=== PATIENT | male | born 1960 | race Hispanic/Latino ===

== ENCOUNTER 2016-11-07 11:50 | Observation (INO) | payer OTHER ==
[2016-11-07 12:29] VITALS: BMI 21.5
--- NOTE | 2016-11-07 12:34 | ED PDOC ---
Arrival/HPI - General Chief Complaint: Altered Mental Status Time Seen by Provider: 11/07/16 12:24 Historian: EMS - History of Present Illness Narrative History of Present Illness (Text): 11/07/16 12:34 Italo Llamas is a 56 year old male who presents to the emergency department via EMS for alcohol intoxication. Patient was found on his door steps intoxicated with a superficial abrasion on his head. Patient admits to drinking alcohol. ROS limited due to intoxication. Time/Duration: 1/2 hour Symptom Onset: Gradual Severity Level: Mild Activities at Onset: Significant Context: Slipped Past Medical History - Provider Review Nursing Documentation Reviewed: Yes - Past History Past History: No Previous - Infectious Disease Hx of Infectious Diseases: None - Tetanus Immunization Tetanus Immunization: Unknown - Cardiac Hx Hypertension: Yes (no meds) - Hematological/Oncological Hx Cancer: Yes (LYMPHOMA, lymphedema) Hx Lymphoma: Yes Other/Comment: left lymphedema - Psychiatric Hx Depression: No Hx Emotional Abuse: No Hx Physical Abuse: No Hx Substance Use: No - Surgical History Other/Comment: lyphectomy - Anesthesia Hx Anesthesia: Yes Hx Anesthesia Reactions: No Hx Malignant Hyperthermia: No - Suicidal Assessment Feels Threatened In Home Enviroment: No Family/Social History - Physician Review Nursing Documentation Reviewed: Yes Family/Social History: No Known Family HX Smoking Status: Never Smoked Hx Alcohol Use: Yes (hx in pt old chart) Hx Substance Use: No Hx Substance Use Treatment: No Allergies/Home Meds Allergies/Adverse Reactions: Allergies Unobtainable Allergy (Verified 11/07/16 12:29) Home Medications: Home Meds Medication Instructions Recorded Confirmed Unobtainable 11/07/16 11/07/16 Review of Systems - Review of Systems Systems not reviewed;Unavailable: Intoxicated Neurological: Other (abrasion on head ) Physical Exam Vital Signs Reviewed: Yes Vital Signs Temp Pulse Resp BP Pulse Ox 11/07/16 14:51 105 H 14 128/94 H 99 11/07/16 14:07 98.0 F 106 H 19 132/68 99 11/07/16 12:49 97.9 F 98 H 18 122/78 97 Temperature: Afebrile Blood Pressure: Normal Pulse: Regular Respiratory Rate: Normal Appearance: Positive for: Well-Appearing Pain Distress: None Mental Status: Positive for: other (Alert ) - Systems Exam Head: Present: Normocephalic, Abrasion (to superior head). No: Tenderness Pupils: Present: PERRL Conjunctiva: Present: Normal Ears: Present: Normal, NORMAL TM Mouth: Present: Moist Mucous Membranes Pharnyx: Present: Normal Nose (Internal): Present: Normal Inspection, Septal Hematoma Neck: Present: MIDLINE TENDERNESS Respiratory/Chest: Present: Clear to Auscultation, Good Air Exchange. No: Respiratory Distress, Accessory Muscle Use Cardiovascular: Present: Regular Rate and Rhythm, Normal S1, S2. No: Murmurs Abdomen: Present: Normal Bowel Sounds. No: Tenderness, Distention, Peritoneal Signs Upper Extremity: Present: Normal Inspection. No: Cyanosis, Edema Lower Extremity: Present: Normal Inspection. No: Edema Neurological: Present: GCS=15, CN II-XII Intact, Speech Normal, Motor Func Grossly Intact, Normal Sensory Function Skin: Present: Warm, Dry, Normal Color. No: Rashes Psychiatric: Present: Alert, Intoxicated Medical Decision Making ED Course and Treatment: 11/07/16 12:46 Impression: A 56 year old male who presents to the emergency department via EMS for intoxication. Plan: -- CT Head -- CT Spine -- Labs, lipase -- Reassess and disposition Progress Notes: 11/07/16 12:47 ED OBSERVATION Discharge: Yes Date of observation admission: 11/07/16 Time of observation admission: 13:01 - Observation admission statement Patient is being placed in observation because:: alcohol intoxication - Goals of Observation Goals of observation are:: Pending Labs, imaging, reevaluation and disposition - Progress Note Progress Note: 11/07/16 14:42 Patient resting comfortably in the emergency department with stable vitals. 11/07/16 15:55 Patient arousable to voice and is comfortable. Denies any pain. Mental status improved. Accession No. : [id number] Patient Name / ID : CHANELL HUMMEL / [id number] Exam Date : 11/07/2016 14:52:45 ( Approved ) Creator : Pablo Adams MD Report Date : 11/07/2016 15:43:31 My Comment : PROCEDURE: CT HEAD WITHOUT CONTRAST. IMPRESSION: No acute intracranial hemorrhage. Presumed posttraumatic right inferior frontal pole encephalomalacia and cyst right frontal region with overlying sulcal enlargement of both frontal lobes right greater than left. Questionable incidental overlying arachnoid cyst right inferior frontal region. Mild generalized volume loss. Accession No. : [id number] Patient Name / ID : CHANELL HUMMEL / [id number] Exam Date : 11/07/2016 14:56:14 ( Approved ) Creator : Pablo Adams MD Report Date : 11/07/2016 15:51:05 My Comment : PROCEDURE: CT Cervical Spine without contrast IMPRESSION: Mild multilevel degenerative spondylosis as described. No acute fractures. 11/07/16 16:17 On reevaluation, patient is alert awake and oriented x 3. No slurred speech. No ataxia. Neuro exam normal. No tremors. No SI/HI. 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 He said he was just out with friends and drank too much. He tripped and fell yesterday. No LOC. He denies any pain. He has his tetanus up to date. He he will f/u with his primary Dr. Long. 11/07/16 16:21 - Scribe Statement The provider has reviewed the documentation as recorded by the Carol Morales Provider Attestation: All medical record entries made by the Verniblaurence were at my direction and personally dictated by me. I have reviewed the chart and agree that the record accurately reflects my personal performance of the history, physical exam, medical decision making, and the department course for this patient. I have also personally directed, reviewed, and agree with the discharge instructions and disposition. Disposition/Present on Arrival - Present on Arrival Any Indicators Present on Arrival: No History of DVT/PE: No History of Uncontrolled Diabetes: No Urinary Catheter: No History of Decub. Ulcer: No History Surgical Site Infection Following: None - Disposition Have Diagnosis and Disposition been Completed?: Yes Diagnosis: Fall, Head injury, Alcohol intoxication Disposition: HOME/ ROUTINE Disposition Time: 16:20 Patient Plan: Discharge Patient Problems: Current Active Problems Problem Status Onset Alcohol intoxication Acute Fall Acute Head injury Acute Condition: IMPROVED
[2016-11-07 14:08] VITALS: TEMP 98
--- NOTE | 2016-11-07 15:45 | CT ---
PROCEDURE: CT HEAD WITHOUT CONTRAST. HISTORY: fall r/o ICH COMPARISON: CT brain 06/04/15. TECHNIQUE: Axial computed tomography images were obtained through the head/brain without intravenous contrast. Radiation dose: Total exam DLP = 774.23 mGy-cm. This CT exam was performed using one or more of the following dose reduction techniques: Automated exposure control, adjustment of the mA and/or kV according to patient size, and/or use of iterative reconstruction technique. FINDINGS: HEMORRHAGE: No acute parenchymal, subarachnoid or extra-axial hemorrhage. BRAIN: Re- demonstrated are partially cystic encephalomalacia changes and gliosis right inferior frontal pole with overlying enlargement sulcal enlargement. Minor sulcal enlargement left inferior frontal pole. Findings are most consistent with sequela of old trauma. Clinical correlation recommended. There may also be an incidental overlying arachnoid cyst as well. Mild generalized volume loss not withstanding the at aforementioned sulcal enlargement in the frontal regions. VENTRICLES: As above however no evidence of obstructive type hydrocephalus. CALVARIUM: There are no acute calvarial fractures. Old fracture deformity right lamina papyracea. . PARANASAL SINUSES: Visualized paranasal sinuses are well-developed and currently well-aerated. No fluid levels seen to suggest acute sinusitis. MASTOID AIR CELLS: Unremarkable as visualized. No inflammatory changes. OTHER FINDINGS: None. IMPRESSION: No acute intracranial hemorrhage. Presumed posttraumatic right inferior frontal pole encephalomalacia and cyst right frontal region with overlying sulcal enlargement of both frontal lobes right greater than left. Questionable incidental overlying arachnoid cyst right inferior frontal region. Mild generalized volume loss.
--- NOTE | 2016-11-07 15:52 | CT ---
PROCEDURE: CT Cervical Spine without contrast HISTORY: <fall r/o fx> COMPARISON: None available. TECHNIQUE: Axial computed tomography images were obtained of the cervical spine without the use of intravenous contrast. Coronal and sagittal reformatted images were created and reviewed. Radiation dose: Total exam DLP = 417.83 the MGy-cm. This CT exam was performed using one or more of the following dose reduction techniques: Automated exposure control, adjustment of the mA and/or kV according to patient size, and/or use of iterative reconstruction technique. FINDINGS: VERTEBRAE: No no acute compression fractures no retropulsed fragments. Vertebral bodies exhibit relatively normal stature. Very slight posterior subluxation of print C5 over C6 which is exacerbated in appearance by a prominent osteophyte arising from the posterior inferior corner of the C5 segment. Vertebral bodies and facets. . Minimal on posterior subluxation C4 over C5 also exacerbated by an osteophyte posterior inferior corner of C4 segment. The remaining vertebral bodies otherwise exhibit normal alignment. Facets normally aligned. DISCS/SPINAL CANAL/NEURAL FORAMINA: Multilevel degenerative spondylosis of the cervical spine. At the C2-C3 level, minor posterior disc space narrowing. Small central and bilateral disc bulge indents the ventral surface of the thecal sac though does not cause canal stenosis or cord compression. Exit foramina are adequate. At the C3-C4 level, there is also mild disc space narrowing more so along the posterior disc margin. Small broad-based slightly asymmetric disc bulge larger on the left than right, flattens the ventral surface of the thecal sac and minimally flattens ventral surface of the spinal cord. Central canal is minimally narrowed. . Mild degenerative squaring of the uncovertebral joints. Facets a prominent. Exit foramina are mildly narrowed. At the C4-C5 level, there is mild disc space narrowing with small broad-based disc bulge ridge complex contiguous with hypertrophic uncovertebral joints. Facets are hypertrophic as well. Changes result in mild flattening of the ventral surface of thecal sac and spinal cord. Go go central canal is slightly narrowed. Exit foramina appear narrowed as well. At the C5-C6 level, disc space narrowing with endplate eburnation and small osteophytic ridge disc bulge complex results in mild canal narrowing and cord compression. Uncovertebral facet arthropathy result in bilateral foraminal stenosis. At the C6-C7 level, disc space narrowing with small osteophytic ridge asymmetric disc bulge larger on the right than left with resultant mild flattening of the ventral surface of the thecal sac. The overall central canal appears adequate. Uncovertebral facet arthropathy result in bilateral foraminal stenosis. PARASPINAL SOFT TISSUES: Prevertebral and paraspinal soft tissues unremarkable. Keenan 6 and OTHER FINDINGS: None. IMPRESSION: Mild multilevel degenerative spondylosis as described. No acute fractures.
[2016-11-07 16:32] VITALS: BP 132/89; RESP 18; O2SAT 98
[2016-11-07 16:33] VITALS: PULSE 103
== END 2016-11-07 16:19 | disposition home or self-care (01) ==
LOC: ED 11:50 → EROBSV 12:33
PROVIDERS: ADMIT Emergency Medicine; ATTEND Emergency Medicine
DX: F10.129 Alcohol abuse with intoxication, unspecified (principal); S09.90XA Unspecified injury of head, initial encounter; W01.0XXA Fall on same level from slipping, tripping and stumbling without subsequent striking against object, initial encounter
CPT/HCPCS: 70450; 72125; 82948; 99285; G0378

== ENCOUNTER 2017-04-10 17:22 | Emergency (ER) | payer OTHER ==
[2017-04-10 17:27] VITALS: BMI 23.0
[2017-04-10 17:34] VITALS: RESP 18; TEMP 98.2
--- NOTE | 2017-04-10 17:41 | ED PDOC ---
Arrival/HPI - General Chief Complaint: Alcohol Ingestion Time Seen by Provider: 04/10/17 17:31 - History of Present Illness Narrative History of Present Illness (Text): 56M brought in by EMS after being found by police sleeping outside. the pt reports drinking etoh daily including today. he says [place] when he felt tired and lay down. he denies any trauma, any headache, neck pain, or any other complaints. Past Medical History - Past History Past History: No Previous - Infectious Disease Hx of Infectious Diseases: None - Tetanus Immunization Tetanus Immunization: Unknown - Cardiac Hx Hypertension: Yes (no meds) - Hematological/Oncological Hx Cancer: Yes (LYMPHOMA, lymphedema) Hx Lymphoma: Yes Other/Comment: left lymphedema - Musculoskeletal/Rheumatological Other/Comment: Left arm lymphedema - Psychiatric Hx Depression: No Hx Emotional Abuse: No Hx Physical Abuse: No Hx Substance Use: No - Surgical History Other/Comment: lyphectomy - Anesthesia Hx Anesthesia: Yes Hx Anesthesia Reactions: No Hx Malignant Hyperthermia: No - Suicidal Assessment Feels Threatened In Home Enviroment: No Family/Social History Family/Social History: Other (nc) Smoking Status: Never Smoked Hx Alcohol Use: Yes (hx in pt old chart) Frequency of alcohol use: Socially Hx Substance Use: No Hx Substance Use Treatment: No Allergies/Home Meds Allergies/Adverse Reactions: Allergies No Known Allergies Allergy (Verified 04/10/17 17:32) Home Medications: Home Meds Medication Instructions Recorded Confirmed No Known Home Med 04/10/17 04/10/17 Review of Systems - Review of Systems Constitutional: absent: Fevers Eyes: absent: Vision Changes Respiratory: absent: SOB Cardiovascular: absent: Chest Pain Gastrointestinal: absent: Abdominal Pain, Nausea, Vomiting Musculoskeletal: absent: Back Pain, Neck Pain Neurological: absent: Headache, Dizziness, Focal Weakness Psychiatric: absent: Depression, Suicidal Ideation Physical Exam Vital Signs Reviewed: Yes Vital Signs Temp Pulse Resp BP Pulse Ox 04/10/17 17:33 98.2 F 96 H 18 140/114 H 97 Appearance: Positive for: Well-Appearing, Non-Toxic, Comfortable Pain Distress: None Mental Status: Positive for: Alert and Oriented X 3 - Systems Exam Head: Present: Atraumatic. No: Tenderness, Contusion, Swelling, Ecchymosis, Abrasion, Laceration Pupils: Present: PERRL Extroacular Muscles: Present: EOMI Mouth: Present: Moist Mucous Membranes Nose (Internal): No: Epistaxis Neck: Present: Normal Range of Motion. No: MIDLINE TENDERNESS Respiratory/Chest: Present: Clear to Auscultation. No: Respiratory Distress, Accessory Muscle Use Cardiovascular: Present: Regular Rate and Rhythm Abdomen: No: Tenderness, Distention Neurological: Present: GCS=15, Motor Func Grossly Intact, Normal Sensory Function, Gait Normal Skin: Present: Warm, Dry Psychiatric: Present: Alert, Oriented x 3 Medical Decision Making ED Course and Treatment: 04/10/17 18:35 the pt is up and ambulatory with steady gait and requesting to leave. no indication to hold him involuntarily at this time. he lives a few blocks away and is comfortable walking home. Disposition/Present on Arrival - Present on Arrival Any Indicators Present on Arrival: No History of DVT/PE: No History of Uncontrolled Diabetes: No Urinary Catheter: No History of Decub. Ulcer: No History Surgical Site Infection Following: None - Disposition Have Diagnosis and Disposition been Completed?: Yes Diagnosis: Alcohol abuse Disposition: HOME/ ROUTINE Disposition Time: 18:37 Condition: STABLE Forms: [employer] (Danish)
[2017-04-10 18:45] VITALS: BP 130/77; PULSE 90; O2SAT 99
== END 2017-04-10 18:46 | disposition home or self-care (01) ==
LOC: ED 17:22
DX: F10.10 Alcohol abuse, uncomplicated (principal)

== ENCOUNTER 2017-05-06 12:32 | Emergency (ER) | payer OTHER ==
[2017-05-06 12:32] VITALS: BMI 23.0
[2017-05-06 13:04] VITALS: RESP 18
--- NOTE | 2017-05-06 13:40 | ED PDOC ---
Arrival/HPI - General Chief Complaint: Alcohol Ingestion Time Seen by Provider: 05/06/17 12:34 - History of Present Illness Narrative History of Present Illness (Text): 05/06/17 13:33 A 56 year old male presents to the emergency department via EMS for alcohol intoxication. The patient denies fevers, chills, headache, dizziness, chest pain , shortness of breath, dyspnea on exertion, cough, abdominal pain, nausea, vomiting, diarrhea, back pain, neck pain, urinary/bowel changes, or any other complaint. Time/Duration: Prior to Arrival Symptom Onset: Sudden Symptom Course: Unchanged Activities at Onset: Rest, Light Context: Home Past Medical History - Provider Review Nursing Documentation Reviewed: Yes - Past History Past History: No Previous - Infectious Disease Hx of Infectious Diseases: None - Tetanus Immunization Tetanus Immunization: Unknown - Cardiac Hx Hypertension: Yes (no meds) - Hematological/Oncological Hx Cancer: Yes (LYMPHOMA, lymphedema) Hx Lymphoma: Yes Other/Comment: left lymphedema - Musculoskeletal/Rheumatological Other/Comment: Left arm lymphedema - Psychiatric Hx Depression: No Hx Emotional Abuse: No Hx Physical Abuse: No Hx Substance Use: No - Surgical History Other/Comment: lyphectomy - Anesthesia Hx Anesthesia: Yes Hx Anesthesia Reactions: No Hx Malignant Hyperthermia: No - Suicidal Assessment Feels Threatened In Home Enviroment: No Family/Social History - Physician Review Nursing Documentation Reviewed: Yes Family/Social History: No Known Family HX Smoking Status: Never Smoked Hx Alcohol Use: Yes (hx in pt old chart) Hx Substance Use: No Hx Substance Use Treatment: No Allergies/Home Meds Allergies/Adverse Reactions: Allergies No Known Allergies Allergy (Verified 04/10/17 17:32) Home Medications: Home Meds Medication Instructions Recorded Confirmed No Known Home Med 04/10/17 05/06/17 Review of Systems - Physician Review All systems were reviewed & negative as marked: Yes - Review of Systems Constitutional: absent: Fevers, Night Sweats ENT: absent: Sore Throat Respiratory: absent: SOB, Cough Gastrointestinal: absent: Abdominal Pain, Stool Changes, Diarrhea, Nausea, Vomiting Genitourinary Male: absent: Urinary Output Changes Musculoskeletal: absent: Back Pain, Neck Pain Neurological: absent: Headache, Dizziness Physical Exam Vital Signs Reviewed: Yes Vital Signs Temp Pulse Resp BP Pulse Ox 05/06/17 15:33 98.2 F 78 18 132/78 97 05/06/17 12:59 97.9 F 92 H 18 144/110 H 95 Temperature: Afebrile Pulse: Tachycardic Respiratory Rate: Normal Appearance: Positive for: Well-Appearing, Non-Toxic, Comfortable Pain Distress: None Mental Status: Positive for: Alert and Oriented X 3 - Systems Exam Head: Present: Atraumatic, Normocephalic Pupils: Present: PERRL Extroacular Muscles: Present: EOMI Conjunctiva: Present: Normal Mouth: Present: Moist Mucous Membranes Neck: Present: Normal Range of Motion Respiratory/Chest: Present: Clear to Auscultation, Good Air Exchange. No: Respiratory Distress, Accessory Muscle Use Cardiovascular: Present: Regular Rate and Rhythm, Normal S1, S2. No: Murmurs Abdomen: Present: Normal Bowel Sounds. No: Tenderness, Distention, Peritoneal Signs Back: Present: Normal Inspection Upper Extremity: Present: Normal Inspection. No: Cyanosis, Edema Lower Extremity: Present: Normal Inspection. No: Edema Neurological: Present: GCS=15, CN II-XII Intact, Speech Normal Skin: Present: Warm, Dry, Normal Color. No: Rashes Psychiatric: Present: Alert, Oriented x 3, Normal Insight, Normal Concentration Medical Decision Making ED Course and Treatment: 05/06/17 13:41 Impression: A 56 year old male presents to the emergency department for ETOH intoxication. Plan: -- Reassess and disposition Prior Visits: Notes and results from previous visits were reviewed. Patient was last seen in the emergency department on 04/10/2017. The patient was brought into the emergency department for ETOH intoxiation. The patient was discharged home. Progress Notes: 05/06/17 17:42 pt awake alert in nad. ambualtory steady gait. stable for dc. - Lab Interpretations Lab Results: Lab Results 05/06/17 14:19: POC Glucose (mg/dL) 98 - Scribe Statement The provider has reviewed the documentation as recorded by the Carol Boudreaux Provider Scribe Attestation: All medical record entries made by the Scribe were at my direction and personally dictated by me. I have reviewed the chart and agree that the record accurately reflects my personal performance of the history, physical exam, medical decision making, and the department course for this patient. I have also personally directed, reviewed, and agree with the discharge instructions and disposition. Disposition/Present on Arrival - Present on Arrival Any Indicators Present on Arrival: No History of DVT/PE: No History of Uncontrolled Diabetes: No Urinary Catheter: No History of Decub. Ulcer: No History Surgical Site Infection Following: None - Disposition Have Diagnosis and Disposition been Completed?: Yes Diagnosis: Alcohol intoxication Disposition: HOME/ ROUTINE Disposition Time: 06:00 Condition: STABLE Discharge Instructions (ExitCare): Alcohol Intoxication (DC) Referrals: Alcoholics Anonymous [Outside] - Follow up with primary Parviz Long MD [Primary Care Provider] - Follow up with primary Forms: [employer] (Egyptian)
[2017-05-06 15:34] VITALS: BP 132/78; PULSE 78; TEMP 98.2; O2SAT 97
== END 2017-05-06 15:00 | disposition home or self-care (01) ==
LOC: ED 12:32
DX: F10.129 Alcohol abuse with intoxication, unspecified (principal); I10 Essential (primary) hypertension

== ENCOUNTER 2017-10-01 03:13 | Emergency (ER) | payer OTHER ==
[2017-10-01 03:19] VITALS: BMI 21.6
--- NOTE | 2017-10-01 04:01 | ED PDOC ---
Arrival/HPI - General Chief Complaint: Alcohol Ingestion Time Seen by Provider: 10/01/17 03:40 Historian: Patient - History of Present Illness Narrative History of Present Illness (Text): 10/01/17 04:01 57 year old male presents to the emergency department via ambulance for public intoxication. Patient was found outdoors and grossly inebriated. Patient admits to drinking alcohol, but denies any drug use. HPI and ROS limited due to patient 's state of intoxication. Symptom Onset: Gradual Symptom Course: Unchanged Activities at Onset: Light Context: Other (outside) Past Medical History - Provider Review Nursing Documentation Reviewed: Yes - Past History Past History: No Previous - Infectious Disease Hx of Infectious Diseases: None - Tetanus Immunization Tetanus Immunization: Unknown - Cardiac Hx Hypertension: Yes (no meds) - Hematological/Oncological Hx Cancer: Yes (LYMPHOMA, lymphedema) Hx Lymphoma: Yes Other/Comment: left lymphedema - Musculoskeletal/Rheumatological Other/Comment: Left arm lymphedema - Psychiatric Hx Depression: No Hx Emotional Abuse: No Hx Physical Abuse: No Hx Substance Use: No - Surgical History Other/Comment: lyphectomy - Anesthesia Hx Anesthesia: Yes Hx Anesthesia Reactions: No Hx Malignant Hyperthermia: No - Suicidal Assessment Feels Threatened In Home Enviroment: No Family/Social History - Physician Review Nursing Documentation Reviewed: Yes Family/Social History: No Known Family HX Smoking Status: Never Smoked Hx Alcohol Use: Yes (hx in pt old chart) Hx Substance Use: No Hx Substance Use Treatment: No Allergies/Home Meds Allergies/Adverse Reactions: Allergies No Known Allergies Allergy (Verified 04/10/17 17:32) Home Medications: Home Meds Medication Instructions Recorded Confirmed No Known Home Med 04/10/17 10/01/17 Review of Systems - Physician Review All systems were reviewed & negative as marked: Yes - Review of Systems Systems not reviewed;Unavailable: Intoxicated Physical Exam Vital Signs Reviewed: Yes Vital Signs Temp Pulse Resp BP Pulse Ox 10/01/17 03:22 97.7 F 87 17 154/107 H 99 Temperature: Afebrile Blood Pressure: Hypertensive Pulse: Regular Respiratory Rate: Normal Appearance: Positive for: Well-Appearing, Non-Toxic, Comfortable Pain Distress: None Mental Status: Positive for: other (awake and inebriated) - Systems Exam Head: Present: Atraumatic, Normocephalic Pupils: Present: PERRL Extroacular Muscles: Present: EOMI Conjunctiva: Present: Normal Mouth: Present: Moist Mucous Membranes Neck: Present: Normal Range of Motion Respiratory/Chest: Present: Clear to Auscultation, Good Air Exchange. No: Respiratory Distress, Accessory Muscle Use Cardiovascular: Present: Regular Rate and Rhythm, Normal S1, S2. No: Murmurs Abdomen: Present: Normal Bowel Sounds. No: Tenderness, Distention, Peritoneal Signs Back: Present: Normal Inspection Upper Extremity: Present: Normal Inspection, Normal ROM. No: Cyanosis, Edema Lower Extremity: Present: Normal Inspection, Normal ROM. No: Edema Neurological: Present: GCS=15, CN II-XII Intact, Speech Normal Skin: Present: Warm, Dry, Normal Color. No: Rashes Psychiatric: Present: Alert, Oriented x 3, Normal Insight, Intoxicated Medical Decision Making ED Course and Treatment: 10/01/17 04:06 Impression: 57 year old male presents for public intoxication. Plan: -- Reassess and disposition Prior Visits: Notes and results from previous visits were reviewed. Patient was last seen in the emergency department on 05/06/17 13:33 presents for alcohol intoxication. Patient was discharged. Progress Notes: 10/01/17 07:00 Case endorsed to ,pending sobriety/reassess/final disposition - Scribe Statement The provider has reviewed the documentation as recorded by the Carol Millan Provider Scribe Attestation: All medical record entries made by the Scribe were at my direction and personally dictated by me. I have reviewed the chart and agree that the record accurately reflects my personal performance of the history, physical exam, medical decision making, and the department course for this patient. I have also personally directed, reviewed, and agree with the discharge instructions and disposition. Disposition/Present on Arrival - Present on Arrival Any Indicators Present on Arrival: No History of DVT/PE: No History of Uncontrolled Diabetes: No Urinary Catheter: No History of Decub. Ulcer: No History Surgical Site Infection Following: None - Disposition Have Diagnosis and Disposition been Completed?: No Diagnosis: Alcohol intoxication Disposition Time: 07:00 Condition: STABLE Forms: [employer] (Maltese)
[2017-10-01 08:37] VITALS: BP 148/85; PULSE 86; RESP 18; TEMP 97.5; O2SAT 96
--- NOTE | 2017-10-01 09:55 | ED PDOC ---
Physical Exam Vital Signs Temp Pulse Resp BP Pulse Ox 10/01/17 07:15 97.5 F L 86 18 148/85 96 10/01/17 03:22 97.7 F 87 17 154/107 H 99 Medical Decision Making ED Course and Treatment: 10/01/17 09:54 Pt signed off to me by Dr. Reveles. Pt awaiting sobriety in the emergency department. Pt refused to sign discharged papers and walked out the emergency department with no difficulty. - Scribe Statement The provider has reviewed the documentation as recorded by the Scriblaurence Alarcon All medical record entries made by the Scribe were at my direction and personally dictated by me. I have reviewed the chart and agree that the record accurately reflects my personal performance of the history, physical exam, medical decision making, and the department course for this patient. I have also personally directed, reviewed, and agree with the discharge instructions and disposition. Disposition/Present on Arrival - Present on Arrival Any Indicators Present on Arrival: No History of DVT/PE: No History of Uncontrolled Diabetes: No Urinary Catheter: No History of Decub. Ulcer: No History Surgical Site Infection Following: None - Disposition Have Diagnosis and Disposition been Completed?: Yes Diagnosis: Alcohol intoxication Disposition: HOME/ ROUTINE Disposition Time: 09:00 Condition: IMPROVED Referrals: Alvaro Curiel, [Primary Care Provider] - Follow up with primary Forms: [employer] ([place])
== END 2017-10-01 08:39 | disposition home or self-care (01) ==
LOC: ED 03:13
DX: F10.129 Alcohol abuse with intoxication, unspecified (principal); Y90.9 Presence of alcohol in blood, level not specified

== ENCOUNTER 2018-07-21 08:47 | Outpatient (CLI) | payer SELFPAY | END 2018-07-21 08:48 | disposition home or self-care (01) | LOC: RAD 08:47 ==

== ENCOUNTER 2018-10-23 11:09 | Inpatient (IN) | payer OTHER ==
[2018-10-23 11:12] VITALS: BMI 19.8
--- NOTE | 2018-10-23 11:22 | ED PDOC ---
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 Per EMS, family reported last known well time was >2 days ago. Patient making non-sensical speech and further history difficult. Time/Duration: < week Symptom Onset: Gradual Symptom Course: Unchanged Activities at Onset: Light Context: Home Past Medical History - Provider Review Nursing Documentation Reviewed: Yes - Past History Past History: No Previous - Infectious Disease Hx of Infectious Diseases: None - Tetanus Immunization Tetanus Immunization: Unknown - Cardiac Hx Hypertension: Yes (no meds) - Hematological/Oncological Hx Cancer: Yes (LYMPHOMA, lymphedema) Hx Lymphoma: Yes Other/Comment: left lymphedema - Musculoskeletal/Rheumatological Other/Comment: Left arm lymphedema - Psychiatric Hx Depression: No Hx Emotional Abuse: No Hx Physical Abuse: No Hx Substance Use: No - Surgical History Other/Comment: lyphectomy - Anesthesia Hx Anesthesia: Yes Hx Anesthesia Reactions: No Hx Malignant Hyperthermia: No - Suicidal Assessment Feels Threatened In Home Enviroment: No Family/Social History - Physician Review Nursing Documentation Reviewed: Yes Family/Social History: Unknown Family HX Smoking Status: Never Smoked Hx Alcohol Use: Yes (hx in pt old chart) Hx Substance Use: No Hx Substance Use Treatment: No Allergies/Home Meds Allergies/Adverse Reactions: Allergies No Known Allergies Allergy (Verified 10/23/18 11:36) Home Medications: Home Meds Medication Instructions Recorded Confirmed No Known Home Med 04/10/17 10/23/18 Review of Systems - Review of Systems Systems not reviewed;Unavailable: Altered Mental Status Physical Exam Vital Signs Reviewed: Yes Temperature: Afebrile Blood Pressure: Normal Pulse: Regular Respiratory Rate: Normal Appearance: Positive for: Well-Appearing, Non-Toxic, Comfortable Pain Distress: Mild Mental Status: No: Alert and Oriented X 3 (Alert, nonsensical speech) - Systems Exam Head: Present: Atraumatic, Normocephalic, Other (dried blood on forehead) Pupils: Present: PERRL Extroacular Muscles: Present: EOMI Conjunctiva: Present: Normal Mouth: Present: Moist Mucous Membranes Neck: Present: Normal Range of Motion. No: Meningeal Signs, MIDLINE TENDERNESS Respiratory/Chest: Present: Clear to Auscultation, Good Air Exchange. No: Respiratory Distress, Accessory Muscle Use Cardiovascular: Present: Regular Rate and Rhythm, Normal S1, S2 Abdomen: No: Tenderness, Distention Upper Extremity: Present: NORMAL PULSES, Swelling (left arm), Neurovascularly Intact, Capillary Refill < 2s Lower Extremity: Present: Normal Inspection, NORMAL PULSES, Normal ROM, Capillary Refill < 2 s, Other (spontaneous movement extremities x 4). No: CALF TENDERNESS Neurological: Present: Motor Func Grossly Intact. No: Speech Normal (nonsensical speech) Skin: Present: Warm Psychiatric: Present: Alert, Agitated Medical Decision Making ED Course and Treatment: 10/23/18 11:35 Impression: 58 year old presents via EMS complaining of agitation and slurred speech x2days. Expressive and receptive aphasia. Plan: -- Labs -- Ct head w/o contrast -- EKG -- Chest X-ray -- UA -- Reassess and disposition Prior Visits: Notes and results from previous visits were reviewed. Patient was last seen in the emergency department on Progress Notes: 10/23/18 12:27 IMPRESSION: There is an acute left temporal lobe hemorrhage measuring 38 x 65 x 30 mm in size. There is a small amount of surrounding edema. There is no intraventricular extension. There is no herniation. 10/23/18 12:43 Chest X Ray: No active disease 10/23/18 12:51 EKG shows NSR at 80bpm with LAD. No acute ST changes. Trop mildly elevated. Will not anticoagulate due to lack of chest pain and positive intracranial hemorrhage. 10/23/18 13:[address] Long who reports that he will be on consult with hospitalist to admit. Concerned for metastasis due to location of bleed. Spoke to Dr. Wise who reports patient is not surgical candidate but needs ICU, repeat ct head in am and consider 3% saline. Spoke to Dr. Man who recommends keppra load and then keppra q12 hours and MRI with contrast. Accepted by ICU under hospitalist. 10/23/18 14:53 NIHSS Scale ([place]) Time Performed: 12:27 - How Severe is the [place] tPA Level of Consciousness: 0=Alert LOC to Questions: 2=Neither correct LOC to commands: 2=Neither correct Best Gaze: 0=Normal Visual: 0=No visual loss Facial: 1=Minor asymmetry Motor Arm - Left: 0=No drift Motor Arm - Right: 0=No drift Motor Leg - Left: 0=No drift Motor Leg - Right: 0=No drift Limb Ataxia: 0=Absent Sensory: 0=Normal Best Language: 2=Severe aphasia Dysarthia: 1=Mild to moderate slurring Extinction & Inattention (Neglect): 0=Normal, no object Score: 8 Risk Level: Mod Stroke Risk - Scribe Statement The provider has reviewed the documentation as recorded by the Carol Wagoner All medical record entries made by the Verniblaurence were at my direction and personally dictated by me. I have reviewed the chart and agree that the record accurately reflects my personal performance of the history, physical exam, medical decision making, and the department course for this patient. I have also personally directed, reviewed, and agree with the discharge instructions and disposition. Disposition/Present on Arrival - Present on Arrival Any Indicators Present on Arrival: No History of DVT/PE: No History of Uncontrolled Diabetes: No Urinary Catheter: No History Surgical Site Infection Following: None - Disposition Have Diagnosis and Disposition been Completed?: Yes Diagnosis: Intracranial hemorrhage Disposition: HOSPITALIZED Disposition Time: 13:31 Patient Plan: ICU Patient Problems: Current Active Problems Problem Status Onset Intracranial hemorrhage Acute Condition: CRITICAL
[2018-10-23] MEDS ORDERED: Sodium Chloride 0.9% 1,000 ML IV SCH (11:30)
[2018-10-23 11:58] LABS: BASO # 0.01 K/mm3 (0.0-2.0); BASO % 0.1 % (0.0-3.0); EOS % 0.1 % (1.5-5.0); HEMOGLOBIN 12.9 g/dL (14.0-18.0); LYMPH # 1.1 (1.2-3.4); LYMPH % 12.1 % (22.0-35.0); MEAN CELL VOLUME 100.5 fl (80.0-105.0); MEAN CORPUSCULAR HGB CONC 33.9 g/dl (31.0-37.0); MEAN PLATELET VOLUME 10.9 fl (7.0-11.0); MONO # 1.1 (0.1-0.6); MONO % 12.9 % (1.0-6.0); RBC 3.79 10^6/uL (3.5-6.1); RED CELL DISTRIBUTION WIDTH 12.7 % (11.5-14.5); WHITE BLOOD COUNT 8.9 10^3/uL (4.5-11.0)
[2018-10-23 12:08] LABS: ALB/GLOB RATIO 1.1 (1.1-1.8); ALBUMIN 4.3 g/dL (3.0-4.8); ALT/SGPT 37 U/L (7-56); AST/SGOT 67 U/L (17-59); BLOOD UREA NITROGEN 9 mg/dL (7-21); CALCIUM 9.1 mg/dL (8.4-10.5); GFR NON-AFRICAN AMERICAN > 60; HDL CHOLESTEROL 48 mg/dL (29-60); INR 1.41; PARTIAL THROMBOPLASTIN TIME 31.4 Seconds (26.9-38.3); PROTHROMBIN TIME 15.9 SECONDS (9.4-12.5)
[2018-10-23] MEDS ORDERED: Potassium Chloride 20 mEq ER Tab PO STA (12:13)
[2018-10-23 12:20] LABS: LDL CHOLESTEROL 92 mg/dL (0-129)
--- NOTE | 2018-10-23 12:28 | CT ---
Date of service: 10/23/2018 PROCEDURE: CT HEAD WITHOUT CONTRAST. HISTORY: AMS COMPARISON: None available. TECHNIQUE: Axial computed tomography images were obtained through the head/brain without intravenous contrast. Radiation dose: Total exam DLP = 1003.96 mGy-cm. This CT exam was performed using one or more of the following dose reduction techniques: Automated exposure control, adjustment of the mA and/or kV according to patient size, and/or use of iterative reconstruction technique. FINDINGS: HEMORRHAGE: There is an acute left temporal lobe hemorrhage measuring 38 x 65 x 30 mm in size. There is a small amount of surrounding edema. There is no intraventricular extension. There is no herniation. Findings were discussed with Dr. Man at 12:20 p.m. BRAIN: As above VENTRICLES: Unremarkable. No hydrocephalus. CALVARIUM: Unremarkable. PARANASAL SINUSES: Unremarkable as visualized. No significant inflammatory changes. MASTOID AIR CELLS: Unremarkable as visualized. No inflammatory changes. OTHER FINDINGS: None. IMPRESSION: There is an acute left temporal lobe hemorrhage measuring 38 x 65 x 30 mm in size. There is a small amount of surrounding edema. There is no intraventricular extension. There is no herniation.
[2018-10-23 12:36] LABS: TROPONIN I 0.36 ng/mL
--- NOTE | 2018-10-23 12:38 | RAD ---
Date of service: 10/23/2018 HISTORY: Code Stroke COMPARISON: 08/17/2014 TECHNIQUE: 1 view obtained. FINDINGS: LUNGS: No active pulmonary disease. PLEURA: No significant pleural effusion identified, no pneumothorax apparent. CARDIOVASCULAR: No aortic atherosclerotic calcification present. Normal cardiac size. No pulmonary vascular congestion. OSSEOUS STRUCTURES: No significant abnormalities. VISUALIZED UPPER ABDOMEN: Normal. OTHER FINDINGS: None. IMPRESSION: No active disease.
[2018-10-23] MEDS ORDERED: levETIRAcetam 1000mg/100ml NS 100 ML IVPB ONE (13:22)
--- NOTE | 2018-10-23 13:51 | CP.PCM.CON ---
<Gurpreet Anderson - Last Filed: 10/23/18 14:16> History of Present Illness - History of Present Illness History of Present Illness: Gurpreet Anderson, PGY1 ICU Consult Note for Dr. Fuller Patient is a 58 year old M with PMHx of Neuroendocrine tumor with L arm lymphedema, and ETOH abuse who [place] [facility] [place] for agitation and slurred speech x2days. Patient is a poor historian. History was obtained from prior records and as per ER documentation. Patient is alert and awake. He follows commands. He displays signs of expressive aphasia; i.e. "word salad." Patient does not recall what has brought him into the hospital. Overall, he is a poor historian given the acuity of the situation. Patient's prior records show that he has multiple visits for EtOH intoxication/withdrawal. ROS unable to be obtained given patient's mental status and the acuity of his condition. Review of Systems - Review of Systems Systems not reviewed;Unavailable: Acuity of Condition, Altered Mental Status Past Patient History - Infectious Disease Hx of Infectious Diseases: None - Tetanus Immunizations Tetanus Immunization: Unknown - Past Social History Smoking Status: Never Smoked - CARDIAC Hx Hypertension: Yes (no meds) - HEMATOLOGICAL/ONCOLOGICAL Hx Cancer: Yes (LYMPHOMA, lymphedema) Other/Comment: left lymphedema - MUSCULOSKELETAL/RHEUMATOLOGICAL Other/Comment: Left arm lymphedema - PSYCHIATRIC Hx Depression: No Hx Emotional Abuse: No Hx Physical Abuse: No Hx Substance Use: No - SURGICAL HISTORY Other/Comment: lyphectomy - ANESTHESIA Hx Anesthesia: Yes Hx Anesthesia Reactions: No Hx Malignant Hyperthermia: No Meds Allergies/Adverse Reactions: Allergies Allergy/AdvReac Type Severity Reaction Status Date / Time No Known Allergies Allergy Verified 10/23/18 11:36 - Medications Medications: Current Medications Sodium Chloride (Sodium Chloride 0.9%) 1,000 mls @ 100 mls/hr IV .Q10H GRAEME Last Admin: 10/23/18 12:01 Dose: 100 mls/hr Potassium Chloride (Potassium Chloride 20 Meq/100 Ml) 20 meq in 100 mls @ 50 ml s/hr IVPB Q2H GRAEME Stop: 10/23/18 16:44 Last Admin: 10/23/18 12:48 Dose: 50 mls/hr Nicardipine HCl (Cardene Iv Premix) 20 mg in 200 mls @ 50 mls/hr IV .Q4H PRN; Protocol PRN Reason: TITRATE PER MD ORDER Levetiracetam 750 mg/ Sodium (Chloride) 107.5 mls @ 215 mls/hr IVPB Q12 GRAEME Physical Exam - Constitutional Appears: Confused - Head Exam Head Exam: ATRAUMATIC, NORMAL INSPECTION, NORMOCEPHALIC - Eye Exam Eye Exam: EOMI, Normal appearance Pupil Exam: absent: Miosis, Mydriatic - ENT Exam ENT Exam: Mucous Membranes Moist - Neck Exam Additional comments: No carotid bruit. - Respiratory Exam Respiratory Exam: Clear to Auscultation Bilateral. absent: Rales, Rhonchi, Wheezes - Cardiovascular Exam Cardiovascular Exam: RRR, +S1, +S2 - GI/Abdominal Exam GI & Abdominal Exam: Normal Bowel Sounds, Soft. absent: Bruit, Firm, Guarding, Rigid, Tenderness - Extremities Exam Extremities exam: Positive for: normal capillary refill, pedal pulses present. Negative for: calf tenderness, joint swelling, pedal edema Additional comments: Patient is moving all upper and lower extremities. All distal pulses are A+2 throughout. - Back Exam Back exam: NORMAL INSPECTION - Neurological Exam Neurological exam: Alert, CN II-XII Intact (Full neuro exam limited given mental status. ) - Skin Skin Exam: Dry, Intact, Normal Color, Warm Results - Vital Signs Recent Vital Signs: Last Vital Signs Temp 99.6 F 10/23/18 11:31 Pulse 75 10/23/18 13:08 Resp 18 10/23/18 13:08 BP 133/83 10/23/18 13:08 Pulse Ox 100 10/23/18 13:08 - Labs Result Diagrams: 10/23/18 11:42 10/23/18 11:42 Labs: Laboratory Results - last 24 hr 10/23/18 10/23/18 10/23/18 11:18 11:42 11:42 WBC 8.9 RBC 3.79 Hgb 12.9 L Hct 38.1 L MCV 100.5 MCH 34.0 MCHC 33.9 RDW 12.7 Plt Count 253 MPV 10.9 Neut % (Auto) 74.8 H Lymph % (Auto) 12.1 L Andrew % (Auto) 12.9 H Eos % (Auto) 0.1 L Baso % (Auto) 0.1 Lymph # (Auto) 1.1 L Andrew # (Auto) 1.1 H Eos # (Auto) 0.0 Baso # (Auto) 0.01 Absolute Neuts (auto) 6.62 H PT 15.9 H INR 1.41 APTT 31.4 Sodium Potassium Chloride Carbon Dioxide Anion Gap BUN Creatinine Est GFR ( Amer) Est GFR (Non-Af Amer) POC Glucose (mg/dL) 87 Random Glucose Calcium Total Bilirubin AST ALT Alkaline Phosphatase Ammonia Troponin I Total Protein Albumin Globulin Albumin/Globulin Ratio Triglycerides Cholesterol LDL Cholesterol Direct HDL Cholesterol Alcohol, Quantitative Blood Type Blood Type Confirm Antibody Screen BBK History Checked 10/23/18 10/23/18 10/23/18 11:42 11:42 11:42 WBC RBC Hgb Hct MCV MCH MCHC RDW Plt Count MPV Neut % (Auto) Lymph % (Auto) Andrew % (Auto) Eos % (Auto) Baso % (Auto) Lymph # (Auto) Andrew # (Auto) Eos # (Auto) Baso # (Auto) Absolute Neuts (auto) PT INR APTT Sodium 136 Potassium 3.0 L Chloride 98 Carbon Dioxide 21 Anion Gap 20 BUN 9 Creatinine 0.5 L Est GFR ( Amer) > 60 Est GFR (Non-Af Amer) > 60 POC Glucose (mg/dL) Random Glucose 80 Calcium 9.1 Total Bilirubin 3.4 H AST 67 H ALT 37 Alkaline Phosphatase 68 Ammonia 20 Troponin I 0.36 H* Total Protein 8.3 Albumin 4.3 Globulin 4.0 Albumin/Globulin Ratio 1.1 Triglycerides 74 Cholesterol 160 LDL Cholesterol Direct 92 HDL Cholesterol 48 Alcohol, Quantitative Blood Type O POSITIVE Blood Type Confirm Antibody Screen Negative BBK History Checked No verified bt 10/23/18 10/23/18 11:42 12:14 WBC RBC Hgb Hct MCV MCH MCHC RDW Plt Count MPV Neut % (Auto) Lymph % (Auto) Andrew % (Auto) Eos % (Auto) Baso % (Auto) Lymph # (Auto) Andrew # (Auto) Eos # (Auto) Baso # (Auto) Absolute Neuts (auto) PT INR APTT Sodium Potassium Chloride Carbon Dioxide Anion Gap BUN Creatinine Est GFR ( Amer) Est GFR (Non-Af Amer) POC Glucose (mg/dL) Random Glucose Calcium Total Bilirubin AST ALT Alkaline Phosphatase Ammonia Troponin I Total Protein Albumin Globulin Albumin/Globulin Ratio Triglycerides Cholesterol LDL Cholesterol Direct HDL Cholesterol Alcohol, Quantitative < 10 Blood Type Blood Type Confirm O POSITIVE Antibody Screen BBK History Checked Assessment & Plan - Assessment and Plan (Free Text) Assessment: Patient is a 58 year old M with PMHx of Neuroendocrine tumor with L arm lymphedema, and ETOH abuse who presents [place] [facility] [place] for agitation and slurred speech x2days. Patient admitted to the ICU for hemorrhagic stroke. Plan: Left Intracranial Hemorrhage - frequent neurochecks - Maintain SBP < 140 via cardene drip - Repeat Head CT in morning to evaluate for expansion of bleed - Keppra IVPB q12 - MRI Brain - consider mannitol as per neuro recs - CT Head: left ICH at the temporal area: [id number] mm in size; no evidence of midline shift. - PT/OT/SS - NPO - IVF NS @ 100 cc/hr - Neurology on consult - Neurosurgery on consult Hypokalema - K 3.0 in ED - monitor K - replete as needed Elevated Troponins likely 2/2 Stroke - initial trop 0.36; trend serial trops - EKG: NSR with no acute ST or T wave changes. Neuroendocrine Tumor - Heme/onc on consult (Dr. Branch) - no active issues at this time EtOH Abuse - CIWA protcol - EtOH negative - UDS - will hold off on sedation right now with ativan given Head CT findings of hemorrhagic stroke DVT ppx: scd Diet: NPO Dispo: Will monitor patient in the ICU. Follow up recs from Neurology and Neurosurgery. Case was discussed and reviewed with Attending Physician, Dr. Fuller. <Igor Fuller - Last Filed: 10/23/18 16:03> Meds - Medications Medications: Current Medications Dexamethasone (Decadron Inj) 10 mg IVP Q8 GRAEME Last Admin: 10/23/18 15:20 Dose: 10 mg Potassium Chloride (Potassium Chloride 20 Meq/100 Ml) 20 meq in 100 mls @ 50 mls/hr IVPB Q2H GRAEME Stop: 10/23/18 16:44 Last Admin: 10/23/18 12:48 Dose: 50 mls/hr Nicardipine HCl (Cardene Iv Premix) 20 mg in 200 mls @ 50 mls/hr IV .Q4H PRN; Protocol PRN Reason: TITRATE PER MD ORDER Levetiracetam (Keppra 500mg Ivpb) 500 mg in 100 mls @ 400 mls/hr IVPB Q12 GRAEME Sodium Chloride (Hypertonic Saline 3%) 500 mls @ 30 mls/hr IV .[id number] GRAEME Sodium Chloride (Hypertonic Saline 3%) 200 ml IV BOLUS GRAEME Results - Vital Signs Recent Vital Signs: Last Vital Signs Temp 99.6 F 10/23/18 11:31 Pulse 75 10/23/18 14:30 Resp 16 10/23/18 14:30 BP 146/85 10/23/18 14:22 Pulse Ox 99 10/23/18 14:30 - Labs Result Diagrams: 10/23/18 11:42 10/23/18 11:42 Labs: Laboratory Results - last 24 hr 10/23/18 10/23/18 10/23/18 11:18 11:42 11:42 WBC 8.9 RBC 3.79 Hgb 12.9 L Hct 38.1 L MCV 100.5 MCH 34.0 MCHC 33.9 RDW 12.7 Plt Count 253 MPV 10.9 Neut % (Auto) 74.8 H Lymph % (Auto) 12.1 L Andrew % (Auto) 12.9 H Eos % (Auto) 0.1 L Baso % (Auto) 0.1 Lymph # (Auto) 1.1 L Andrew # (Auto) 1.1 H Eos # (Auto) 0.0 Baso # (Auto) 0.01 Absolute Neuts (auto) 6.62 H PT 15.9 H INR 1.41 APTT 31.4 Sodium Potassium Chloride Carbon Dioxide Anion Gap BUN Creatinine Est GFR ( Amer) Est GFR (Non-Af Amer) POC Glucose (mg/dL) 87 Random Glucose Calcium Total Bilirubin AST ALT Alkaline Phosphatase Ammonia Troponin I Total Protein Albumin Globulin Albumin/Globulin Ratio Triglycerides Cholesterol LDL Cholesterol Direct HDL Cholesterol Alcohol, Quantitative Blood Type Blood Type Confirm Antibody Screen BBK History Checked 10/23/18 10/23/18 10/23/18 11:42 11:42 11:42 WBC RBC Hgb Hct MCV MCH MCHC RDW Plt Count MPV Neut % (Auto) Lymph % (Auto) Andrew % (Auto) Eos % (Auto) Baso % (Auto) Lymph # (Auto) Andrew # (Auto) Eos # (Auto) Baso # (Auto) Absolute Neuts (auto) PT INR APTT Sodium 136 Potassium 3.0 L Chloride 98 Carbon Dioxide 21 Anion Gap 20 BUN 9 Creatinine 0.5 L Est GFR ( Amer) > 60 Est GFR (Non-Af Amer) > 60 POC Glucose (mg/dL) Random Glucose 80 Calcium 9.1 Total Bilirubin 3.4 H AST 67 H ALT 37 Alkaline Phosphatase 68 Ammonia 20 Troponin I 0.36 H* Total Protein 8.3 Albumin 4.3 Globulin 4.0 Albumin/Globulin Ratio 1.1 Triglycerides 74 Cholesterol 160 LDL Cholesterol Direct 92 HDL Cholesterol 48 Alcohol, Quantitative Blood Type O POSITIVE Blood Type Confirm Antibody Screen Negative BBK History Checked No verified bt 10/23/18 10/23/18 11:42 12:14 WBC RBC Hgb Hct MCV MCH MCHC RDW Plt Count MPV Neut % (Auto) Lymph % (Auto) Andrew % (Auto) Eos % (Auto) Baso % (Auto) Lymph # (Auto) Andrew # (Auto) Eos # (Auto) Baso # (Auto) Absolute Neuts (auto) PT INR APTT Sodium Potassium Chloride Carbon Dioxide Anion Gap BUN Creatinine Est GFR ( Amer) Est GFR (Non-Af Amer) POC Glucose (mg/dL) Random Glucose Calcium Total Bilirubin AST ALT Alkaline Phosphatase Ammonia Troponin I Total Protein Albumin Globulin Albumin/Globulin Ratio Triglycerides Cholesterol LDL Cholesterol Direct HDL Cholesterol Alcohol, Quantitative < 10 Blood Type Blood Type Confirm O POSITIVE Antibody Screen BBK History Checked Assessment & Plan - Assessment and Plan (Free Text) Plan: I saw and examined the patients on rounds with the resident, agree with the residents consult note with following additions/exceptions: Patient is 58yo male with PMHx neuroendocrine tumor, EtOH abuse, presented with slurred speech found to the L temporal ICH. Currently afebrile, HD stable, comfortable in NAD, confused, has expressive aphasia Neurosurgery consulted, no acute intervention Neurology consulted Will start 3%, and Decadron, goal Na 145-150 ICH Hx EtOH abuse Hx Neuroendocrine tumor Recommend: - supp o2 as needed, duonebs PRN - NO ID issues - BP control, goal SBP <140 - NPO - Keppra IV for ppx - MRI brain - 3% saline, goal Na 145-150 - Decadron IV - repeat CTH in AM - [facility] protocol - GI ppx - DVT ppx, SCDs - Monitor in MICU
--- NOTE | 2018-10-23 13:52 | CP.PCM.PN ---
Subjective - Date & Time of Evaluation Date of Evaluation: 10/23/18 Time of Evaluation: 13:50 - Subjective Subjective: 58 y o male last seen in usual state 2 days ago has increased agitation and expressive aphasia he is awake alert CT shows large left ICH temporal area with minimal mass effect At this time no indication for evacuation, however needs ICU obs and medical management ot ICP Suggest 3% saline or Mannitol as per neurology Will follow Objective - Vital Signs/Intake and Output Vital Signs (last 24 hours): Temp Pulse Resp BP Pulse Ox 99.6 F 75 18 133/83 100 10/23/18 11:31 10/23/18 13:08 10/23/18 13:08 10/23/18 13:08 10/23/18 13:08 - Medications Medications: Current Medications Sodium Chloride (Sodium Chloride 0.9%) 1,000 mls @ 100 mls/hr IV .Q10H GRAEME Last Admin: 10/23/18 12:01 Dose: 100 mls/hr Potassium Chloride (Potassium Chloride 20 Meq/100 Ml) 20 meq in 100 mls @ 50 mls/hr IVPB Q2H GRAEME Stop: 10/23/18 16:44 Last Admin: 10/23/18 12:48 Dose: 50 mls/hr Nicardipine HCl (Cardene Iv Premix) 20 mg in 200 mls @ 50 mls/hr IV .Q4H PRN; Protocol PRN Reason: TITRATE PER MD ORDER Levetiracetam 750 mg/ Sodium (Chloride) 107.5 mls @ 215 mls/hr IVPB Q12 GRAEME - Labs Labs: 10/23/18 11:42 10/23/18 11:42 PT 15.9 SECONDS (9.4-12.5) H 10/23/18 11:42 INR 1.41 10/23/18 11:42 APTT 31.4 Seconds (26.9-38.3) 10/23/18 11:42
[2018-10-23] MEDS ORDERED: Sodium Chloride 3% 500 ML IV SCH (14:45)
--- NOTE | 2018-10-23 15:07 | CP.PCM.HP ---
<Guille Lennon - Last Filed: 10/23/18 16:45> History of Present Illness - History of Present Illness History of Present Illness: HISTORY & PHYSICAL NOTE FOR HOSPITALIST SERVICE-DR. KYLE Lennon PGY1 58 y/o M with PMH of neuroendocrine tumor s/p unspecified L axillary surgery & residual L arm lymphedema, ETOH abuse presented [place] [facility] [place] being bib EMS with agitation & slurred speech. Per family, pt has recently been agitated and they last saw pt 2 days ago in his normal state. Family had called EMS as agitation had not resolved. Upon interview, pt is alert and verbal, however does not make sense. He does not obey commands. 12 point ROS unable to be obtained Subjective data cannot be obtained at this time 2/2 expressive aphasia Present on Admission - Present on Admission Any Indicators Present on Admission: No Review of Systems - Review of Systems Review of Systems: per HPI Past Patient History - Infectious Disease Hx of Infectious Diseases: None - Tetanus Immunizations Tetanus Immunization: Unknown - Past Social History Smoking Status: Never Smoked - CARDIAC Hx Hypertension: Yes (no meds) - HEMATOLOGICAL/ONCOLOGICAL Hx Cancer: Yes (LYMPHOMA, lymphedema) Other/Comment: left lymphedema - MUSCULOSKELETAL/RHEUMATOLOGICAL Other/Comment: Left arm lymphedema - PSYCHIATRIC Hx Depression: No Hx Emotional Abuse: No Hx Physical Abuse: No Hx Substance Use: No - SURGICAL HISTORY Other/Comment: lyphectomy - ANESTHESIA Hx Anesthesia: Yes Hx Anesthesia Reactions: No Hx Malignant Hyperthermia: No Meds Allergies/Adverse Reactions: Allergies Allergy/AdvReac Type Severity Reaction Status Date / Time No Known Allergies Allergy Verified 10/23/18 17:12 Physical Exam - Constitutional Appears: Combative, Cachectic - Head Exam Additional comments: Well-approximated lesions noted over L eyebrow - Eye Exam Eye Exam: EOMI Pupil Exam: PERRL - ENT Exam ENT Exam: Mucous Membranes Moist, Normal Exam - Neck Exam Neck exam: Positive for: Normal Inspection - Respiratory Exam Respiratory Exam: Clear to Auscultation Bilateral, NORMAL BREATHING PATTERN - Cardiovascular Exam Cardiovascular Exam: REGULAR RHYTHM, +S1, +S2 - GI/Abdominal Exam GI & Abdominal Exam: Soft. absent: Tenderness - Extremities Exam Extremities exam: Negative for: calf tenderness - Back Exam Back exam: NORMAL INSPECTION - Neurological Exam Neurological exam: Alert Additional comments: awake. Not answering questions appropriate or obeying commands GCS 12 - Psychiatric Exam Psychiatric exam: Agitated - Skin Skin Exam: Abrasion (Over L eyebrow), Dry, Warm Results - Vital Signs Recent Vital Signs: Last Vital Signs Temp 99.6 F 10/23/18 11:31 Pulse 75 10/23/18 14:30 Resp 16 10/23/18 14:30 BP 146/85 10/23/18 14:22 Pulse Ox 99 10/23/18 14:30 - Labs Result Diagrams: 10/23/18 11:42 10/23/18 11:42 Labs: Laboratory Results - last 24 hr 10/23/18 10/23/18 10/23/18 11:18 11:42 11:42 WBC 8.9 RBC 3.79 Hgb 12.9 L Hct 38.1 L MCV 100.5 MCH 34.0 MCHC 33.9 RDW 12.7 Plt Count 253 MPV 10.9 Neut % (Auto) 74.8 H Lymph % (Auto) 12.1 L Clark % (Auto) 12.9 H Eos % (Auto) 0.1 L Baso % (Auto) 0.1 Lymph # (Auto) 1.1 L Clark # (Auto) 1.1 H Eos # (Auto) 0.0 Baso # (Auto) 0.01 Absolute Neuts (auto) 6.62 H PT 15.9 H INR 1.41 APTT 31.4 Sodium Potassium Chloride Carbon Dioxide Anion Gap BUN Creatinine Est GFR ( Amer) Est GFR (Non-Af Amer) POC Glucose (mg/dL) 87 Random Glucose Calcium Total Bilirubin AST ALT Alkaline Phosphatase Ammonia Troponin I Total Protein Albumin Globulin Albumin/Globulin Ratio Triglycerides Cholesterol LDL Cholesterol Direct HDL Cholesterol Alcohol, Quantitative Blood Type Blood Type Confirm Antibody Screen BBK History Checked 10/23/18 10/23/18 10/23/18 11:42 11:42 11:42 WBC RBC Hgb Hct MCV MCH MCHC RDW Plt Count MPV Neut % (Auto) Lymph % (Auto) Clark % (Auto) Eos % (Auto) Baso % (Auto) Lymph # (Auto) Clark # (Auto) Eos # (Auto) Baso # (Auto) Absolute Neuts (auto) PT INR APTT Sodium 136 Potassium 3.0 L Chloride 98 Carbon Dioxide 21 Anion Gap 20 BUN 9 Creatinine 0.5 L Est GFR ( Amer) > 60 Est GFR (Non-Af Amer) > 60 POC Glucose (mg/dL) Random Glucose 80 Calcium 9.1 Total Bilirubin 3.4 H AST 67 H ALT 37 Alkaline Phosphatase 68 Ammonia 20 Troponin I 0.36 H* Total Protein 8.3 Albumin 4.3 Globulin 4.0 Albumin/Globulin Ratio 1.1 Triglycerides 74 Cholesterol 160 LDL Cholesterol Direct 92 HDL Cholesterol 48 Alcohol, Quantitative Blood Type O POSITIVE Blood Type Confirm Antibody Screen Negative BBK History Checked No verified bt 10/23/18 10/23/18 11:42 12:14 WBC RBC Hgb Hct MCV MCH MCHC RDW Plt Count MPV Neut % (Auto) Lymph % (Auto) Clark % (Auto) Eos % (Auto) Baso % (Auto) Lymph # (Auto) Clark # (Auto) Eos # (Auto) Baso # (Auto) Absolute Neuts (auto) PT INR APTT Sodium Potassium Chloride Carbon Dioxide Anion Gap BUN Creatinine Est GFR ( Amer) Est GFR (Non-Af Amer) POC Glucose (mg/dL) Random Glucose Calcium Total Bilirubin AST ALT Alkaline Phosphatase Ammonia Troponin I Total Protein Albumin Globulin Albumin/Globulin Ratio Triglycerides Cholesterol LDL Cholesterol Direct HDL Cholesterol Alcohol, Quantitative < 10 Blood Type Blood Type Confirm O POSITIVE Antibody Screen BBK History Checked Assessment & Plan - Assessment and Plan (Free Text) Assessment: 58 y/o M with PMH of ETOH, hx neuroendocrine tumor s/p L axillary surgery bib EMS for agitation, slurred speech x 2 days. Pt found to have [id number] L sided temporal hemorrhage with small amount of surrounding edema. Pt also found to have elevated troponins. Pt transferred to ICU for close monitoring of ICH Plan: Intracranial Hemorrhage CT reveals: "There is an acute left temporal lobe hemorrhage measuring 38 x 65 x 30 mm in size. There is a small amount of surrounding edema. There is no intraventricular extension. There is no herniation." Per neurosurgery, no acute intervention at this time Admit to ICU, start 3%NS with goal Na 140-145 per neuro Monitor BMP q6h Start dexamethasone 10mg IVP q8h Start loading dose keppra for seizure prophylaxis. Start with 1000mg followed by 500mg q8H per neurology recs Maintain strict BP control with titratable nicardipine drip, avoid rapid fluctuations in BP. Repeat CT in am, monitor for progression of ICH Will obtain MRI to r/o mass lesion Neurosurgery/Neurology following. appreciate recs Elevated Troponins EKG shows nonspecific ST/T waves changes in anteroseptal leads Repeat EKG Trend troponins Q6h Consult cardiology, appreciate recs Avoid anticoagulation d/t ICH ETOH withdrawal Pt has extensive hx of ETOH abuse. Serum ETOH <10 CIWA protocol Aspiration precautions, neuro checks q1h Fall precautions On seizure prophylaxis with keppra Hx of neuroendocrine tumor History unable to obtained from patient Lymphedema noted in L arm Pt's home oncologist consulted, Dr. Long, appreciate recs DVT/GI PPx: SCD/Protonix (pt on steroids) Dispo: Continue to monitor in ICU Case discussed with and reviewed with attending physician, Dr. Kyle Lennon PGY1 <Debra Wright - Last Filed: 10/24/18 17:29> Results - Vital Signs Recent Vital Signs: Last Vital Signs Temp 99.6 F 10/23/18 11:31 Pulse 77 10/24/18 07:50 Resp 16 10/24/18 07:50 BP 175/93 H 10/24/18 07:00 Pulse Ox 100 10/24/18 04:50 - Labs Result Diagrams: 10/24/18 05:40 10/24/18 15:45 Labs: Laboratory Results - last 24 hr 10/23/18 10/23/18 10/23/18 18:34 21:35 21:53 WBC RBC Hgb Hct MCV MCH MCHC RDW Plt Count MPV Sodium 138 140 Potassium 3.6 3.8 Chloride 102 103 Carbon Dioxide 22 20 L Anion Gap 18 20 BUN 9 9 Creatinine 0.4 L 0.4 L Est GFR ( Amer) > 60 > 60 Est GFR (Non-Af Amer) > 60 > 60 POC Glucose (mg/dL) 101 Random Glucose 91 103 Serum Osmolality Calcium 8.9 8.9 Total Bilirubin AST ALT Alkaline Phosphatase Troponin I 0.36 H* Total Protein Albumin Globulin Albumin/Globulin Ratio 10/24/18 10/24/18 10/24/18 00:15 05:40 05:40 WBC 8.9 RBC 4.00 Hgb 13.8 L Hct 41.1 L MCV 102.8 MCH 34.5 MCHC 33.6 RDW 12.7 Plt Count 282 MPV 11.3 H Sodium 143 Potassium 4.0 Chloride 108 H Carbon Dioxide 19 L Anion Gap 20 BUN 10 Creatinine 0.4 L Est GFR ( Amer) > 60 Est GFR (Non-Af Amer) > 60 POC Glucose (mg/dL) Random Glucose 99 Serum Osmolality Calcium 9.3 Total Bilirubin 2.6 H AST 67 H ALT 34 Alkaline Phosphatase 67 Troponin I 0.21 H* D Total Protein 8.5 H Albumin 4.3 Globulin 4.2 Albumin/Globulin Ratio 1.0 L 10/24/18 10/24/18 10/24/18 06:04 10:40 11:01 WBC RBC Hgb Hct MCV MCH MCHC RDW Plt Count MPV Sodium 143 Potassium 4.0 Chloride 110 H Carbon Dioxide 17 L Anion Gap 21 H BUN 10 Creatinine 0.3 L Est GFR ( Amer) > 60 Est GFR (Non-Af Amer) > 60 POC Glucose (mg/dL) 93 Random Glucose 123 H Serum Osmolality 306 H Calcium 9.2 Total Bilirubin AST ALT Alkaline Phosphatase Troponin I Total Protein Albumin Globulin Albumin/Globulin Ratio 10/24/18 10/24/18 11:23 15:45 WBC RBC Hgb Hct MCV MCH MCHC RDW Plt Count MPV Sodium 142 Potassium 3.5 L Chloride 109 H Carbon Dioxide 18 L Anion Gap 19 BUN 10 Creatinine 0.3 L Est GFR ( Amer) > 60 Est GFR (Non-Af Amer) > 60 POC Glucose (mg/dL) 124 H Random Glucose 156 H Serum Osmolality Calcium 9.1 Total Bilirubin AST ALT Alkaline Phosphatase Troponin I Total Protein Albumin Globulin Albumin/Globulin Ratio Attending/Attestation - Attestation I have personally seen and examined this patient.: Yes I have fully participated in the care of the patient.: Yes I have reviewed all pertinent clinical information: Yes Notes (Text): 10/24/18 17:20 Attending note; Patient seen and examined with resident in ICU. Patient is awake. Confused. Not following commands. Going all the extremities. No family by the bedside History from the ER attending. Patient is a 58-year-old male with PMH of neuroendocrine tumor s/p unspecified L axillary surgery & residual L arm lymphedema, ETOH abuse presented to [facility] with agitation & slurred speech. As per ER note patient has recently been agitated for the past few days. 1. Confusion; CT head shows acute left temporal lobe hemorrhage measuring 38 x 65 x 30 mm in size. There is a small amount of surrounding edema. There is no intraventricular extension. There is no herniation. Per neurosurgery, no acute intervention at this time. Patient is currently monitored in ICU. Patient is confused and restless. Moving all extremities. 2. Neurology evaluation appreciated. started on 3% normal saline to decrease intracranial pressure. Monitor BMP every 6 hours. Keep sodium between 145 to 150. Head end elevation. Started on IV Keppra For seizure prophylaxis. 3. Episodes of hypertension; will start IV nicardipine drip to keep blood pressure 140-160. 4. Alcohol abuse; monitor for withdrawal symptoms. 5. Elevated troponin; secondary to hemodynamic changes due to stroke . EKG showed no acute ST elevation. Monitor closely. 6. History of neuroendocrine tumor. Awe will follow up with oncology. Continue IV Decadron. Monitor the patient closely in ICU. Case discussed with neurology and social welfare administrator in detail. Repeat CAT scan in a.m..
--- NOTE | 2018-10-23 16:36 | CP.PCM.CON ---
<NoriMatt - Last Filed: 10/23/18 16:00> History of Present Illness - History of Present Illness History of Present Illness: Neuro consult note: Nori PGY - 2 Reason for consult: Acute intracranial hemorrhage 58 M with pertientn medical history of alcoholism and neuroendocrine tumor presents via ems on 10/23/18 complaining of agitation and slurred speech for two days, with last known well time per family 2+ days ago. History severely limited 2/2 "word salad" and severe receptive and productive aphasia. Review of systems: 12 point ROS elicted but not obtained 2/2 mental status Surgical Hx: Elicited but not obtained 2/2 patient's mental status Medical Hx: Elicited but not obtained 2/2 patient's mental status; chart review reveals alcoholism and neuroendocrine tumor Allergies: Elicited but not obtained 2/2 patient's mental status Social Hx: Elicited but not obtained 2/2 patient's mental status; chart review indicates alcohol abuse Home Meds: Elicited but not obtained 2/2 patient's mental status Family Hx: Elicited but not obtained 2/2 patient's mental status Past Patient History - Infectious Disease Hx of Infectious Diseases: None - Tetanus Immunizations Tetanus Immunization: Unknown - Past Social History Smoking Status: Never Smoked - CARDIAC Hx Hypertension: Yes (no meds) - HEMATOLOGICAL/ONCOLOGICAL Hx Cancer: Yes (LYMPHOMA, lymphedema) Other/Comment: left lymphedema - MUSCULOSKELETAL/RHEUMATOLOGICAL Other/Comment: Left arm lymphedema - PSYCHIATRIC Hx Depression: No Hx Emotional Abuse: No Hx Physical Abuse: No Hx Substance Use: No - SURGICAL HISTORY Other/Comment: lyphectomy - ANESTHESIA Hx Anesthesia: Yes Hx Anesthesia Reactions: No Hx Malignant Hyperthermia: No Meds Allergies/Adverse Reactions: Allergies Allergy/AdvReac Type Severity Reaction Status Date / Time No Known Allergies Allergy Verified 10/23/18 17:12 - Medications Medications: Current Medications Dexamethasone (Decadron Inj) 10 mg IVP Q8 [facility] Last Admin: 10/23/18 15:20 Dose: 10 mg Potassium Chloride (Potassium Chloride 20 Meq/100 Ml) 20 meq in 100 mls @ 50 mls/hr IVPB Q2H [facility] Stop: 10/23/18 16:44 Last Admin: 10/23/18 12:48 Dose: 50 mls/hr Nicardipine HCl (Cardene Iv Premix) 20 mg in 200 mls @ 50 mls/hr IV .Q4H PRN; Protocol PRN Reason: TITRATE PER MD ORDER Levetiracetam (Keppra 500mg Ivpb) 500 mg in 100 mls @ 400 mls/hr IVPB Q12 [facility] Sodium Chloride (Hypertonic Saline 3%) 500 mls @ 30 mls/hr IV .[id number] [facility] Sodium Chloride (Hypertonic Saline 3%) 200 ml IV BOLUS [facility] Physical Exam - Constitutional Appears: Well - Head Exam Head Exam: ATRAUMATIC, NORMAL INSPECTION, NORMOCEPHALIC - Eye Exam Eye Exam: EOMI, Normal appearance, PERRL Pupil Exam: NORMAL ACCOMODATION, PERRL - ENT Exam ENT Exam: Mucous Membranes Moist, Normal Exam - Neck Exam Neck exam: Positive for: Normal Inspection - Respiratory Exam Respiratory Exam: Clear to Auscultation Bilateral, NORMAL BREATHING PATTERN - Cardiovascular Exam Cardiovascular Exam: REGULAR RHYTHM - GI/Abdominal Exam GI & Abdominal Exam: Normal Bowel Sounds, Soft. absent: Tenderness - Extremities Exam Extremities exam: Positive for: normal inspection - Back Exam Back exam: NORMAL INSPECTION - Neurological Exam Neurological exam: Alert, CN II-XII Intact, Normal Gait, Oriented x3, Reflexes Normal - Psychiatric Exam Psychiatric exam: Normal Affect, Normal Mood - Skin Skin Exam: Dry, Intact, Normal Color, Warm - Additional Findings Additional findings: Bilateral UE and LE intact motor; sensation unable to ascertain Patient has severe comprehension and productive aphasia B/l reflexes in tact. Results - Vital Signs Recent Vital Signs: Last Vital Signs Temp 99.6 F 10/23/18 11:31 Pulse 75 10/23/18 14:30 Resp 16 10/23/18 14:30 BP 146/85 10/23/18 14:22 Pulse Ox 99 10/23/18 14:30 - Labs Result Diagrams: 10/23/18 11:42 10/23/18 11:42 Labs: Laboratory Results - last 24 hr 10/23/18 10/23/18 10/23/18 11:18 11:42 11:42 WBC 8.9 RBC 3.79 Hgb 12.9 L Hct 38.1 L MCV 100.5 MCH 34.0 MCHC 33.9 RDW 12.7 Plt Count 253 MPV 10.9 Neut % (Auto) 74.8 H Lymph % (Auto) 12.1 L [place] % (Auto) 12.9 H Eos % (Auto) 0.1 L Baso % (Auto) 0.1 Lymph # (Auto) 1.1 L [place] # (Auto) 1.1 H Eos # (Auto) 0.0 Baso # (Auto) 0.01 Absolute Neuts (auto) 6.62 H PT 15.9 H INR 1.41 APTT 31.4 Sodium Potassium Chloride Carbon Dioxide Anion Gap BUN Creatinine Est GFR ( Amer) Est GFR (Non-Af Amer) POC Glucose (mg/dL) 87 Random Glucose Calcium Total Bilirubin AST ALT Alkaline Phosphatase Ammonia Troponin I Total Protein Albumin Globulin Albumin/Globulin Ratio Triglycerides Cholesterol LDL Cholesterol Direct HDL Cholesterol Alcohol, Quantitative Blood Type Blood Type Confirm Antibody Screen BBK History Checked 10/23/18 10/23/18 10/23/18 11:42 11:42 11:42 WBC RBC Hgb Hct MCV MCH MCHC RDW Plt Count MPV Neut % (Auto) Lymph % (Auto) [place] % (Auto) Eos % (Auto) Baso % (Auto) Lymph # (Auto) [place] # (Auto) Eos # (Auto) Baso # (Auto) Absolute Neuts (auto) PT INR APTT Sodium 136 Potassium 3.0 L Chloride 98 Carbon Dioxide 21 Anion Gap 20 BUN 9 Creatinine 0.5 L Est GFR ( Amer) > 60 Est GFR (Non-Af Amer) > 60 POC Glucose (mg/dL) Random Glucose 80 Calcium 9.1 Total Bilirubin 3.4 H AST 67 H ALT 37 Alkaline Phosphatase 68 Ammonia 20 Troponin I 0.36 H* Total Protein 8.3 Albumin 4.3 Globulin 4.0 Albumin/Globulin Ratio 1.1 Triglycerides 74 Cholesterol 160 LDL Cholesterol Direct 92 HDL Cholesterol 48 Alcohol, Quantitative Blood Type O POSITIVE Blood Type Confirm Antibody Screen Negative BBK History Checked No verified bt 10/23/18 10/23/18 11:42 12:14 WBC RBC Hgb Hct MCV MCH MCHC RDW Plt Count MPV Neut % (Auto) Lymph % (Auto) [place] % (Auto) Eos % (Auto) Baso % (Auto) Lymph # (Auto) [place] # (Auto) Eos # (Auto) Baso # (Auto) Absolute Neuts (auto) PT INR APTT Sodium Potassium Chloride Carbon Dioxide Anion Gap BUN Creatinine Est GFR ( Amer) Est GFR (Non-Af Amer) POC Glucose (mg/dL) Random Glucose Calcium Total Bilirubin AST ALT Alkaline Phosphatase Ammonia Troponin I Total Protein Albumin Globulin Albumin/Globulin Ratio Triglycerides Cholesterol LDL Cholesterol Direct HDL Cholesterol Alcohol, Quantitative < 10 Blood Type Blood Type Confirm O POSITIVE Antibody Screen BBK History Checked Assessment & Plan - Assessment and Plan (Free Text) Assessment: 58 M with pertinent medical history of alcoholism and neuroendocrine tumor with L arm lymphedema presents for agitation and slurred speech for 2 days. Imaging reveals a L sided temporal lobe hemorrhage with surrounding edema but no herniation. Plan L Temporal Hemorrhagic Stroke with Productive and Receptive Aphasia - Decadron 10 q8h - Loading bolus of HT Saline of 200 mls, continue with maintenance dose of 30/hr to keep Na between 141-145 - Keppra for Seizure precautions - Maintain blood pressure <160/90 per ASA and AHA guidelines - HOB 30 degrees elevation; aspiration and seizure protocols; fall protocol; Neurochecks q1; CIWA protocol - Neurosurgery on consult <Gary Man - Last Filed: 10/23/18 18:32> Meds - Medications Medications: Current Medications Dexamethasone (Decadron Inj) 10 mg IVP Q8 [facility] Last Admin: 10/23/18 15:20 Dose: 10 mg Nicardipine HCl (Cardene Iv Premix) 20 mg in 200 mls @ 50 mls/hr IV .Q4H PRN; Protocol PRN Reason: TITRATE PER MD ORDER Levetiracetam (Keppra 500mg Ivpb) 500 mg in 100 mls @ 400 mls/hr IVPB Q12 [facility] Sodium Chloride (Hypertonic Saline 3%) 500 mls @ 30 mls/hr IV .[id number] [facility] Last Admin: 10/23/18 16:47 Dose: 30 mls/hr Magnesium Sulfate (Magnesium Sulfate 2 Gm/50 Ml Water) 2 gm in 50 mls @ 50 mls/hr IVPB ONCE ONE Stop: 10/23/18 19:04 Pantoprazole Sodium (Protonix Inj) 40 mg IVP DAILY [facility] Sodium Chloride (Hypertonic Saline 3%) 200 ml IV BOLUS [facility] Results - Vital Signs Recent Vital Signs: Last Vital Signs Temp 99.6 F 10/23/18 11:31 Pulse 73 10/23/18 16:30 Resp 12 10/23/18 16:30 BP 173/97 H 10/23/18 16:00 Pulse Ox 98 10/23/18 16:30 - Labs Result Diagrams: 10/23/18 11:42 10/23/18 11:42 Labs: Laboratory Results - last 24 hr 10/23/18 10/23/18 10/23/18 11:18 11:42 11:42 WBC 8.9 RBC 3.79 Hgb 12.9 L Hct 38.1 L MCV 100.5 MCH 34.0 MCHC 33.9 RDW 12.7 Plt Count 253 MPV 10.9 Neut % (Auto) 74.8 H Lymph % (Auto) 12.1 L [place] % (Auto) 12.9 H Eos % (Auto) 0.1 L Baso % (Auto) 0.1 Lymph # (Auto) 1.1 L [place] # (Auto) 1.1 H Eos # (Auto) 0.0 Baso # (Auto) 0.01 Absolute Neuts (auto) 6.62 H PT 15.9 H INR 1.41 APTT 31.4 Sodium Potassium Chloride Carbon Dioxide Anion Gap BUN Creatinine Est GFR ( Amer) Est GFR (Non-Af Amer) POC Glucose (mg/dL) 87 Random Glucose Hemoglobin A1c Calcium Phosphorus Magnesium Total Bilirubin AST ALT Alkaline Phosphatase Ammonia Troponin I Total Protein Albumin Globulin Albumin/Globulin Ratio Triglycerides Cholesterol LDL Cholesterol Direct HDL Cholesterol Alcohol, Quantitative Blood Type Blood Type Confirm Antibody Screen BBK History Checked 10/23/18 10/23/18 10/23/18 11:42 11:42 11:42 WBC RBC Hgb Hct MCV MCH MCHC RDW Plt Count MPV Neut % (Auto) Lymph % (Auto) [place] % (Auto) Eos % (Auto) Baso % (Auto) Lymph # (Auto) [place] # (Auto) Eos # (Auto) Baso # (Auto) Absolute Neuts (auto) PT INR APTT Sodium 136 Potassium 3.0 L Chloride 98 Carbon Dioxide 21 Anion Gap 20 BUN 9 Creatinine 0.5 L Est GFR ( Amer) > 60 Est GFR (Non-Af Amer) > 60 POC Glucose (mg/dL) Random Glucose 80 Hemoglobin A1c 4.7 Calcium 9.1 Phosphorus Magnesium Total Bilirubin 3.4 H AST 67 H ALT 37 Alkaline Phosphatase 68 Ammonia Troponin I 0.36 H* Total Protein 8.3 Albumin 4.3 Globulin 4.0 Albumin/Globulin Ratio 1.1 Triglycerides 74 Cholesterol 160 LDL Cholesterol Direct 92 HDL Cholesterol 48 Alcohol, Quantitative Blood Type O POSITIVE Blood Type Confirm Antibody Screen Negative BBK History Checked No verified bt 10/23/18 10/23/18 10/23/18 11:42 11:42 11:42 WBC RBC Hgb Hct MCV MCH MCHC RDW Plt Count MPV Neut % (Auto) Lymph % (Auto) [place] % (Auto) Eos % (Auto) Baso % (Auto) Lymph # (Auto) [place] # (Auto) Eos # (Auto) Baso # (Auto) Absolute Neuts (auto) PT INR APTT Sodium Potassium Chloride Carbon Dioxide Anion Gap BUN Creatinine Est GFR ( Amer) Est GFR (Non-Af Amer) POC Glucose (mg/dL) Random Glucose Hemoglobin A1c Calcium Phosphorus 3.4 Magnesium 1.4 L Total Bilirubin AST ALT Alkaline Phosphatase Ammonia 20 Troponin I Total Protein Albumin Globulin Albumin/Globulin Ratio Triglycerides Cholesterol LDL Cholesterol Direct HDL Cholesterol Alcohol, Quantitative < 10 Blood Type Blood Type Confirm Antibody Screen BBK History Checked 10/23/18 12:14 WBC RBC Hgb Hct MCV MCH MCHC RDW Plt Count MPV Neut % (Auto) Lymph % (Auto) [place] % (Auto) Eos % (Auto) Baso % (Auto) Lymph # (Auto) [place] # (Auto) Eos # (Auto) Baso # (Auto) Absolute Neuts (auto) PT INR APTT Sodium Potassium Chloride Carbon Dioxide Anion Gap BUN Creatinine Est GFR ( Amer) Est GFR (Non-Af Amer) POC Glucose (mg/dL) Random Glucose Hemoglobin A1c Calcium Phosphorus Magnesium Total Bilirubin AST ALT Alkaline Phosphatase Ammonia Troponin I Total Protein Albumin Globulin Albumin/Globulin Ratio Triglycerides Cholesterol LDL Cholesterol Direct HDL Cholesterol Alcohol, Quantitative Blood Type Blood Type Confirm O POSITIVE Antibody Screen BBK History Checked Attending/Attestation - Attestation I have personally seen and examined this patient.: Yes I have fully participated in the care of the patient.: Yes I have reviewed all pertinent clinical information: Yes Notes (Text): I agree with the assessment and plan. CT head shows a large left temporal bl eed. This could be due to underlying metastatic disease. There is some midline shift and concern for brainstem herniation. Will start 3% hypertonic saline and titrate to serum sodium of 140-145 for now. Will also start Keppra 500 mg BID. Decadron 10 mg Q8 for the vasogenic edema. This appears to have started 3 days ago based on the history provided.
[2018-10-23] MEDS: Sodium Chloride 3% 500 ML IV SCH (16:47)
[2018-10-23] MEDS ORDERED: Magnesium Sulfate 2 gm/50 ml 2 GM/50 ML BAG IVPB ONE (18:05)
[2018-10-23 18:49] LABS: BLOOD UREA NITROGEN 9 mg/dL (7-21); CALCIUM 8.9 mg/dL (8.4-10.5); GFR NON-AFRICAN AMERICAN > 60
[2018-10-23 19:04] LABS: TROPONIN I 0.36 ng/mL
[2018-10-23] MEDS ORDERED: Pneumococcal 23-Valent Vaccine IM ONE (20:47)
[2018-10-23] MEDS ORDERED: Influenza Vaccine 60 mcg/0.5 mL SYR (4YR UP) IM ONE (20:47)
--- NOTE | 2018-10-23 21:08 | CP.PCM.CON ---
Past Patient History - Infectious Disease Hx of Infectious Diseases: None - Tetanus Immunizations Tetanus Immunization: Unknown - Past Social History Smoking Status: Unknown If Ever Smoked - CARDIAC Hx Cardiac Disorders: Yes Hx Hypertension: Yes (no meds) Hx Peripheral Vascular Disease: Yes (DVT) - PULMONARY Hx Respiratory Disorders: No - NEUROLOGICAL Hx Neurological Disorder: Yes (H/O HEAD INJURY-NEUROENDOCRINE TUMOR) - HEENT Hx HEENT Problems: No - RENAL Hx Chronic Kidney Disease: No - ENDOCRINE/METABOLIC Hx Endocrine Disorders: No - HEMATOLOGICAL/ONCOLOGICAL Hx Blood Disorders: Yes Hx Cancer: Yes ([place]MPHOMA, lymphedema) Other/Comment: left lymphedema - INTEGUMENTARY Hx Dermatological Problems: Yes Other/Comment: 10-23-18 LEFT ARM GROSS LYMPEDEMA ,JAUNDICED SKIN. H/O OF SX TO L AXILLA. TUMOR TO L AXILLA.CA OF L AXILLA. LEFT EYEBROW SKIN ABRASION. REDNESS,SLIGHTLY SWOLLEN. ZYGOMATIC FX. - MUSCULOSKELETAL/RHEUMATOLOGICAL Hx Musculoskeletal Disorders: Yes Hx Falls: Yes Other/Comment: Left arm lymphedema - GASTROINTESTINAL Hx Gastrointestinal Disorders: No - GENITOURINARY/GYNECOLOGICAL Hx Genitourinary Disorders: No - PSYCHIATRIC Hx Psychophysiologic Disorder: Yes (ETOH ABUSE) Hx Depression: No Hx Emotional Abuse: No Hx Physical Abuse: No Hx Substance Use: (UNKNOWN) - SURGICAL HISTORY Hx Surgeries: Yes Other/Comment: lyphectomy - ANESTHESIA Hx Anesthesia: Yes Hx Anesthesia Reactions: No Hx Malignant Hyperthermia: No Meds Allergies/Adverse Reactions: Allergies Allergy/AdvReac Type Severity Reaction Status Date / Time No Known Allergies Allergy Verified 10/23/18 17:12 - Medications Medications: Current Medications Dexamethasone (Decadron Inj) 10 mg IVP Q8 [facility] Last Admin: 10/23/18 15:20 Dose: 10 mg Nicardipine HCl (Cardene Iv Premix) 20 mg in 200 mls @ 50 mls/hr IV .Q4H PRN; Protocol PRN Reason: TITRATE PER MD ORDER Levetiracetam (Keppra 500mg Ivpb) 500 mg in 100 mls @ 400 mls/hr IVPB Q12 [facility] Sodium Chloride (Hypertonic Saline 3%) 500 mls @ 30 mls/hr IV .[id number] [facility] Last Admin: 10/23/18 16:47 Dose: 30 mls/hr Pantoprazole Sodium (Protonix Inj) 40 mg IVP DAILY [facility] Sodium Chloride (Hypertonic Saline 3%) 200 ml IV BOLUS [facility] Results - Vital Signs Recent Vital Signs: Last Vital Signs Temp 99.6 F 10/23/18 11:31 Pulse 70 10/23/18 20:26 Resp 12 10/23/18 20:26 BP 148/75 10/23/18 19:00 Pulse Ox 100 10/23/18 19:00 - Labs Result Diagrams: 10/23/18 11:42 10/23/18 18:34 Labs: Laboratory Results - last 24 hr 10/23/18 10/23/18 10/23/18 11:18 11:42 11:42 WBC 8.9 RBC 3.79 Hgb 12.9 L Hct 38.1 L MCV 100.5 MCH 34.0 MCHC 33.9 RDW 12.7 Plt Count 253 MPV 10.9 Neut % (Auto) 74.8 H Lymph % (Auto) 12.1 L [place] % (Auto) 12.9 H Eos % (Auto) 0.1 L Baso % (Auto) 0.1 Lymph # (Auto) 1.1 L [place] # (Auto) 1.1 H Eos # (Auto) 0.0 Baso # (Auto) 0.01 Absolute Neuts (auto) 6.62 H PT 15.9 H INR 1.41 APTT 31.4 Sodium Potassium Chloride Carbon Dioxide Anion Gap BUN Creatinine Est GFR ( Amer) Est GFR (Non-Af Amer) POC Glucose (mg/dL) 87 Random Glucose Hemoglobin A1c Calcium Phosphorus Magnesium Total Bilirubin AST ALT Alkaline Phosphatase Ammonia Troponin I Total Protein Albumin Globulin Albumin/Globulin Ratio Triglycerides Cholesterol LDL Cholesterol Direct HDL Cholesterol Alcohol, Quantitative Blood Type Blood Type Confirm Antibody Screen BBK History Checked 10/23/18 10/23/18 10/23/18 11:42 11:42 11:42 WBC RBC Hgb Hct MCV MCH MCHC RDW Plt Count MPV Neut % (Auto) Lymph % (Auto) [place] % (Auto) Eos % (Auto) Baso % (Auto) Lymph # (Auto) [place] # (Auto) Eos # (Auto) Baso # (Auto) Absolute Neuts (auto) PT INR APTT Sodium 136 Potassium 3.0 L Chloride 98 Carbon Dioxide 21 Anion Gap 20 BUN 9 Creatinine 0.5 L Est GFR ( Amer) > 60 Est GFR (Non-Af Amer) > 60 POC Glucose (mg/dL) Random Glucose 80 Hemoglobin A1c 4.7 Calcium 9.1 Phosphorus Magnesium Total Bilirubin 3.4 H AST 67 H ALT 37 Alkaline Phosphatase 68 Ammonia Troponin I 0.36 H* Total Protein 8.3 Albumin 4.3 Globulin 4.0 Albumin/Globulin Ratio 1.1 Triglycerides 74 Cholesterol 160 LDL Cholesterol Direct 92 HDL Cholesterol 48 Alcohol, Quantitative Blood Type O POSITIVE Blood Type Confirm Antibody Screen Negative BBK History Checked No verified bt 10/23/18 10/23/18 10/23/18 11:42 11:42 11:42 WBC RBC Hgb Hct MCV MCH MCHC RDW Plt Count MPV Neut % (Auto) Lymph % (Auto) [place] % (Auto) Eos % (Auto) Baso % (Auto) Lymph # (Auto) [place] # (Auto) Eos # (Auto) Baso # (Auto) Absolute Neuts (auto) PT INR APTT Sodium Potassium Chloride Carbon Dioxide Anion Gap BUN Creatinine Est GFR ( Amer) Est GFR (Non-Af Amer) POC Glucose (mg/dL) Random Glucose Hemoglobin A1c Calcium Phosphorus 3.4 Magnesium 1.4 L Total Bilirubin AST ALT Alkaline Phosphatase Ammonia 20 Troponin I Total Protein Albumin Globulin Albumin/Globulin Ratio Triglycerides Cholesterol LDL Cholesterol Direct HDL Cholesterol Alcohol, Quantitative < 10 Blood Type Blood Type Confirm Antibody Screen BBK History Checked 10/23/18 10/23/18 12:14 18:34 WBC RBC Hgb Hct MCV MCH MCHC RDW Plt Count MPV Neut % (Auto) Lymph % (Auto) [place] % (Auto) Eos % (Auto) Baso % (Auto) Lymph # (Auto) [place] # (Auto) Eos # (Auto) Baso # (Auto) Absolute Neuts (auto) PT INR APTT Sodium 138 Potassium 3.6 Chloride 102 Carbon Dioxide 22 Anion Gap 18 BUN 9 Creatinine 0.4 L Est GFR ( Amer) > 60 Est GFR (Non-Af Amer) > 60 POC Glucose (mg/dL) Random Glucose 91 Hemoglobin A1c Calcium 8.9 Phosphorus Magnesium Total Bilirubin AST ALT Alkaline Phosphatase Ammonia Troponin I 0.36 H* Total Protein Albumin Globulin Albumin/Globulin Ratio Triglycerides Cholesterol LDL Cholesterol Direct HDL Cholesterol Alcohol, Quantitative Blood Type Blood Type Confirm O POSITIVE Antibody Screen BBK History Checked Assessment & Plan - Assessment and Plan (Free Text) Plan: history of neuroendocrine tumor in the left axilla with unknown primary
--- NOTE | 2018-10-23 21:35 | CARD ---
APPROVED REPORT Date of service: 10/23/2018 EKG Measurement Heart [id number] <Conclusion> Normal sinus rhythm Left axis deviation Cannot rule out Anteroseptal infarct, age undetermined Abnormal ECG
[2018-10-23] MEDS: levETIRAcetam 500mg IVPB 500 MG/100 ML BAG IVPB SCH (21:54)
[2018-10-23] MEDS ORDERED: levETIRAcetam 500 MG in Sodium Chloride 0.9% 100 ML IVPB SCH (22:00)
[2018-10-23 22:12] LABS: BLOOD UREA NITROGEN 9 mg/dL (7-21); CALCIUM 8.9 mg/dL (8.4-10.5); GFR NON-AFRICAN AMERICAN > 60
[2018-10-24] MEDS ORDERED: DiphenhydrAMINE 50 mg/ml Inj IVP ONE (00:38)
[2018-10-24] MEDS: Sodium Chloride 3% 500 ML IV SCH ×2 (04:39→18:44)
[2018-10-24 06:15] LABS: HEMOGLOBIN 13.8 g/dL (14.0-18.0); MEAN CELL VOLUME 102.8 fl (80.0-105.0); MEAN CORPUSCULAR HEMOGLOBIN 34.5 pg (25.0-35.0); MEAN CORPUSCULAR HGB CONC 33.6 g/dl (31.0-37.0); MEAN PLATELET VOLUME 11.3 fl (7.0-11.0); RED CELL DISTRIBUTION WIDTH 12.7 % (11.5-14.5); WHITE BLOOD COUNT 8.9 10^3/uL (4.5-11.0)
--- NOTE | 2018-10-24 06:29 | CP.PCM.CON ---
<Jose Russell - Last Filed: 10/24/18 15:39> History of Present Illness - History of Present Illness History of Present Illness: Jose Russell PGY2 Heme/Onc Consult Note for Dr. Long 58 y/o M with PMH of neuroendocrine tumor with unknown primary source, L arm lymphedema, ETOH abuse presented to [facility] – [place] after being brought in by EMS with agitation & slurred speech. Patient is awake and alert but unable to speak or answer questions appropriately. CT Head was done and showed an acute left temporal lobe hemorrhage measuring 38 x 65 x 30 mm in size with small amount of surrounding edema. There is no intraventricular extension, no herniation. 12 point ROS unable to be obtained Unable to obtain Subjective information due to mental status Review of Systems - Review of Systems Review of Systems: unable to obtain due to mental status Past Patient History - Infectious Disease Hx of Infectious Diseases: None - Tetanus Immunizations Tetanus Immunization: Unknown - Past Social History Smoking Status: Unknown If Ever Smoked - CARDIAC Hx Cardiac Disorders: Yes Hx Hypertension: Yes (no meds) Hx Peripheral Vascular Disease: Yes (DVT) - PULMONARY Hx Respiratory Disorders: No - NEUROLOGICAL Hx Neurological Disorder: Yes (H/O HEAD INJURY-NEUROENDOCRINE TUMOR) - HEENT Hx HEENT Problems: No - RENAL Hx Chronic Kidney Disease: No - ENDOCRINE/METABOLIC Hx Endocrine Disorders: No - HEMATOLOGICAL/ONCOLOGICAL Hx Blood Disorders: Yes Hx Cancer: Yes ([place], lymphedema) Other/Comment: left lymphedema - INTEGUMENTARY Hx Dermatological Problems: Yes Other/Comment: 10-23-18 LEFT ARM GROSS LYMPEDEMA ,JAUNDICED SKIN. H/O OF SX TO L AXILLA. TUMOR TO L AXILLA.CA OF L AXILLA. LEFT EYEBROW SKIN ABRASION. REDNESS,SLIGHTLY SWOLLEN. ZYGOMATIC FX. - MUSCULOSKELETAL/RHEUMATOLOGICAL Hx Musculoskeletal Disorders: Yes Hx Falls: Yes Other/Comment: Left arm lymphedema - GASTROINTESTINAL Hx Gastrointestinal Disorders: No - GENITOURINARY/GYNECOLOGICAL Hx Genitourinary Disorders: No - PSYCHIATRIC Hx Psychophysiologic Disorder: Yes (ETOH ABUSE) Hx Depression: No Hx Emotional Abuse: No Hx Physical Abuse: No Hx Substance Use: (UNKNOWN) - SURGICAL HISTORY Hx Surgeries: Yes Other/Comment: lyphectomy - ANESTHESIA Hx Anesthesia: Yes Hx Anesthesia Reactions: No Hx Malignant Hyperthermia: No Meds Allergies/Adverse Reactions: Allergies Allergy/AdvReac Type Severity Reaction Status Date / Time No Known Allergies Allergy Verified 10/23/18 17:12 - Medications Medications: Current Medications Dexamethasone (Decadron Inj) 10 mg IVP Q8 [facility] Last Admin: 10/24/18 05:50 Dose: 10 mg Nicardipine HCl (Cardene Iv Premix) 20 mg in 200 mls @ 50 mls/hr IV .Q4H PRN; Protocol PRN Reason: TITRATE PER MD ORDER Levetiracetam (Keppra 500mg Ivpb) 500 mg in 100 mls @ 400 mls/hr IVPB Q12 [facility] Last Admin: 10/23/18 21:54 Dose: 400 mls/hr Sodium Chloride (Hypertonic Saline 3%) 500 mls @ 30 mls/hr IV .[id number] [facility] Last Admin: 10/24/18 04:39 Dose: 30 mls/hr Pantoprazole Sodium (Protonix Inj) 40 mg IVP DAILY [facility] Sodium Chloride (Hypertonic Saline 3%) 200 ml IV BOLUS [facility] Physical Exam - Constitutional Appears: No Acute Distress - Head Exam Head Exam: ATRAUMATIC, NORMAL INSPECTION, NORMOCEPHALIC - Eye Exam Eye Exam: EOMI, Normal appearance, PERRL - Respiratory Exam Respiratory Exam: NORMAL BREATHING PATTERN - Cardiovascular Exam Cardiovascular Exam: +S1, +S2 - GI/Abdominal Exam GI & Abdominal Exam: Soft - Neurological Exam Neurological exam: Alert Results - Vital Signs Recent Vital Signs: Last Vital Signs Temp 99.6 F 10/23/18 11:31 Pulse 76 10/24/18 06:20 Resp 20 10/24/18 06:20 BP 150/91 H 10/24/18 06:00 Pulse Ox 100 10/24/18 04:50 - Labs Result Diagrams: 10/24/18 05:40 10/24/18 05:40 Labs: Laboratory Results - last 24 hr 10/23/18 10/23/18 10/23/18 11:18 11:42 11:42 WBC 8.9 RBC 3.79 Hgb 12.9 L Hct 38.1 L MCV 100.5 MCH 34.0 MCHC 33.9 RDW 12.7 Plt Count 253 MPV 10.9 Neut % (Auto) 74.8 H Lymph % (Auto) 12.1 L [place] % (Auto) 12.9 H Eos % (Auto) 0.1 L Baso % (Auto) 0.1 Lymph # (Auto) 1.1 L [place] # (Auto) 1.1 H Eos # (Auto) 0.0 Baso # (Auto) 0.01 Absolute Neuts (auto) 6.62 H PT 15.9 H INR 1.41 APTT 31.4 Sodium Potassium Chloride Carbon Dioxide Anion Gap BUN Creatinine Est GFR ( Amer) Est GFR (Non-Af Amer) POC Glucose (mg/dL) 87 Random Glucose Hemoglobin A1c Calcium Phosphorus Magnesium Total Bilirubin AST ALT Alkaline Phosphatase Ammonia Troponin I Total Protein Albumin Globulin Albumin/Globulin Ratio Triglycerides Cholesterol LDL Cholesterol Direct HDL Cholesterol Alcohol, Quantitative Blood Type Blood Type Confirm Antibody Screen BBK History Checked 10/23/18 10/23/18 10/23/18 11:42 11:42 11:42 WBC RBC Hgb Hct MCV MCH MCHC RDW Plt Count MPV Neut % (Auto) Lymph % (Auto) [place] % (Auto) Eos % (Auto) Baso % (Auto) Lymph # (Auto) [place] # (Auto) Eos # (Auto) Baso # (Auto) Absolute Neuts (auto) PT INR APTT Sodium 136 Potassium 3.0 L Chloride 98 Carbon Dioxide 21 Anion Gap 20 BUN 9 Creatinine 0.5 L Est GFR ( Amer) > 60 Est GFR (Non-Af Amer) > 60 POC Glucose (mg/dL) Random Glucose 80 Hemoglobin A1c 4.7 Calcium 9.1 Phosphorus Magnesium Total Bilirubin 3.4 H AST 67 H ALT 37 Alkaline Phosphatase 68 Ammonia Troponin I 0.36 H* Total Protein 8.3 Albumin 4.3 Globulin 4.0 Albumin/Globulin Ratio 1.1 Triglycerides 74 Cholesterol 160 LDL Cholesterol Direct 92 HDL Cholesterol 48 Alcohol, Quantitative Blood Type O POSITIVE Blood Type Confirm Antibody Screen Negative BBK History Checked No verified bt 10/23/18 10/23/18 10/23/18 11:42 11:42 11:42 WBC RBC Hgb Hct MCV MCH MCHC RDW Plt Count MPV Neut % (Auto) Lymph % (Auto) [place] % (Auto) Eos % (Auto) Baso % (Auto) Lymph # (Auto) [place] # (Auto) Eos # (Auto) Baso # (Auto) Absolute Neuts (auto) PT INR APTT Sodium Potassium Chloride Carbon Dioxide Anion Gap BUN Creatinine Est GFR ( Amer) Est GFR (Non-Af Amer) POC Glucose (mg/dL) Random Glucose Hemoglobin A1c Calcium Phosphorus 3.4 Magnesium 1.4 L Total Bilirubin AST ALT Alkaline Phosphatase Ammonia 20 Troponin I Total Protein Albumin Globulin Albumin/Globulin Ratio Triglycerides Cholesterol LDL Cholesterol Direct HDL Cholesterol Alcohol, Quantitative < 10 Blood Type Blood Type Confirm Antibody Screen BBK History Checked 10/23/18 10/23/18 10/23/18 12:14 18:34 21:35 WBC RBC Hgb Hct MCV MCH MCHC RDW Plt Count MPV Neut % (Auto) Lymph % (Auto) [place] % (Auto) Eos % (Auto) Baso % (Auto) Lymph # (Auto) [place] # (Auto) Eos # (Auto) Baso # (Auto) Absolute Neuts (auto) PT INR APTT Sodium 138 140 Potassium 3.6 3.8 Chloride 102 103 Carbon Dioxide 22 20 L Anion Gap 18 20 BUN 9 9 Creatinine 0.4 L 0.4 L Est GFR ( Amer) > 60 > 60 Est GFR (Non-Af Amer) > 60 > 60 POC Glucose (mg/dL) Random Glucose 91 103 Hemoglobin A1c Calcium 8.9 8.9 Phosphorus Magnesium Total Bilirubin AST ALT Alkaline Phosphatase Ammonia Troponin I 0.36 H* Total Protein Albumin Globulin Albumin/Globulin Ratio Triglycerides Cholesterol LDL Cholesterol Direct HDL Cholesterol Alcohol, Quantitative Blood Type Blood Type Confirm O POSITIVE Antibody Screen BBK History Checked 10/23/18 10/24/18 10/24/18 21:53 00:15 05:40 WBC 8.9 RBC 4.00 Hgb 13.8 L Hct 41.1 L MCV 102.8 MCH 34.5 MCHC 33.6 RDW 12.7 Plt Count 282 MPV 11.3 H Neut % (Auto) Lymph % (Auto) [place] % (Auto) Eos % (Auto) Baso % (Auto) Lymph # (Auto) [place] # (Auto) Eos # (Auto) Baso # (Auto) Absolute Neuts (auto) PT INR APTT Sodium Potassium Chloride Carbon Dioxide Anion Gap BUN Creatinine Est GFR ( Amer) Est GFR (Non-Af Amer) POC Glucose (mg/dL) 101 Random Glucose Hemoglobin A1c Calcium Phosphorus Magnesium Total Bilirubin AST ALT Alkaline Phosphatase Ammonia Troponin I 0.21 H* D Total Protein Albumin Globulin Albumin/Globulin Ratio Triglycerides Cholesterol LDL Cholesterol Direct HDL Cholesterol Alcohol, Quantitative Blood Type Blood Type Confirm Antibody Screen BBK History Checked 10/24/18 06:04 WBC RBC Hgb Hct MCV MCH MCHC RDW Plt Count MPV Neut % (Auto) Lymph % (Auto) [place] % (Auto) Eos % (Auto) Baso % (Auto) Lymph # (Auto) [place] # (Auto) Eos # (Auto) Baso # (Auto) Absolute Neuts (auto) PT INR APTT Sodium Potassium Chloride Carbon Dioxide Anion Gap BUN Creatinine Est GFR ( Amer) Est GFR (Non-Af Amer) POC Glucose (mg/dL) 93 Random Glucose Hemoglobin A1c Calcium Phosphorus Magnesium Total Bilirubin AST ALT Alkaline Phosphatase Ammonia Troponin I Total Protein Albumin Globulin Albumin/Globulin Ratio Triglycerides Cholesterol LDL Cholesterol Direct HDL Cholesterol Alcohol, Quantitative Blood Type Blood Type Confirm Antibody Screen BBK History Checked Assessment & Plan - Assessment and Plan (Free Text) Plan: 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 -no current plans due to mental status and acute brain bleed -will revisit once stable Left Temporal Hemorrhagic Stroke -management per ICU and Neurology -continue to monitor <Parviz Long - Last Filed: 10/29/18 17:59> Meds - Medications Medications: Current Medications Amlodipine Besylate (Norvasc) 5 mg PO DAILY [facility] Last Admin: 10/29/18 09:28 Dose: 5 mg Dexamethasone (Decadron Inj) 10 mg IVP DAILY [facility] Stop: 10/31/18 10:01 Dexamethasone (Decadron Inj) 5 mg IVP DAILY [facility] Stop: 11/02/18 10:01 Diltiazem HCl (Cardizem Cd) 120 mg PO DAILY [facility] Last Admin: 10/29/18 09:27 Dose: 120 mg Levetiracetam (Keppra 500mg Ivpb) 500 mg in 100 mls @ 400 mls/hr IVPB Q12 [facility] Last Admin: 10/29/18 09:26 Dose: 400 mls/hr Lisinopril (Zestril) 10 mg PO DAILY [facility] Last Admin: 10/29/18 09:28 Dose: 10 mg Lorazepam (Ativan) 2 mg IVP Q6H PRN; Protocol PRN Reason: Agitation Last Admin: 10/27/18 15:25 Dose: 2 mg Metoprolol Tartrate (Lopressor) 25 mg PO BRKDIN [facility] Last Admin: 10/29/18 09:28 Dose: 25 mg Pantoprazole Sodium (Protonix Ec Tab) 40 mg PO DAILY [facility] Last Admin: 10/29/18 09:28 Dose: 40 mg Results - Vital Signs Recent Vital Signs: Last Vital Signs Temp 97.9 F 10/29/18 12:00 Pulse 66 10/29/18 14:00 Resp 18 10/29/18 12:00 BP 177/97 H 10/29/18 12:00 Pulse Ox 99 10/29/18 05:50 - Labs Result Diagrams: 10/29/18 07:00 10/29/18 07:00 Labs: Laboratory Results - last 24 hr 10/29/18 10/29/18 07:00 07:00 WBC 10.5 RBC 4.26 Hgb 14.7 Hct 42.4 MCV 99.5 MCH 34.5 MCHC 34.7 RDW 12.5 Plt Count 295 MPV 12.1 H Neut % (Auto) 91.2 H Lymph % (Auto) 7.5 L [place] % (Auto) 1.3 Eos % (Auto) 0.0 L Baso % (Auto) 0.0 Lymph # (Auto) 0.8 L [place] # (Auto) 0.1 Eos # (Auto) 0.0 Baso # (Auto) 0.00 Absolute Neuts (auto) 9.57 H Neutrophils % (Manual) 85 H Lymphocytes % (Manual) 10 L Monocytes % (Manual) 5 Sodium 138 Potassium 3.3 L Chloride 102 Carbon Dioxide 27 Anion Gap 13 BUN 19 Creatinine 0.4 L Est GFR ( Amer) > 60 Est GFR (Non-Af Amer) > 60 Random Glucose 163 H Calcium 8.8 Phosphorus 3.6 Magnesium 1.9 Total Bilirubin 1.4 H AST 73 H ALT 94 H Alkaline Phosphatase 62 Total Protein 6.9 Albumin 3.5 Globulin 3.3 Albumin/Globulin Ratio 1.1 Attending/Attestation - Attestation I have personally seen and examined this patient.: Yes I have fully participated in the care of the patient.: Yes I have reviewed all pertinent clinical information: Yes
[2018-10-24 06:33] LABS: ALBUMIN 4.3 g/dL (3.0-4.8); ALT/SGPT 34 U/L (7-56); AST/SGOT 67 U/L (17-59); BLOOD UREA NITROGEN 10 mg/dL (7-21); CALCIUM 9.3 mg/dL (8.4-10.5); GFR NON-AFRICAN AMERICAN > 60
[2018-10-24] MEDS: Nicardipine 20 MG/200 ML 20 MG/200 ML BAG IV PRN ×4 (09:02→23:06)
--- NOTE | 2018-10-24 09:17 | CP.PCM.PN ---
Subjective - Date & Time of Evaluation Date of Evaluation: 10/24/18 Time of Evaluation: 07:15 - Subjective Subjective: Antonette Muniz DO, PGY-2: Neurology Progress Note for Dr. Man Patient was seen and examined at bedside with 1:1 present. Patient did not sleep overnight and had episodes of agitation per nursing staff. Patient is unable to follow any commands and is on upper extremity restraints. His GCS is 11 ([id number]). Objective - Vital Signs/Intake and Output Vital Signs (last 24 hours): Temp Pulse Resp BP Pulse Ox 99.6 F 77 16 175/93 H 100 10/23/18 11:31 10/24/18 07:50 10/24/18 07:50 10/24/18 07:00 10/24/18 04:50 Intake and Output: 10/24/18 10/24/18 06:59 18:59 Intake Total 460 1 Output Total 0 Balance 460 1 - Medications Medications: Current Medications Dexamethasone (Decadron Inj) 10 mg IVP Q8 [facility] Last Admin: 10/24/18 05:50 Dose: 10 mg Nicardipine HCl (Cardene Iv Premix) 20 mg in 200 mls @ 50 mls/hr IV .Q4H PRN; Protocol PRN Reason: TITRATE PER MD ORDER Last Titration: 10/24/18 09:03 Dose: 0.2 mg/hr, 2 mls/hr Levetiracetam (Keppra 500mg Ivpb) 500 mg in 100 mls @ 400 mls/hr IVPB Q12 [facility] Last Admin: 10/23/18 21:54 Dose: 400 mls/hr Sodium Chloride (Hypertonic Saline 3%) 500 mls @ 30 mls/hr IV .[id number] [facility] Last Admin: 10/24/18 04:39 Dose: 30 mls/hr Pantoprazole Sodium (Protonix Inj) 40 mg IVP DAILY [facility] Sodium Chloride (Hypertonic Saline 3%) 200 ml IV BOLUS [facility] - Labs Labs: 10/24/18 05:40 10/24/18 05:40 PT 15.9 SECONDS (9.4-12.5) H 10/23/18 11:42 INR 1.41 10/23/18 11:42 APTT 31.4 Seconds (26.9-38.3) 04/15/19 11:42 - Constitutional Appears: Unkempt, Confused - Head Exam Head Exam: ATRAUMATIC, NORMOCEPHALIC - Eye Exam Eye Exam: Normal appearance Pupil Exam: NORMAL ACCOMODATION - ENT Exam ENT Exam: Mucous Membranes Moist - Neck Exam Neck Exam: Normal Inspection - Respiratory Exam Respiratory Exam: Clear to Ausculation Bilateral, NORMAL BREATHING PATTERN. absent: Accessory Muscle Use - Cardiovascular Exam Cardiovascular Exam: RRR, +S1, +S2 - GI/Abdominal Exam GI & Abdominal Exam: Soft, Normal Bowel Sounds - Extremities Exam Extremities Exam: Normal Inspection. absent: Calf Tenderness - Neurological Exam Neurological Exam: Awake, Reflexes Normal. absent: Oriented x3 - Skin Skin Exam: Dry, Intact, Normal Color, Warm Assessment and Plan - Assessment and Plan (Free Text) Assessment: 58 M with pertinent medical history of alcoholism and neuroendocrine tumor with L arm lymphedema presents for agitation and slurred speech for 2 days [employer]. Imaging reveals a L sided temporal lobe hemorrhage with surrounding edema but no herniation. Plan L Temporal Hemorrhagic Stroke with Productive and Receptive Aphasia - Decadron 10 q8h - Loading bolus of HT Saline of 200 mls, continue with maintenance dose of 30/hr to keep Na between 141-145 - Keppra for Seizure precautions - Maintain blood pressure <160/90 per ASA and AHA guidelines - HOB 30 degrees elevation; aspiration and seizure protocols; fall protocol; Neurochecks q1; CIWA protocol - Neurosurgery on consult - Follow up MRI of brain with contrast to rule out metastatic disease Case was reviewed and discussed with attending physician, Dr. Man
--- NOTE | 2018-10-24 10:51 | CT ---
Date of service: 10/24/2018 PROCEDURE: CT HEAD WITHOUT CONTRAST. HISTORY: ICH COMPARISON: 10/23/2018. TECHNIQUE: Axial computed tomography images were obtained through the head/brain without intravenous contrast. Radiation dose: Total exam DLP = 826.31 mGy-cm. This CT exam was performed using one or more of the following dose reduction techniques: Automated exposure control, adjustment of the mA and/or kV according to patient size, and/or use of iterative reconstruction technique. FINDINGS: HEMORRHAGE: There is redemonstration of 4.1 x 7.8 X 3.1 cm left temporal lobe acute hematoma with mild surrounding vasogenic edema, mild mass effect on the left lateral ventricle without significant midline shift or herniation. There is intraventricular extension of hemorrhage with layering small hemorrhage in the occipital horns. BRAIN: There are mild chronic microangiopathic changes. There is a chronic infarction in the right frontal lobe. VENTRICLES: There is mild age-related global parenchymal volume loss and proportionate enlargement of the ventricles and cortical sulci. CALVARIUM: There is no calvarial fracture or extracranial soft tissue swelling. PARANASAL SINUSES: Predominantly clear. MASTOID AIR CELLS: Predominantly clear. OTHER FINDINGS: None. IMPRESSION: 1. Large left temporal lobe acute hematoma measuring 4.1 x 7.8 x 3.1 cm, not significantly change in size and morphology since the prior examination given differences in slice selection. Mild surrounding vasogenic edema and effacement of the left lateral ventricle without midline shift or herniation. 2. Intraventricular extension of hemorrhage with small layering hemorrhage in the occipital horns of the lateral ventricles. No hydrocephalus. 3. No other significant interval change.
--- NOTE | 2018-10-24 10:57 | CP.PCM.PN ---
<Guille Lennon - Last Filed: 10/24/18 10:50> Subjective - Date & Time of Evaluation Date of Evaluation: 10/24/18 Time of Evaluation: 11:00 - Subjective Subjective: INTERNAL MEDICINE PROGRESS NOTE FOR DR. KYLE Lennon PGY1 Pt seen and examined at bedside this am. No acute events overnight. This am, pt is still verbal, agitated, clinically unchanged from admission. He is currently protecting his airway. He does not obey commands. ROS unable to be obtained d/t mental status Objective - Vital Signs/Intake and Output Vital Signs (last 24 hours): Temp Pulse Resp BP Pulse Ox 99.6 F 77 16 175/93 H 100 10/23/18 11:31 10/24/18 07:50 10/24/18 07:50 10/24/18 07:00 10/24/18 04:50 Intake and Output: 10/24/18 10/24/18 06:59 18:59 Intake Total 460 1 Output Total 0 Balance 460 1 - Medications Medications: Current Medications Dexamethasone (Decadron Inj) 10 mg IVP Q8 [facility] Last Admin: 10/24/18 05:50 Dose: 10 mg Nicardipine HCl (Cardene Iv Premix) 20 mg in 200 mls @ 50 mls/hr IV .Q4H PRN; Protocol PRN Reason: TITRATE PER MD ORDER Last Titration: 10/24/18 09:03 Dose: 0.2 mg/hr, 2 mls/hr Levetiracetam (Keppra 500mg Ivpb) 500 mg in 100 mls @ 400 mls/hr IVPB Q12 [facility] Last Admin: 10/23/18 21:54 Dose: 400 mls/hr Sodium Chloride (Hypertonic Saline 3%) 500 mls @ 30 mls/hr IV .[id number] [facility] Last Admin: 10/24/18 04:39 Dose: 30 mls/hr Pantoprazole Sodium (Protonix Inj) 40 mg IVP DAILY [facility] Sodium Chloride (Hypertonic Saline 3%) 200 ml IV BOLUS [facility] - Labs Labs: 10/24/18 05:40 10/24/18 05:40 PT 15.9 SECONDS (9.4-12.5) H 10/23/18 11:42 INR 1.41 10/23/18 11:42 APTT 31.4 Seconds (26.9-38.3) 10/23/18 11:42 - Constitutional Appears: Combative, Cachectic - Head Exam Additional comments: Well-approximated lesions noted over L eyebrow - Eye Exam Eye Exam: EOMI Pupil Exam: PERRL - ENT Exam ENT Exam: Mucous Membranes Moist, Normal Exam - Neck Exam Neck exam: Positive for: Normal Inspection - Respiratory Exam Respiratory Exam: Clear to Auscultation Bilateral, NORMAL BREATHING PATTERN - Cardiovascular Exam Cardiovascular Exam: REGULAR RHYTHM, +S1, +S2 - GI/Abdominal Exam GI & Abdominal Exam: Soft. absent: Tenderness - Extremities Exam Extremities exam: Negative for: calf tenderness - Back Exam Back exam: NORMAL INSPECTION - Neurological Exam Neurological exam: Alert Additional comments: awake. Not answering questions appropriate or obeying commands GCS 12 - Psychiatric Exam Psychiatric exam: Agitated - Skin Skin Exam: Abrasion (Over L eyebrow), Dry, Warm Assessment and Plan - Assessment and Plan (Free Text) Assessment: 58 y/o M with PMH of ETOH, hx neuroendocrine tumor s/p L axillary surgery bib EMS for agitation, slurred speech x 2 days. Pt found to have [id number] L sided temporal hemorrhage with small amount of surrounding edema. Pt also found to have elevated troponins. Pt transferred to ICU for close monitoring of ICH Plan: Intracranial Hemorrhage CT reveals: "There is an acute left temporal lobe hemorrhage measuring 38 x 65 x 30 mm in size. There is a small amount of surrounding edema. There is no intraventricular extension. There is no herniation." Per neurosurgery, no acute intervention at this time Repeat CT today. MRI today. Monitor in ICU, continue 3%NS with goal Na 140-145 per neuro Monitor BMP q4h Continue dexamethasone 10mg IVP q8h Continue keppra 500mg for seizure prophylaxis Maintain strict BP control with titratable nicardipine drip, avoid rapid fluctuations in BP. Neurosurgery/Neurology following. appreciate recs Elevated Troponins Currently downtrending Repeat EKG Cardiology consulted Will hold anticoagulation d/t ICH ETOH withdrawal Pt has extensive hx of ETOH abuse. Serum ETOH <10 CIWA protocol Aspiration precautions, neuro checks q1h Fall precautions On seizure prophylaxis with keppra Hx of neuroendocrine tumor History unable to obtained from patient Lymphedema noted in L arm Pt's home oncologist consulted, Dr. Long, appreciate recs DVT/GI PPx: SCD/Protonix (pt on steroids) Dispo: Continue to monitor in ICU. Family members unable to reached with current phone number.Wi Case discussed with and reviewed with attending physician, Dr. Kyle Lennon PGY1 <Debra Wright - Last Filed: 10/24/18 17:34> Objective - Vital Signs/Intake and Output Vital Signs (last 24 hours): Temp Pulse Resp BP Pulse Ox 99.6 F 97 H 16 175/93 H 100 10/23/18 11:31 10/24/18 16:00 10/24/18 07:50 10/24/18 07:00 10/24/18 04:50 Intake and Output: 10/24/18 10/24/18 06:59 18:59 Intake Total 460 200 Output Total 0 Balance 460 200 - Medications Medications: Current Medications Dexamethasone (Decadron Inj) 10 mg IVP Q8 [facility] Last Admin: 10/24/18 14:45 Dose: 10 mg Nicardipine HCl (Cardene Iv Premix) 20 mg in 200 mls @ 50 mls/hr IV .Q4H PRN; Protocol PRN Reason: TITRATE PER MD ORDER Last Titration: 10/24/18 17:10 Dose: 7.5 mg/hr, 75 mls/hr Levetiracetam (Keppra 500mg Ivpb) 500 mg in 100 mls @ 400 mls/hr IVPB Q12 [facility] Last Admin: 10/24/18 11:23 Dose: 400 mls/hr Sodium Chloride (Hypertonic Saline 3%) 500 mls @ 30 mls/hr IV .[id number] [facility] Last Admin: 10/24/18 04:39 Dose: 30 mls/hr Lorazepam (Ativan) 1 mg IVP Q6H PRN; Protocol PRN Reason: Agitation Last Admin: 10/24/18 15:28 Dose: 1 mg Pantoprazole Sodium (Protonix Inj) 40 mg IVP DAILY [facility] Last Admin: 10/24/18 11:22 Dose: 40 mg - Labs Labs: 10/24/18 05:40 10/24/18 15:45 PT 15.9 SECONDS (9.4-12.5) H 10/23/18 11:42 INR 1.41 10/23/18 11:42 APTT 31.4 Seconds (26.9-38.3) 10/23/18 11:42 Attending/Attestation - Attestation I have personally seen and examined this patient.: Yes I have fully participated in the care of the patient.: Yes I have reviewed all pertinent clinical information, including history, physical exam and plan: Yes Notes (Text): 10/24/18 17:29 Attending note; Patient seen and examined with resident in ICU. Patient is Confused and agitated. Not following commands. moving all the extremities. Patient is a 58-year-old male with PMH of neuroendocrine tumor s/p unspecified L axillary surgery & residual L arm lymphedema, ETOH abuse presented to [facility] with agitation & slurred speech. As per ER note patient has recently been agitated for the past few days. 1. Confusion; CT head shows acute left temporal lobe hemorrhage measuring 38 x 65 x 30 mm in size. There is a small amount of surrounding edema. There is no intraventricular extension. There is no herniation. Per neurosurgery, no acute intervention at this time. Patient is currently monitored in ICU. Patient is confused and restless. Moving all extremities. Repeat CT head ordered. Continue IV Ativan as needed. 2. Neurology evaluation appreciated. started on 3% normal saline to decrease intracranial pressure. Monitor BMP every 6 hours. Keep sodium between 145 to 150. Head end elevation. Started on IV Keppra For seizure prophylaxis. 3. Hypertension; will start IV nicardipine drip to keep blood pressure 140-160. 4. Alcohol abuse; monitor for withdrawal symptoms. Continue IV Ativan as needed. 5. Elevated troponin; secondary to hemodynamic changes due to stroke . EKG showed no acute ST elevation. Troponins trending down. 6. History of neuroendocrine tumor. Awe will follow up with oncology. Continue IV Decadron. 7. GI prophylaxis Protonix. SCD for DVT prophylaxis. Monitor the patient closely in ICU. Case discussed with neurologist and Filler Picker in detail. Unable to reach the family member at this time. We will follow-up with social services manager. 10/24/18 17:34
--- NOTE | 2018-10-24 11:00 | RAD ---
Date of service: 10/24/2018 HISTORY: PICC placement COMPARISON: 10/23/2018. FINDINGS: The right PICC line terminates at the cavoatrial junction. LUNGS: The lungs are well inflated and clear. PLEURA: No pleural effusions or pneumothorax. CARDIOVASCULAR: The heart is normal in size. There are aortic atherosclerotic calcifications present. OSSEOUS STRUCTURES: There is an old fracture deformity in the right proximal humerus. There is diffuse bone demineralization. VISUALIZED UPPER ABDOMEN: Normal. OTHER FINDINGS: None. IMPRESSION: Right PICC line terminates at the cavoatrial junction. No acute findings.
--- NOTE | 2018-10-24 11:05 | RAD ---
Date of service: 10/24/2018 HISTORY: PICC line placement COMPARISON: 10/24/2018 at 10:26 a.m. FINDINGS: The right PICC line terminates at the cavoatrial junction. LUNGS: The lungs are well inflated and clear. PLEURA: No pleural effusions or pneumothorax. CARDIOVASCULAR: The heart is normal in size. No aortic atherosclerotic calcifications present. OSSEOUS STRUCTURES: Diffuse bone demineralization. There is an old fracture deformity in the right proximal humerus. VISUALIZED UPPER ABDOMEN: Normal. OTHER FINDINGS: None. IMPRESSION: Right PICC line terminates at the cavoatrial junction. No acute findings.
[2018-10-24 11:13] LABS: BLOOD UREA NITROGEN 10 mg/dL (7-21); CALCIUM 9.2 mg/dL (8.4-10.5); GFR NON-AFRICAN AMERICAN > 60
--- NOTE | 2018-10-24 11:13 | CP.PCM.PN ---
Subjective - Date & Time of Evaluation Date of Evaluation: 10/24/18 Time of Evaluation: 11:12 - Subjective Subjective: remains wake and aphasic neuro stable CT unchanged Doubt makayla need intervention recall if any changes in exam Objective - Vital Signs/Intake and Output Vital Signs (last 24 hours): Temp Pulse Resp BP Pulse Ox 99.6 F 77 16 175/93 H 100 10/23/18 11:31 10/24/18 07:50 10/24/18 07:50 10/24/18 07:00 10/24/18 04:50 Intake and Output: 10/24/18 10/24/18 06:59 18:59 Intake Total 460 1 Output Total 0 Balance 460 1 - Medications Medications: Current Medications Dexamethasone (Decadron Inj) 10 mg IVP Q8 [facility] Last Admin: 10/24/18 05:50 Dose: 10 mg Nicardipine HCl (Cardene Iv Premix) 20 mg in 200 mls @ 50 mls/hr IV .Q4H PRN; Protocol PRN Reason: TITRATE PER MD ORDER Last Titration: 10/24/18 09:03 Dose: 0.2 mg/hr, 2 mls/hr Levetiracetam (Keppra 500mg Ivpb) 500 mg in 100 mls @ 400 mls/hr IVPB Q12 [facility] Last Admin: 10/23/18 21:54 Dose: 400 mls/hr Sodium Chloride (Hypertonic Saline 3%) 500 mls @ 30 mls/hr IV .[id number] [facility] Last Admin: 10/24/18 04:39 Dose: 30 mls/hr Pantoprazole Sodium (Protonix Inj) 40 mg IVP DAILY [facility] Sodium Chloride (Hypertonic Saline 3%) 200 ml IV BOLUS [facility] - Labs Labs: 10/24/18 05:40 10/24/18 05:40 PT 15.9 SECONDS (9.4-12.5) H 10/23/18 11:42 INR 1.41 10/23/18 11:42 APTT 31.4 Seconds (26.9-38.3) 10/23/18 11:42
--- NOTE | 2018-10-24 11:17 | CP.CCUPN ---
<Grupreet Anderson - Last Filed: 10/24/18 11:13> CCU Subjective - Physician Review Subjective (Free Text): Gurpreet Anderson, PGY1 ICU Progress Note for Dr. Fuller Patient was seen and examined at bedside this morning. Overnight, patient's SBP noted to be 150-160s. Currently BP is improved while on cardene drip. Nursing staff again instructed to maintain SBP < 140 given hemorrhagic stroke findings. Patient still displays expressive aphasia. He is agitated at times. ROS limited given his mental status and clinical presentation. After interview, patient had insertion of PICC line and went for a repeat CT Head. CCU Objective - Vital Signs / Intake & Output Vital Signs (Last 4 hours): Vital Signs Pulse Resp 10/24/18 07:50 77 16 10/24/18 07:40 82 18 10/24/18 07:30 74 17 10/24/18 07:20 83 17 Intake and Output (Last 8hrs): Intake & Output 10/23/18 10/24/18 10/24/18 22:59 06:59 14:59 Intake Total 500 460 1 Output Total 0 Balance 500 460 1 Weight 59.148 kg 58.967 kg Intake: IV 500 460 1 Right Forearm 500 460 Output: Stool 0 Emesis 0 Other: Voiding Method Incontinent - Physical Exam Head: Positive for: Atraumatic, Normocephalic, Other (dried blood on forehead) Pupils: Positive for: PERRL Extroacular Muscles: Positive for: EOMI Conjunctiva: Positive for: Normal Mouth: Positive for: Moist Mucous Membranes Neck: Positive for: Normal Range of Motion. Negative for: Meningeal Signs, MIDLINE TENDERNESS Respiratory/Chest: Positive for: Clear to Auscultation, Good Air Exchange. Negative for: Respiratory Distress, Accessory Muscle Use Cardiovascular: Positive for: Regular Rate and Rhythm, Normal S1, S2 Abdomen: Negative for: Tenderness, Distention Upper Extremity: Positive for: NORMAL PULSES, Neurovascularly Intact, Capillary Refill < 2s Lower Extremity: Positive for: Normal Inspection, NORMAL PULSES, Normal ROM, Ca pillary Refill < 2 s, Other (spontaneous movement extremities x 4). Negative for: CALF TENDERNESS Neurological: Positive for: Motor Func Grossly Intact, Other (Word salad - e xpressive aphasia. ). Negative for: Speech Normal (nonsensical speech) Skin: Positive for: Warm Psychiatric: Positive for: Alert, Agitated. Negative for: Oriented x 3 - Medications Active Medications: Active Medications Generic Name Dose Route Start Last Admin Trade Name Freq PRN Reason Stop Dose Admin Dexamethasone 10 mg 10/23/18 14:45 10/24/18 05:50 Decadron Inj IVP 10 mg Q8 GRAEME Administration Nicardipine HCl 20 mg in 200 mls @ 50 mls/hr 10/23/18 13:38 10/24/18 09:03 Cardene Iv Premix IV 0.2 mg/hr .Q4H PRN 2 mls/hr TITRATE PER MD ORDER Titration Protocol 5 MG/HR Levetiracetam 500 mg in 100 mls @ 400 mls/hr 10/23/18 22:00 10/23/18 21:54 Keppra 500mg Ivpb IVPB 400 mls/hr Q12 GRAEME Administration Sodium Chloride 500 mls @ 30 mls/hr 10/23/18 15:00 10/24/18 04:39 Hypertonic Saline 3% IV 30 mls/hr .[id number] GRAEME Administration Pantoprazole Sodium 40 mg 10/24/18 10:00 Protonix Inj IVP DAILY GRAEME Sodium Chloride 200 ml 10/23/18 14:45 Hypertonic Saline 3% IV BOLUS GRAEME - Patient Studies Lab Studies: Lab Studies 10/24/18 10/24/18 10/24/18 Range/Units 06:04 05:40 05:40 WBC 8.9 (4.5-11.0) 10^3/uL RBC 4.00 (3.5-6.1) 10^6/uL Hgb 13.8 L (14.0-18.0) g/dL Hct 41.1 L (42.0-52.0) % MCV 102.8 (80.0-105.0) fl MCH 34.5 (25.0-35.0) pg MCHC 33.6 (31.0-37.0) g/dl RDW 12.7 (11.5-14.5) % Plt Count 282 (120.0-450.0) 10^3/uL MPV 11.3 H (7.0-11.0) fl Neut % (Auto) (50.0-68.0) % Lymph % (Auto) (22.0-35.0) % Dickinson % (Auto) (1.0-6.0) % Eos % (Auto) (1.5-5.0) % Baso % (Auto) (0.0-3.0) % Lymph # (Auto) (1.2-3.4) Dickinson # (Auto) (0.1-0.6) Eos # (Auto) (0.0-0.7) Baso # (Auto) (0.0-2.0) K/mm3 Absolute Neuts (auto) (1.4-6.5) PT (9.4-12.5) SECONDS INR APTT (26.9-38.3) Seconds Sodium 143 (132-148) mmol/L Potassium 4.0 (3.6-5.0) mmol/L Chloride 108 H (98-107) mmol/L Carbon Dioxide 19 L (21-33) mmol/L Anion Gap 20 (10-20) BUN 10 (7-21) mg/dL Creatinine 0.4 L (0.8-1.5) mg/dl Est GFR ( Amer) > 60 Est GFR (Non-Af Amer) > 60 POC Glucose (mg/dL) 93 (65-110) mg/dL Random Glucose 99 (70-110) mg/dL Hemoglobin A1c (4.2-6.5) % Calcium 9.3 (8.4-10.5) mg/dL Phosphorus (2.5-4.5) mg/dL Magnesium (1.7-2.2) mg/dL Total Bilirubin 2.6 H (0.2-1.3) mg/dL AST 67 H (17-59) U/L ALT 34 (7-56) U/L Alkaline Phosphatase 67 (38-126) U/L Ammonia (9-33) umol/L Troponin I ng/mL Total Protein 8.5 H (5.8-8.3) g/dL Albumin 4.3 (3.0-4.8) g/dL Globulin 4.2 gm/dL Albumin/Globulin Ratio 1.0 L (1.1-1.8) Triglycerides (35-160) mg/dL Cholesterol (130-200) mg/dL LDL Cholesterol Direct (0-129) mg/dL HDL Cholesterol (29-60) mg/dL Alcohol, Quantitative (0-10) mg/dL Blood Type Blood Type Confirm Antibody Screen BBK History Checked 10/24/18 10/23/18 10/23/18 Range/Units 00:15 21:53 21:35 WBC (4.5-11.0) 10^3/uL RBC (3.5-6.1) 10^6/uL Hgb (14.0-18.0) g/dL Hct (42.0-52.0) % MCV (80.0-105.0) fl MCH (25.0-35.0) pg MCHC (31.0-37.0) g/dl RDW (11.5-14.5) % Plt Count (120.0-450.0) 10^3/uL MPV (7.0-11.0) fl Neut % (Auto) (50.0-68.0) % Lymph % (Auto) (22.0-35.0) % Dickinson % (Auto) (1.0-6.0) % Eos % (Auto) (1.5-5.0) % Baso % (Auto) (0.0-3.0) % Lymph # (Auto) (1.2-3.4) Dickinson # (Auto) (0.1-0.6) Eos # (Auto) (0.0-0.7) Baso # (Auto) (0.0-2.0) K/mm3 Absolute Neuts (auto) (1.4-6.5) PT (9.4-12.5) SECONDS INR APTT (26.9-38.3) Seconds Sodium 140 (132-148) mmol/L Potassium 3.8 (3.6-5.0) mmol/L Chloride 103 (98-107) mmol/L Carbon Dioxide 20 L (21-33) mmol/L Anion Gap 20 (10-20) BUN 9 (7-21) mg/dL Creatinine 0.4 L (0.8-1.5) mg/dl Est GFR ( Amer) > 60 Est GFR (Non-Af Amer) > 60 POC Glucose (mg/dL) 101 (65-110) mg/dL Random Glucose 103 (70-110) mg/dL Hemoglobin A1c (4.2-6.5) % Calcium 8.9 (8.4-10.5) mg/dL Phosphorus (2.5-4.5) mg/dL Magnesium (1.7-2.2) mg/dL Total Bilirubin (0.2-1.3) mg/dL AST (17-59) U/L ALT (7-56) U/L Alkaline Phosphatase (38-126) U/L Ammonia (9-33) umol/L Troponin I 0.21 H* D ng/mL Total Protein (5.8-8.3) g/dL Albumin (3.0-4.8) g/dL Globulin gm/dL Albumin/Globulin Ratio (1.1-1.8) Triglycerides (35-160) mg/dL Cholesterol (130-200) mg/dL LDL Cholesterol Direct (0-129) mg/dL HDL Cholesterol (29-60) mg/dL Alcohol, Quantitative (0-10) mg/dL Blood Type Blood Type Confirm Antibody Screen BBK History Checked 10/23/18 10/23/18 10/23/18 Range/Units 18:34 12:14 11:42 WBC (4.5-11.0) 10^3/uL RBC (3.5-6.1) 10^6/uL Hgb (14.0-18.0) g/dL Hct (42.0-52.0) % MCV (80.0-105.0) fl MCH (25.0-35.0) pg MCHC (31.0-37.0) g/dl RDW (11.5-14.5) % Plt Count (120.0-450.0) 10^3/uL MPV (7.0-11.0) fl Neut % (Auto) (50.0-68.0) % Lymph % (Auto) (22.0-35.0) % Dickinson % (Auto) (1.0-6.0) % Eos % (Auto) (1.5-5.0) % Baso % (Auto) (0.0-3.0) % Lymph # (Auto) (1.2-3.4) Dickinson # (Auto) (0.1-0.6) Eos # (Auto) (0.0-0.7) Baso # (Auto) (0.0-2.0) K/mm3 Absolute Neuts (auto) (1.4-6.5) PT (9.4-12.5) SECONDS INR APTT (26.9-38.3) Seconds Sodium 138 (132-148) mmol/L Potassium 3.6 (3.6-5.0) mmol/L Chloride 102 (98-107) mmol/L Carbon Dioxide 22 (21-33) mmol/L Anion Gap 18 (10-20) BUN 9 (7-21) mg/dL Creatinine 0.4 L (0.8-1.5) mg/dl Est GFR ( Amer) > 60 Est GFR (Non-Af Amer) > 60 POC Glucose (mg/dL) (65-110) mg/dL Random Glucose 91 (70-110) mg/dL Hemoglobin A1c (4.2-6.5) % Calcium 8.9 (8.4-10.5) mg/dL Phosphorus 3.4 (2.5-4.5) mg/dL Magnesium 1.4 L (1.7-2.2) mg/dL Total Bilirubin (0.2-1.3) mg/dL AST (17-59) U/L ALT (7-56) U/L Alkaline Phosphatase (38-126) U/L Ammonia (9-33) umol/L Troponin I 0.36 H* ng/mL Total Protein (5.8-8.3) g/dL Albumin (3.0-4.8) g/dL Globulin gm/dL Albumin/Globulin Ratio (1.1-1.8) Triglycerides (35-160) mg/dL Cholesterol (130-200) mg/dL LDL Cholesterol Direct (0-129) mg/dL HDL Cholesterol (29-60) mg/dL Alcohol, Quantitative (0-10) mg/dL Blood Type Blood Type Confirm O POSITIVE Antibody Screen BBK History Checked 10/23/18 10/23/18 10/23/18 Range/Units 11:42 11:42 11:42 WBC (4.5-11.0) 10^3/uL RBC (3.5-6.1) 10^6/uL Hgb (14.0-18.0) g/dL Hct (42.0-52.0) % MCV (80.0-105.0) fl MCH (25.0-35.0) pg MCHC (31.0-37.0) g/dl RDW (11.5-14.5) % Plt Count (120.0-450.0) 10^3/uL MPV (7.0-11.0) fl Neut % (Auto) (50.0-68.0) % Lymph % (Auto) (22.0-35.0) % Dickinson % (Auto) (1.0-6.0) % Eos % (Auto) (1.5-5.0) % Baso % (Auto) (0.0-3.0) % Lymph # (Auto) (1.2-3.4) Dickinson # (Auto) (0.1-0.6) Eos # (Auto) (0.0-0.7) Baso # (Auto) (0.0-2.0) K/mm3 Absolute Neuts (auto) (1.4-6.5) PT (9.4-12.5) SECONDS INR APTT (26.9-38.3) Seconds Sodium (132-148) mmol/L Potassium (3.6-5.0) mmol/L Chloride (98-107) mmol/L Carbon Dioxide (21-33) mmol/L Anion Gap (10-20) BUN (7-21) mg/dL Creatinine (0.8-1.5) mg/dl Est GFR ( Amer) Est GFR (Non-Af Amer) POC Glucose (mg/dL) (65-110) mg/dL Random Glucose (70-110) mg/dL Hemoglobin A1c (4.2-6.5) % Calcium (8.4-10.5) mg/dL Phosphorus (2.5-4.5) mg/dL Magnesium (1.7-2.2) mg/dL Total Bilirubin (0.2-1.3) mg/dL AST (17-59) U/L ALT (7-56) U/L Alkaline Phosphatase (38-126) U/L Ammonia 20 (9-33) umol/L Troponin I ng/mL Total Protein (5.8-8.3) g/dL Albumin (3.0-4.8) g/dL Globulin gm/dL Albumin/Globulin Ratio (1.1-1.8) Triglycerides (35-160) mg/dL Cholesterol (130-200) mg/dL LDL Cholesterol Direct (0-129) mg/dL HDL Cholesterol (29-60) mg/dL Alcohol, Quantitative < 10 (0-10) mg/dL Blood Type O POSITIVE Blood Type Confirm Antibody Screen Negative BBK History Checked No verified bt 10/23/18 10/23/18 10/23/18 Range/Units 11:42 11:42 11:42 WBC (4.5-11.0) 10^3/uL RBC (3.5-6.1) 10^6/uL Hgb (14.0-18.0) g/dL Hct (42.0-52.0) % MCV (80.0-105.0) fl MCH (25.0-35.0) pg MCHC (31.0-37.0) g/dl RDW (11.5-14.5) % Plt Count (120.0-450.0) 10^3/uL MPV (7.0-11.0) fl Neut % (Auto) (50.0-68.0) % Lymph % (Auto) (22.0-35.0) % Dickinson % (Auto) (1.0-6.0) % Eos % (Auto) (1.5-5.0) % Baso % (Auto) (0.0-3.0) % Lymph # (Auto) (1.2-3.4) Dickinson # (Auto) (0.1-0.6) Eos # (Auto) (0.0-0.7) Baso # (Auto) (0.0-2.0) K/mm3 Absolute Neuts (auto) (1.4-6.5) PT 15.9 H (9.4-12.5) SECONDS INR 1.41 APTT 31.4 (26.9-38.3) Seconds Sodium 136 (132-148) mmol/L Potassium 3.0 L (3.6-5.0) mmol/L Chloride 98 (98-107) mmol/L Carbon Dioxide 21 (21-33) mmol/L Anion Gap 20 (10-20) BUN 9 (7-21) mg/dL Creatinine 0.5 L (0.8-1.5) mg/dl Est GFR ( Amer) > 60 Est GFR (Non-Af Amer) > 60 POC Glucose (mg/dL) (65-110) mg/dL Random Glucose 80 (70-110) mg/dL Hemoglobin A1c 4.7 (4.2-6.5) % Calcium 9.1 (8.4-10.5) mg/dL Phosphorus (2.5-4.5) mg/dL Magnesium (1.7-2.2) mg/dL Total Bilirubin 3.4 H (0.2-1.3) mg/dL AST 67 H (17-59) U/L ALT 37 (7-56) U/L Alkaline Phosphatase 68 (38-126) U/L Ammonia (9-33) umol/L Troponin I 0.36 H* ng/mL Total Protein 8.3 (5.8-8.3) g/dL Albumin 4.3 (3.0-4.8) g/dL Globulin 4.0 gm/dL Albumin/Globulin Ratio 1.1 (1.1-1.8) Triglycerides 74 (35-160) mg/dL Cholesterol 160 (130-200) mg/dL LDL Cholesterol Direct 92 (0-129) mg/dL HDL Cholesterol 48 (29-60) mg/dL Alcohol, Quantitative (0-10) mg/dL Blood Type Blood Type Confirm Antibody Screen BBK History Checked 10/23/18 10/23/18 Range/Units 11:42 11:18 WBC 8.9 (4.5-11.0) 10^3/uL RBC 3.79 (3.5-6.1) 10^6/uL Hgb 12.9 L (14.0-18.0) g/dL Hct 38.1 L (42.0-52.0) % MCV 100.5 (80.0-105.0) fl MCH 34.0 (25.0-35.0) pg MCHC 33.9 (31.0-37.0) g/dl RDW 12.7 (11.5-14.5) % Plt Count 253 (120.0-450.0) 10^3/uL MPV 10.9 (7.0-11.0) fl Neut % (Auto) 74.8 H (50.0-68.0) % Lymph % (Auto) 12.1 L (22.0-35.0) % Dickinson % (Auto) 12.9 H (1.0-6.0) % Eos % (Auto) 0.1 L (1.5-5.0) % Baso % (Auto) 0.1 (0.0-3.0) % Lymph # (Auto) 1.1 L (1.2-3.4) Dickinson # (Auto) 1.1 H (0.1-0.6) Eos # (Auto) 0.0 (0.0-0.7) Baso # (Auto) 0.01 (0.0-2.0) K/mm3 Absolute Neuts (auto) 6.62 H (1.4-6.5) PT (9.4-12.5) SECONDS INR APTT (26.9-38.3) Seconds Sodium (132-148) mmol/L Potassium (3.6-5.0) mmol/L Chloride (98-107) mmol/L Carbon Dioxide (21-33) mmol/L Anion Gap (10-20) BUN (7-21) mg/dL Creatinine (0.8-1.5) mg/dl Est GFR ( Amer) Est GFR (Non-Af Amer) POC Glucose (mg/dL) 87 (65-110) mg/dL Random Glucose (70-110) mg/dL Hemoglobin A1c (4.2-6.5) % Calcium (8.4-10.5) mg/dL Phosphorus (2.5-4.5) mg/dL Magnesium (1.7-2.2) mg/dL Total Bilirubin (0.2-1.3) mg/dL AST (17-59) U/L ALT (7-56) U/L Alkaline Phosphatase (38-126) U/L Ammonia (9-33) umol/L Troponin I ng/mL Total Protein (5.8-8.3) g/dL Albumin (3.0-4.8) g/dL Globulin gm/dL Albumin/Globulin Ratio (1.1-1.8) Triglycerides (35-160) mg/dL Cholesterol (130-200) mg/dL LDL Cholesterol Direct (0-129) mg/dL HDL Cholesterol (29-60) mg/dL Alcohol, Quantitative (0-10) mg/dL Blood Type Blood Type Confirm Antibody Screen BBK History Checked Laboratory Results - last 24 hr 10/23/18 10/23/18 10/23/18 11:18 11:42 11:42 WBC 8.9 RBC 3.79 Hgb 12.9 L Hct 38.1 L MCV 100.5 MCH 34.0 MCHC 33.9 RDW 12.7 Plt Count 253 MPV 10.9 Neut % (Auto) 74.8 H Lymph % (Auto) 12.1 L Dickinson % (Auto) 12.9 H Eos % (Auto) 0.1 L Baso % (Auto) 0.1 Lymph # (Auto) 1.1 L Dickinson # (Auto) 1.1 H Eos # (Auto) 0.0 Baso # (Auto) 0.01 Absolute Neuts (auto) 6.62 H PT 15.9 H INR 1.41 APTT 31.4 Sodium Potassium Chloride Carbon Dioxide Anion Gap BUN Creatinine Est GFR ( Amer) Est GFR (Non-Af Amer) POC Glucose (mg/dL) 87 Random Glucose Hemoglobin A1c Calcium Phosphorus Magnesium Total Bilirubin AST ALT Alkaline Phosphatase Ammonia Troponin I Total Protein Albumin Globulin Albumin/Globulin Ratio Triglycerides Cholesterol LDL Cholesterol Direct HDL Cholesterol Alcohol, Quantitative Blood Type Blood Type Confirm Antibody Screen BBK History Checked 10/23/18 10/23/18 10/23/18 11:42 11:42 11:42 WBC RBC Hgb Hct MCV MCH MCHC RDW Plt Count MPV Neut % (Auto) Lymph % (Auto) Dickinson % (Auto) Eos % (Auto) Baso % (Auto) Lymph # (Auto) Dickinson # (Auto) Eos # (Auto) Baso # (Auto) Absolute Neuts (auto) PT INR APTT Sodium 136 Potassium 3.0 L Chloride 98 Carbon Dioxide 21 Anion Gap 20 BUN 9 Creatinine 0.5 L Est GFR ( Amer) > 60 Est GFR (Non-Af Amer) > 60 POC Glucose (mg/dL) Random Glucose 80 Hemoglobin A1c 4.7 Calcium 9.1 Phosphorus Magnesium Total Bilirubin 3.4 H AST 67 H ALT 37 Alkaline Phosphatase 68 Ammonia Troponin I 0.36 H* Total Protein 8.3 Albumin 4.3 Globulin 4.0 Albumin/Globulin Ratio 1.1 Triglycerides 74 Cholesterol 160 LDL Cholesterol Direct 92 HDL Cholesterol 48 Alcohol, Quantitative Blood Type O POSITIVE Blood Type Confirm Antibody Screen Negative BBK History Checked No verified bt 10/23/18 10/23/18 10/23/18 11:42 11:42 11:42 WBC RBC Hgb Hct MCV MCH MCHC RDW Plt Count MPV Neut % (Auto) Lymph % (Auto) Dickinson % (Auto) Eos % (Auto) Baso % (Auto) Lymph # (Auto) Dickinson # (Auto) Eos # (Auto) Baso # (Auto) Absolute Neuts (auto) PT INR APTT Sodium Potassium Chloride Carbon Dioxide Anion Gap BUN Creatinine Est GFR ( Amer) Est GFR (Non-Af Amer) POC Glucose (mg/dL) Random Glucose Hemoglobin A1c Calcium Phosphorus 3.4 Magnesium 1.4 L Total Bilirubin AST ALT Alkaline Phosphatase Ammonia 20 Troponin I Total Protein Albumin Globulin Albumin/Globulin Ratio Triglycerides Cholesterol LDL Cholesterol Direct HDL Cholesterol Alcohol, Quantitative < 10 Blood Type Blood Type Confirm Antibody Screen BBK History Checked 10/23/18 10/23/18 10/23/18 12:14 18:34 21:35 WBC RBC Hgb Hct MCV MCH MCHC RDW Plt Count MPV Neut % (Auto) Lymph % (Auto) Dickinson % (Auto) Eos % (Auto) Baso % (Auto) Lymph # (Auto) Dickinson # (Auto) Eos # (Auto) Baso # (Auto) Absolute Neuts (auto) PT INR APTT Sodium 138 140 Potassium 3.6 3.8 Chloride 102 103 Carbon Dioxide 22 20 L Anion Gap 18 20 BUN 9 9 Creatinine 0.4 L 0.4 L Est GFR ( Amer) > 60 > 60 Est GFR (Non-Af Amer) > 60 > 60 POC Glucose (mg/dL) Random Glucose 91 103 Hemoglobin A1c Calcium 8.9 8.9 Phosphorus Magnesium Total Bilirubin AST ALT Alkaline Phosphatase Ammonia Troponin I 0.36 H* Total Protein Albumin Globulin Albumin/Globulin Ratio Triglycerides Cholesterol LDL Cholesterol Direct HDL Cholesterol Alcohol, Quantitative Blood Type Blood Type Confirm O POSITIVE Antibody Screen BBK History Checked 10/23/18 10/24/18 10/24/18 21:53 00:15 05:40 WBC 8.9 RBC 4.00 Hgb 13.8 L Hct 41.1 L MCV 102.8 MCH 34.5 MCHC 33.6 RDW 12.7 Plt Count 282 MPV 11.3 H Neut % (Auto) Lymph % (Auto) Dickinson % (Auto) Eos % (Auto) Baso % (Auto) Lymph # (Auto) Dickinson # (Auto) Eos # (Auto) Baso # (Auto) Absolute Neuts (auto) PT INR APTT Sodium Potassium Chloride Carbon Dioxide Anion Gap BUN Creatinine Est GFR ( Amer) Est GFR (Non-Af Amer) POC Glucose (mg/dL) 101 Random Glucose Hemoglobin A1c Calcium Phosphorus Magnesium Total Bilirubin AST ALT Alkaline Phosphatase Ammonia Troponin I 0.21 H* D Total Protein Albumin Globulin Albumin/Globulin Ratio Triglycerides Cholesterol LDL Cholesterol Direct HDL Cholesterol Alcohol, Quantitative Blood Type Blood Type Confirm Antibody Screen BBK History Checked 10/24/18 10/24/18 05:40 06:04 WBC RBC Hgb Hct MCV MCH MCHC RDW Plt Count MPV Neut % (Auto) Lymph % (Auto) Dickinson % (Auto) Eos % (Auto) Baso % (Auto) Lymph # (Auto) Dickinson # (Auto) Eos # (Auto) Baso # (Auto) Absolute Neuts (auto) PT INR APTT Sodium 143 Potassium 4.0 Chloride 108 H Carbon Dioxide 19 L Anion Gap 20 BUN 10 Creatinine 0.4 L Est GFR ( Amer) > 60 Est GFR (Non-Af Amer) > 60 POC Glucose (mg/dL) 93 Random Glucose 99 Hemoglobin A1c Calcium 9.3 Phosphorus Magnesium Total Bilirubin 2.6 H AST 67 H ALT 34 Alkaline Phosphatase 67 Ammonia Troponin I Total Protein 8.5 H Albumin 4.3 Globulin 4.2 Albumin/Globulin Ratio 1.0 L Triglycerides Cholesterol LDL Cholesterol Direct HDL Cholesterol Alcohol, Quantitative Blood Type Blood Type Confirm Antibody Screen BBK History Checked Radiology Impressions: Radiology Impressions Chest X-Ray 10/23/18 11:18 IMPRESSION: No active disease. Head CT 10/23/18 11:18 IMPRESSION: Head CT 10/24/18 07:42 IMPRESSION: 1. Large left temporal lobe acute hematoma measuring 4.1 x 7.8 x 3.1 cm, not significantly change in size and morphology since the prior examination given differences in slice selection. Mild surrounding vasogenic edema and effacement of the left lateral ventricle without midline shift or herniation. 2. Intraventricular extension of hemorrhage with small layering hemorrhage in the occipital horns of the lateral ventricles. No hydrocephalus. 3. No other significant interval change. Chest X-Ray 10/24/18 10:06 IMPRESSION: Right PICC line terminates at the cavoatrial junction. No acute findings. Chest X-Ray 10/24/18 10:28 IMPRESSION: Right PICC line terminates at the cavoatrial junction. No acute findings. 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 Patient admitted to the ICU for hemorrhagic stroke. Plan: Neuro: - Left Intracranial Hemorrhage with Minimal Transtentorial Shift - As per neuro, c/w 3% hypertonic saline; titrate Na 140-145 - c/w decadron 10mg IV q8 - c/w Keppra IVPB q12 - f/u serum osmol - Repeat Head CT - f/u results this morning - Maintain SBP < 140 via cardene drip - Patient was unable to go for MRI given his mental status and no family was able to be reached at this time - c/w neurochecks and keep head of bed elevated to minimize intracranial pressure - CT Head (10/23): left ICH at the temporal area: [id number] mm in size. - PT/OT/SS - NPO - Neurology on consult. Recs appreciated. - Neurosurgery on consult. Recs appreciated. Cardio: - As mentioned above, maintain SBP < 140 given hemorrhagic stroke - c/w cardene drip - Maintain MAP > 65 - Elevated troponins 2/2 stroke; trops trending down - EKG: NSR with no acute ST or T wave changes. Pulm: - Maintain SaO2 > 92% - No active issues at this time - aspiration precautions Renal: - Hypokalema with K 3.0 in ED - K improved to 4.0 - f/u serum osmol - c/w 3% hypertonic saline with goal Na 140-145 - monitor and replete electrolytes as needed Heme/onc: - Hx of Neuroendocrine Tumor - Heme/onc on consult (Dr. Branch). Will follow up recs. - no active issues at this time DVT ppx: scd GI ppx: ptx Diet: NPO Dispo: Continue to monitor patient in the ICU. Pending official read of repeat CT Head. Pending further recs from neuro and neurosx. Case was discussed and reviewed with Attending Physician, Dr. Fuller. <Igor Fuller - Last Filed: 10/24/18 13:09> CCU Objective - Vital Signs / Intake & Output Intake and Output (Last 8hrs): Intake & Output 10/23/18 10/24/18 10/24/18 22:59 06:59 14:59 Intake Total 500 460 1 Output Total 0 Balance 500 460 1 Weight 130 lb 6.4 oz 130 lb Intake: IV 500 460 1 Right Forearm 500 460 Output: Stool 0 Emesis 0 Other: Voiding Method Incontinent - Medications Active Medications: Active Medications Generic Name Dose Route Start Last Admin Trade Name Freq PRN Reason Stop Dose Admin Dexamethasone 10 mg 10/23/18 14:45 10/24/18 05:50 Decadron Inj IVP 10 mg Q8 GRAEME Administration Nicardipine HCl 20 mg in 200 mls @ 50 mls/hr 10/23/18 13:38 10/24/18 09:03 Cardene Iv Premix IV 0.2 mg/hr .Q4H PRN 2 mls/hr TITRATE PER MD ORDER Titration Protocol 5 MG/HR Levetiracetam 500 mg in 100 mls @ 400 mls/hr 10/23/18 22:00 10/24/18 11:23 Keppra 500mg Ivpb IVPB 400 mls/hr Q12 GRAEME Administration Sodium Chloride 500 mls @ 30 mls/hr 10/23/18 15:00 10/24/18 04:39 Hypertonic Saline 3% IV 30 mls/hr .[id number] GRAEME Administration Pantoprazole Sodium 40 mg 10/24/18 10:00 10/24/18 11:22 Protonix Inj IVP 40 mg DAILY GRAEME Administration - Patient Studies Lab Studies: Microbiology Studies 10/23/18 12:20 Blood Culture - Preliminary Blood NO GROWTH AFTER 24 HOURS 10/23/18 11:42 Blood Culture - Preliminary Blood NO GROWTH AFTER 24 HOURS Lab Studies 10/24/18 10/24/18 10/24/18 Range/Units 11:23 11:01 10:40 WBC (4.5-11.0) 10^3/uL RBC (3.5-6.1) 10^6/uL Hgb (14.0-18.0) g/dL Hct (42.0-52.0) % MCV (80.0-105.0) fl MCH (25.0-35.0) pg MCHC (31.0-37.0) g/dl RDW (11.5-14.5) % Plt Count (120.0-450.0) 10^3/uL MPV (7.0-11.0) fl Sodium 143 (132-148) mmol/L Potassium 4.0 (3.6-5.0) mmol/L Chloride 110 H (98-107) mmol/L Carbon Dioxide 17 L (21-33) mmol/L Anion Gap 21 H (10-20) BUN 10 (7-21) mg/dL Creatinine 0.3 L (0.8-1.5) mg/dl Est GFR ( Amer) > 60 Est GFR (Non-Af Amer) > 60 POC Glucose (mg/dL) 124 H (65-110) mg/dL Random Glucose 123 H (70-110) mg/dL Hemoglobin A1c (4.2-6.5) % Serum Osmolality 306 H (272-300) mosm/kg Calcium 9.2 (8.4-10.5) mg/dL Phosphorus (2.5-4.5) mg/dL Magnesium (1.7-2.2) mg/dL Total Bilirubin (0.2-1.3) mg/dL AST (17-59) U/L ALT (7-56) U/L Alkaline Phosphatase (38-126) U/L Troponin I ng/mL Total Protein (5.8-8.3) g/dL Albumin (3.0-4.8) g/dL Globulin gm/dL Albumin/Globulin Ratio (1.1-1.8) 10/24/18 10/24/18 10/24/18 Range/Units 06:04 05:40 05:40 WBC 8.9 (4.5-11.0) 10^3/uL RBC 4.00 (3.5-6.1) 10^6/uL Hgb 13.8 L (14.0-18.0) g/dL Hct 41.1 L (42.0-52.0) % MCV 102.8 (80.0-105.0) fl MCH 34.5 (25.0-35.0) pg MCHC 33.6 (31.0-37.0) g/dl RDW 12.7 (11.5-14.5) % Plt Count 282 (120.0-450.0) 10^3/uL MPV 11.3 H (7.0-11.0) fl Sodium 143 (132-148) mmol/L Potassium 4.0 (3.6-5.0) mmol/L Chloride 108 H (98-107) mmol/L Carbon Dioxide 19 L (21-33) mmol/L Anion Gap 20 (10-20) BUN 10 (7-21) mg/dL Creatinine 0.4 L (0.8-1.5) mg/dl Est GFR ( Amer) > 60 Est GFR (Non-Af Amer) > 60 POC Glucose (mg/dL) 93 (65-110) mg/dL Random Glucose 99 (70-110) mg/dL Hemoglobin A1c (4.2-6.5) % Serum Osmolality (272-300) mosm/kg Calcium 9.3 (8.4-10.5) mg/dL Phosphorus (2.5-4.5) mg/dL Magnesium (1.7-2.2) mg/dL Total Bilirubin 2.6 H (0.2-1.3) mg/dL AST 67 H (17-59) U/L ALT 34 (7-56) U/L Alkaline Phosphatase 67 (38-126) U/L Troponin I ng/mL Total Protein 8.5 H (5.8-8.3) g/dL Albumin 4.3 (3.0-4.8) g/dL Globulin 4.2 gm/dL Albumin/Globulin Ratio 1.0 L (1.1-1.8) 10/24/18 10/23/18 10/23/18 Range/Units 00:15 21:53 21:35 WBC (4.5-11.0) 10^3/uL RBC (3.5-6.1) 10^6/uL Hgb (14.0-18.0) g/dL Hct (42.0-52.0) % MCV (80.0-105.0) fl MCH (25.0-35.0) pg MCHC (31.0-37.0) g/dl RDW (11.5-14.5) % Plt Count (120.0-450.0) 10^3/uL MPV (7.0-11.0) fl Sodium 140 (132-148) mmol/L Potassium 3.8 (3.6-5.0) mmol/L Chloride 103 (98-107) mmol/L Carbon Dioxide 20 L (21-33) mmol/L Anion Gap 20 (10-20) BUN 9 (7-21) mg/dL Creatinine 0.4 L (0.8-1.5) mg/dl Est GFR ( Amer) > 60 Est GFR (Non-Af Amer) > 60 POC Glucose (mg/dL) 101 (65-110) mg/dL Random Glucose 103 (70-110) mg/dL Hemoglobin A1c (4.2-6.5) % Serum Osmolality (272-300) mosm/kg Calcium 8.9 (8.4-10.5) mg/dL Phosphorus (2.5-4.5) mg/dL Magnesium (1.7-2.2) mg/dL Total Bilirubin (0.2-1.3) mg/dL AST (17-59) U/L ALT (7-56) U/L Alkaline Phosphatase (38-126) U/L Troponin I 0.21 H* D ng/mL Total Protein (5.8-8.3) g/dL Albumin (3.0-4.8) g/dL Globulin gm/dL Albumin/Globulin Ratio (1.1-1.8) 10/23/18 10/23/18 10/23/18 Range/Units 18:34 11:42 11:42 WBC (4.5-11.0) 10^3/uL RBC (3.5-6.1) 10^6/uL Hgb (14.0-18.0) g/dL Hct (42.0-52.0) % MCV (80.0-105.0) fl MCH (25.0-35.0) pg MCHC (31.0-37.0) g/dl RDW (11.5-14.5) % Plt Count (120.0-450.0) 10^3/uL MPV (7.0-11.0) fl Sodium 138 (132-148) mmol/L Potassium 3.6 (3.6-5.0) mmol/L Chloride 102 (98-107) mmol/L Carbon Dioxide 22 (21-33) mmol/L Anion Gap 18 (10-20) BUN 9 (7-21) mg/dL Creatinine 0.4 L (0.8-1.5) mg/dl Est GFR ( Amer) > 60 Est GFR (Non-Af Amer) > 60 POC Glucose (mg/dL) (65-110) mg/dL Random Glucose 91 (70-110) mg/dL Hemoglobin A1c 4.7 (4.2-6.5) % Serum Osmolality (272-300) mosm/kg Calcium 8.9 (8.4-10.5) mg/dL Phosphorus 3.4 (2.5-4.5) mg/dL Magnesium 1.4 L (1.7-2.2) mg/dL Total Bilirubin (0.2-1.3) mg/dL AST (17-59) U/L ALT (7-56) U/L Alkaline Phosphatase (38-126) U/L Troponin I 0.36 H* ng/mL Total Protein (5.8-8.3) g/dL Albumin (3.0-4.8) g/dL Globulin gm/dL Albumin/Globulin Ratio (1.1-1.8) Laboratory Results - last 24 hr 10/23/18 10/23/18 10/23/18 11:42 11:42 18:34 WBC RBC Hgb Hct MCV MCH MCHC RDW Plt Count MPV Sodium 138 Potassium 3.6 Chloride 102 Carbon Dioxide 22 Anion Gap 18 BUN 9 Creatinine 0.4 L Est GFR ( Amer) > 60 Est GFR (Non-Af Amer) > 60 POC Glucose (mg/dL) Random Glucose 91 Hemoglobin A1c 4.7 Serum Osmolality Calcium 8.9 Phosphorus 3.4 Magnesium 1.4 L Total Bilirubin AST ALT Alkaline Phosphatase Troponin I 0.36 H* Total Protein Albumin Globulin Albumin/Globulin Ratio 10/23/18 10/23/18 10/24/18 21:35 21:53 00:15 WBC RBC Hgb Hct MCV MCH MCHC RDW Plt Count MPV Sodium 140 Potassium 3.8 Chloride 103 Carbon Dioxide 20 L Anion Gap 20 BUN 9 Creatinine 0.4 L Est GFR ( Amer) > 60 Est GFR (Non-Af Amer) > 60 POC Glucose (mg/dL) 101 Random Glucose 103 Hemoglobin A1c Serum Osmolality Calcium 8.9 Phosphorus Magnesium Total Bilirubin AST ALT Alkaline Phosphatase Troponin I 0.21 H* D Total Protein Albumin Globulin Albumin/Globulin Ratio 10/24/18 10/24/18 10/24/18 05:40 05:40 06:04 WBC 8.9 RBC 4.00 Hgb 13.8 L Hct 41.1 L MCV 102.8 MCH 34.5 MCHC 33.6 RDW 12.7 Plt Count 282 MPV 11.3 H Sodium 143 Potassium 4.0 Chloride 108 H Carbon Dioxide 19 L Anion Gap 20 BUN 10 Creatinine 0.4 L Est GFR ( Amer) > 60 Est GFR (Non-Af Amer) > 60 POC Glucose (mg/dL) 93 Random Glucose 99 Hemoglobin A1c Serum Osmolality Calcium 9.3 Phosphorus Magnesium Total Bilirubin 2.6 H AST 67 H ALT 34 Alkaline Phosphatase 67 Troponin I Total Protein 8.5 H Albumin 4.3 Globulin 4.2 Albumin/Globulin Ratio 1.0 L 10/24/18 10/24/18 10/24/18 10:40 11:01 11:23 WBC RBC Hgb Hct MCV MCH MCHC RDW Plt Count MPV Sodium 143 Potassium 4.0 Chloride 110 H Carbon Dioxide 17 L Anion Gap 21 H BUN 10 Creatinine 0.3 L Est GFR ( Amer) > 60 Est GFR (Non-Af Amer) > 60 POC Glucose (mg/dL) 124 H Random Glucose 123 H Hemoglobin A1c Serum Osmolality 306 H Calcium 9.2 Phosphorus Magnesium Total Bilirubin AST ALT Alkaline Phosphatase Troponin I Total Protein Albumin Globulin Albumin/Globulin Ratio Radiology Impressions: Radiology Impressions Head CT 10/24/18 07:42 IMPRESSION: 1. Large left temporal lobe acute hematoma measuring 4.1 x 7.8 x 3.1 cm, not significantly change in size and morphology since the prior examination given differences in slice selection. Mild surrounding vasogenic edema and effacement of the left lateral ventricle without midline shift or herniation. 2. Intraventricular extension of hemorrhage with small layering hemorrhage in the occipital horns of the lateral ventricles. No hydrocephalus. 3. No other significant interval change. Chest X-Ray 10/24/18 10:06 IMPRESSION: Right PICC line terminates at the cavoatrial junction. No acute findings. Chest X-Ray 10/24/18 10:28 IMPRESSION: Right PICC line terminates at the cavoatrial junction. No acute findings. Critical Care Progress Note - Nutrition Nutrition: Nutrition Category Date Time Status NPO Diet [DIET] Diets 10/23/18 Breakfast Ordered Assessment/Plan - Assessment and Plan (Free Text) Plan: I saw and examined the patients on rounds with the resident, agree with the residents consult note with following additions/exceptions: Patient is 58yo male with PMHx neuroendocrine tumor, EtOH abuse, presented with slurred speech found to the L temporal ICH. Currently afebrile, HD stable, comfortable in NAD, confused, has expressive aphasia Neurosurgery consulted, no acute intervention Neurology following Will start 3%, and Decadron, goal Na 145-150 Repeat CTH today no changes ICH Hx EtOH abuse Hx Neuroendocrine tumor Recommend: - supp o2 as needed, duonebs PRN - NO ID issues - BP control, goal SBP <140 - NPO - Keppra IV for ppx - MRI brain - 3% saline, goal Na 145-150 - Decadron IV - CIWA protocol - GI ppx - DVT ppx, SCDs - Monitor in MICU
[2018-10-24] MEDS: levETIRAcetam 500mg IVPB 500 MG/100 ML BAG IVPB SCH ×2 (11:23→21:37)
[2018-10-24 16:03] LABS: BLOOD UREA NITROGEN 10 mg/dL (7-21); CALCIUM 9.1 mg/dL (8.4-10.5); GFR NON-AFRICAN AMERICAN > 60
[2018-10-24 19:16] LABS: BLOOD UREA NITROGEN 10 mg/dL (7-21); GFR NON-AFRICAN AMERICAN > 60
[2018-10-25 00:01] LABS: BLOOD UREA NITROGEN 10 mg/dL (7-21); GFR NON-AFRICAN AMERICAN > 60
--- NOTE | 2018-10-25 01:16 | CON ---
DATE OF CONSULTATION: 10/24/2018 CARDIOLOGY CONSULTATION HISTORY: The patient the patient is a 58-year-old male, who presents with an intracerebral bleed. The patient's past medical history includes alcoholism. In addition, his troponins were found to be elevated with an EKG consistent with a recent anterior wall UT. PHYSICAL EXAMINATION: GENERAL: Currently, the patient is incoherent, requiring sedation. VITAL SIGNS: His blood pressure varies from 150 to 190 systolic, the heart rate is in the in the 90s. NECK: Negative JVD. LUNGS: Without rales. CARDIAC: Heart rate S1, S2. EXTREMITIES: Without edema. LABORATORY DATA: Laboratories include an EKG that shows recent anterior wall UT. The glucose is 123, BUN and creatinine are 10 over 0.3. Troponin is 0.21 with a hemoglobin of 13.8. IMPRESSION: 1. Cerebrovascular accident. 2. Intracerebral bleed. 3. Accelerated hypertension. 4. Acute coronary syndrome with recent anterior wall myocardial infarction. PLAN: Given these findings, given his intracerebral bleed, anticoagulation and antiplatelets are contraindicated. However, we will add IV Tridil for better blood pressure control and add beta blockers. We will obtain an echocardiogram for LV evaluation. Justin Shelley MD
[2018-10-25] MEDS: Nicardipine 20 MG/200 ML 20 MG/200 ML BAG IV PRN ×4 (02:11→11:31)
[2018-10-25] MEDS ORDERED: Digoxin 500 mcg/2ml (0.5 mg/2ml) Inj IVP STA (05:47)
[2018-10-25 06:00] VITALS: PULSE 150
[2018-10-25] MEDS: Sodium Chloride 3% 500 ML IV SCH (06:00)
[2018-10-25] MEDS ORDERED: Sodium Chloride 0.9% 500 ML IV STA (06:35)
[2018-10-25 06:53] LABS: MEAN CELL VOLUME 100.8 fl (80.0-105.0); MEAN CORPUSCULAR HEMOGLOBIN 33.9 pg (25.0-35.0); MEAN CORPUSCULAR HGB CONC 33.7 g/dl (31.0-37.0); MEAN PLATELET VOLUME 11.5 fl (7.0-11.0); RBC 3.83 10^6/uL (3.5-6.1); RED CELL DISTRIBUTION WIDTH 12.6 % (11.5-14.5); WHITE BLOOD COUNT 20.8 10^3/uL (4.5-11.0)
[2018-10-25 07:08] LABS: PH,URINE 5.5 (4.7-8.0); URINE BILIRUBIN SMALL (NEGATIVE); URINE BLOOD NEGATIVE (NEGATIVE); URINE GLUCOSE (UA) 250 mg/dL (NEGATIVE); URINE LEUKOCYTE ESTERASE NEGATIVE Leu/uL (NEGATIVE); URINE PROTEIN NEGATIVE mg/dL (<30 mg/dL)
[2018-10-25 07:23] LABS: URINE APPEARANCE CLEAR (CLEAR); URINE COLOR YELLOW (YELLOW)
[2018-10-25 07:49] LABS: ALBUMIN 3.8 g/dL (3.0-4.8); ALT/SGPT 33 U/L (7-56); AST/SGOT 61 U/L (17-59); BLOOD UREA NITROGEN 13 mg/dL (7-21); CALCIUM 8.7 mg/dL (8.4-10.5); GFR NON-AFRICAN AMERICAN > 60
[2018-10-25 08:09] LABS: BARBITURATES, UR NEGATIVE (NEGATIVE); BENZODIAZEPINES, UR NEGATIVE (NEGATIVE); OPIATES, UR NEGATIVE (NEGATIVE); PHENCYCLIDINE, UR NEGATIVE (NEGATIVE)
[2018-10-25 08:16] LABS: FREE T4 1.97 ng/dL (0.78-2.19)
[2018-10-25] MEDS ORDERED: Magnesium Sulfate 2 GM in Sodium Chloride 0.9% 100 ML IVPB ONE (09:15)
[2018-10-25] MEDS ORDERED: Magnesium Sulfate 2 GM in 50 ml Water IVPB ONE (09:30)
--- NOTE | 2018-10-25 09:33 | CP.CCUPN ---
<Gurpreet Anderson - Last Filed: 10/25/18 12:25> CCU Subjective - Physician Review Subjective (Free Text): Gurpreet Anderson, PGY1 ICU Progress Note for Dr. Emilia Leo Patient was seen and examined at bedside this morning. Overnight, patient had Afib with RVR (HR 150-160s) and was given Digoxin 0.5 mg IVP. BP was well controlled overnight. Right now he is on cardene drip at 7.5 mg/hr. Currently he is alert, awake. He still has expressive aphasia with no other neuro deficits. Patient is a poor historian. He has PICC line in place. CCU Objective - Vital Signs / Intake & Output Vital Signs (Last 4 hours): Vital Signs Pulse Resp BP Pulse Ox 10/25/18 08:00 136 H 20 137/82 93 L 10/25/18 07:50 132 H 21 94 L 10/25/18 07:45 128 H 22 114/65 92 L 10/25/18 07:40 141 H 15 94 L 10/25/18 07:30 140 H 22 113/78 94 L 10/25/18 07:20 128 H 23 94 L 10/25/18 07:15 123 H 26 H 113/65 94 L 10/25/18 07:10 140 H 24 93 L 10/25/18 07:00 142 H 19 102/76 94 L 10/25/18 06:50 147 H 24 94 L 10/25/18 06:45 125 H 23 134/80 94 L 10/25/18 06:40 154 H 20 95 10/25/18 06:30 155 H 19 140/100 H 94 L 10/25/18 06:20 149 H 16 94 L 10/25/18 06:15 155 H 23 105/72 95 10/25/18 06:10 140 H 19 94 L 10/25/18 06:01 157 H 25 H 121/71 94 L 10/25/18 06:00 160 H 19 94 L 10/25/18 05:50 153 H 18 93 L 10/25/18 05:46 159 H 21 107/65 87 L 10/25/18 05:40 155 H 94 L 10/25/18 05:30 146 H 26 H 146/90 93 L Intake and Output (Last 8hrs): Intake & Output 10/24/18 10/25/1810/25/19 22:59 06:59 14:59 Intake Total 890 1880 200 Output Total 400 Balance 890 1480 200 Weight 58.151 kg Intake: IV 890 1880 200 Right Upper arm 300 1480 Output: Urine 400 Urine, Voided 400 - Physical Exam Head: Positive for: Atraumatic, Normocephalic, Other (dried blood on forehead) Pupils: Positive for: PERRL Conjunctiva: Positive for: Normal Mouth: Positive for: Moist Mucous Membranes Neck: Positive for: Normal Range of Motion. Negative for: Meningeal Signs, MIDLINE TENDERNESS Respiratory/Chest: Positive for: Clear to Auscultation, Good Air Exchange. Negative for: Respiratory Distress, Accessory Muscle Use Cardiovascular: Positive for: Regular Rate and Rhythm, Normal S1, S2 Abdomen: Negative for: Tenderness, Distention Upper Extremity: Positive for: NORMAL PULSES, Neurovascularly Intact, Capillary Refill < 2s Lower Extremity: Positive for: Normal Inspection, NORMAL PULSES, Normal ROM, Capillary Refill < 2 s, Other (spontaneous movement extremities x 4). Negative for: CALF TENDERNESS Neurological: Positive for: Motor Func Grossly Intact, Other (Word salad - expressive aphasia. ). Negative for: Speech Normal (nonsensical speech) Skin: Positive for: Warm Psychiatric: Positive for: Alert, Agitated. Negative for: Oriented x 3 - Medications Active Medications: Active Medications Generic Name Dose Route Start Last Admin Trade Name Freq PRN Reason Stop Dose Admin Dexamethasone 10 mg 10/23/18 14:45 10/25/18 05:21 Decadron Inj IVP 10 mg Q8 GRAEME Administration Nicardipine HCl 20 mg in 200 mls @ 50 mls/hr 10/23/18 13:38 10/25/18 08:10 Cardene Iv Premix IV 7.5 mg/hr .Q4H PRN 75 mls/hr TITRATE PER MD ORDER Administration Protocol 5 MG/HR Levetiracetam 500 mg in 100 mls @ 400 mls/hr 10/23/18 22:00 10/24/18 21:37 Keppra 500mg Ivpb IVPB 400 mls/hr Q12 GRAEME Administration Sodium Chloride 500 mls @ 40 mls/hr 10/24/18 17:58 10/25/18 06:00 Hypertonic Saline 3% IV 40 mls/hr .[id number] GRAEME Administration Potassium Chloride 10 meq in 100 mls @ 100 mls/hr 10/25/18 08:00 10/25/18 08:28 Potassium Chloride 10 Meq/100 Ml IVPB 10/25/18 10:59 100 mls/hr Q2H GRAEME Administration Magnesium Sulfate 2 gm in 50 mls @ 50 mls/hr 10/25/18 09:30 Magnesium Sulfate 2 Gm/50 Ml Water IVPB 10/25/18 10:29 ONCE ONE Lorazepam 2 mg 10/24/18 19:50 10/25/18 02:45 Ativan IVP 2 mg Q6H PRN Administration Agitation Protocol Pantoprazole Sodium 40 mg 10/24/18 10:00 10/24/18 11:22 Protonix Inj IVP 40 mg DAILY GRAEME Administration - Patient Studies Lab Studies: Microbiology Studies 10/23/18 12:20 Blood Culture - Preliminary Blood NO GROWTH AFTER 24 HOURS 10/23/18 11:42 Blood Culture - Preliminary Blood NO GROWTH AFTER 24 HOURS Lab Studies 10/25/18 10/25/18 10/25/18 Range/Units 07:40 06:50 06:50 WBC (4.5-11.0) 10^3/uL RBC (3.5-6.1) 10^6/uL Hgb (14.0-18.0) g/dL Hct (42.0-52.0) % MCV (80.0-105.0) fl MCH (25.0-35.0) pg MCHC (31.0-37.0) g/dl RDW (11.5-14.5) % Plt Count (120.0-450.0) 10^3/uL MPV (7.0-11.0) fl Sodium (132-148) mmol/L Potassium (3.6-5.0) mmol/L Chloride (98-107) mmol/L Carbon Dioxide (21-33) mmol/L Anion Gap (10-20) BUN (7-21) mg/dL Creatinine (0.8-1.5) mg/dl Est GFR ( Amer) Est GFR (Non-Af Amer) POC Glucose (mg/dL) (65-110) mg/dL Random Glucose (70-110) mg/dL Serum Osmolality (272-300) mosm/kg Calcium (8.4-10.5) mg/dL Phosphorus (2.5-4.5) mg/dL Magnesium (1.7-2.2) mg/dL Total Bilirubin (0.2-1.3) mg/dL AST (17-59) U/L ALT (7-56) U/L Alkaline Phosphatase (38-126) U/L Total Protein (5.8-8.3) g/dL Albumin (3.0-4.8) g/dL Globulin gm/dL Albumin/Globulin Ratio (1.1-1.8) Free T4 1.97 (0.78-2.19) ng/dL TSH 3rd Generation 0.56 (0.46-4.68) mIU/mL Urine Color Yellow (YELLOW) Urine Appearance Clear (CLEAR) Urine pH 5.5 (4.7-8.0) Ur Specific Calvin 1.025 (1.005-1.035) Urine Protein Negative (<30 mg/dL) mg/dL Urine Glucose (UA) 250 H (NEGATIVE) mg/dL Urine Ketones >=80 (NEGATIVE) mg/dL Urine Blood Negative (NEGATIVE) Urine Nitrate Negative (NEGATIVE) Urine Bilirubin Small H (NEGATIVE) Urine Urobilinogen 1.0 H (<1 E.U./dL) E.U./dL Ur Leukocyte Esterase Negative (NEGATIVE) Eric/uL Urine Opiates Screen Negative (NEGATIVE) Urine Methadone Screen Negative (NEGATIVE) Ur Barbiturates Screen Negative (NEGATIVE) Ur Phencyclidine Scrn Negative (NEGATIVE) Ur Amphetamines Screen Negative (NEGATIVE) U Benzodiazepines Scrn Negative (NEGATIVE) U Oth Cocaine Metabols Negative (NEGATIVE) U Cannabinoids Screen Negative (NEGATIVE) 10/25/18 10/25/18 10/25/18 Range/Units 06:00 06:00 06:00 WBC 20.8 H D (4.5-11.0) 10^3/uL RBC 3.83 (3.5-6.1) 10^6/uL Hgb 13.0 L (14.0-18.0) g/dL Hct 38.6 L (42.0-52.0) % MCV 100.8 (80.0-105.0) fl MCH 33.9 (25.0-35.0) pg MCHC 33.7 (31.0-37.0) g/dl RDW 12.6 (11.5-14.5) % Plt Count 314 (120.0-450.0) 10^3/uL MPV 11.5 H (7.0-11.0) fl Sodium 145 (132-148) mmol/L Potassium 3.5 L (3.6-5.0) mmol/L Chloride 113 H (98-107) mmol/L Carbon Dioxide 18 L (21-33) mmol/L Anion Gap 18 (10-20) BUN 13 (7-21) mg/dL Creatinine 0.4 L (0.8-1.5) mg/dl Est GFR ( Amer) > 60 Est GFR (Non-Af Amer) > 60 POC Glucose (mg/dL) (65-110) mg/dL Random Glucose 180 H (70-110) mg/dL Serum Osmolality (272-300) mosm/kg Calcium 8.7 (8.4-10.5) mg/dL Phosphorus 2.5 (2.5-4.5) mg/dL Magnesium 1.6 L (1.7-2.2) mg/dL Total Bilirubin 2.3 H (0.2-1.3) mg/dL AST 61 H (17-59) U/L ALT 33 (7-56) U/L Alkaline Phosphatase 57 (38-126) U/L Total Protein 7.6 (5.8-8.3) g/dL Albumin 3.8 (3.0-4.8) g/dL Globulin 3.7 gm/dL Albumin/Globulin Ratio 1.0 L (1.1-1.8) Free T4 (0.78-2.19) ng/dL TSH 3rd Generation (0.46-4.68) mIU/mL Urine Color (YELLOW) Urine Appearance (CLEAR) Urine pH (4.7-8.0) Ur Specific Calvin (1.005-1.035) Urine Protein (<30 mg/dL) mg/dL Urine Glucose (UA) (NEGATIVE) mg/dL Urine Ketones (NEGATIVE) mg/dL Urine Blood (NEGATIVE) Urine Nitrate (NEGATIVE) Urine Bilirubin (NEGATIVE) Urine Urobilinogen (<1 E.U./dL) E.U./dL Ur Leukocyte Esterase (NEGATIVE) Eric/uL Urine Opiates Screen (NEGATIVE) Urine Methadone Screen (NEGATIVE) Ur Barbiturates Screen (NEGATIVE) Ur Phencyclidine Scrn (NEGATIVE) Ur Amphetamines Screen (NEGATIVE) U Benzodiazepines Scrn (NEGATIVE) U Oth Cocaine Metabols (NEGATIVE) U Cannabinoids Screen (NEGATIVE) 10/24/18 10/24/18 10/24/18 Range/Units 23:28 21:17 18:45 WBC (4.5-11.0) 10^3/uL RBC (3.5-6.1) 10^6/uL Hgb (14.0-18.0) g/dL Hct (42.0-52.0) % MCV (80.0-105.0) fl MCH (25.0-35.0) pg MCHC (31.0-37.0) g/dl RDW (11.5-14.5) % Plt Count (120.0-450.0) 10^3/uL MPV (7.0-11.0) fl Sodium 142 142 (132-148) mmol/L Potassium 3.4 L 3.4 L (3.6-5.0) mmol/L Chloride 109 H 109 H (98-107) mmol/L Carbon Dioxide 20 L 19 L (21-33) mmol/L Anion Gap 15 18 (10-20) BUN 10 10 (7-21) mg/dL Creatinine 0.3 L 0.3 L (0.8-1.5) mg/dl Est GFR ( Amer) > 60 > 60 Est GFR (Non-Af Amer) > 60 > 60 POC Glucose (mg/dL) 170 H (65-110) mg/dL Random Glucose 174 H 178 H (70-110) mg/dL Serum Osmolality (272-300) mosm/kg Calcium 9.0 9.0 (8.4-10.5) mg/dL Phosphorus (2.5-4.5) mg/dL Magnesium (1.7-2.2) mg/dL Total Bilirubin (0.2-1.3) mg/dL AST (17-59) U/L ALT (7-56) U/L Alkaline Phosphatase (38-126) U/L Total Protein (5.8-8.3) g/dL Albumin (3.0-4.8) g/dL Globulin gm/dL Albumin/Globulin Ratio (1.1-1.8) Free T4 (0.78-2.19) ng/dL TSH 3rd Generation (0.46-4.68) mIU/mL Urine Color (YELLOW) Urine Appearance (CLEAR) Urine pH (4.7-8.0) Ur Specific Calvin (1.005-1.035) Urine Protein (<30 mg/dL) mg/dL Urine Glucose (UA) (NEGATIVE) mg/dL Urine Ketones (NEGATIVE) mg/dL Urine Blood (NEGATIVE) Urine Nitrate (NEGATIVE) Urine Bilirubin (NEGATIVE) Urine Urobilinogen (<1 E.U./dL) E.U./dL Ur Leukocyte Esterase (NEGATIVE) Eric/uL Urine Opiates Screen (NEGATIVE) Urine Methadone Screen (NEGATIVE) Ur Barbiturates Screen (NEGATIVE) Ur Phencyclidine Scrn (NEGATIVE) Ur Amphetamines Screen (NEGATIVE) U Benzodiazepines Scrn (NEGATIVE) U Oth Cocaine Metabols (NEGATIVE) U Cannabinoids Screen (NEGATIVE) 10/24/18 10/24/18 10/24/18 Range/Units 18:01 15:45 11:23 WBC (4.5-11.0) 10^3/uL RBC (3.5-6.1) 10^6/uL Hgb (14.0-18.0) g/dL Hct (42.0-52.0) % MCV (80.0-105.0) fl MCH (25.0-35.0) pg MCHC (31.0-37.0) g/dl RDW (11.5-14.5) % Plt Count (120.0-450.0) 10^3/uL MPV (7.0-11.0) fl Sodium 142 (132-148) mmol/L Potassium 3.5 L (3.6-5.0) mmol/L Chloride 109 H (98-107) mmol/L Carbon Dioxide 18 L (21-33) mmol/L Anion Gap 19 (10-20) BUN 10 (7-21) mg/dL Creatinine 0.3 L (0.8-1.5) mg/dl Est GFR ( Amer) > 60 Est GFR (Non-Af Amer) > 60 POC Glucose (mg/dL) 155 H 124 H (65-110) mg/dL Random Glucose 156 H (70-110) mg/dL Serum Osmolality (272-300) mosm/kg Calcium 9.1 (8.4-10.5) mg/dL Phosphorus (2.5-4.5) mg/dL Magnesium (1.7-2.2) mg/dL Total Bilirubin (0.2-1.3) mg/dL AST (17-59) U/L ALT (7-56) U/L Alkaline Phosphatase (38-126) U/L Total Protein (5.8-8.3) g/dL Albumin (3.0-4.8) g/dL Globulin gm/dL Albumin/Globulin Ratio (1.1-1.8) Free T4 (0.78-2.19) ng/dL TSH 3rd Generation (0.46-4.68) mIU/mL Urine Color (YELLOW) Urine Appearance (CLEAR) Urine pH (4.7-8.0) Ur Specific Calvin (1.005-1.035) Urine Protein (<30 mg/dL) mg/dL Urine Glucose (UA) (NEGATIVE) mg/dL Urine Ketones (NEGATIVE) mg/dL Urine Blood (NEGATIVE) Urine Nitrate (NEGATIVE) Urine Bilirubin (NEGATIVE) Urine Urobilinogen (<1 E.U./dL) E.U./dL Ur Leukocyte Esterase (NEGATIVE) Eric/uL Urine Opiates Screen (NEGATIVE) Urine Methadone Screen (NEGATIVE) Ur Barbiturates Screen (NEGATIVE) Ur Phencyclidine Scrn (NEGATIVE) Ur Amphetamines Screen (NEGATIVE) U Benzodiazepines Scrn (NEGATIVE) U Oth Cocaine Metabols (NEGATIVE) U Cannabinoids Screen (NEGATIVE) 10/24/18 10/24/18 Range/Units 11:01 10:40 WBC (4.5-11.0) 10^3/uL RBC (3.5-6.1) 10^6/uL Hgb (14.0-18.0) g/dL Hct (42.0-52.0) % MCV (80.0-105.0) fl MCH (25.0-35.0) pg MCHC (31.0-37.0) g/dl RDW (11.5-14.5) % Plt Count (120.0-450.0) 10^3/uL MPV (7.0-11.0) fl Sodium 143 (132-148) mmol/L Potassium 4.0 (3.6-5.0) mmol/L Chloride 110 H (98-107) mmol/L Carbon Dioxide 17 L (21-33) mmol/L Anion Gap 21 H (10-20) BUN 10 (7-21) mg/dL Creatinine 0.3 L (0.8-1.5) mg/dl Est GFR ( Amer) > 60 Est GFR (Non-Af Amer) > 60 POC Glucose (mg/dL) (65-110) mg/dL Random Glucose 123 H (70-110) mg/dL Serum Osmolality 306 H (272-300) mosm/kg Calcium 9.2 (8.4-10.5) mg/dL Phosphorus (2.5-4.5) mg/dL Magnesium (1.7-2.2) mg/dL Total Bilirubin (0.2-1.3) mg/dL AST (17-59) U/L ALT (7-56) U/L Alkaline Phosphatase (38-126) U/L Total Protein (5.8-8.3) g/dL Albumin (3.0-4.8) g/dL Globulin gm/dL Albumin/Globulin Ratio (1.1-1.8) Free T4 (0.78-2.19) ng/dL TSH 3rd Generation (0.46-4.68) mIU/mL Urine Color (YELLOW) Urine Appearance (CLEAR) Urine pH (4.7-8.0) Ur Specific Calvin (1.005-1.035) Urine Protein (<30 mg/dL) mg/dL Urine Glucose (UA) (NEGATIVE) mg/dL Urine Ketones (NEGATIVE) mg/dL Urine Blood (NEGATIVE) Urine Nitrate (NEGATIVE) Urine Bilirubin (NEGATIVE) Urine Urobilinogen (<1 E.U./dL) E.U./dL Ur Leukocyte Esterase (NEGATIVE) Eric/uL Urine Opiates Screen (NEGATIVE) Urine Methadone Screen (NEGATIVE) Ur Barbiturates Screen (NEGATIVE) Ur Phencyclidine Scrn (NEGATIVE) Ur Amphetamines Screen (NEGATIVE) U Benzodiazepines Scrn (NEGATIVE) U Oth Cocaine Metabols (NEGATIVE) U Cannabinoids Screen (NEGATIVE) Laboratory Results - last 24 hr 10/24/18 10/24/18 10/24/18 10:40 11:01 11:23 WBC RBC Hgb Hct MCV MCH MCHC RDW Plt Count MPV Sodium 143 Potassium 4.0 Chloride 110 H Carbon Dioxide 17 L Anion Gap 21 H BUN 10 Creatinine 0.3 L Est GFR ( Amer) > 60 Est GFR (Non-Af Amer) > 60 POC Glucose (mg/dL) 124 H Random Glucose 123 H Serum Osmolality 306 H Calcium 9.2 Phosphorus Magnesium Total Bilirubin AST ALT Alkaline Phosphatase Total Protein Albumin Globulin Albumin/Globulin Ratio Free T4 TSH 3rd Generation Urine Color Urine Appearance Urine pH Ur Specific Calvin Urine Protein Urine Glucose (UA) Urine Ketones Urine Blood Urine Nitrate Urine Bilirubin Urine Urobilinogen Ur Leukocyte Esterase Urine Opiates Screen Urine Methadone Screen Ur Barbiturates Screen Ur Phencyclidine Scrn Ur Amphetamines Screen U Benzodiazepines Scrn U Oth Cocaine Metabols U Cannabinoids Screen 10/24/18 10/24/18 10/24/18 15:45 18:01 18:45 WBC RBC Hgb Hct MCV MCH MCHC RDW Plt Count MPV Sodium 142 142 Potassium 3.5 L 3.4 L Chloride 109 H 109 H Carbon Dioxide 18 L 19 L Anion Gap 19 18 BUN 10 10 Creatinine 0.3 L 0.3 L Est GFR ( Amer) > 60 > 60 Est GFR (Non-Af Amer) > 60 > 60 POC Glucose (mg/dL) 155 H Random Glucose 156 H 178 H Serum Osmolality Calcium 9.1 9.0 Phosphorus Magnesium Total Bilirubin AST ALT Alkaline Phosphatase Total Protein Albumin Globulin Albumin/Globulin Ratio Free T4 TSH 3rd Generation Urine Color Urine Appearance Urine pH Ur Specific Calvin Urine Protein Urine Glucose (UA) Urine Ketones Urine Blood Urine Nitrate Urine Bilirubin Urine Urobilinogen Ur Leukocyte Esterase Urine Opiates Screen Urine Methadone Screen Ur Barbiturates Screen Ur Phencyclidine Scrn Ur Amphetamines Screen U Benzodiazepines Scrn U Oth Cocaine Metabols U Cannabinoids Screen 10/24/18 10/24/18 10/25/18 21:17 23:28 06:00 WBC 20.8 H D RBC 3.83 Hgb 13.0 L Hct 38.6 L MCV 100.8 MCH 33.9 MCHC 33.7 RDW 12.6 Plt Count 314 MPV 11.5 H Sodium 142 Potassium 3.4 L Chloride 109 H Carbon Dioxide 20 L Anion Gap 15 BUN 10 Creatinine 0.3 L Est GFR ( Amer) > 60 Est GFR (Non-Af Amer) > 60 POC Glucose (mg/dL) 170 H Random Glucose 174 H Serum Osmolality Calcium 9.0 Phosphorus Magnesium Total Bilirubin AST ALT Alkaline Phosphatase Total Protein Albumin Globulin Albumin/Globulin Ratio Free T4 TSH 3rd Generation Urine Color Urine Appearance Urine pH Ur Specific Calvin Urine Protein Urine Glucose (UA) Urine Ketones Urine Blood Urine Nitrate Urine Bilirubin Urine Urobilinogen Ur Leukocyte Esterase Urine Opiates Screen Urine Methadone Screen Ur Barbiturates Screen Ur Phencyclidine Scrn Ur Amphetamines Screen U Benzodiazepines Scrn U Oth Cocaine Metabols U Cannabinoids Screen 10/25/18 10/25/18 10/25/18 06:00 06:00 06:50 WBC RBC Hgb Hct MCV MCH MCHC RDW Plt Count MPV Sodium 145 Potassium 3.5 L Chloride 113 H Carbon Dioxide 18 L Anion Gap 18 BUN 13 Creatinine 0.4 L Est GFR ( Amer) > 60 Est GFR (Non-Af Amer) > 60 POC Glucose (mg/dL) Random Glucose 180 H Serum Osmolality Calcium 8.7 Phosphorus 2.5 Magnesium 1.6 L Total Bilirubin 2.3 H AST 61 H ALT 33 Alkaline Phosphatase 57 Total Protein 7.6 Albumin 3.8 Globulin 3.7 Albumin/Globulin Ratio 1.0 L Free T4 TSH 3rd Generation Urine Color Urine Appearance Urine pH Ur Specific Calvin Urine Protein Urine Glucose (UA) Urine Ketones Urine Blood Urine Nitrate Urine Bilirubin Urine Urobilinogen Ur Leukocyte Esterase Urine Opiates Screen Negative Urine Methadone Screen Negative Ur Barbiturates Screen Negative Ur Phencyclidine Scrn Negative Ur Amphetamines Screen Negative U Benzodiazepines Scrn Negative U Oth Cocaine Metabols Negative U Cannabinoids Screen Negative 10/25/18 10/25/18 06:50 07:40 WBC RBC Hgb Hct MCV MCH MCHC RDW Plt Count MPV Sodium Potassium Chloride Carbon Dioxide Anion Gap BUN Creatinine Est GFR ( Amer) Est GFR (Non-Af Amer) POC Glucose (mg/dL) Random Glucose Serum Osmolality Calcium Phosphorus Magnesium Total Bilirubin AST ALT Alkaline Phosphatase Total Protein Albumin Globulin Albumin/Globulin Ratio Free T4 1.97 TSH 3rd Generation 0.56 Urine Color Yellow Urine Appearance Clear Urine pH 5.5 Ur Specific Calvin 1.025 Urine Protein Negative Urine Glucose (UA) 250 H Urine Ketones >=80 Urine Blood Negative Urine Nitrate Negative Urine Bilirubin Small H Urine Urobilinogen 1.0 H Ur Leukocyte Esterase Negative Urine Opiates Screen Urine Methadone Screen Ur Barbiturates Screen Ur Phencyclidine Scrn Ur Amphetamines Screen U Benzodiazepines Scrn U Oth Cocaine Metabols U Cannabinoids Screen Radiology Impressions: Radiology Impressions Head CT 10/24/18 07:42 IMPRESSION: 1. Large left temporal lobe acute hematoma measuring 4.1 x 7.8 x 3.1 cm, not significantly change in size and morphology since the prior examination given differences in slice selection. Mild surrounding vasogenic edema and effacement of the left lateral ventricle without midline shift or herniation. 2. Intraventricular extension of hemorrhage with small layering hemorrhage in the occipital horns of the lateral ventricles. No hydrocephalus. 3. No other significant interval change. Chest X-Ray 10/24/18 10:06 IMPRESSION: Right PICC line terminates at the cavoatrial junction. No acute findings. Chest X-Ray 10/24/18 10:28 IMPRESSION: Right PICC line terminates at the cavoatrial junction. No acute findings. EKG/Cardiology Studies: Cardiology / EKG Studies 10/25/18 07:00 EKG [ELECTROCARDIOGRAM] Routine Comment: Reason For Exam: afib PRE OP:: N Does Patient Have a Pacemaker?: No Fingerstick Blood Sugar Results: 170 Review of Systems - Review of Systems Systems not reviewed;Unavailable: Other (Expressive aphasia - word salad.) Critical Care Progress Note - Prophylaxis GI Prophylaxis GI: PPI - Prophylaxis DVT Prophylaxis DVT: SCDs - Nutrition Nutrition: Nutrition Category Date Time Status NPO Diet [DIET] Diets 10/23/18 Breakfast Ordered Assessment/Plan - Assessment and Plan (Free Text) Assessment: Patient is a 58 year old M with PMHx of Neuroendocrine tumor with L arm lymphedema, and ETOH abuse who presents to [facility] via EMS for agitation and slurred speech x2days. Patient admitted to the ICU for Left Intracranial Hemorrhage. Plan: Neuro: - Left Intracranial Hemorrhage with Minimal Transtentorial Shift - As per neuro, c/w 3% hypertonic saline and titrate Na 140-145 range - c/w decadron 10mg IV q8 - c/w Keppra IVPB q12 - c/w ativan 2mg IVP q6 prn for agitation - Repeat Head CT (10/24): no significant change from initial Head CT. - Maintain SBP < 140 via cardene drip - Patient was unable to go for MRI given his mental status and no family was a ble to be reached at this time - c/w neurochecks and keep head of bed elevated to minimize intracranial pressure - CT Head (10/23): left ICH at the temporal area: [id number] mm in size. - PT/OT/SS - NPO - Neurology on consult. Recs appreciated. - Neurosurgery on consult. Recs appreciated. No intervention. Cardio: - As mentioned above, maintain SBP < 140 with cardene drip given hemorrhagic stroke - Afib with RVR - high bleeding risk, anticoagulation contraindicated at this time. However, will administer cardizem drip for rate control - f/u echo results as ordered by cardio - Cardio on consult, recs appreciated. - Maintain MAP > 65 - Elevated troponins 2/2 stroke; trops trending down Pulm: - Maintain SaO2 > 92% - No active issues at this time - aspiration precautions - CXR: R-PICC line in place at the cavoatrial junction. No signs of infection. Renal: - Hypokalema with K 3.5 - Replete as needed with K-riders - serum osmol 306; repeat serum osmol level today - c/w 3% hypertonic saline with goal Na 140-145 as per neuro recs - BMP q8 - monitor and replete electrolytes as needed ID: - Leukocytosis 2/2 steroid administration - afebrile since hospital admission with no signs of infection - Blood Cx negative x2 (prelim) after 24 hours Heme/onc: - Hx of Neuroendocrine Tumor (documented from previous visits) - Heme/onc on consult (Dr. Branch) - no active issues at this time DVT ppx: scd GI ppx: ptx Diet: NPO Dispo: Continue to monitor patient in the ICU at this time. He remains on hypertonic saline and is now started on cardizem drip for Afib with RVR. Case was discussed and reviewed with Attending Physician, Dr. Emilia Leo. <Emilia Leo - Last Filed: 10/25/18 18:03> CCU Objective - Vital Signs / Intake & Output Vital Signs (Last 4 hours): Vital Signs Pulse Resp BP Pulse Ox 10/25/18 15:30 56 L 16 107/63 92 L 10/25/18 15:20 59 L 18 93 L 10/25/18 15:15 55 L 101/78 90 L 10/25/18 15:10 53 L 9 L 90 L 10/25/18 15:00 54 L 16 99/49 L 90 L 10/25/18 14:50 59 L 21 93 L 10/25/18 14:45 59 L 17 111/61 91 L 10/25/18 14:40 54 L 14 91 L 10/25/18 14:30 55 L 20 110/64 92 L 10/25/18 14:20 48 L 19 91 L 10/25/18 14:15 60 11 L 84/51 L 92 L 10/25/18 14:10 68 17 93 L Intake and Output (Last 8hrs): Intake & Output 10/25/18 10/25/18 10/25/18 06:59 14:59 22:59 Intake Total 1880 400 Output Total 400 Balance 1480 400 Weight 58.151 kg Intake: IV 1880 400 Right Upper arm 1480 Output: Urine 400 Urine, Voided 400 - Medications Active Medications: Active Medications Generic Name Dose Route Start Last Admin Trade Name Freq PRN Reason Stop Dose Admin Dexamethasone 10 mg 10/23/18 14:45 10/25/18 15:11 Decadron Inj IVP 10 mg Q8 GRAEME Administration Levetiracetam 500 mg in 100 mls @ 400 mls/hr 10/23/18 22:00 10/25/18 10:38 Keppra 500mg Ivpb IVPB 400 mls/hr Q12 GRAEME Administration Sodium Chloride 500 mls @ 40 mls/hr 10/24/18 17:58 10/25/18 06:00 Hypertonic Saline 3% IV 40 mls/hr .[id number] GRAEME Administration diltiaZEM IVPB 100mg in NS 100 mls @ 5 mls/hr 10/25/18 10:21 10/25/18 12:03 Cardizem 100mg In Ns IV 5 mg/hr .Q20H PRN 5 mls/hr TITRATE PER MD ORDER Administration Protocol 5 MG/HR Nicardipine HCl 20 mg in 200 mls @ 50 mls/hr 10/25/18 15:21 Cardene Iv Premix IV .Q4H PRN TITRATE PER MD ORDER Protocol 5 MG/HR Lorazepam 2 mg 10/24/18 19:50 10/25/18 02:45 Ativan IVP 2 mg Q6H PRN Administration Agitation Protocol Pantoprazole Sodium 40 mg 10/24/18 10:00 10/25/18 10:39 Protonix Inj IVP 40 mg DAILY GRAEME Administration - Patient Studies Lab Studies: Microbiology Studies 10/24/18 12:00 MRSA Culture (Admit) - Final Naris MRSA NOT DETECTED 10/23/18 12:20 Blood Culture - Preliminary Blood NO GROWTH AFTER 48 HOURS 10/23/18 11:42 Blood Culture - Preliminary Blood NO GROWTH AFTER 48 HOURS Lab Studies 10/25/18 10/25/18 10/25/18 Range/Units 16:19 12:53 07:40 WBC (4.5-11.0) 10^3/uL RBC (3.5-6.1) 10^6/uL Hgb (14.0-18.0) g/dL Hct (42.0-52.0) % MCV (80.0-105.0) fl MCH (25.0-35.0) pg MCHC (31.0-37.0) g/dl RDW (11.5-14.5) % Plt Count (120.0-450.0) 10^3/uL MPV (7.0-11.0) fl Sodium (132-148) mmol/L Potassium (3.6-5.0) mmol/L Chloride (98-107) mmol/L Carbon Dioxide (21-33) mmol/L Anion Gap (10-20) BUN (7-21) mg/dL Creatinine (0.8-1.5) mg/dl Est GFR ( Amer) Est GFR (Non-Af Amer) POC Glucose (mg/dL) 174 H 199 H (65-110) mg/dL Random Glucose (70-110) mg/dL Calcium (8.4-10.5) mg/dL Phosphorus (2.5-4.5) mg/dL Magnesium (1.7-2.2) mg/dL Total Bilirubin (0.2-1.3) mg/dL AST (17-59) U/L ALT (7-56) U/L Alkaline Phosphatase (38-126) U/L Total Protein (5.8-8.3) g/dL Albumin (3.0-4.8) g/dL Globulin gm/dL Albumin/Globulin Ratio (1.1-1.8) Free T4 1.97 (0.78-2.19) ng/dL TSH 3rd Generation 0.56 (0.46-4.68) mIU/mL Urine Color (YELLOW) Urine Appearance (CLEAR) Urine pH (4.7-8.0) Ur Specific Calvin (1.005-1.035) Urine Protein (<30 mg/dL) mg/dL Urine Glucose (UA) (NEGATIVE) mg/dL Urine Ketones (NEGATIVE) mg/dL Urine Blood (NEGATIVE) Urine Nitrate (NEGATIVE) Urine Bilirubin (NEGATIVE) Urine Urobilinogen (<1 E.U./dL) E.U./dL Ur Leukocyte Esterase (NEGATIVE) Eric/uL Urine Opiates Screen (NEGATIVE) Urine Methadone Screen (NEGATIVE) Ur Barbiturates Screen (NEGATIVE) Ur Phencyclidine Scrn (NEGATIVE) Ur Amphetamines Screen (NEGATIVE) U Benzodiazepines Scrn (NEGATIVE) U Oth Cocaine Metabols (NEGATIVE) U Cannabinoids Screen (NEGATIVE) 10/25/18 10/25/18 10/25/18 Range/Units 06:50 06:50 06:00 WBC (4.5-11.0) 10^3/uL RBC (3.5-6.1) 10^6/uL Hgb (14.0-18.0) g/dL Hct (42.0-52.0) % MCV (80.0-105.0) fl MCH (25.0-35.0) pg MCHC (31.0-37.0) g/dl RDW (11.5-14.5) % Plt Count (120.0-450.0) 10^3/uL MPV (7.0-11.0) fl Sodium (132-148) mmol/L Potassium (3.6-5.0) mmol/L Chloride (98-107) mmol/L Carbon Dioxide (21-33) mmol/L Anion Gap (10-20) BUN (7-21) mg/dL Creatinine (0.8-1.5) mg/dl Est GFR ( Amer) Est GFR (Non-Af Amer) POC Glucose (mg/dL) (65-110) mg/dL Random Glucose (70-110) mg/dL Calcium (8.4-10.5) mg/dL Phosphorus 2.5 (2.5-4.5) mg/dL Magnesium 1.6 L (1.7-2.2) mg/dL Total Bilirubin (0.2-1.3) mg/dL AST (17-59) U/L ALT (7-56) U/L Alkaline Phosphatase (38-126) U/L Total Protein (5.8-8.3) g/dL Albumin (3.0-4.8) g/dL Globulin gm/dL Albumin/Globulin Ratio (1.1-1.8) Free T4 (0.78-2.19) ng/dL TSH 3rd Generation (0.46-4.68) mIU/mL Urine Color Yellow (YELLOW) Urine Appearance Clear (CLEAR) Urine pH 5.5 (4.7-8.0) Ur Specific Calvin 1.025 (1.005-1.035) Urine Protein Negative (<30 mg/dL) mg/dL Urine Glucose (UA) 250 H (NEGATIVE) mg/dL Urine Ketones >=80 (NEGATIVE) mg/dL Urine Blood Negative (NEGATIVE) Urine Nitrate Negative (NEGATIVE) Urine Bilirubin Small H (NEGATIVE) Urine Urobilinogen 1.0 H (<1 E.U./dL) E.U./dL Ur Leukocyte Esterase Negative (NEGATIVE) Eric/uL Urine Opiates Screen Negative (NEGATIVE) Urine Methadone Screen Negative (NEGATIVE) Ur Barbiturates Screen Negative (NEGATIVE) Ur Phencyclidine Scrn Negative (NEGATIVE) Ur Amphetamines Screen Negative (NEGATIVE) U Benzodiazepines Scrn Negative (NEGATIVE) U Oth Cocaine Metabols Negative (NEGATIVE) U Cannabinoids Screen Negative (NEGATIVE) 10/25/18 10/25/18 10/24/18 Range/Units 06:00 06:00 23:28 WBC 20.8 H D (4.5-11.0) 10^3/uL RBC 3.83 (3.5-6.1) 10^6/uL Hgb 13.0 L (14.0-18.0) g/dL Hct 38.6 L (42.0-52.0) % MCV 100.8 (80.0-105.0) fl MCH 33.9 (25.0-35.0) pg MCHC 33.7 (31.0-37.0) g/dl RDW 12.6 (11.5-14.5) % Plt Count 314 (120.0-450.0) 10^3/uL MPV 11.5 H (7.0-11.0) fl Sodium 145 142 (132-148) mmol/L Potassium 3.5 L 3.4 L (3.6-5.0) mmol/L Chloride 113 H 109 H (98-107) mmol/L Carbon Dioxide 18 L 20 L (21-33) mmol/L Anion Gap 18 15 (10-20) BUN 13 10 (7-21) mg/dL Creatinine 0.4 L 0.3 L (0.8-1.5) mg/dl Est GFR ( Amer) > 60 > 60 Est GFR (Non-Af Amer) > 60 > 60 POC Glucose (mg/dL) (65-110) mg/dL Random Glucose 180 H 174 H (70-110) mg/dL Calcium 8.7 9.0 (8.4-10.5) mg/dL Phosphorus (2.5-4.5) mg/dL Magnesium (1.7-2.2) mg/dL Total Bilirubin 2.3 H (0.2-1.3) mg/dL AST 61 H (17-59) U/L ALT 33 (7-56) U/L Alkaline Phosphatase 57 (38-126) U/L Total Protein 7.6 (5.8-8.3) g/dL Albumin 3.8 (3.0-4.8) g/dL Globulin 3.7 gm/dL Albumin/Globulin Ratio 1.0 L (1.1-1.8) Free T4 (0.78-2.19) ng/dL TSH 3rd Generation (0.46-4.68) mIU/mL Urine Color (YELLOW) Urine Appearance (CLEAR) Urine pH (4.7-8.0) Ur Specific Calvin (1.005-1.035) Urine Protein (<30 mg/dL) mg/dL Urine Glucose (UA) (NEGATIVE) mg/dL Urine Ketones (NEGATIVE) mg/dL Urine Blood (NEGATIVE) Urine Nitrate (NEGATIVE) Urine Bilirubin (NEGATIVE) Urine Urobilinogen (<1 E.U./dL) E.U./dL Ur Leukocyte Esterase (NEGATIVE) Eric/uL Urine Opiates Screen (NEGATIVE) Urine Methadone Screen (NEGATIVE) Ur Barbiturates Screen (NEGATIVE) Ur Phencyclidine Scrn (NEGATIVE) Ur Amphetamines Screen (NEGATIVE) U Benzodiazepines Scrn (NEGATIVE) U Oth Cocaine Metabols (NEGATIVE) U Cannabinoids Screen (NEGATIVE) 10/24/18 10/24/18 10/24/18 Range/Units 21:17 18:45 18:01 WBC (4.5-11.0) 10^3/uL RBC (3.5-6.1) 10^6/uL Hgb (14.0-18.0) g/dL Hct (42.0-52.0) % MCV (80.0-105.0) fl MCH (25.0-35.0) pg MCHC (31.0-37.0) g/dl RDW (11.5-14.5) % Plt Count (120.0-450.0) 10^3/uL MPV (7.0-11.0) fl Sodium 142 (132-148) mmol/L Potassium 3.4 L (3.6-5.0) mmol/L Chloride 109 H (98-107) mmol/L Carbon Dioxide 19 L (21-33) mmol/L Anion Gap 18 (10-20) BUN 10 (7-21) mg/dL Creatinine 0.3 L (0.8-1.5) mg/dl Est GFR ( Amer) > 60 Est GFR (Non-Af Amer) > 60 POC Glucose (mg/dL) 170 H 155 H (65-110) mg/dL Random Glucose 178 H (70-110) mg/dL Calcium 9.0 (8.4-10.5) mg/dL Phosphorus (2.5-4.5) mg/dL Magnesium (1.7-2.2) mg/dL Total Bilirubin (0.2-1.3) mg/dL AST (17-59) U/L ALT (7-56) U/L Alkaline Phosphatase (38-126) U/L Total Protein (5.8-8.3) g/dL Albumin (3.0-4.8) g/dL Globulin gm/dL Albumin/Globulin Ratio (1.1-1.8) Free T4 (0.78-2.19) ng/dL TSH 3rd Generation (0.46-4.68) mIU/mL Urine Color (YELLOW) Urine Appearance (CLEAR) Urine pH (4.7-8.0) Ur Specific Calvin (1.005-1.035) Urine Protein (<30 mg/dL) mg/dL Urine Glucose (UA) (NEGATIVE) mg/dL Urine Ketones (NEGATIVE) mg/dL Urine Blood (NEGATIVE) Urine Nitrate (NEGATIVE) Urine Bilirubin (NEGATIVE) Urine Urobilinogen (<1 E.U./dL) E.U./dL Ur Leukocyte Esterase (NEGATIVE) Eric/uL Urine Opiates Screen (NEGATIVE) Urine Methadone Screen (NEGATIVE) Ur Barbiturates Screen (NEGATIVE) Ur Phencyclidine Scrn (NEGATIVE) Ur Amphetamines Screen (NEGATIVE) U Benzodiazepines Scrn (NEGATIVE) U Oth Cocaine Metabols (NEGATIVE) U Cannabinoids Screen (NEGATIVE) Laboratory Results - last 24 hr 10/24/18 10/24/18 10/24/18 18:01 18:45 21:17 WBC RBC Hgb Hct MCV MCH MCHC RDW Plt Count MPV Sodium 142 Potassium 3.4 L Chloride 109 H Carbon Dioxide 19 L Anion Gap 18 BUN 10 Creatinine 0.3 L Est GFR ( Amer) > 60 Est GFR (Non-Af Amer) > 60 POC Glucose (mg/dL) 155 H 170 H Random Glucose 178 H Calcium 9.0 Phosphorus Magnesium Total Bilirubin AST ALT Alkaline Phosphatase Total Protein Albumin Globulin Albumin/Globulin Ratio Free T4 TSH 3rd Generation Urine Color Urine Appearance Urine pH Ur Specific Calvin Urine Protein Urine Glucose (UA) Urine Ketones Urine Blood Urine Nitrate Urine Bilirubin Urine Urobilinogen Ur Leukocyte Esterase Urine Opiates Screen Urine Methadone Screen Ur Barbiturates Screen Ur Phencyclidine Scrn Ur Amphetamines Screen U Benzodiazepines Scrn U Oth Cocaine Metabols U Cannabinoids Screen 10/24/18 10/25/18 10/25/18 23:28 06:00 06:00 WBC 20.8 H D RBC 3.83 Hgb 13.0 L Hct 38.6 L MCV 100.8 MCH 33.9 MCHC 33.7 RDW 12.6 Plt Count 314 MPV 11.5 H Sodium 142 145 Potassium 3.4 L 3.5 L Chloride 109 H 113 H Carbon Dioxide 20 L 18 L Anion Gap 15 18 BUN 10 13 Creatinine 0.3 L 0.4 L Est GFR ( Amer) > 60 > 60 Est GFR (Non-Af Amer) > 60 > 60 POC Glucose (mg/dL) Random Glucose 174 H 180 H Calcium 9.0 8.7 Phosphorus Magnesium Total Bilirubin 2.3 H AST 61 H ALT 33 Alkaline Phosphatase 57 Total Protein 7.6 Albumin 3.8 Globulin 3.7 Albumin/Globulin Ratio 1.0 L Free T4 TSH 3rd Generation Urine Color Urine Appearance Urine pH Ur Specific Calvin Urine Protein Urine Glucose (UA) Urine Ketones Urine Blood Urine Nitrate Urine Bilirubin Urine Urobilinogen Ur Leukocyte Esterase Urine Opiates Screen Urine Methadone Screen Ur Barbiturates Screen Ur Phencyclidine Scrn Ur Amphetamines Screen U Benzodiazepines Scrn U Oth Cocaine Metabols U Cannabinoids Screen 10/25/18 10/25/18 10/25/18 06:00 06:50 06:50 WBC RBC Hgb Hct MCV MCH MCHC RDW Plt Count MPV Sodium Potassium Chloride Carbon Dioxide Anion Gap BUN Creatinine Est GFR ( Amer) Est GFR (Non-Af Amer) POC Glucose (mg/dL) Random Glucose Calcium Phosphorus 2.5 Magnesium 1.6 L Total Bilirubin AST ALT Alkaline Phosphatase Total Protein Albumin Globulin Albumin/Globulin Ratio Free T4 TSH 3rd Generation Urine Color Yellow Urine Appearance Clear Urine pH 5.5 Ur Specific Calvin 1.025 Urine Protein Negative Urine Glucose (UA) 250 H Urine Ketones >=80 Urine Blood Negative Urine Nitrate Negative Urine Bilirubin Small H Urine Urobilinogen 1.0 H Ur Leukocyte Esterase Negative Urine Opiates Screen Negative Urine Methadone Screen Negative Ur Barbiturates Screen Negative Ur Phencyclidine Scrn Negative Ur Amphetamines Screen Negative U Benzodiazepines Scrn Negative U Oth Cocaine Metabols Negative U Cannabinoids Screen Negative 10/25/18 10/25/18 10/25/18 07:40 12:53 16:19 WBC RBC Hgb Hct MCV MCH MCHC RDW Plt Count MPV Sodium Potassium Chloride Carbon Dioxide Anion Gap BUN Creatinine Est GFR ( Amer) Est GFR (Non-Af Amer) POC Glucose (mg/dL) 199 H 174 H Random Glucose Calcium Phosphorus Magnesium Total Bilirubin AST ALT Alkaline Phosphatase Total Protein Albumin Globulin Albumin/Globulin Ratio Free T4 1.97 TSH 3rd Generation 0.56 Urine Color Urine Appearance Urine pH Ur Specific Calvin Urine Protein Urine Glucose (UA) Urine Ketones Urine Blood Urine Nitrate Urine Bilirubin Urine Urobilinogen Ur Leukocyte Esterase Urine Opiates Screen Urine Methadone Screen Ur Barbiturates Screen Ur Phencyclidine Scrn Ur Amphetamines Screen U Benzodiazepines Scrn U Oth Cocaine Metabols U Cannabinoids Screen Radiology Impressions: Radiology Impressions Head CT 10/25/18 09:26 IMPRESSION: No significant change in large left temporal acute hematoma EKG/Cardiology Studies: Cardiology / EKG Studies 10/25/18 07:00 EKG [ELECTROCARDIOGRAM] Routine Comment: Reason For Exam: afib PRE OP:: N Does Patient Have a Pacemaker?: No Critical Care Progress Note - Nutrition Nutrition: Nutrition Category Date Time Status NPO Diet [DIET] Diets 10/23/18 Breakfast Ordered Addendum Addendum: 10/25/18 18:03 MICU Attending Addendum Patient seen and examined with housestaff case discussed on round agree with resident note above with the following additions/exceptions: 58 year old M with PMHx of Neuroendocrine tumor and ETOH abuse admitted with Left Intracranial Hemorrhage. repeat CT head shows no change neuro managing with 3% cont to follow BMP bp control with nicardipine afib control with cardizem drip, follow cardio recs cannot anticoag given bleed hem-onc on board as well Rest of care as mentioned in above resident note Emilia Leo MD Pulmonary Critical Care Sleep Medicine
[2018-10-25] MEDS ORDERED: Magnesium Sulfate 2 gm/50 ml 2 GM/50 ML BAG IVPB ONE (09:38)
[2018-10-25] MEDS: levETIRAcetam 500mg IVPB 500 MG/100 ML BAG IVPB SCH ×2 (10:38→21:12)
--- NOTE | 2018-10-25 11:00 | CP.PCM.PN ---
<Guille Lennon - Last Filed: 10/25/18 11:27> Subjective - Date & Time of Evaluation Date of Evaluation: 10/25/18 Time of Evaluation: 11:00 - Subjective Subjective: INTERNAL MEDICINE PROGRESS NOTE FOR DR. MARIUSZ Lennon PGY1 Pt seen and examined at bedside in ICU this am. Pt still awake, verbal, however not making sense, He is agitated on soft restraints. Overnight, pt went into Afib w/ RVR, given digoxin. He is unable to provide ROS gtt: nicardipine drip, 3% NS Objective - Vital Signs/Intake and Output Vital Signs (last 24 hours): Temp Pulse Resp BP Pulse Ox 99.6 F 126 H 20 130/69 93 L 10/23/18 11:31 10/25/18 10:28 10/25/18 08:00 10/25/18 10:28 10/25/18 08:00 Intake and Output: 10/25/18 10/25/18 06:59 18:59 Intake Total 2280 200 Output Total 400 Balance 1880 200 - Medications Medications: Current Medications Dexamethasone (Decadron Inj) 10 mg IVP Q8 [facility] Last Admin: 10/25/18 05:21 Dose: 10 mg Nicardipine HCl (Cardene Iv Premix) 20 mg in 200 mls @ 50 mls/hr IV .Q4H PRN; Protocol PRN Reason: TITRATE PER MD ORDER Last Admin: 10/25/18 08:10 Dose: 7.5 mg/hr, 75 mls/hr Levetiracetam (Keppra 500mg Ivpb) 500 mg in 100 mls @ 400 mls/hr IVPB Q12 [facility] Last Admin: 10/25/18 10:38 Dose: 400 mls/hr Sodium Chloride (Hypertonic Saline 3%) 500 mls @ 40 mls/hr IV .[id number] [facility] Last Admin: 10/25/18 06:00 Dose: 40 mls/hr diltiaZEM IVPB 100mg in NS (Cardizem 100mg In Ns) 100 mls @ 5 mls/hr IV .Q20H PRN; Protocol PRN Reason: TITRATE PER MD ORDER Lorazepam (Ativan) 2 mg IVP Q6H PRN; Protocol PRN Reason: Agitation Last Admin: 10/25/18 02:45 Dose: 2 mg Pantoprazole Sodium (Protonix Inj) 40 mg IVP DAILY [facility] Last Admin: 10/25/18 10:39 Dose: 40 mg - Labs Labs: 10/25/18 06:00 10/25/18 06:00 PT 15.9 SECONDS (9.4-12.5) H 10/23/18 11:42 INR 1.41 10/23/18 11:42 APTT 31.4 Seconds (26.9-38.3) 10/23/18 11:42 - Constitutional Appears: Combative, Cachectic - Head Exam Additional comments: Well-approximated lesions noted over L eyebrow - Eye Exam Eye Exam: EOMI Pupil Exam: PERRL - ENT Exam ENT Exam: Mucous Membranes Moist, Normal Exam - Neck Exam Neck exam: Positive for: Normal Inspection - Respiratory Exam Respiratory Exam: Clear to Auscultation Bilateral, NORMAL BREATHING PATTERN - Cardiovascular Exam Cardiovascular Exam: REGULAR RHYTHM, +S1, +S2 - GI/Abdominal Exam GI & Abdominal Exam: Soft. absent: Tenderness - Extremities Exam Extremities exam: Negative for: calf tenderness - Back Exam Back exam: NORMAL INSPECTION - Neurological Exam Assessment and Plan - Assessment and Plan (Free Text) Assessment: 58 y/o M with PMH of ETOH, hx neuroendocrine tumor s/p L axillary surgery bib EMS for agitation, slurred speech x 2 days. Pt found to have [id number] L sided temporal hemorrhage with small amount of surrounding edema. Pt also found to have elevated troponins. Pt transferred to ICU for close monitoring of ICH Plan: Intracranial Hemorrhage CT reveals: "There is an acute left temporal lobe hemorrhage measuring 38 x 65 x 30 mm in size. There is a small amount of surrounding edema. There is no intraventricular extension. There is no herniation." Per neurosurgery, no acute intervention at this time Repeat CT shows no change. MRI today. Monitor in ICU, continue 3%NS with goal Na 140-145 per neuro Monitor BMP q4h Continue dexamethasone 10mg IVP q8h Continue keppra 500mg for seizure prophylaxis Maintain strict BP control with titratable nicardipine drip, avoid rapid fluctuations in BP. Neurosurgery/Neurology following. appreciate recs HOB >40 degrees Afib w/ RVR given digoxin overnight. give cardizem 5mg IVP will start cardizem titratable drip Hypokalemia Repleted IV, replete magnesium ACS w/ recent LA troponins downtrending Given ICH, will hold anticoagulation& antiplatelets Repeat EKG Cardiology consulted echo pending per cardio: start b-charles & Nitroglycerin ETOH withdrawal Pt has extensive hx of ETOH abuse. Serum ETOH <10 CIWA protocol Aspiration precautions, neuro checks q1h Fall precautions On seizure prophylaxis with keppra Leukocytosis Pt afebrile, normotensive Likely demargination 2/2 steroids Hx of neuroendocrine tumor History unable to obtained from patient Lymphedema noted in L arm Pt's home oncologist consulted, Dr. Long, appreciate recs DVT/GI PPx: SCD/Protonix (pt on steroids) Dispo: Continue to monitor in ICU. Family members unable to reached with current phone number.Wi Case discussed with and reviewed with attending physician, Dr. Mariusz Lennon PGY1 <Debra Wright - Last Filed: 10/25/18 14:22> Objective - Vital Signs/Intake and Output Vital Signs (last 24 hours): Temp Pulse Resp BP Pulse Ox 99.6 F 126 H 20 130/69 93 L 10/23/18 11:31 10/25/18 10:28 10/25/18 08:00 10/25/18 10:28 10/25/18 08:00 Intake and Output: 10/25/18 10/25/18 06:59 18:59 Intake Total 2280 400 Output Total 400 Balance 1880 400 - Medications Medications: Current Medications Dexamethasone (Decadron Inj) 10 mg IVP Q8 [facility] Last Admin: 10/25/18 05:21 Dose: 10 mg Nicardipine HCl (Cardene Iv Premix) 20 mg in 200 mls @ 50 mls/hr IV .Q4H PRN; Protocol PRN Reason: TITRATE PER MD ORDER Last Admin: 10/25/18 11:31 Dose: 7.5 mg/hr, 75 mls/hr Levetiracetam (Keppra 500mg Ivpb) 500 mg in 100 mls @ 400 mls/hr IVPB Q12 [facility] Last Admin: 10/25/18 10:38 Dose: 400 mls/hr Sodium Chloride (Hypertonic Saline 3%) 500 mls @ 40 mls/hr IV .[id number] [facility] Last Admin: 10/25/18 06:00 Dose: 40 mls/hr diltiaZEM IVPB 100mg in NS (Cardizem 100mg In Ns) 100 mls @ 5 mls/hr IV .Q20H PRN; Protocol PRN Reason: TITRATE PER MD ORDER Last Admin: 10/25/18 12:03 Dose: 5 mg/hr, 5 mls/hr Lorazepam (Ativan) 2 mg IVP Q6H PRN; Protocol PRN Reason: Agitation Last Admin: 10/25/18 02:45 Dose: 2 mg Pantoprazole Sodium (Protonix Inj) 40 mg IVP DAILY [facility] Last Admin: 10/25/18 10:39 Dose: 40 mg - Labs Labs: 10/25/18 06:00 10/25/18 06:00 PT 15.9 SECONDS (9.4-12.5) H 10/23/18 11:42 INR 1.41 10/23/18 11:42 APTT 31.4 Seconds (26.9-38.3) 10/23/18 11:42 Attending/Attestation - Attestation I have personally seen and examined this patient.: Yes I have fully participated in the care of the patient.: Yes I have reviewed all pertinent clinical information, including history, physical exam and plan: Yes Notes (Text): 10/25/18 12:20 Attending note; Patient seen and examined with resident in ICU. Patient is still Confused and agitated. On the wrist restraints. Not following commands. moving all the extremities. Patient had a fib with RVR early this morning. got 1 does of digoxin. Still with tachycardia . Patient is a 58-year-old male with PMH of neuroendocrine tumor s/p unspecified L axillary surgery & residual L arm lymphedema, ETOH abuse [place] [facility] [place] & slurred speech. As per ER note patient has recently been agitated for the past few days. 1. Confusion; CT head shows acute left temporal lobe hemorrhage measuring 38 x 65 x 30 mm in size. There is a small amount of surrounding edema. There is no intraventricular extension. There is no herniation. Per neurosurgery, no acute intervention at this time. Patient is currently monitored in ICU. Patient is confused and restless. Moving all extremities. Repeat CT head is unchanged. Continue IV Ativan as needed. 2. Neurology evaluation appreciated. started on 3% normal saline to decrease intracranial pressure. Monitor BMP every 6 hours. Keep sodium between 145 to 150. Head end elevation. Started on IV Keppra For seizure prophylaxis. 3. Hypertension; will start IV nicardipine drip to keep blood pressure 140-160. 4. Alcohol abuse; monitor for withdrawal symptoms. Continue IV Ativan as needed. 5. Elevated troponin; secondary to hemodynamic changes due to stroke . EKG showed no acute ST elevation. Troponins trending down. Cardiology evaluation appreciated. 6. New onset Afib with RVR; Iv cardizem ordered. started on cardizem drip. 7. History of neuroendocrine tumor. we will follow up with oncology. Continue IV Decadron. 8. GI prophylaxis Protonix. SCD for DVT prophylaxis. Monitor the patient closely in ICU. Case discussed with neurologist and Water System Operator in detail. Unable to reach the family member at this time. case discussed with social media intern in detail.
--- NOTE | 2018-10-25 12:02 | PN ---
DATE: 10/25/2018 SUBJECTIVE: The patient is without distress. OBJECTIVE: VITAL SIGNS: Blood pressure 137/82, the heart rate is 140s. He has atrial fibrillation. NECK: Negative JVD. LUNGS: Without rales. HEART: S1, S2. EXTREMITIES: Without edema. LABORATORY DATA: Hemoglobin is 13. Chemistries, BUN and creatinine unremarkable. IMPRESSION: 1. Intracerebral bleed. 2. Cerebrovascular accident. 3. Recent anterior wall myocardial infarction. 4. Accelerated hypertension which is controlled. 5. Atrial fibrillation. Given these findings, no anticoagulation can be given at this time. We will start the patient on IV Cardizem today. Justin Shelley MD
[2018-10-25] MEDS: diltiaZEM IVPB 100mg in NS 100 ML IV PRN (12:03)
--- NOTE | 2018-10-25 12:40 | CT ---
Date of service: 10/25/2018 PROCEDURE: CT HEAD WITHOUT CONTRAST. HISTORY: ICH COMPARISON: CT 10/24/2018 TECHNIQUE: Axial computed tomography images were obtained through the head/brain without intravenous contrast. Radiation dose: Total exam DLP = 917.29 mGy-cm. This CT exam was performed using one or more of the following dose reduction techniques: Automated exposure control, adjustment of the mA and/or kV according to patient size, and/or use of iterative reconstruction technique. FINDINGS: HEMORRHAGE: There is no significant change in the appearance of the left temporal hematoma. There is slight different angulation of the gantry and tilt of the head making exact slice by slice comparison difficult. The hematoma measures 41 x 69 mm. There is a small amount of surrounding edema. There is no intraventricular hemorrhage and no midline shift BRAIN: No mass effect or edema. Mild atrophy. Mild microvascular changes VENTRICLES: Unremarkable. No hydrocephalus. CALVARIUM: Unremarkable. PARANASAL SINUSES: Unremarkable as visualized. No significant inflammatory changes. MASTOID AIR CELLS: Unremarkable as visualized. No inflammatory changes. OTHER FINDINGS: None. IMPRESSION: No significant change in large left temporal acute hematoma
[2018-10-25] MEDS ORDERED: Nicardipine 20 MG/200 ML 20 MG/200 ML BAG IV PRN (15:21)
--- NOTE | 2018-10-25 16:08 | CP.PCM.PN ---
<Matt Julio - Last Filed: 10/25/18 16:04> Subjective - Date & Time of Evaluation Date of Evaluation: 10/25/18 Time of Evaluation: 16:05 - Subjective Subjective: Neuro progress note - Nori, PGY - 2 Patient seen and examined at bedside. Had bout of A-Fib with RVR last night; was given fluids. Patient is still aphasic with mild improvement from previous, but history is severely limited again today. Seems frustrated Objective - Vital Signs/Intake and Output Vital Signs (last 24 hours): Temp Pulse Resp BP Pulse Ox 99.6 F 56 L 16 107/63 92 L 10/23/18 11:31 10/25/18 15:30 10/25/18 15:30 10/25/18 15:30 10/25/18 15:30 Intake and Output: 10/25/18 10/25/18 06:59 18:59 Intake Total 2280 400 Output Total 400 Balance 1880 400 - Medications Medications: Current Medications Dexamethasone (Decadron Inj) 10 mg IVP Q8 GRAEME Last Admin: 10/25/18 15:11 Dose: 10 mg Levetiracetam (Keppra 500mg Ivpb) 500 mg in 100 mls @ 400 mls/hr IVPB Q12 GRAEME Last Admin: 10/25/18 10:38 Dose: 400 mls/hr Sodium Chloride (Hypertonic Saline 3%) 500 mls @ 40 mls/hr IV .[id number] GRAEME Last Admin: 10/25/18 06:00 Dose: 40 mls/hr diltiaZEM IVPB 100mg in NS (Cardizem 100mg In Ns) 100 mls @ 5 mls/hr IV .Q20H PRN; Protocol PRN Reason: TITRATE PER MD ORDER Last Admin: 10/25/18 12:03 Dose: 5 mg/hr, 5 mls/hr Nicardipine HCl (Cardene Iv Premix) 20 mg in 200 mls @ 50 mls/hr IV .Q4H PRN; Protocol PRN Reason: TITRATE PER MD ORDER Lorazepam (Ativan) 2 mg IVP Q6H PRN; Protocol PRN Reason: Agitation Last Admin: 10/25/18 02:45 Dose: 2 mg Pantoprazole Sodium (Protonix Inj) 40 mg IVP DAILY [facility] Last Admin: 10/25/18 10:39 Dose: 40 mg - Labs Labs: 10/25/18 06:00 10/25/18 06:00 PT 15.9 SECONDS (9.4-12.5) H 10/23/18 11:42 INR 1.41 10/23/18 11:42 APTT 31.4 Seconds (26.9-38.3) 10/23/18 11:42 - Constitutional Appears: Well - Head Exam Head Exam: ATRAUMATIC, NORMAL INSPECTION, NORMOCEPHALIC - Eye Exam Eye Exam: EOMI, Normal appearance, PERRL Pupil Exam: NORMAL ACCOMODATION, PERRL - ENT Exam ENT Exam: Mucous Membranes Moist, Normal Exam - Neck Exam Neck Exam: Full ROM, Normal Inspection. absent: Lymphadenopathy - Respiratory Exam Respiratory Exam: Clear to Ausculation Bilateral, NORMAL BREATHING PATTERN - Cardiovascular Exam Cardiovascular Exam: REGULAR RHYTHM, +S1, +S2. absent: Murmur - GI/Abdominal Exam GI & Abdominal Exam: Soft, Normal Bowel Sounds. absent: Tenderness - Extremities Exam Extremities Exam: Full ROM, Normal Capillary Refill, Normal Inspection. absent: Joint Swelling, Pedal Edema - Back Exam Back Exam: NORMAL INSPECTION - Neurological Exam Neurological Exam: Alert, Awake, CN II-XII Intact, Normal Gait, Oriented x3 - Psychiatric Exam Psychiatric exam: Normal Affect, Normal Mood - Skin Skin Exam: Dry, Intact, Normal Color, Warm - Additional Findings Additional findings: Still with severe receptive and productive aphasia. CN II-XII are grossly intact; rest of neuro exam limited 2/2 patient's mental status. Assessment and Plan - Assessment and Plan (Free Text) Assessment: 58 M with pertinent medical history of alcoholism and neuroendocrine tumor with L arm lymphedema presents for agitation and slurred speech for 2 days [facility]. Imaging reveals a L sided temporal lobe hemorrhage with surrounding edema but no herniation. Plan L Temporal Hemorrhagic Stroke with Productive and Receptive Aphasia - Obtained rpt Head CT today - shows improvement in midline shift, whereas before there was concern for progression to herniation - Continue Decadron 10 q8h - Loading bolus of HT Saline of 200 mls; maintenance dose increased to 40/hr to keep Na between 140-145 - Keppra for Seizure prophylaxis - Maintain blood pressure <160/90 per ASA and AHA guidelines - HOB 30 degrees elevation; aspiration and seizure protocols; fall protocol; Neurochecks q1; CIWA protocol - Neurosurgery on consult: Per Dr. Hansen, likely no acute intervention - Follow up MRI of brain with contrast to rule out metastatic disease - has not been obtained yet - PT/OT <Gary Man - Last Filed: 10/30/18 11:59> Objective - Vital Signs/Intake and Output Vital Signs (last 24 hours): Temp Pulse Resp BP Pulse Ox 98.0 F 64 19 148/99 H 95 10/30/18 06:00 10/30/18 09:30 10/30/18 06:00 10/30/18 09:30 10/30/18 06:00 Intake and Output: 10/30/18 10/30/18 06:59 18:59 Intake Total 0 Output Total 0 Balance 0 - Medications Medications: Current Medications Amlodipine Besylate (Norvasc) 5 mg PO DAILY [facility] Last Admin: 10/30/18 09:29 Dose: 5 mg Dexamethasone (Decadron Inj) 10 mg IVP DAILY [facility] Stop: 10/31/18 10:01 Last Admin: 10/30/18 09:26 Dose: 10 mg Dexamethasone (Decadron Inj) 5 mg IVP DAILY [facility] Stop: 11/02/18 10:01 Diltiazem HCl (Cardizem Cd) 120 mg PO DAILY [facility] Last Admin: 10/30/18 09:30 Dose: 120 mg Levetiracetam (Keppra 500mg Ivpb) 500 mg in 100 mls @ 400 mls/hr IVPB Q12 [facility] Last Admin: 10/30/18 09:30 Dose: 400 mls/hr Lisinopril (Zestril) 10 mg PO DAILY [facility] Last Admin: 10/30/18 09:27 Dose: 10 mg Lorazepam (Ativan) 2 mg IVP Q6H PRN; Protocol PRN Reason: Agitation Last Admin: 10/27/18 15:25 Dose: 2 mg Metoprolol Tartrate (Lopressor) 25 mg PO BRKDIN [facility] Last Admin: 10/30/18 07:38 Dose: Not Given Pantoprazole Sodium (Protonix Ec Tab) 40 mg PO DAILY [facility] Last Admin: 10/30/18 09:30 Dose: 40 mg - Labs Labs: 10/30/18 07:00 10/30/18 07:00 PT 15.9 SECONDS (9.4-12.5) H 10/23/18 11:42 INR 1.41 10/23/18 11:42 APTT 31.4 Seconds (26.9-38.3) 10/23/18 11:42 Attending/Attestation - Attestation I have personally seen and examined this patient.: Yes I have fully participated in the care of the patient.: Yes I have reviewed all pertinent clinical information, including history, physical exam and plan: Yes Notes (Text): I agree with the assessment and plan. MRI may be done in several weeks to ev aluate for underlying mass. Will continue management as outlined above.
--- NOTE | 2018-10-25 19:53 | CARD ---
APPROVED REPORT Date of service: 10/25/2018 EKG Measurement Heart [id number] <Conclusion> Atrial fibrillation with rapid ventricular response Low voltage QRS Septal infarct, age undetermined ST depression; consider lateral ischemia Abnormal ECG
--- NOTE | 2018-10-25 20:31 | CARD ---
APPROVED REPORT Date of service: 10/25/2018 EXAM: Two-dimensional and M-mode echocardiogram with Doppler and color Doppler. [facility] Left Atrium (2D)4.0 (1.6-4.0cm)IVSd1.4 (0.7-1.1cm) LVDd3.8 (3.9-5.9cm)PWd1.4 (0.7-1.1cm) LVDs2.6 (2.5-4.0cm)FS (%) 30.5 % LVEF (%)58.7 (>50%) M-Mode DIMENSIONS Aortic Root2.80 (2.2-3.7cm)Aortic Cusp Exc.1.20 (1.5-2.0cm) Aortic Valve AoV Peak Tyhvzhnn992.0cm/sAoV VTI54.7cmAO Peak GR.35mmHg LVOT Peak Ltbfknjr950.0cm/sLVOT VTI21.50cmAO Mean GR.18mmHg Mitral Valve E/A ratio0.0 TDI E/Lateral E'0.0E/Medial E'0.0 Tricuspid Valve TR Peak [id number]/sRAP [id number] Peak Gr.23mmHg [id number] LEFT VENTRICLE The left ventricle is normal size. There is mild concentric left ventricular hypertrophy. The left ventricular function is normal. The left ventricular ejection fraction is within the normal range. There is normal LV segmental wall motion. RIGHT VENTRICLE The right ventricle is normal size. There is normal right ventricular wall thickness. The right ventricular systolic function is normal. ATRIA The left atrium is borderline dilated. The right atrium size is normal. AORTIC VALVE The aortic valve is severely thickened. There is mild to moderate aortic regurgitation. There is mild to moderate valvular aortic stenosis. MITRAL VALVE The mitral valve is normal in structure. There is no mitral valve regurgitation noted. There is no mitral valve stenosis. TRICUSPID VALVE The tricuspid valve is normal in structure. There is trace tricuspid regurgitation. PULMONIC VALVE The pulmonary valve is normal in structure. There is no pulmonic valvular regurgitation. GREAT VESSELS The aortic root is normal in size. The IVC is normal in size and collapses >50% with inspiration. <Conclusion> There is mild concentric left ventricular hypertrophy. The left ventricular function is normal. The left ventricular ejection fraction is within the normal range. There is normal LV segmental wall motion. The aortic valve is severely thickened. There is mild to moderate aortic regurgitation. There is mild to moderate valvular aortic stenosis.
[2018-10-25 22:23] LABS: BLOOD UREA NITROGEN 13 mg/dL (7-21); CALCIUM 8.6 mg/dL (8.4-10.5); GFR NON-AFRICAN AMERICAN > 60
[2018-10-26] MEDS: Sodium Chloride 3% 500 ML IV SCH (01:08)
[2018-10-26 06:54] LABS: HEMOGLOBIN 12.9 g/dL (14.0-18.0); LYMPH # 0.4 (1.2-3.4); LYMPH % 3.2 % (22.0-35.0); MEAN CELL VOLUME 101.1 fl (80.0-105.0); MEAN CORPUSCULAR HEMOGLOBIN 34.1 pg (25.0-35.0); MEAN CORPUSCULAR HGB CONC 33.8 g/dl (31.0-37.0); MEAN PLATELET VOLUME 11.7 fl (7.0-11.0); MONO # 0.4 (0.1-0.6); MONO % 2.7 % (1.0-6.0); PLATELET COUNT 270 10^3/uL (120.0-450.0); RBC 3.78 10^6/uL (3.5-6.1); RED CELL DISTRIBUTION WIDTH 12.9 % (11.5-14.5); WHITE BLOOD COUNT 13.7 10^3/uL (4.5-11.0)
[2018-10-26 07:13] LABS: BLOOD UREA NITROGEN 10 mg/dL (7-21); CALCIUM 8.5 mg/dL (8.4-10.5); GFR NON-AFRICAN AMERICAN > 60
[2018-10-26 07:51] LABS: ALBUMIN 3.4 g/dL (3.0-4.8); ALT/SGPT 37 U/L (7-56); AST/SGOT 66 U/L (17-59)
[2018-10-26 08:11] LABS: BAND 2 % (0-2); LYMPHOCYTE 3 % (22.0-35.0); MONOCYTE 4 % (1.0-6.0); NEUTROPHIL 91 % (50.0-70.0); PLATELET ESTIMATE NORMAL (NORMAL)
[2018-10-26 08:12] LABS: LARGE PLATELETS PRESENT
--- NOTE | 2018-10-26 08:13 | PN ---
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 Patient is examined at bedside this morning in the Intensive Care Unit. Overnight, the patient had AFib with RVR. He was given digoxin and his heart rate has improved. Patient is on a Cardene drip at this point. He is awake, alert with expressive aphasia. Otherwise, a poor historian. Patient has a PICC line in place. PHYSICAL EXAMINATION HEENT: Head is normocephalic and atraumatic. Patient has old dried blood on forehead. Pupils are equally reactive to light and accommodation. Conjunctivae are pale. Examination of the mouth reveals no oropharyngeal lesions. NECK: Supple. There is no adenopathy. LUNGS: Clear to percussion and auscultation. HEART: Reveals PMI to be in the fifth intercostal space inside the midclavicular line. S1 and S2 are normal. ABDOMEN: Soft and nontender. No rebound, rigidity or guarding is noted. EXTREMITIES: Reveals lymphedema of the left upper extremity. This is chronic in nature. Examination of the lower extremities reveals no cyanosis, clubbing, or edema. NEUROLOGIC: Higher functions, patient has expressive aphasia. Patient is agitated and oriented to time, place, and person. SKIN: Turgor is decreased. No skin lesions are noted. MEDICATIONS: Reviewed as they are on the chart. ASSESSMENT, NOTES, AND PLAN: Patient has an acute central nervous system event with expressive aphasia. I spoke at length with Dr. Gary Man, the consulting neurologist. His feeling is that this acute event with the bleed that is deep seated could be related to an underlying lesion. At this point in time, it is unclear whether hemorrhage is hiding the lesion. CAT scan of the head shows no new changes. Patient will continue 3% hypertonic saline, continue to control the blood pressure with the Cardene drip along with control of atrial fibrillation. Plan will be if the patient continues to improve, we plan on re-imaging in him in about 4 to 6 weeks. At this point in time, patient is not a candidate for any other definitive procedure to get a diagnosis as to what this bleed or underlying lesion could be. Patient just recently had CAT scans of the chest, abdomen, and pelvis in 07/2018, when he was seen by us after a hiatus of 3 to 4 years in the office for the first time and at that time the scans were done just to check for residual or recurrent cancer. Those tests have been negative. Patient had been seen at that time for clearance prior to dental extraction. We will continue to monitor the patient very carefully and make appropriate recommendations once the patient stabilizes. Parviz Long MD
[2018-10-26] MEDS: diltiaZEM IVPB 100mg in NS 100 ML IV PRN (09:23)
--- NOTE | 2018-10-26 09:50 | CP.CCUPN ---
<Gurpreet Anderson - Last Filed: 10/26/18 13:22> CCU Subjective - Physician Review Subjective (Free Text): Gurpreet Anderson, PGY1 ICU Progress Note for Dr. Emilia Leo Patient was seen and examined at bedside this morning. Overnight, patient was rate controlled appropriately. He was also normotensive overnight. Currently, patient is alert, awake. He is not AAOx3. He still displays expressive aphasia. Remains on cardizem drip at @ 5. Cardene drip was not started overnight given his SBP remained < 160. ROS not obtained given patient's mental status. No new neurological deficits. CCU Objective - Vital Signs / Intake & Output Vital Signs (Last 4 hours): Vital Signs Pulse Resp 10/26/18 07:56 97 H 18 10/26/18 07:55 97 H 14 10/26/18 07:54 96 H 14 10/26/18 07:53 101 H 17 10/26/18 07:52 101 H 17 10/26/18 07:51 99 H 17 10/26/18 07:50 100 H 35 H 10/26/18 07:49 109 H 15 10/26/18 07:48 100 H 22 10/26/18 07:47 97 H 21 10/26/18 07:46 89 19 10/26/18 07:45 97 H 10/26/18 07:44 87 16 10/26/18 07:43 101 H 18 10/26/18 07:42 102 H 18 10/26/18 07:41 95 H 17 10/26/18 07:40 93 H 10/26/18 07:39 100 H 20 10/26/18 07:38 100 H 21 10/26/18 07:37 104 H 23 10/26/18 07:36 100 H 23 10/26/18 07:35 94 H 19 10/26/18 07:34 98 H 16 10/26/18 07:33 95 H 25 H 10/26/18 07:32 96 H 11 L 10/26/18 07:31 97 H 21 10/26/18 07:30 100 H 18 10/26/18 07:29 99 H 22 10/26/18 07:28 99 H 14 10/26/18 07:27 105 H 16 10/26/18 07:26 98 H 26 H 04/18/19 07:25 98 H 21 10/26/18 07:24 92 H 21 10/26/18 07:23 95 H 17 10/26/18 07:22 76 18 10/26/18 07:21 74 20 10/26/18 07:20 74 17 10/26/18 07:19 70 21 10/26/18 07:18 72 14 10/26/18 07:17 75 17 10/26/18 07:16 70 17 10/26/18 07:15 75 19 10/26/18 07:14 74 17 10/26/18 07:13 76 17 10/26/18 07:12 74 17 10/26/18 07:11 71 16 10/26/18 07:10 68 17 10/26/18 07:09 71 18 10/26/18 07:08 72 16 10/26/18 07:07 69 18 10/26/18 06:02 88 22 10/26/18 06:01 88 24 10/26/18 06:00 91 H 24 10/26/18 05:57 67 20 10/26/18 05:56 70 18 10/26/18 05:55 71 12 10/26/18 05:54 70 10/26/18 05:53 67 19 10/26/18 05:52 67 19 10/26/18 05:51 68 16 10/26/18 05:50 66 17 10/26/18 05:49 70 20 10/26/18 05:48 69 10/26/18 05:47 72 15 10/26/18 05:46 69 12 10/26/18 05:45 72 14 10/26/18 05:44 67 16 10/26/18 05:43 67 19 10/26/18 05:42 66 19 10/26/18 05:41 69 19 10/26/18 05:40 72 20 10/26/18 05:39 68 19 10/26/18 05:38 72 19 10/26/18 05:37 68 16 Intake and Output (Last 8hrs): Intake & Output 10/25/1818/10/26/18 22:59 06:59 14:59 Intake Total 1200 640 100 Output Total 700 1000 Balance 500 -360 100 Weight 58.151 kg Intake: IV 640 100 Right Upper arm 640 Other 1200 Output: Urine 700 1000 Urine, Voided 700 1000 - Physical Exam Head: Positive for: Atraumatic, Normocephalic, Other (dried blood on forehead) Pupils: Positive for: PERRL Conjunctiva: Positive for: Normal Mouth: Positive for: Moist Mucous Membranes Neck: Positive for: Normal Range of Motion. Negative for: Meningeal Signs, MIDLINE TENDERNESS Respiratory/Chest: Positive for: Clear to Auscultation, Good Air Exchange. Negative for: Respiratory Distress, Accessory Muscle Use Cardiovascular: Positive for: Regular Rate and Rhythm, Normal S1, S2 Abdomen: Negative for: Tenderness, Distention Upper Extremity: Positive for: NORMAL PULSES, Neurovascularly Intact, Capillary Refill < 2s, Other (Left Upper extremity swelling - hx lymphedema, appears more swollen ) Lower Extremity: Positive for: Normal Inspection, NORMAL PULSES, Normal ROM, Capillary Refill < 2 s, Other (spontaneous movement extremities x 4). Negative for: CALF TENDERNESS Neurological: Positive for: Motor Func Grossly Intact, Other (Word salad - expressive aphasia. ). Negative for: Speech Normal (nonsensical speech) Skin: Positive for: Warm Psychiatric: Positive for: Alert, Agitated. Negative for: Oriented x 3 - Medications Active Medications: Active Medications Generic Name Dose Route Start Last Admin Trade Name Freq PRN Reason Stop Dose Admin Dexamethasone 10 mg 10/23/18 14:45 10/26/18 05:45 Decadron Inj IVP 10 mg Q8 GRAEME Administration Levetiracetam 500 mg in 100 mls @ 400 mls/hr 10/23/18 22:00 10/25/18 21:12 Keppra 500mg Ivpb IVPB 400 mls/hr Q12 GRAEME Administration Sodium Chloride 500 mls @ 40 mls/hr 10/24/18 17:58 10/26/18 01:08 Hypertonic Saline 3% IV 40 mls/hr .[id number] GRAEME Administration diltiaZEM IVPB 100mg in NS 100 mls @ 5 mls/hr 10/25/18 10:21 10/26/18 09:23 Cardizem 100mg In Ns IV 5 mg/hr .Q20H PRN 5 mls/hr TITRATE PER MD ORDER Administration Protocol 5 MG/HR Nicardipine HCl 20 mg in 200 mls @ 50 mls/hr 10/25/18 15:21 Cardene Iv Premix IV .Q4H PRN TITRATE PER MD ORDER Protocol 5 MG/HR Potassium Chloride 20 meq in 100 mls @ 50 mls/hr 10/26/18 07:30 10/26/18 08:12 Potassium Chloride 20 Meq/100 Ml IVPB 10/26/18 11:29 50 mls/hr Q2H GRAEME Administration Lorazepam 2 mg 10/24/18 19:50 10/26/18 01:48 Ativan IVP 2 mg Q6H PRN Administration Agitation Protocol Pantoprazole Sodium 40 mg 10/24/18 10:00 10/25/18 10:39 Protonix Inj IVP 40 mg DAILY GRAEME Administration - Patient Studies Lab Studies: Microbiology Studies 10/24/18 12:00 MRSA Culture (Admit) - Final Naris MRSA NOT DETECTED 10/23/18 12:20 Blood Culture - Preliminary Blood NO GROWTH AFTER 48 HOURS 10/23/18 11:42 Blood Culture - Preliminary Blood NO GROWTH AFTER 48 HOURS Lab Studies 10/26/18 10/26/18 10/26/18 Range/Units 08:03 05:30 05:30 WBC 13.7 H D (4.5-11.0) 10^3/uL RBC 3.78 (3.5-6.1) 10^6/uL Hgb 12.9 L (14.0-18.0) g/dL Hct 38.2 L (42.0-52.0) % MCV 101.1 (80.0-105.0) fl MCH 34.1 (25.0-35.0) pg MCHC 33.8 (31.0-37.0) g/dl RDW 12.9 (11.5-14.5) % Plt Count 270 (120.0-450.0) 10^3/uL MPV 11.7 H (7.0-11.0) fl Neut % (Auto) 94.1 H (50.0-68.0) % Lymph % (Auto) 3.2 L (22.0-35.0) % [place] % (Auto) 2.7 (1.0-6.0) % Eos % (Auto) 0.0 L (1.5-5.0) % Baso % (Auto) 0.0 (0.0-3.0) % Lymph # (Auto) 0.4 L (1.2-3.4) [place] # (Auto) 0.4 (0.1-0.6) Eos # (Auto) 0.0 (0.0-0.7) Baso # (Auto) 0.00 (0.0-2.0) K/mm3 Absolute Neuts (auto) 12.85 H (1.4-6.5) Neutrophils % (Manual) 91 H (50.0-70.0) % Band Neutrophils % 2 (0-2) % Lymphocytes % (Manual) 3 L (22.0-35.0) % Monocytes % (Manual) 4 (1.0-6.0) % Platelet Evaluation Normal (NORMAL) Large Platelets Present Sodium 148 (132-148) mmol/L Potassium 3.2 L (3.6-5.0) mmol/L Chloride 117 H (98-107) mmol/L Carbon Dioxide 23 (21-33) mmol/L Anion Gap 11 (10-20) BUN 10 (7-21) mg/dL Creatinine 0.3 L (0.8-1.5) mg/dl Est GFR ( Amer) > 60 Est GFR (Non-Af Amer) > 60 POC Glucose (mg/dL) 140 H (65-110) mg/dL Random Glucose 148 H (70-110) mg/dL Serum Osmolality (272-300) mosm/kg Calcium 8.5 (8.4-10.5) mg/dL Phosphorus 2.6 (2.5-4.5) mg/dL Magnesium 2.0 (1.7-2.2) mg/dL Total Bilirubin 1.9 H (0.2-1.3) mg/dL AST 66 H (17-59) U/L ALT 37 (7-56) U/L Alkaline Phosphatase 57 (38-126) U/L Total Protein 6.8 (5.8-8.3) g/dL Albumin 3.4 (3.0-4.8) g/dL Globulin 3.4 gm/dL Albumin/Globulin Ratio 1.0 L (1.1-1.8) 10/25/18 10/25/18 10/25/18 Range/Units 22:08 22:08 21:22 WBC (4.5-11.0) 10^3/uL RBC (3.5-6.1) 10^6/uL Hgb (14.0-18.0) g/dL Hct (42.0-52.0) % MCV (80.0-105.0) fl MCH (25.0-35.0) pg MCHC (31.0-37.0) g/dl RDW (11.5-14.5) % Plt Count (120.0-450.0) 10^3/uL MPV (7.0-11.0) fl Neut % (Auto) (50.0-68.0) % Lymph % (Auto) (22.0-35.0) % [place] % (Auto) (1.0-6.0) % Eos % (Auto) (1.5-5.0) % Baso % (Auto) (0.0-3.0) % Lymph # (Auto) (1.2-3.4) [place] # (Auto) (0.1-0.6) Eos # (Auto) (0.0-0.7) Baso # (Auto) (0.0-2.0) K/mm3 Absolute Neuts (auto) (1.4-6.5) Neutrophils % (Manual) (50.0-70.0) % Band Neutrophils % (0-2) % Lymphocytes % (Manual) (22.0-35.0) % Monocytes % (Manual) (1.0-6.0) % Platelet Evaluation (NORMAL) Large Platelets Sodium 145 (132-148) mmol/L Potassium 3.5 L (3.6-5.0) mmol/L Chloride 116 H (98-107) mmol/L Carbon Dioxide 21 (21-33) mmol/L Anion Gap 11 (10-20) BUN 13 (7-21) mg/dL Creatinine 0.4 L (0.8-1.5) mg/dl Est GFR ( Amer) > 60 Est GFR (Non-Af Amer) > 60 POC Glucose (mg/dL) 163 H (65-110) mg/dL Random Glucose 165 H (70-110) mg/dL Serum Osmolality 309 H (272-300) mosm/kg Calcium 8.6 (8.4-10.5) mg/dL Phosphorus (2.5-4.5) mg/dL Magnesium (1.7-2.2) mg/dL Total Bilirubin (0.2-1.3) mg/dL AST (17-59) U/L ALT (7-56) U/L Alkaline Phosphatase (38-126) U/L Total Protein (5.8-8.3) g/dL Albumin (3.0-4.8) g/dL Globulin gm/dL Albumin/Globulin Ratio (1.1-1.8) 10/25/18 10/25/18 Range/Units 16:19 12:53 WBC (4.5-11.0) 10^3/uL RBC (3.5-6.1) 10^6/uL Hgb (14.0-18.0) g/dL Hct (42.0-52.0) % MCV (80.0-105.0) fl MCH (25.0-35.0) pg MCHC (31.0-37.0) g/dl RDW (11.5-14.5) % Plt Count (120.0-450.0) 10^3/uL MPV (7.0-11.0) fl Neut % (Auto) (50.0-68.0) % Lymph % (Auto) (22.0-35.0) % [place] % (Auto) (1.0-6.0) % Eos % (Auto) (1.5-5.0) % Baso % (Auto) (0.0-3.0) % Lymph # (Auto) (1.2-3.4) [place] # (Auto) (0.1-0.6) Eos # (Auto) (0.0-0.7) Baso # (Auto) (0.0-2.0) K/mm3 Absolute Neuts (auto) (1.4-6.5) Neutrophils % (Manual) (50.0-70.0) % Band Neutrophils % (0-2) % Lymphocytes % (Manual) (22.0-35.0) % Monocytes % (Manual) (1.0-6.0) % Platelet Evaluation (NORMAL) Large Platelets Sodium (132-148) mmol/L Potassium (3.6-5.0) mmol/L Chloride (98-107) mmol/L Carbon Dioxide (21-33) mmol/L Anion Gap (10-20) BUN (7-21) mg/dL Creatinine (0.8-1.5) mg/dl Est GFR ( Amer) Est GFR (Non-Af Amer) POC Glucose (mg/dL) 174 H 199 H (65-110) mg/dL Random Glucose (70-110) mg/dL Serum Osmolality (272-300) mosm/kg Calcium (8.4-10.5) mg/dL Phosphorus (2.5-4.5) mg/dL Magnesium (1.7-2.2) mg/dL Total Bilirubin (0.2-1.3) mg/dL AST (17-59) U/L ALT (7-56) U/L Alkaline Phosphatase (38-126) U/L Total Protein (5.8-8.3) g/dL Albumin (3.0-4.8) g/dL Globulin gm/dL Albumin/Globulin Ratio (1.1-1.8) Laboratory Results - last 24 hr 10/25/18 10/25/18 10/25/18 12:53 16:19 21:22 WBC RBC Hgb Hct MCV MCH MCHC RDW Plt Count MPV Neut % (Auto) Lymph % (Auto) [place] % (Auto) Eos % (Auto) Baso % (Auto) Lymph # (Auto) [place] # (Auto) Eos # (Auto) Baso # (Auto) Absolute Neuts (auto) Neutrophils % (Manual) Band Neutrophils % Lymphocytes % (Manual) Monocytes % (Manual) Platelet Evaluation Large Platelets Sodium Potassium Chloride Carbon Dioxide Anion Gap BUN Creatinine Est GFR ( Amer) Est GFR (Non-Af Amer) POC Glucose (mg/dL) 199 H 174 H 163 H Random Glucose Serum Osmolality Calcium Phosphorus Magnesium Total Bilirubin AST ALT Alkaline Phosphatase Total Protein Albumin Globulin Albumin/Globulin Ratio 10/25/18 10/25/18 10/26/18 22:08 22:08 05:30 WBC RBC Hgb Hct MCV MCH MCHC RDW Plt Count MPV Neut % (Auto) Lymph % (Auto) [place] % (Auto) Eos % (Auto) Baso % (Auto) Lymph # (Auto) [place] # (Auto) Eos # (Auto) Baso # (Auto) Absolute Neuts (auto) Neutrophils % (Manual) Band Neutrophils % Lymphocytes % (Manual) Monocytes % (Manual) Platelet Evaluation Large Platelets Sodium 145 148 Potassium 3.5 L 3.2 L Chloride 116 H 117 H Carbon Dioxide 21 23 Anion Gap 11 11 BUN 13 10 Creatinine 0.4 L 0.3 L Est GFR ( Amer) > 60 > 60 Est GFR (Non-Af Amer) > 60 > 60 POC Glucose (mg/dL) Random Glucose 165 H 148 H Serum Osmolality 309 H Calcium 8.6 8.5 Phosphorus 2.6 Magnesium 2.0 Total Bilirubin 1.9 H AST 66 H ALT 37 Alkaline Phosphatase 57 Total Protein 6.8 Albumin 3.4 Globulin 3.4 Albumin/Globulin Ratio 1.0 L 10/26/18 10/26/18 05:30 08:03 WBC 13.7 H D RBC 3.78 Hgb 12.9 L Hct 38.2 L MCV 101.1 MCH 34.1 MCHC 33.8 RDW 12.9 Plt Count 270 MPV 11.7 H Neut % (Auto) 94.1 H Lymph % (Auto) 3.2 L [place] % (Auto) 2.7 Eos % (Auto) 0.0 L Baso % (Auto) 0.0 Lymph # (Auto) 0.4 L [place] # (Auto) 0.4 Eos # (Auto) 0.0 Baso # (Auto) 0.00 Absolute Neuts (auto) 12.85 H Neutrophils % (Manual) 91 H Band Neutrophils % 2 Lymphocytes % (Manual) 3 L Monocytes % (Manual) 4 Platelet Evaluation Normal Large Platelets Present Sodium Potassium Chloride Carbon Dioxide Anion Gap BUN Creatinine Est GFR ( Amer) Est GFR (Non-Af Amer) POC Glucose (mg/dL) 140 H Random Glucose Serum Osmolality Calcium Phosphorus Magnesium Total Bilirubin AST ALT Alkaline Phosphatase Total Protein Albumin Globulin Albumin/Globulin Ratio Radiology Impressions: Radiology Impressions Head CT 10/25/18 09:26 IMPRESSION: No significant change in large left temporal acute hematoma Fingerstick Blood Sugar Results: 163 Review of Systems - Review of Systems Systems not reviewed;Unavailable: Altered Mental Status Critical Care Progress Note - Restraints Justification for Restraints: High risk for removing IV access - Prophylaxis GI Prophylaxis GI: PPI - Prophylaxis DVT Prophylaxis DVT: SCDs - Nutrition Nutrition: Nutrition Category Date Time Status NPO Diet [DIET] Diets 10/23/18 Breakfast Ordered Assessment/Plan - Assessment and Plan (Free Text) Assessment: Patient is a 58 year old M with PMHx of Neuroendocrine tumor with L arm lymphedema, and ETOH abuse [place] [facility] [place] and slurred speech x2days. Patient admitted to the ICU for Left Intracranial Hemorrhage. Plan: Neuro: - Left Intracranial Hemorrhage with Improved Transtentorial Shift - Neuro recs appreciated: c/w 3% hypertonic saline @ 30 cc/hr for the first 12 hours then 20 cc/hr for the next 12 hours. - c/w decadron 10mg IV q8 - c/w keppra IVPB for seizure ppx - c/w ativan 2mg IVP q6 prn for agitation - Repeat Head CT (10/25): no significant change from previous Head CT - Maintain SBP < 160 via cardene drip - c/w neurochecks and keep head of bed elevated at 30 degrees to minimize ICP - PT/OT/SS - recs appreciated - NPO - Neurology on consult. Recs appreciated. - Neurosurgery on consult. Recs appreciated. No intervention. Cardio: - As mentioned above, maintain SBP < 160 with cardene drip given hemorrhagic stroke - Afib with RVR - rate controlled; will plan to switch from cardizem drip to PO - Echo: EF 58%. Mild LVH. Severely thickened aortic valve. - Cardio on consult, recs appreciated. - Elevated troponins 2/2 stroke; trops trending down Pulm: - Maintain SaO2 > 92% - No active issues at this time - aspiration precautions - CXR: R-PICC line in place at the cavoatrial junction. No signs of infection. Renal: - Hypokalema with K 3.2; continue to monitor - Replete as needed with K-riders - serum osmol 309 (repeat) - continue to monitor Na levels with goal 140-145; hypertonic saline rate was adjusted as per neuro recs - monitor and replete electrolytes as needed ID: - Leukocytosis 2/2 steroid administration - trending down - afebrile since hospital admission with no signs of infection - Blood Cx negative x2 (prelim) after 48 hours - MRSA negative Heme/onc: - LUE swelling was noted to be worse than previous encounter - ordered LUE U/S to r/o DVT: results showed no DVT on LUE however RUE was compared and thrombus was noted at the RUE. Since PICC line is at the RUE, plan to remove PICC line once peripheral IV access is obtained. - Hx of Neuroendocrine Tumor (documented from previous visits) - Heme/onc on consult (Dr. Branch) DVT ppx: scd GI ppx: ptx Diet: NPO Dispo: Continue to monitor patient in the ICU at this time. Patient will remain on 3% hypertonic saline for another 24 hours. Remove PICC line access since he has a new RUE thrombus. Will obtain peripheral IV access. Afterwards, will plan for transfer to [facility]. Case was discussed and reviewed with Attending Physician, Dr. Emilia Leo <Emilia Leo - Last Filed: 10/26/18 18:09> CCU Objective - Vital Signs / Intake & Output Vital Signs (Last 4 hours): Vital Signs Pulse BP 10/26/18 16:21 85 133/91 H Intake and Output (Last 8hrs): Intake & Output 10/26/18 10/26/18 10/26/18 06:59 14:59 22:59 Intake Total 640 100 Output Total 1000 Balance -360 100 Weight 58.151 kg Intake: IV 640 100 Right Upper arm 640 Output: Urine 1000 Urine, Voided 1000 - Medications Active Medications: Active Medications Generic Name Dose Route Start Last Admin Trade Name Freq PRN Reason Stop Dose Admin Dexamethasone 10 mg 10/23/18 14:45 10/26/18 16:00 Decadron Inj IVP 10 mg Q8 GRAEME Administration Diltiazem HCl 30 mg 10/26/18 18:00 Cardizem PO QID GRAEME Levetiracetam 500 mg in 100 mls @ 400 mls/hr 10/23/18 22:00 10/26/18 10:57 Keppra 500mg Ivpb IVPB 400 mls/hr Q12 GRAEME Administration diltiaZEM IVPB 100mg in NS 100 mls @ 5 mls/hr 10/25/18 10:21 10/26/18 09:23 Cardizem 100mg In Ns IV 5 mg/hr .Q20H PRN 5 mls/hr TITRATE PER MD ORDER Administration Protocol 5 MG/HR Sodium Chloride 500 mls @ 30 mls/hr 10/26/18 13:31 10/26/18 16:18 Hypertonic Saline 3% IV 10/27/18 01:30 30 mls/hr .[id number] GRAEME Administration Sodium Chloride 500 mls @ 20 mls/hr 10/27/18 01:31 Hypertonic Saline 3% IV 10/27/18 13:31 .Q24H GRAEME Lisinopril 5 mg 10/26/18 14:00 10/26/18 16:21 Zestril PO 5 mg DAILY GRAEME Administration Lorazepam 2 mg 10/24/18 19:50 10/26/18 16:23 Ativan IVP 2 mg Q6H PRN Administration Agitation Protocol Pantoprazole Sodium 40 mg 10/24/18 10:00 10/26/18 11:00 Protonix Inj IVP 40 mg DAILY GRAEME Administration - Patient Studies Lab Studies: Microbiology Studies 10/23/18 12:20 Blood Culture - Preliminary Blood NO GROWTH AFTER 3 DAYS 10/23/18 11:42 Blood Culture - Preliminary Blood NO GROWTH AFTER 3 DAYS 10/24/18 12:00 MRSA Culture (Admit) - Final Naris MRSA NOT DETECTED Lab Studies 10/26/18 10/26/18 10/26/18 Range/Units 16:10 13:06 08:03 WBC (4.5-11.0) 10^3/uL RBC (3.5-6.1) 10^6/uL Hgb (14.0-18.0) g/dL Hct (42.0-52.0) % MCV (80.0-105.0) fl MCH (25.0-35.0) pg MCHC (31.0-37.0) g/dl RDW (11.5-14.5) % Plt Count (120.0-450.0) 10^3/uL MPV (7.0-11.0) fl Neut % (Auto) (50.0-68.0) % Lymph % (Auto) (22.0-35.0) % [place] % (Auto) (1.0-6.0) % Eos % (Auto) (1.5-5.0) % Baso % (Auto) (0.0-3.0) % Lymph # (Auto) (1.2-3.4) [place] # (Auto) (0.1-0.6) Eos # (Auto) (0.0-0.7) Baso # (Auto) (0.0-2.0) K/mm3 Absolute Neuts (auto) (1.4-6.5) Neutrophils % (Manual) (50.0-70.0) % Band Neutrophils % (0-2) % Lymphocytes % (Manual) (22.0-35.0) % Monocytes % (Manual) (1.0-6.0) % Platelet Evaluation (NORMAL) Large Platelets Sodium (132-148) mmol/L Potassium (3.6-5.0) mmol/L Chloride (98-107) mmol/L Carbon Dioxide (21-33) mmol/L Anion Gap (10-20) BUN (7-21) mg/dL Creatinine (0.8-1.5) mg/dl Est GFR ( Amer) Est GFR (Non-Af Amer) POC Glucose (mg/dL) 163 H 195 H 140 H (65-110) mg/dL Random Glucose (70-110) mg/dL Serum Osmolality (272-300) mosm/kg Calcium (8.4-10.5) mg/dL Phosphorus (2.5-4.5) mg/dL Magnesium (1.7-2.2) mg/dL Total Bilirubin (0.2-1.3) mg/dL AST (17-59) U/L ALT (7-56) U/L Alkaline Phosphatase (38-126) U/L Total Protein (5.8-8.3) g/dL Albumin (3.0-4.8) g/dL Globulin gm/dL Albumin/Globulin Ratio (1.1-1.8) 10/26/18 10/26/18 10/25/18 Range/Units 05:30 05:30 22:08 WBC 13.7 H D (4.5-11.0) 10^3/uL RBC 3.78 (3.5-6.1) 10^6/uL Hgb 12.9 L (14.0-18.0) g/dL Hct 38.2 L (42.0-52.0) % MCV 101.1 (80.0-105.0) fl MCH 34.1 (25.0-35.0) pg MCHC 33.8 (31.0-37.0) g/dl RDW 12.9 (11.5-14.5) % Plt Count 270 (120.0-450.0) 10^3/uL MPV 11.7 H (7.0-11.0) fl Neut % (Auto) 94.1 H (50.0-68.0) % Lymph % (Auto) 3.2 L (22.0-35.0) % [place] % (Auto) 2.7 (1.0-6.0) % Eos % (Auto) 0.0 L (1.5-5.0) % Baso % (Auto) 0.0 (0.0-3.0) % Lymph # (Auto) 0.4 L (1.2-3.4) [place] # (Auto) 0.4 (0.1-0.6) Eos # (Auto) 0.0 (0.0-0.7) Baso # (Auto) 0.00 (0.0-2.0) K/mm3 Absolute Neuts (auto) 12.85 H (1.4-6.5) Neutrophils % (Manual) 91 H (50.0-70.0) % Band Neutrophils % 2 (0-2) % Lymphocytes % (Manual) 3 L (22.0-35.0) % Monocytes % (Manual) 4 (1.0-6.0) % Platelet Evaluation Normal (NORMAL) Large Platelets Present Sodium 148 145 (132-148) mmol/L Potassium 3.2 L 3.5 L (3.6-5.0) mmol/L Chloride 117 H 116 H (98-107) mmol/L Carbon Dioxide 23 21 (21-33) mmol/L Anion Gap 11 11 (10-20) BUN 10 13 (7-21) mg/dL Creatinine 0.3 L 0.4 L (0.8-1.5) mg/dl Est GFR ( Amer) > 60 > 60 Est GFR (Non-Af Amer) > 60 > 60 POC Glucose (mg/dL) (65-110) mg/dL Random Glucose 148 H 165 H (70-110) mg/dL Serum Osmolality (272-300) mosm/kg Calcium 8.5 8.6 (8.4-10.5) mg/dL Phosphorus 2.6 (2.5-4.5) mg/dL Magnesium 2.0 (1.7-2.2) mg/dL Total Bilirubin 1.9 H (0.2-1.3) mg/dL AST 66 H (17-59) U/L ALT 37 (7-56) U/L Alkaline Phosphatase 57 (38-126) U/L Total Protein 6.8 (5.8-8.3) g/dL Albumin 3.4 (3.0-4.8) g/dL Globulin 3.4 gm/dL Albumin/Globulin Ratio 1.0 L (1.1-1.8) 10/25/18 10/25/18 Range/Units 22:08 21:22 WBC (4.5-11.0) 10^3/uL RBC (3.5-6.1) 10^6/uL Hgb (14.0-18.0) g/dL Hct (42.0-52.0) % MCV (80.0-105.0) fl MCH (25.0-35.0) pg MCHC (31.0-37.0) g/dl RDW (11.5-14.5) % Plt Count (120.0-450.0) 10^3/uL MPV (7.0-11.0) fl Neut % (Auto) (50.0-68.0) % Lymph % (Auto) (22.0-35.0) % [place] % (Auto) (1.0-6.0) % Eos % (Auto) (1.5-5.0) % Baso % (Auto) (0.0-3.0) % Lymph # (Auto) (1.2-3.4) [place] # (Auto) (0.1-0.6) Eos # (Auto) (0.0-0.7) Baso # (Auto) (0.0-2.0) K/mm3 Absolute Neuts (auto) (1.4-6.5) Neutrophils % (Manual) (50.0-70.0) % Band Neutrophils % (0-2) % Lymphocytes % (Manual) (22.0-35.0) % Monocytes % (Manual) (1.0-6.0) % Platelet Evaluation (NORMAL) Large Platelets Sodium (132-148) mmol/L Potassium (3.6-5.0) mmol/L Chloride (98-107) mmol/L Carbon Dioxide (21-33) mmol/L Anion Gap (10-20) BUN (7-21) mg/dL Creatinine (0.8-1.5) mg/dl Est GFR ( Amer) Est GFR (Non-Af Amer) POC Glucose (mg/dL) 163 H (65-110) mg/dL Random Glucose (70-110) mg/dL Serum Osmolality 309 H (272-300) mosm/kg Calcium (8.4-10.5) mg/dL Phosphorus (2.5-4.5) mg/dL Magnesium (1.7-2.2) mg/dL Total Bilirubin (0.2-1.3) mg/dL AST (17-59) U/L ALT (7-56) U/L Alkaline Phosphatase (38-126) U/L Total Protein (5.8-8.3) g/dL Albumin (3.0-4.8) g/dL Globulin gm/dL Albumin/Globulin Ratio (1.1-1.8) Laboratory Results - last 24 hr 10/25/18 10/25/18 10/25/18 21:22 22:08 22:08 WBC RBC Hgb Hct MCV MCH MCHC RDW Plt Count MPV Neut % (Auto) Lymph % (Auto) [place] % (Auto) Eos % (Auto) Baso % (Auto) Lymph # (Auto) [place] # (Auto) Eos # (Auto) Baso # (Auto) Absolute Neuts (auto) Neutrophils % (Manual) Band Neutrophils % Lymphocytes % (Manual) Monocytes % (Manual) Platelet Evaluation Large Platelets Sodium 145 Potassium 3.5 L Chloride 116 H Carbon Dioxide 21 Anion Gap 11 BUN 13 Creatinine 0.4 L Est GFR ( Amer) > 60 Est GFR (Non-Af Amer) > 60 POC Glucose (mg/dL) 163 H Random Glucose 165 H Serum Osmolality 309 H Calcium 8.6 Phosphorus Magnesium Total Bilirubin AST ALT Alkaline Phosphatase Total Protein Albumin Globulin Albumin/Globulin Ratio 10/26/18 10/26/18 10/26/18 05:30 05:30 08:03 WBC 13.7 H D RBC 3.78 Hgb 12.9 L Hct 38.2 L MCV 101.1 MCH 34.1 MCHC 33.8 RDW 12.9 Plt Count 270 MPV 11.7 H Neut % (Auto) 94.1 H Lymph % (Auto) 3.2 L [place] % (Auto) 2.7 Eos % (Auto) 0.0 L Baso % (Auto) 0.0 Lymph # (Auto) 0.4 L [place] # (Auto) 0.4 Eos # (Auto) 0.0 Baso # (Auto) 0.00 Absolute Neuts (auto) 12.85 H Neutrophils % (Manual) 91 H Band Neutrophils % 2 Lymphocytes % (Manual) 3 L Monocytes % (Manual) 4 Platelet Evaluation Normal Large Platelets Present Sodium 148 Potassium 3.2 L Chloride 117 H Carbon Dioxide 23 Anion Gap 11 BUN 10 Creatinine 0.3 L Est GFR ( Amer) > 60 Est GFR (Non-Af Amer) > 60 POC Glucose (mg/dL) 140 H Random Glucose 148 H Serum Osmolality Calcium 8.5 Phosphorus 2.6 Magnesium 2.0 Total Bilirubin 1.9 H AST 66 H ALT 37 Alkaline Phosphatase 57 Total Protein 6.8 Albumin 3.4 Globulin 3.4 Albumin/Globulin Ratio 1.0 L 10/26/18 10/26/18 13:06 16:10 WBC RBC Hgb Hct MCV MCH MCHC RDW Plt Count MPV Neut % (Auto) Lymph % (Auto) [place] % (Auto) Eos % (Auto) Baso % (Auto) Lymph # (Auto) [place] # (Auto) Eos # (Auto) Baso # (Auto) Absolute Neuts (auto) Neutrophils % (Manual) Band Neutrophils % Lymphocytes % (Manual) Monocytes % (Manual) Platelet Evaluation Large Platelets Sodium Potassium Chloride Carbon Dioxide Anion Gap BUN Creatinine Est GFR ( Amer) Est GFR (Non-Af Amer) POC Glucose (mg/dL) 195 H 163 H Random Glucose Serum Osmolality Calcium Phosphorus Magnesium Total Bilirubin AST ALT Alkaline Phosphatase Total Protein Albumin Globulin Albumin/Globulin Ratio Critical Care Progress Note - Nutrition Nutrition: Nutrition Category Date Time Status Heart Healthy Diet [DIET] Diets 10/26/18 Breakfast Active Addendum Addendum: 10/26/18 18:07 MICU Attending Addendum Patient seen and examined with housestaff case discussed on round agree with resident note above with the following additions/exceptions: 58 year old M with PMHx of Neuroendocrine tumor and ETOH abuse admitted with Left Intracranial Hemorrhage. repeat CT head shows no change neuro managing with 3% i suspect he does not need this anymore he was found to have a RUE clot d/c picc line cannot anticoag given ICH start PO lisinprol for HTN afib control with cardizem drip, follow cardio recs cannot anticoag given bleed hem-onc on board as well Rest of care as mentioned in above resident note Emilia Leo MD Pulmonary Critical Care Sleep Medicine
[2018-10-26] MEDS: levETIRAcetam 500mg IVPB 500 MG/100 ML BAG IVPB SCH ×2 (10:57→22:15)
[2018-10-26] MEDS: Nicardipine 20 MG/200 ML 20 MG/200 ML BAG IV PRN (10:59)
--- NOTE | 2018-10-26 11:35 | CP.PCM.PN ---
<Guille Lennon - Last Filed: 10/26/18 11:31> Subjective - Date & Time of Evaluation Date of Evaluation: 10/26/18 Time of Evaluation: 11:00 - Subjective Subjective: INTERNAL MEDICINE PROGRESS NOTE FOR DR. MARIUSZ Lennon PGY1 Pts seen and examined at bedside this am. No acute events overnight. Neurologic status is unchanged. He is still verbal, however not making sense. He is moving extremities bilaterally spontaneously. gtt: cardizem, 3% NS Objective - Vital Signs/Intake and Output Vital Signs (last 24 hours): Temp Pulse Resp BP Pulse Ox 97.6 F 97 H 18 130/80 82 L 10/26/18 04:00 10/26/18 07:56 10/26/18 07:56 10/26/18 05:00 10/26/18 03:20 Intake and Output: 10/26/18 10/26/18 06:59 18:59 Intake Total 640 100 Output Total 1000 Balance -360 100 - Medications Medications: Current Medications Dexamethasone (Decadron Inj) 10 mg IVP Q8 [facility] Last Admin: 10/26/18 05:45 Dose: 10 mg Levetiracetam (Keppra 500mg Ivpb) 500 mg in 100 mls @ 400 mls/hr IVPB Q12 [facility] Last Admin: 10/26/18 10:57 Dose: 400 mls/hr Sodium Chloride (Hypertonic Saline 3%) 500 mls @ 40 mls/hr IV .[id number] [facility] Last Admin: 10/26/18 01:08 Dose: 40 mls/hr diltiaZEM IVPB 100mg in NS (Cardizem 100mg In Ns) 100 mls @ 5 mls/hr IV .Q20H PRN; Protocol PRN Reason: TITRATE PER MD ORDER Last Admin: 10/26/18 09:23 Dose: 5 mg/hr, 5 mls/hr Lorazepam (Ativan) 2 mg IVP Q6H PRN; Protocol PRN Reason: Agitation Last Admin: 10/26/18 01:48 Dose: 2 mg Pantoprazole Sodium (Protonix Inj) 40 mg IVP DAILY [facility] Last Admin: 10/25/18 10:39 Dose: 40 mg - Labs Labs: 10/26/18 05:30 10/26/18 05:30 PT 15.9 SECONDS (9.4-12.5) H 10/23/18 11:42 INR 1.41 10/23/18 11:42 APTT 31.4 Seconds (26.9-38.3) 10/23/18 11:42 Assessment and Plan - Assessment and Plan (Free Text) Assessment: 58 y/o M with PMH of ETOH, hx neuroendocrine tumor s/p L axillary surgery bib EMS for agitation, slurred speech x 2 days. Pt found to have [id number] L sided temporal hemorrhage with small amount of surrounding edema. Pt also found to have elevated troponins. Pt transferred to ICU for close monitoring of ICH Plan: Intracranial Hemorrhage Pt still confused, verbal, however CT reveals: "There is an acute left temporal lobe hemorrhage measuring 38 x 65 x 30 mm in size. There is a small amount of surrounding edema. There is no intraventricular extension. There is no herniation." Per neurosurgery, no acute intervention at this time Repeat CT shows no change. Pending MRI today to r/o metastatic dz Monitor in ICU, continue 3%NS with goal Na 140-145 per neuro Monitor BMP q6h Continue dexamethasone 10mg IVP q8h Continue keppra 500mg for seizure prophylaxis Maintain strict BP control with titratable nicardipine drip, avoid rapid fluctuations in BP <160/90 Neurosurgery/Neurology following. appreciate recs HOB >40 degrees New onset Afib w/ RVR Pulse has been controlled continue titratable cardizem drip Hypokalemia Repleted IV, replete magnesium ACS w/ recent IA troponins downtrending Given ICH, will hold anticoagulation& antiplatelets Cardiology following echo reveals normal LVEF 58% , Ao valve severely thickened, mild-mod AR per cardio: start b-charles & Nitroglycerin ETOH withdrawal Pt has extensive hx of ETOH abuse. Serum ETOH <10 Continue ativan prn CIWA protocol Aspiration precautions, neuro checks q1h Fall precautions On seizure prophylaxis with keppra Leukocytosis dowtrending Pt afebrile, normotensive Likely demargination 2/2 steroids Hx of neuroendocrine tumor History unable to obtained from patient Lymphedema noted in L arm Pending LUE ultrasound, however not a candidate for antiocoagulation at this time Pt's home oncologist consulted, Dr. Long, appreciate recs DVT/GI PPx: SCD/Protonix (pt on steroids) Dispo: Continue to monitor in ICU. Family members unable to reached with current phone number. case has been discuss with social science professor in detail Case discussed with and reviewed with attending physician, Dr. Mariusz Lennon PGY1 <Debra Wright - Last Filed: 10/26/18 15:51> Objective - Vital Signs/Intake and Output Vital Signs (last 24 hours): Temp Pulse Resp BP Pulse Ox 97.6 F 97 H 18 130/80 82 L 10/26/18 04:00 10/26/18 07:56 10/26/18 07:56 10/26/18 05:00 10/26/18 03:20 Intake and Output: 10/26/18 10/26/18 06:59 18:59 Intake Total 640 100 Output Total 1000 Balance -360 100 - Medications Medications: Current Medications Dexamethasone (Decadron Inj) 10 mg IVP Q8 [facility] Last Admin: 10/26/18 05:45 Dose: 10 mg Levetiracetam (Keppra 500mg Ivpb) 500 mg in 100 mls @ 400 mls/hr IVPB Q12 [facility] Last Admin: 10/26/18 10:57 Dose: 400 mls/hr diltiaZEM IVPB 100mg in NS (Cardizem 100mg In Ns) 100 mls @ 5 mls/hr IV .Q20H PRN; Protocol PRN Reason: TITRATE PER MD ORDER Last Admin: 10/26/18 09:23 Dose: 5 mg/hr, 5 mls/hr Sodium Chloride (Hypertonic Saline 3%) 500 mls @ 30 mls/hr IV .[id number] [facility] Stop: 10/27/18 01:30 Sodium Chloride (Hypertonic Saline 3%) 500 mls @ 20 mls/hr IV .Q24H [facility] Stop: 10/27/18 13:31 Lisinopril (Zestril) 5 mg PO DAILY [facility] Lorazepam (Ativan) 2 mg IVP Q6H PRN; Protocol PRN Reason: Agitation Last Admin: 10/26/18 01:48 Dose: 2 mg Pantoprazole Sodium (Protonix Inj) 40 mg IVP DAILY [facility] Last Admin: 10/26/18 11:00 Dose: 40 mg - Labs Labs: 10/26/18 05:30 10/26/18 05:30 PT 15.9 SECONDS (9.4-12.5) H 10/23/18 11:42 INR 1.41 10/23/18 11:42 APTT 31.4 Seconds (26.9-38.3) 10/23/18 11:42 Attending/Attestation - Attestation I have personally seen and examined this patient.: Yes I have fully participated in the care of the patient.: Yes I have reviewed all pertinent clinical information, including history, physical exam and plan: Yes Notes (Text): 10/26/18 15:45 Attending note; Patient seen and examined with resident in ICU. Patient is still Confused and agitated. Not following commands. verbal but not understandable. moving all the extremities. Patient is a 58-year-old male with PMH of neuroendocrine tumor s/p unspecified L axillary surgery & residual L arm lymphedema, ETOH abuse [place] [facility] & slurred speech. As per ER note patient has recently been agitated for the past few days. 1. Confusion; CT head shows acute left temporal lobe hemorrhage measuring 38 x 65 x 30 mm in size. There is a small amount of surrounding edema. There is no intraventricular extension. There is no herniation. Per neurosurgery, no acute intervention at this time. Patient is confused and restless. Moving all extremities. Repeat CT head is unchanged. Continue IV Ativan as needed. MRI can not be done due to restlessness and can not complete pre MRI questionnaire. We will follow up with neurology for furthur recommendations. 2. Neurology evaluation appreciated. started on 3% normal saline to decrease intracranial pressure. Head end elevation. Started on IV Keppra For seizure prophylaxis. 3. Hypertension; will start IV nicardipine drip to keep blood pressure over 160. Currently on Cardizem drip. 4. Alcohol abuse; monitor for withdrawal symptoms. Continue IV Ativan as needed. 5. Elevated troponin; secondary to hemodynamic changes due to stroke . EKG showed no acute ST elevation. Troponins trending down. Cardiology evaluation appreciated. 6. New onset Afib with RVR; on cardizem drip. Rate controlled. 7. History of neuroendocrine tumor. we will follow up with oncology. Continue IV Decadron. needs Outpatient follow-up once stabilized. 8. GI prophylaxis Protonix. SCD for DVT prophylaxis. Speech and swallow evaluation appreciated. Will start patient on p.o. diet once cleared by swallow pathologist. Unable to reach the family member at this time. case discussed with social science professor in detail.
--- NOTE | 2018-10-26 12:17 | PN ---
DATE: 10/26/2018 SUBJECTIVE: The patient is in bed, in no distress. PHYSICAL EXAMINATION: VITAL SIGNS: Blood pressure is 130/80, heart rate is atrial fibrillation in the 90s. NECK: Negative JVD. LUNGS: Without rales. HEART: Reveals S1, S2. EXTREMITIES: Without edema. LABORATORY DATA: Hemoglobin is 12.9. Chemistries, BUN and creatinine unremarkable. Potassium is 3.2, glucose is 140. IMPRESSION: 1. New-onset atrial fibrillation with ventricular rate controlled with intravenous Cardizem. 2. Cerebrovascular accident. 3. Intracerebral bleed. 4. Recent anterior wall myocardial infarction. 5. Hypertension which is now controlled. PLAN: Given these findings, we will continue the Cardizem. No anticoagulation can be given at this time. Justin Shelley MD
--- NOTE | 2018-10-26 12:23 | CP.PCM.PN ---
<Jose Russell - Last Filed: 10/26/18 14:03> Subjective - Date & Time of Evaluation Date of Evaluation: 10/26/18 Time of Evaluation: 06:00 - Subjective Subjective: Jose Russell PGY2 Heme/Onc Progress Note for Dr. Long Patient seen and examined at bedside in ICU this am. No acute events overnight. Neur status is unchanged. patient verbal, but not making sense. Objective - Vital Signs/Intake and Output Vital Signs (last 24 hours): Temp Pulse Resp BP Pulse Ox 97.6 F 97 H 18 130/80 82 L 10/26/18 04:00 10/26/18 07:56 10/26/18 07:56 10/26/18 05:00 10/26/18 03:20 Intake and Output: 10/26/18 10/26/18 06:59 18:59 Intake Total 640 100 Output Total 1000 Balance -360 100 - Medications Medications: Current Medications Dexamethasone (Decadron Inj) 10 mg IVP Q8 [facility] Last Admin: 10/26/18 05:45 Dose: 10 mg Levetiracetam (Keppra 500mg Ivpb) 500 mg in 100 mls @ 400 mls/hr IVPB Q12 [facility] Last Admin: 10/26/18 10:57 Dose: 400 mls/hr Sodium Chloride (Hypertonic Saline 3%) 500 mls @ 40 mls/hr IV .[id number] [facility] Last Admin: 10/26/18 01:08 Dose: 40 mls/hr diltiaZEM IVPB 100mg in NS (Cardizem 100mg In Ns) 100 mls @ 5 mls/hr IV .Q20H PRN; Protocol PRN Reason: TITRATE PER MD ORDER Last Admin: 10/26/18 09:23 Dose: 5 mg/hr, 5 mls/hr Lorazepam (Ativan) 2 mg IVP Q6H PRN; Protocol PRN Reason: Agitation Last Admin: 10/26/18 01:48 Dose: 2 mg Pantoprazole Sodium (Protonix Inj) 40 mg IVP DAILY [facility] Last Admin: 10/26/18 11:00 Dose: 40 mg - Labs Labs: 10/26/18 05:30 10/26/18 05:30 PT 15.9 SECONDS (9.4-12.5) H 10/23/18 11:42 INR 1.41 10/23/18 11:42 APTT 31.4 Seconds (26.9-38.3) 10/23/18 11:42 - Constitutional Appears: No Acute Distress - Head Exam Head Exam: NORMAL INSPECTION, NORMOCEPHALIC - Eye Exam Eye Exam: EOMI, Normal appearance Assessment and Plan - Assessment and Plan (Free Text) Plan: 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 -no current plans due to mental status and acute brain bleed -will revisit once stable Left Temporal Hemorrhagic Stroke -management per ICU and Neurology -continue to monitor -MRI to rule out Brain Mets <Parviz Long P - Last Filed: 10/29/18 17:50> Objective - Vital Signs/Intake and Output Vital Signs (last 24 hours): Temp Pulse Resp BP Pulse Ox 97.9 F 66 18 177/97 H 99 10/29/18 12:00 10/29/18 14:00 10/29/18 12:00 10/29/18 12:00 10/29/18 05:50 Intake and Output: 10/29/18 10/29/18 06:59 18:59 Intake Total 180 Output Total 2 Balance 178 - Medications Medications: Current Medications Amlodipine Besylate (Norvasc) 5 mg PO DAILY [facility] Last Admin: 10/29/18 09:28 Dose: 5 mg Dexamethasone (Decadron Inj) 10 mg IVP DAILY [facility] Stop: 10/31/18 10:01 Dexamethasone (Decadron Inj) 5 mg IVP DAILY [facility] Stop: 11/02/18 10:01 Diltiazem HCl (Cardizem Cd) 120 mg PO DAILY [facility] Last Admin: 10/29/18 09:27 Dose: 120 mg Levetiracetam (Keppra 500mg Ivpb) 500 mg in 100 mls @ 400 mls/hr IVPB Q12 [facility] Last Admin: 10/29/18 09:26 Dose: 400 mls/hr Lisinopril (Zestril) 10 mg PO DAILY [facility] Last Admin: 10/29/18 09:28 Dose: 10 mg Lorazepam (Ativan) 2 mg IVP Q6H PRN; Protocol PRN Reason: Agitation Last Admin: 10/27/18 15:25 Dose: 2 mg Metoprolol Tartrate (Lopressor) 25 mg PO BRKDIN [facility] Last Admin: 10/29/18 09:28 Dose: 25 mg Pantoprazole Sodium (Protonix Ec Tab) 40 mg PO DAILY [facility] Last Admin: 10/29/18 09:28 Dose: 40 mg - Labs Labs: 10/29/18 07:00 10/29/18 07:00 PT 15.9 SECONDS (9.4-12.5) H 10/23/18 11:42 INR 1.41 10/23/18 11:42 APTT 31.4 Seconds (26.9-38.3) 10/23/18 11:42 Attending/Attestation - Attestation I have personally seen and examined this patient.: Yes I have fully participated in the care of the patient.: Yes I have reviewed all pertinent clinical information, including history, physical exam and plan: Yes
[2018-10-26] MEDS ORDERED: Sodium Chloride 3% 500 ML IV SCH (13:31)
[2018-10-27] MEDS ORDERED: Sodium Chloride 3% 500 ML IV SCH (01:31)
[2018-10-27 06:29] LABS: HEMOGLOBIN 13.4 g/dL (14.0-18.0); LYMPH # 0.6 (1.2-3.4); LYMPH % 5.8 % (22.0-35.0); MEAN CELL VOLUME 101.5 fl (80.0-105.0); MEAN CORPUSCULAR HEMOGLOBIN 33.5 pg (25.0-35.0); MEAN PLATELET VOLUME 12.2 fl (7.0-11.0); MONO # 0.2 (0.1-0.6); MONO % 1.9 % (1.0-6.0); RED CELL DISTRIBUTION WIDTH 12.7 % (11.5-14.5); WHITE BLOOD COUNT 9.6 10^3/uL (4.5-11.0)
[2018-10-27 07:09] LABS: ALBUMIN 3.7 g/dL (3.0-4.8); ALT/SGPT 59 U/L (7-56); AST/SGOT 106 U/L (17-59); BLOOD UREA NITROGEN 9 mg/dL (7-21); CALCIUM 8.9 mg/dL (8.4-10.5); GFR NON-AFRICAN AMERICAN > 60
[2018-10-27] MEDS ORDERED: Magnesium Sulfate 2 gm/50 ml 2 GM/50 ML BAG IVPB ONE (07:37)
--- NOTE | 2018-10-27 08:38 | CP.PCM.PN ---
<Jose Russell - Last Filed: 10/27/18 19:11> Subjective - Date & Time of Evaluation Date of Evaluation: 10/27/18 Time of Evaluation: 06:00 - Subjective Subjective: Jose Russell PGY2 Heme/Onc Progress Note for Dr. Long Patient seen and evaluated bedside in ICU. Patient still not making sense when talking. No acute issues. Objective - Vital Signs/Intake and Output Vital Signs (last 24 hours): Temp Pulse Resp BP Pulse Ox 99 F 61 15 165/65 H 98 10/27/18 05:00 10/27/18 05:00 10/27/18 05:00 10/27/18 05:00 10/27/18 05:00 Intake and Output: 10/27/18 10/27/18 06:59 18:59 Intake Total 600 Output Total 1850 Balance -1250 - Medications Medications: Current Medications Dexamethasone (Decadron Inj) 10 mg IVP Q8 [facility] Last Admin: 10/27/18 06:01 Dose: 10 mg Diltiazem HCl (Cardizem) 30 mg PO QID [facility] Last Admin: 10/26/18 22:12 Dose: 30 mg Levetiracetam (Keppra 500mg Ivpb) 500 mg in 100 mls @ 400 mls/hr IVPB Q12 [facility] Last Admin: 10/26/18 22:15 Dose: 400 mls/hr Sodium Chloride (Hypertonic Saline 3%) 500 mls @ 20 mls/hr IV .Q24H [facility] Stop: 10/27/18 13:31 Last Admin: 10/27/18 01:30 Dose: 20 mls/hr Potassium Chloride (Potassium Chloride 10 Meq/100 Ml) 10 meq in 100 mls @ 100 mls/hr IVPB Q2H [facility] Stop: 10/27/18 10:44 Lisinopril (Zestril) 5 mg PO DAILY [facility] Last Admin: 10/26/18 16:21 Dose: 5 mg Lorazepam (Ativan) 2 mg IVP Q6H PRN; Protocol PRN Reason: Agitation Last Admin: 10/26/18 16:23 Dose: 2 mg Pantoprazole Sodium (Protonix Ec Tab) 40 mg PO DAILY [facility] - Labs Labs: 10/27/18 05:10 10/27/18 05:00 PT 15.9 SECONDS (9.4-12.5) H 10/23/18 11:42 INR 1.41 10/23/18 11:42 APTT 31.4 Seconds (26.9-38.3) 10/23/18 11:42 - Constitutional Appears: No Acute Distress - Head Exam Head Exam: NORMAL INSPECTION, NORMOCEPHALIC - Eye Exam Eye Exam: EOMI, Normal appearance - Respiratory Exam Respiratory Exam: Clear to Ausculation Bilateral, NORMAL BREATHING PATTERN Assessment and Plan - Assessment and Plan (Free Text) Plan: 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 -no current plans due to mental status and acute brain bleed -will revisit once stable Left Temporal Hemorrhagic Stroke -management per ICU and Neurology -continue to monitor -MRI to rule out Brain Mets still pending <Parviz Long P - Last Filed: 10/29/18 17:43> Objective - Vital Signs/Intake and Output Vital Signs (last 24 hours): Temp Pulse Resp BP Pulse Ox 97.9 F 66 18 177/97 H 99 10/29/18 12:00 10/29/18 14:00 10/29/18 12:00 10/29/18 12:00 10/29/18 05:50 Intake and Output: 10/29/18 10/29/18 06:59 18:59 Intake Total 180 Output Total 2 Balance 178 - Medications Medications: Current Medications Amlodipine Besylate (Norvasc) 5 mg PO DAILY [facility] Last Admin: 10/29/18 09:28 Dose: 5 mg Dexamethasone (Decadron Inj) 10 mg IVP DAILY [facility] Stop: 10/31/18 10:01 Dexamethasone (Decadron Inj) 5 mg IVP DAILY [facility] Stop: 11/02/18 10:01 Diltiazem HCl (Cardizem Cd) 120 mg PO DAILY [facility] Last Admin: 10/29/18 09:27 Dose: 120 mg Levetiracetam (Keppra 500mg Ivpb) 500 mg in 100 mls @ 400 mls/hr IVPB Q12 [facility] Last Admin: 10/29/18 09:26 Dose: 400 mls/hr Lisinopril (Zestril) 10 mg PO DAILY [facility] Last Admin: 10/29/18 09:28 Dose: 10 mg Lorazepam (Ativan) 2 mg IVP Q6H PRN; Protocol PRN Reason: Agitation Last Admin: 10/27/18 15:25 Dose: 2 mg Metoprolol Tartrate (Lopressor) 25 mg PO BRKDIN [facility] Last Admin: 10/29/18 09:28 Dose: 25 mg Pantoprazole Sodium (Protonix Ec Tab) 40 mg PO DAILY [facility] Last Admin: 10/29/18 09:28 Dose: 40 mg - Labs Labs: 10/29/18 07:00 10/29/18 07:00 PT 15.9 SECONDS (9.4-12.5) H 10/23/18 11:42 INR 1.41 10/23/18 11:42 APTT 31.4 Seconds (26.9-38.3) 10/23/18 11:42 Attending/Attestation - Attestation I have personally seen and examined this patient.: Yes I have fully participated in the care of the patient.: Yes I have reviewed all pertinent clinical information, including history, physical exam and plan: Yes
--- NOTE | 2018-10-27 09:00 | CP.PCM.PN ---
<NoriMatt - Last Filed: 10/27/18 08:57> Subjective - Date & Time of Evaluation Date of Evaluation: 10/26/18 Time of Evaluation: 08:57 - Subjective Subjective: Neuro progress note - Nori PGY - 2 Patient seen and examined at bedside. History again limited 2/2 mental status. Clinically about the same with mild improvement Objective - Vital Signs/Intake and Output Vital Signs (last 24 hours): Temp Pulse Resp BP Pulse Ox 99 F 61 15 165/65 H 98 10/27/18 05:00 10/27/18 05:00 10/27/18 05:00 10/27/18 05:00 10/27/18 05:00 Intake and Output: 10/27/18 10/27/18 06:59 18:59 Intake Total 600 Output Total 1850 Balance -1250 - Medications Medications: Current Medications Dexamethasone (Decadron Inj) 10 mg IVP Q8 [facility] Last Admin: 10/27/18 06:01 Dose: 10 mg Diltiazem HCl (Cardizem) 30 mg PO QID [facility] Last Admin: 10/26/18 22:12 Dose: 30 mg Levetiracetam (Keppra 500mg Ivpb) 500 mg in 100 mls @ 400 mls/hr IVPB Q12 [facility] Last Admin: 10/26/18 22:15 Dose: 400 mls/hr Sodium Chloride (Hypertonic Saline 3%) 500 mls @ 20 mls/hr IV .Q24H [facility] Stop: 10/27/18 13:31 Last Admin: 10/27/18 01:30 Dose: 20 mls/hr Potassium Chloride (Potassium Chloride 10 Meq/100 Ml) 10 meq in 100 mls @ 100 mls/hr IVPB Q2H [facility] Stop: 10/27/18 10:44 Lisinopril (Zestril) 5 mg PO DAILY [facility] Last Admin: 10/26/18 16:21 Dose: 5 mg Lorazepam (Ativan) 2 mg IVP Q6H PRN; Protocol PRN Reason: Agitation Last Admin: 10/26/18 16:23 Dose: 2 mg Pantoprazole Sodium (Protonix Ec Tab) 40 mg PO DAILY [facility] - Labs Labs: 10/27/18 05:10 10/27/18 05:00 PT 15.9 SECONDS (9.4-12.5) H 10/23/18 11:42 INR 1.41 10/23/18 11:42 APTT 31.4 Seconds (26.9-38.3) 10/23/18 11:42 - Constitutional Appears: Non-toxic - Head Exam Head Exam: ATRAUMATIC, NORMAL INSPECTION, NORMOCEPHALIC - Eye Exam Eye Exam: EOMI, Normal appearance, PERRL Pupil Exam: NORMAL ACCOMODATION, PERRL - ENT Exam ENT Exam: Mucous Membranes Moist, Normal Exam - Neck Exam Neck Exam: Full ROM, Normal Inspection. absent: Lymphadenopathy - Respiratory Exam Respiratory Exam: Clear to Ausculation Bilateral, NORMAL BREATHING PATTERN - Cardiovascular Exam Cardiovascular Exam: REGULAR RHYTHM, +S1, +S2. absent: Murmur - GI/Abdominal Exam GI & Abdominal Exam: Soft, Normal Bowel Sounds. absent: Tenderness - Extremities Exam Extremities Exam: Full ROM, Normal Capillary Refill, Normal Inspection. absent: Joint Swelling, Pedal Edema - Back Exam Back Exam: NORMAL INSPECTION - Neurological Exam Neurological Exam: Alert, Awake, CN II-XII Intact, Normal Gait, Oriented x3 - Psychiatric Exam Psychiatric exam: Normal Affect, Normal Mood - Skin Skin Exam: Dry, Intact, Normal Color, Warm - Additional Findings Additional findings: Patient still with aphasia Assessment and Plan - Assessment and Plan (Free Text) Assessment: 58 M with pertinent medical history of alcoholism and neuroendocrine tumor with L arm lymphedema presents for agitation and slurred speech for 2 days [employer]. Imaging reveals a L sided temporal lobe hemorrhage with surrounding edema but no herniation. Plan L Temporal Hemorrhagic Stroke with Productive and Receptive Aphasia - Obtained rpt Head CT today - shows improvement in midline shift, whereas before there was concern for progression to herniation - Continue Decadron 10 q8h - Loading bolus of HT Saline of 200 mls; Start tapering maintenance to 30/hr for 12 hours, then 20/hr for 12 hours, then stop - Keppra for Seizure prophylaxis - Maintain blood pressure <160/90 per ASA and AHA guidelines - HOB 30 degrees elevation; aspiration and seizure protocols; fall protocol; Neurochecks q1; CIWA protocol - Neurosurgery on consult: Per Dr. Hansen, likely no acute intervention - Follow up MRI of brain with contrast to rule out metastatic disease - has not been obtained yet - PT/OT <Gary Man - Last Filed: 10/29/18 18:18> Objective - Vital Signs/Intake and Output Vital Signs (last 24 hours): Temp Pulse Resp BP Pulse Ox 97.9 F 61 18 131/84 99 10/29/18 12:00 10/29/18 17:59 10/29/18 12:00 10/29/18 17:59 10/29/18 05:50 Intake and Output: 10/29/18 10/29/18 06:59 18:59 Intake Total 180 Output Total 2 Balance 178 - Medications Medications: Current Medications Amlodipine Besylate (Norvasc) 5 mg PO DAILY [facility] Last Admin: 10/29/18 09:28 Dose: 5 mg Dexamethasone (Decadron Inj) 10 mg IVP DAILY [facility] Stop: 10/31/18 10:01 Dexamethasone (Decadron Inj) 5 mg IVP DAILY [facility] Stop: 11/02/18 10:01 Diltiazem HCl (Cardizem Cd) 120 mg PO DAILY [facility] Last Admin: 10/29/18 09:27 Dose: 120 mg Levetiracetam (Keppra 500mg Ivpb) 500 mg in 100 mls @ 400 mls/hr IVPB Q12 [facility] Last Admin: 10/29/18 09:26 Dose: 400 mls/hr Lisinopril (Zestril) 10 mg PO DAILY [facility] Last Admin: 10/29/18 09:28 Dose: 10 mg Lorazepam (Ativan) 2 mg IVP Q6H PRN; Protocol PRN Reason: Agitation Last Admin: 10/27/18 15:25 Dose: 2 mg Metoprolol Tartrate (Lopressor) 25 mg PO BRKDIN [facility] Last Admin: 10/29/18 17:59 Dose: 25 mg Pantoprazole Sodium (Protonix Ec Tab) 40 mg PO DAILY [facility] Last Admin: 10/29/18 09:28 Dose: 40 mg - Labs Labs: 10/29/18 07:00 10/29/18 07:00 PT 15.9 SECONDS (9.4-12.5) H 10/23/18 11:42 INR 1.41 10/23/18 11:42 APTT 31.4 Seconds (26.9-38.3) 10/23/18 11:42 Attending/Attestation - Attestation I have personally seen and examined this patient.: Yes I have fully participated in the care of the patient.: Yes I have reviewed all pertinent clinical information, including history, physical exam and plan: Yes Notes (Text): I agree with the assessment and plan. Will continue current management as outlined above.
[2018-10-27] MEDS: diltiaZEM 120 mg/24 Hours CD Cap PO SCH (09:50)
[2018-10-27] MEDS: levETIRAcetam 500mg IVPB 500 MG/100 ML BAG IVPB SCH (09:51)
[2018-10-27] MEDS: Pantoprazole 40 mg EC Tab PO SCH (09:51)
--- NOTE | 2018-10-27 11:27 | PN ---
DATE: 10/27/2018 SUBJECTIVE: The patient is lying in bed without distress. PHYSICAL EXAMINATION: VITAL SIGNS: Blood pressure is 165/65, heart rate is in the 60s. NECK: Negative JVD. LUNGS: Without rales. HEART: S1, S2. EXTREMITIES: Without edema. LABORATORY DATA: Hemoglobin is 13.4. Chemistries, BUN and creatinine are unremarkable. ASSESSMENT AND PLAN: The patient is back to normal sinus rhythm. We will change Cardizem to long-acting Cardizem. We will increase the Zestril to 10 mg for better blood pressure control. From a cardiac perspective, there is no intervention or anticoagulation possible. The patient can be transferred to Med-Surg Floor from a cardiac perspective. Justin Shelley MD
[2018-10-27] MEDS ORDERED: DiphenhydrAMINE 50 mg/ml Inj IVP STA (11:31)
--- NOTE | 2018-10-27 12:31 | CT ---
Date of service: 10/27/2018 PROCEDURE: CT HEAD WITHOUT CONTRAST. HISTORY: S/p hemorrhagic stroke COMPARISON: 10/25/2018 TECHNIQUE: Axial computed tomography images were obtained through the head/brain without intravenous contrast. Radiation dose: Total exam DLP = 899.36 mGy-cm. This CT exam was performed using one or more of the following dose reduction techniques: Automated exposure control, adjustment of the mA and/or kV according to patient size, and/or use of iterative reconstruction technique. FINDINGS: HEMORRHAGE: There is a large acute hemorrhage in the left temporal lobe which is unchanged in size. There is no intraventricular extension. There is a mild to moderate amount of surrounding vasogenic edema. BRAIN: No mass effect or edema. No atrophy or chronic microvascular ischemic changes. VENTRICLES: Unremarkable. No hydrocephalus. CALVARIUM: Unremarkable. PARANASAL SINUSES: Unremarkable as visualized. No significant inflammatory changes. MASTOID AIR CELLS: Unremarkable as visualized. No inflammatory changes. OTHER FINDINGS: None. IMPRESSION: There is a large acute hemorrhage in the left temporal lobe which is unchanged in size. There is no intraventricular extension. There is a mild to moderate amount of surrounding vasogenic edema.
--- NOTE | 2018-10-27 13:04 | CP.PCM.CON ---
History of Present Illness - History of Present Illness History of Present Illness: Palliative consult requested by Dr Ender Wright Reason: Goals of care 58 year old male with history of alcoholism, neuroendocrine tumor presented to [facility] after being brought in by EMS with agitation and slurred speech. Patient was awake but unable to speak or answer questions appropriately. CT Head: Acute left temporal lobe hemorrhage measuring 38 x 65 x 30 mm in size with small amount of surrounding edema. There is no intraventricular extension, no herniation. Chest x ray: No active disease Labs; Troponins 0.21,0.36. LFT's elevated PMHx: obtained from chart review; neuroendocrine tumor left armpit, s/p angioembolization and chemotherapy, L arm lymphedema, ETOH abuse. Social History: Unknown if smoked, alcohol use. Family History: Unknown Advance Care Planning: unknown Review of systems: as per HPI, unable to obtain 12 point ROS Past Patient History - Infectious Disease Hx of Infectious Diseases: None - Tetanus Immunizations Tetanus Immunization: Unknown - Past Social History Smoking Status: Unknown If Ever Smoked - CARDIAC Hx Cardiac Disorders: Yes Hx Hypertension: Yes (no meds) Hx Peripheral Vascular Disease: Yes (DVT) - PULMONARY Hx Respiratory Disorders: No - NEUROLOGICAL Hx Neurological Disorder: Yes (H/O HEAD INJURY-NEUROENDOCRINE TUMOR) - HEENT Hx HEENT Problems: No - RENAL Hx Chronic Kidney Disease: No - ENDOCRINE/METABOLIC Hx Endocrine Disorders: No - HEMATOLOGICAL/ONCOLOGICAL Hx Blood Disorders: Yes Hx Cancer: Yes (LYMPHOMA, lymphedema) Other/Comment: left lymphedema - INTEGUMENTARY Hx Dermatological Problems: Yes Other/Comment: 10-23-18 LEFT ARM GROSS LYMPEDEMA ,JAUNDICED SKIN. H/O OF SX TO L AXILLA. TUMOR TO L AXILLA.CA OF L AXILLA. LEFT EYEBROW SKIN ABRASION. REDNESS,SLIGHTLY SWOLLEN. ZYGOMATIC FX. - MUSCULOSKELETAL/RHEUMATOLOGICAL Hx Musculoskeletal Disorders: Yes Hx Falls: Yes Other/Comment: Left arm lymphedema - GASTROINTESTINAL Hx Gastrointestinal Disorders: No - GENITOURINARY/GYNECOLOGICAL Hx Genitourinary Disorders: No - PSYCHIATRIC Hx Psychophysiologic Disorder: Yes (ETOH ABUSE) Hx Depression: No Hx Emotional Abuse: No Hx Physical Abuse: No Hx Substance Use: (UNKNOWN) - SURGICAL HISTORY Hx Surgeries: Yes Other/Comment: lyphectomy - ANESTHESIA Hx Anesthesia: Yes Hx Anesthesia Reactions: No Hx Malignant Hyperthermia: No Meds Allergies/Adverse Reactions: Allergies Allergy/AdvReac Type Severity Reaction Status Date / Time No Known Allergies Allergy Verified 10/23/18 17:12 - Medications Medications: Current Medications Amlodipine Besylate (Norvasc) 5 mg PO DAILY [facility] Dexamethasone (Decadron Inj) 10 mg IVP DAILY [facility] Stop: 10/31/18 10:01 Dexamethasone (Decadron Inj) 5 mg IVP DAILY [facility] Stop: 11/02/18 10:01 Dexamethasone (Decadron Inj) 10 mg IVP Q12 [facility] Stop: 10/29/18 10:01 Diltiazem HCl (Cardizem Cd) 120 mg PO DAILY [facility] Last Admin: 10/27/18 09:50 Dose: 120 mg Levetiracetam (Keppra 500mg Ivpb) 500 mg in 100 mls @ 400 mls/hr IVPB Q12 [facility] Last Admin: 10/27/18 09:51 Dose: 400 mls/hr Sodium Chloride (Hypertonic Saline 3%) 500 mls @ 20 mls/hr IV .Q24H [facility] Stop: 10/27/18 13:31 Last Admin: 10/27/18 01:30 Dose: 20 mls/hr Lisinopril (Zestril) 10 mg PO DAILY [facility] Last Admin: 10/27/18 09:50 Dose: 10 mg Lorazepam (Ativan) 2 mg IVP Q6H PRN; Protocol PRN Reason: Agitation Last Admin: 10/27/18 09:51 Dose: 2 mg Metoprolol Tartrate (Lopressor) 25 mg PO BRKDIN [facility] Pantoprazole Sodium (Protonix Ec Tab) 40 mg PO DAILY [facility] Last Admin: 10/27/18 09:51 Dose: 40 mg Physical Exam - Constitutional Appears: Cachectic, Chronically Ill - Head Exam Head Exam: NORMOCEPHALIC - Eye Exam Eye Exam: Normal appearance, PERRL - ENT Exam ENT Exam: Mucous Membranes Moist - Respiratory Exam Respiratory Exam: Decreased Breath Sounds, NORMAL BREATHING PATTERN - Cardiovascular Exam Cardiovascular Exam: Tachycardia, +S1, +S2 - GI/Abdominal Exam GI & Abdominal Exam: Normal Bowel Sounds, Soft - Extremities Exam Additional comments: lymphedema of left arm - Neurological Exam Neurological exam: Alert, Altered - Skin Skin Exam: Dry, Pallor, Warm - Additional Findings Additional findings: palliative performance scale 30 % Results - Vital Signs Recent Vital Signs: Last Vital Signs Temp 99 F 10/27/18 05:00 Pulse 73 10/27/18 12:28 Resp 14 10/27/18 12:28 BP 169/93 H 10/27/18 12:28 Pulse Ox 98 10/27/18 11:35 - Labs Result Diagrams: 10/27/18 05:10 10/27/18 05:00 Labs: Laboratory Results - last 24 hr 10/26/18 10/26/18 10/27/18 13:06 16:10 04:47 WBC RBC Hgb Hct MCV MCH MCHC RDW Plt Count MPV Neut % (Auto) Lymph % (Auto) [place] % (Auto) Eos % (Auto) Baso % (Auto) Lymph # (Auto) [place] # (Auto) Eos # (Auto) Baso # (Auto) Absolute Neuts (auto) Sodium Potassium Chloride Carbon Dioxide Anion Gap BUN Creatinine Est GFR ( Amer) Est GFR (Non-Af Amer) POC Glucose (mg/dL) 195 H 163 H 154 H Random Glucose Calcium Phosphorus Magnesium Total Bilirubin AST ALT Alkaline Phosphatase Total Protein Albumin Globulin Albumin/Globulin Ratio 10/27/18 10/27/18 10/27/18 05:00 05:10 07:55 WBC 9.6 D RBC 4.00 Hgb 13.4 L Hct 40.6 L MCV 101.5 MCH 33.5 MCHC 33.0 RDW 12.7 Plt Count 269 MPV 12.2 H Neut % (Auto) 92.3 H Lymph % (Auto) 5.8 L [place] % (Auto) 1.9 Eos % (Auto) 0.0 L Baso % (Auto) 0.0 Lymph # (Auto) 0.6 L [place] # (Auto) 0.2 Eos # (Auto) 0.0 Baso # (Auto) 0.00 Absolute Neuts (auto) 8.84 H Sodium 144 Potassium 3.3 L Chloride 110 H Carbon Dioxide 23 Anion Gap 14 BUN 9 Creatinine 0.3 L Est GFR ( Amer) > 60 Est GFR (Non-Af Amer) > 60 POC Glucose (mg/dL) 150 H Random Glucose 154 H Calcium 8.9 Phosphorus 3.3 Magnesium 1.7 Total Bilirubin 1.7 H AST 106 H D ALT 59 H Alkaline Phosphatase 72 Total Protein 7.5 Albumin 3.7 Globulin 3.8 Albumin/Globulin Ratio 1.0 L 04/19/19 11:02 WBC RBC Hgb Hct MCV MCH MCHC RDW Plt Count MPV Neut % (Auto) Lymph % (Auto) [place] % (Auto) Eos % (Auto) Baso % (Auto) Lymph # (Auto) [place] # (Auto) Eos # (Auto) Baso # (Auto) Absolute Neuts (auto) Sodium Potassium Chloride Carbon Dioxide Anion Gap BUN Creatinine Est GFR ( Amer) Est GFR (Non-Af Amer) POC Glucose (mg/dL) 172 H Random Glucose Calcium Phosphorus Magnesium Total Bilirubin AST ALT Alkaline Phosphatase Total Protein Albumin Globulin Albumin/Globulin Ratio Assessment & Plan - Assessment and Plan (Free Text) Assessment: The is a 58 year old male with history of alcoholism, neuroendocrine tumor of left arm pit s/p chemotherapy and embolization who is admitted with AMS, expressive aphasia,HTN and elevated tropinins. CT showed large left temporal hemorrhage. I was asked to provide palliative support to patient and family. The patient is altered with expressive aphasia. There is next of kin, Ann Marie Llamas (mother) listed in chart.t I was unable to reach her via phone. Nursing staff reports that the patient has not had any visitors. Plan: Goals of care Neuro notes reviewed; Not a candidate for surgery, BP control>continue Nicardapine drip, continue dexamethasone Alcohol withdrawal, continue CIWA protocol, Kaylie.
--- NOTE | 2018-10-27 13:12 | CP.PCM.PN ---
<Guille Lennon - Last Filed: 10/27/18 13:09> Subjective - Date & Time of Evaluation Date of Evaluation: 10/27/18 Time of Evaluation: 11:00 - Subjective Subjective: INTERNAL MEDICINE PROGRESS NOTE FOR DR. MARIUSZ Lennon PGY1 Pt seen and examined at bedside in ICU this am. Overnight, 3% NS was d/c'd. Thrombus was found in RUE and R PICC line was removed. Pt taken of nicardipine and cardizem drip and switch to oral rate control. Pt passed speech/swallow eval. Pt is verbal, however not making sense. ROS unable to be obtained d/t patients mental status. Objective - Vital Signs/Intake and Output Vital Signs (last 24 hours): Temp Pulse Resp BP Pulse Ox 99 F 73 14 169/93 H 98 10/27/18 05:00 10/27/18 12:28 10/27/18 12:28 10/27/18 12:28 10/27/18 11:35 Intake and Output: 10/27/18 10/27/18 06:59 18:59 Intake Total 600 Output Total 1850 Balance -1250 - Medications Medications: Current Medications Amlodipine Besylate (Norvasc) 5 mg PO DAILY [facility] Dexamethasone (Decadron Inj) 10 mg IVP DAILY [facility] Stop: 10/31/18 10:01 Dexamethasone (Decadron Inj) 5 mg IVP DAILY [facility] Stop: 11/02/18 10:01 Dexamethasone (Decadron Inj) 10 mg IVP Q12 [facility] Stop: 10/29/18 10:01 Diltiazem HCl (Cardizem Cd) 120 mg PO DAILY [facility] Last Admin: 10/27/18 09:50 Dose: 120 mg Levetiracetam (Keppra 500mg Ivpb) 500 mg in 100 mls @ 400 mls/hr IVPB Q12 [facility] Last Admin: 10/27/18 09:51 Dose: 400 mls/hr Sodium Chloride (Hypertonic Saline 3%) 500 mls @ 20 mls/hr IV .Q24H [facility] Stop: 10/27/18 13:31 Last Admin: 10/27/18 01:30 Dose: 20 mls/hr Lisinopril (Zestril) 10 mg PO DAILY [facility] Last Admin: 10/27/18 09:50 Dose: 10 mg Lorazepam (Ativan) 2 mg IVP Q6H PRN; Protocol PRN Reason: Agitation Last Admin: 10/27/18 09:51 Dose: 2 mg Metoprolol Tartrate (Lopressor) 25 mg PO BRKDIN [facility] Pantoprazole Sodium (Protonix Ec Tab) 40 mg PO DAILY [facility] Last Admin: 10/27/18 09:51 Dose: 40 mg - Labs Labs: 10/27/18 05:10 10/27/18 05:00 PT 15.9 SECONDS (9.4-12.5) H 10/23/18 11:42 INR 1.41 10/23/18 11:42 APTT 31.4 Seconds (26.9-38.3) 10/23/18 11:42 - Constitutional Appears: Combative, Cachectic - Head Exam Additional comments: Well-approximated lesions noted over L eyebrow - Eye Exam Eye Exam: EOMI Pupil Exam: PERRL - ENT Exam ENT Exam: Mucous Membranes Moist, Normal Exam - Neck Exam Neck exam: Positive for: Normal Inspection - Respiratory Exam Respiratory Exam: Clear to Auscultation Bilateral, NORMAL BREATHING PATTERN - Cardiovascular Exam Cardiovascular Exam: REGULAR RHYTHM, +S1, +S2 - GI/Abdominal Exam GI & Abdominal Exam: Soft. absent: Tenderness - Extremities Exam Extremities exam: Negative for: calf tenderness - Back Exam Back exam: NORMAL INSPECTION - Neurological Exam Neurological exam: Alert Additional comments: awake. Not answering questions appropriate or obeying commands GCS 12 - Psychiatric Exam Psychiatric exam: Agitated - Skin Skin Exam: Abrasion (Over L eyebrow), Dry, Warm Assessment and Plan - Assessment and Plan (Free Text) Assessment: 58 y/o M with PMH of ETOH, hx neuroendocrine tumor s/p L axillary surgery bib EMS for agitation, slurred speech x 2 days. Pt found to have [id number] L sided temporal hemorrhage with small amount of surrounding edema. Pt also found to have anterior wall NJ, however anticoagulation not indicated Plan: Intracranial Hemorrhage Pt still confused, verbal however not making sense. Still moving extremities bilaterally. PERRL bilaterally CT reveals: "There is an acute left temporal lobe hemorrhage measuring 38 x 65 x 30 mm in size. There is a small amount of surrounding edema. There is no intraventricular extension. There is no herniation." Per neurosurgery, no acute intervention at this time Repeat CT shows no change. Pending MRI to r/o metastatic dz. No family able to be contacted to fill out MRI questionnaire switch to oral anti-hypertensives, amlodipine/lopressor/lisinopril 3% NS was discontinued Continue dexamethasone 10mg IVP q8h Continue keppra 500mg for seizure prophylaxis Neurosurgery/Neurology following. appreciate recs HOB >40 degrees New onset Afib w/ RVR Pulse has been controlled with oral cardizem 120mg continue off of cardizem drip Hypokalemia Repleted IV, replete magnesium ACS w/ recent NJ troponins downtrended Given ICH, pt not a candidate for anticoagulation & antiplatelets Cardiology following. echo reveals normal LVEF 58% , Ao valve severely thickened, mild-mod AR per cardio: start b-charles & Nitroglycerin ETOH withdrawal Pt has extensive hx of ETOH abuse. Serum ETOH on admission <10 Continue ativan prn CIWA protocol Aspiration precautions, neuro checks q1h Fall precautions On seizure prophylaxis with keppra Leukocytosis dowtrending Pt afebrile, normotensive Likely demargination 2/2 steroids LUE lymphedema Pt has hx of neuroendocrine tumor s/p L axillary surgery Pt found to have RUE clot, PICC line was d/c'd Pending LUE ultrasound official, however not a candidate for antiocoagulation at this time given ICH Pt's home oncologist consulted, Dr. Long, appreciate recs DVT/GI PPx: SCD/Protonix (pt on steroids) Dispo: Continue to monitor in ICU. Family members unable to reached with current phone number. case has been discuss with social services director in detail Case discussed with and reviewed with attending physician, Dr. Mariusz Lennon PGY1 <Debra Wright - Last Filed: 10/27/18 15:30> Objective - Vital Signs/Intake and Output Vital Signs (last 24 hours): Temp Pulse Resp BP Pulse Ox 99 F 95 H 14 152/102 H 98 10/27/18 05:00 10/27/18 14:00 10/27/18 12:28 10/27/18 14:00 10/27/18 11:35 Intake and Output: 10/27/18 10/27/18 06:59 18:59 Intake Total 600 Output Total 1850 Balance -1250 - Medications Medications: Current Medications Amlodipine Besylate (Norvasc) 5 mg PO DAILY [facility] Last Admin: 10/27/18 14:00 Dose: 5 mg Dexamethasone (Decadron Inj) 10 mg IVP DAILY [facility] Stop: 10/31/18 10:01 Dexamethasone (Decadron Inj) 5 mg IVP DAILY [facility] Stop: 11/02/18 10:01 Dexamethasone (Decadron Inj) 10 mg IVP Q12 [facility] Stop: 10/29/18 10:01 Diltiazem HCl (Cardizem Cd) 120 mg PO DAILY [facility] Last Admin: 10/27/18 09:50 Dose: 120 mg Levetiracetam (Keppra 500mg Ivpb) 500 mg in 100 mls @ 400 mls/hr IVPB Q12 [facility] Last Admin: 10/27/18 09:51 Dose: 400 mls/hr Lisinopril (Zestril) 10 mg PO DAILY [facility] Last Admin: 10/27/18 09:50 Dose: 10 mg Lorazepam (Ativan) 2 mg IVP Q6H PRN; Protocol PRN Reason: Agitation Last Admin: 10/27/18 09:51 Dose: 2 mg Metoprolol Tartrate (Lopressor) 25 mg PO BRKDIN [facility] Pantoprazole Sodium (Protonix Ec Tab) 40 mg PO DAILY [facility] Last Admin: 10/27/18 09:51 Dose: 40 mg - Labs Labs: 10/27/18 05:10 10/27/18 05:00 PT 15.9 SECONDS (9.4-12.5) H 10/23/18 11:42 INR 1.41 10/23/18 11:42 APTT 31.4 Seconds (26.9-38.3) 10/23/18 11:42 Attending/Attestation - Attestation I have personally seen and examined this patient.: Yes I have fully participated in the care of the patient.: Yes I have reviewed all pertinent clinical information, including history, physical exam and plan: Yes Notes (Text): 10/27/18 15:28 Attending note; Patient seen and examined with resident in ICU. Patient is still Confused and agitated. Not following commands. verbal but not understandable. moving all the extremities. Has wrist restraints in place. Patient is a 58-year-old male with PMH of neuroendocrine tumor s/p unspecified L axillary surgery & residual L arm lymphedema, ETOH abuse presented to [facility] with agitation & slurred speech. As per ER note patient has recently been agitated for the past few days before admission. 1. Acute left temporal lobe hemorrhage measuring 38 x 65 x 30 mm in size. There is a small amount of surrounding edema. There is no intraventricular extension. There is no herniation. Per neurosurgery, no acute intervention at this time. Patient is confused and restless. Moving all extremities. Repeat CT head is unchanged. Continue IV Ativan as needed. 2. Neurology evaluation appreciated. Currently off 3% normal saline. Head end elevation. Started on IV Keppra For seizure prophylaxis. 3. Hypertension; controlled. continue p.o. Cardizem. 4. Alcohol abuse; monitor for withdrawal symptoms. Continue IV Ativan as needed. 5. Elevated troponin; secondary to hemodynamic changes due to stroke . EKG showed no acute ST elevation. Troponins trending down. Cardiology evaluation appreciated. 6. New onset Afib with RVR; currently rate controlled. Continue p.o. Cardizem. 7. History of neuroendocrine tumor. we will follow up with oncology. Continue IV Decadron. needs Outpatient follow-up once stabilized. 8. GI prophylaxis Protonix. SCD for DVT prophylaxis. 9. Left upper extremity lymphedema post surgery. Speech and swallow evaluation appreciated. Started on dysphagia diet. Unable to reach the family member at this time. case discussed with social services director in detail. Palliative care evaluation appreciated. Transfer Out of ICU and monitor closely. 10/27/18 15:30
[2018-10-28] MEDS: levETIRAcetam 500mg IVPB 500 MG/100 ML BAG IVPB SCH ×3 (00:07→21:56)
--- NOTE | 2018-10-28 03:56 | CP.PCM.PN ---
Subjective - Date & Time of Evaluation Date of Evaluation: 10/27/18 Time of Evaluation: 09:00 - Subjective Subjective: Neurology progress note (Dr. Man) - Nori PGY - [address] Wright Patient seen and examined at bedside. Patient's blood pressure has been elevated all morning. Patient is agitated per RN. Patient is otherwise clinically about the same. Objective - Vital Signs/Intake and Output Vital Signs (last 24 hours): Temp Pulse Resp BP Pulse Ox 97.4 F L 54 L 14 134/75 98 10/27/18 16:00 10/28/18 00:00 10/27/18 18:01 10/27/18 18:11 10/27/18 11:35 Intake and Output: 10/27/18 10/28/18 18:59 06:59 Intake Total 750 Output Total 900 Balance -150 - Medications Medications: Current Medications Amlodipine Besylate (Norvasc) 5 mg PO DAILY [facility] Last Admin: 10/27/18 14:00 Dose: 5 mg Dexamethasone (Decadron Inj) 10 mg IVP DAILY [facility] Stop: 10/31/18 10:01 Dexamethasone (Decadron Inj) 5 mg IVP DAILY [facility] Stop: 11/02/18 10:01 Dexamethasone (Decadron Inj) 10 mg IVP Q12 [facility] Stop: 10/29/18 10:01 Last Admin: 10/28/18 00:04 Dose: 10 mg Diltiazem HCl (Cardizem Cd) 120 mg PO DAILY [facility] Last Admin: 10/27/18 09:50 Dose: 120 mg Levetiracetam (Keppra 500mg Ivpb) 500 mg in 100 mls @ 400 mls/hr IVPB Q12 [facility] Last Admin: 10/28/18 00:07 Dose: 400 mls/hr Lisinopril (Zestril) 10 mg PO DAILY [facility] Last Admin: 10/27/18 09:50 Dose: 10 mg Lorazepam (Ativan) 2 mg IVP Q6H PRN; Protocol PRN Reason: Agitation Last Admin: 10/27/18 15:25 Dose: 2 mg Metoprolol Tartrate (Lopressor) 25 mg PO BRKDIN [facility] Last Admin: 10/27/18 18:11 Dose: 25 mg Pantoprazole Sodium (Protonix Ec Tab) 40 mg PO DAILY [facility] Last Admin: 10/27/18 09:51 Dose: 40 mg - Labs Labs: 10/27/18 05:10 10/27/18 05:00 PT 15.9 SECONDS (9.4-12.5) H 10/23/18 11:42 INR 1.41 10/23/18 11:42 APTT 31.4 Seconds (26.9-38.3) 10/23/18 11:42 - Constitutional Appears: Non-toxic - Head Exam Head Exam: NORMOCEPHALIC. absent: ATRAUMATIC, NORMAL INSPECTION - Eye Exam Eye Exam: EOMI, Normal appearance, PERRL Pupil Exam: NORMAL ACCOMODATION, PERRL - ENT Exam ENT Exam: Mucous Membranes Moist, Normal Exam - Neck Exam Neck Exam: Full ROM, Normal Inspection. absent: Lymphadenopathy - Respiratory Exam Respiratory Exam: Clear to Ausculation Bilateral, NORMAL BREATHING PATTERN - Cardiovascular Exam Cardiovascular Exam: REGULAR RHYTHM, +S1, +S2. absent: Murmur - GI/Abdominal Exam GI & Abdominal Exam: Soft, Normal Bowel Sounds. absent: Tenderness - Extremities Exam Extremities Exam: Full ROM, Normal Capillary Refill, Normal Inspection. absent: Joint Swelling, Pedal Edema - Back Exam Back Exam: NORMAL INSPECTION - Neurological Exam Neurological Exam: Alert, Awake, CN II-XII Intact, Normal Gait, Oriented x3 - Psychiatric Exam Psychiatric exam: Normal Affect, Normal Mood - Skin Skin Exam: Dry, Intact, Normal Color, Warm - Additional Findings Additional findings: remains aphasic Assessment and Plan - Assessment and Plan (Free Text) Assessment: 58 M with pertinent medical history of alcoholism and neuroendocrine tumor with L arm lymphedema presents for agitation and slurred speech for 2 days [employer]. Imaging reveals a L sided temporal lobe hemorrhage with surrounding edema but no herniation. Plan L Temporal Hemorrhagic Stroke with Productive and Receptive Aphasia - Obtained rpt Head CT today - shows improvement in midline shift, whereas before there was concern for progression to herniation - Continue Decadron 10 q8h - HTS d/c'd - Keppra for Seizure prophylaxis - Maintain blood pressure <160/90 per ASA and AHA guidelines - HOB 30 degrees elevation; aspiration and seizure protocols; fall protocol; Neurochecks q1; CIWA protocol - Neurosurgery on consult: Per Dr. Hansen, likely no acute intervention - Follow up MRI of brain with contrast to rule out metastatic disease - has not been obtained yet - PT/OT
[2018-10-28 07:33] LABS: HEMOGLOBIN 14.4 g/dL (14.0-18.0); LYMPH # 0.7 (1.2-3.4); LYMPH % 7.2 % (22.0-35.0); MEAN CORPUSCULAR HEMOGLOBIN 34.5 pg (25.0-35.0); MEAN CORPUSCULAR HGB CONC 34.5 g/dl (31.0-37.0); MEAN PLATELET VOLUME 12.2 fl (7.0-11.0); MONO # 0.2 (0.1-0.6); MONO % 1.6 % (1.0-6.0); RBC 4.17 10^6/uL (3.5-6.1); RED CELL DISTRIBUTION WIDTH 12.7 % (11.5-14.5); WHITE BLOOD COUNT 9.9 10^3/uL (4.5-11.0)
[2018-10-28] MEDS: diltiaZEM 120 mg/24 Hours CD Cap PO SCH (10:13)
[2018-10-28] MEDS: Pantoprazole 40 mg EC Tab PO SCH (10:14)
--- NOTE | 2018-10-28 12:43 | CP.PCM.PN ---
<Guille Lennon - Last Filed: 10/28/18 13:13> Subjective - Date & Time of Evaluation Date of Evaluation: 10/28/18 Time of Evaluation: 08:00 - Subjective Subjective: INTERNAL MEDICINE PROGRESS NOTE FOR DR. MARIUSZ Lennon PGY1 Pt seen and examined at bedside this am. No acute events overnight. Pt is still confused, verbal, not obeying commands. Pt still moving b/l extremities spontaneously. Objective - Vital Signs/Intake and Output Vital Signs (last 24 hours): Temp Pulse Resp BP Pulse Ox 97.1 F L 84 20 130/87 98 10/28/18 12:00 10/28/18 12:00 10/28/18 12:00 10/28/18 12:00 10/27/18 11:35 Intake and Output: 10/28/18 10/28/18 06:59 18:59 Intake Total 850 Output Total 1400 Balance -550 - Medications Medications: Current Medications Amlodipine Besylate (Norvasc) 5 mg PO DAILY [facility] Last Admin: 10/28/18 10:14 Dose: 5 mg Dexamethasone (Decadron Inj) 10 mg IVP DAILY [facility] Stop: 10/31/18 10:01 Dexamethasone (Decadron Inj) 5 mg IVP DAILY [facility] Stop: 11/02/18 10:01 Dexamethasone (Decadron Inj) 10 mg IVP Q12 [facility] Stop: 10/29/18 10:01 Last Admin: 10/28/18 11:00 Dose: 10 mg Diltiazem HCl (Cardizem Cd) 120 mg PO DAILY [facility] Last Admin: 10/28/18 10:13 Dose: 120 mg Levetiracetam (Keppra 500mg Ivpb) 500 mg in 100 mls @ 400 mls/hr IVPB Q12 [facility] Last Admin: 10/28/18 10:13 Dose: 400 mls/hr Lisinopril (Zestril) 10 mg PO DAILY [facility] Last Admin: 10/28/18 10:12 Dose: 10 mg Lorazepam (Ativan) 2 mg IVP Q6H PRN; Protocol PRN Reason: Agitation Last Admin: 10/27/18 15:25 Dose: 2 mg Metoprolol Tartrate (Lopressor) 25 mg PO BRKDIN [facility] Last Admin: 10/28/18 08:45 Dose: 25 mg Pantoprazole Sodium (Protonix Ec Tab) 40 mg PO DAILY [facility] Last Admin: 10/28/18 10:14 Dose: 40 mg - Labs Labs: 10/28/18 06:30 10/27/18 05:00 PT 15.9 SECONDS (9.4-12.5) H 10/23/18 11:42 INR 1.41 10/23/18 11:42 APTT 31.4 Seconds (26.9-38.3) 10/23/18 11:42 - Constitutional Appears: Combative, Cachectic - Head Exam Additional comments: Well-approximated lesions noted over L eyebrow - Eye Exam Eye Exam: EOMI Pupil Exam: PERRL - ENT Exam ENT Exam: Mucous Membranes Moist, Normal Exam - Neck Exam Neck exam: Positive for: Normal Inspection - Respiratory Exam Respiratory Exam: Clear to Auscultation Bilateral, NORMAL BREATHING PATTERN - Cardiovascular Exam Cardiovascular Exam: REGULAR RHYTHM, +S1, +S2 - GI/Abdominal Exam GI & Abdominal Exam: Soft. absent: Tenderness - Extremities Exam Extremities exam: Negative for: calf tenderness - Back Exam Back exam: NORMAL INSPECTION - Neurological Exam Neurological exam: Alert Additional comments: awake. Not answering questions appropriate or obeying commands GCS 12 - Psychiatric Exam Psychiatric exam: Agitated - Skin Skin Exam: Abrasion (Over L eyebrow), Dry, Warm Assessment and Plan - Assessment and Plan (Free Text) Assessment: 58 y/o M with PMH of ETOH, hx neuroendocrine tumor s/p L axillary surgery bib EMS for agitation, slurred speech x 2 days. Pt found to have [id number] L sided temporal hemorrhage with small amount of surrounding edema. Pt also found to have anterior wall RI, however anticoagulation not indicated Plan: Intracranial Hemorrhage Pt still confused, verbal however not making sense. Still moving extremities bilaterally. PERRL bilaterally. Not obeying commands. Currently in restraints CT reveals: "There is an acute left temporal lobe hemorrhage measuring 38 x 65 x 30 mm in size. There is a small amount of surrounding edema. There is no intraventricular extension. There is no herniation." Per neurosurgery, no acute intervention at this time Repeat CT shows no change. Pending MRI to r/o metastatic dz. No family able to be contacted to fill out MRI questionnaire switch to oral anti-hypertensives, amlodipine/lopressor/lisinopril off of 3%NS Continue dexamethasone 10mg IVP q8h Continue keppra 500mg for seizure prophylaxis Neurosurgery/Neurology following. appreciate recs HOB >40 degrees New onset Afib w/ RVR Pulse has been controlled with oral cardizem 120mg continue off of cardizem drip ACS w/ recent RI troponins downtrended Given ICH, pt not a candidate for anticoagulation & antiplatelets Cardiology following. echo reveals normal LVEF 58% , Ao valve severely thickened, mild-mod AR per cardio: start b-charles & Nitroglycerin ETOH withdrawal Pt has extensive hx of ETOH abuse. Serum ETOH on admission <10 Continue ativan prn CIWA protocol Aspiration precautions, neuro checks q1h Fall precautions On seizure prophylaxis with keppra Leukocytosis dowtrending Pt afebrile, normotensive Likely demargination 2/2 steroids LUE lymphedema Pt has hx of neuroendocrine tumor s/p L axillary surgery Pt found to have RUE clot, PICC line was d/c'd Pending LUE ultrasound official, however not a candidate for antiocoagulation at this time given ICH Pt's home oncologist consulted, Dr. Long, appreciate recs DVT/GI PPx: SCD/Protonix (pt on steroids) Diet: Speech/spallow eval appreciated, dysphagia diet Dispo: Continue to monitor in ICU. Family members unable to reached with current phone number. Message left on phone number on file Case has been discuss with social science research assistant in detail. Palliative care eval appreciated Case discussed with and reviewed with attending physician, Dr. Mariusz Lennon PGY1 <Debra Wright - Last Filed: 10/28/18 14:33> Objective - Vital Signs/Intake and Output Vital Signs (last 24 hours): Temp Pulse Resp BP Pulse Ox 97.1 F L 84 20 130/87 98 10/28/18 12:00 10/28/18 12:00 10/28/18 12:00 10/28/18 12:00 10/27/18 11:35 Intake and Output: 10/28/18 10/28/18 06:59 18:59 Intake Total 850 Output Total 1400 Balance -550 - Medications Medications: Current Medications Amlodipine Besylate (Norvasc) 5 mg PO DAILY [facility] Last Admin: 10/28/18 10:14 Dose: 5 mg Dexamethasone (Decadron Inj) 10 mg IVP DAILY [facility] Stop: 10/31/18 10:01 Dexamethasone (Decadron Inj) 5 mg IVP DAILY [facility] Stop: 11/02/18 10:01 Dexamethasone (Decadron Inj) 10 mg IVP Q12 [facility] Stop: 10/29/18 10:01 Last Admin: 10/28/18 11:00 Dose: 10 mg Diltiazem HCl (Cardizem Cd) 120 mg PO DAILY [facility] Last Admin: 10/28/18 10:13 Dose: 120 mg Levetiracetam (Keppra 500mg Ivpb) 500 mg in 100 mls @ 400 mls/hr IVPB Q12 [facility] Last Admin: 10/28/18 10:13 Dose: 400 mls/hr Lisinopril (Zestril) 10 mg PO DAILY [facility] Last Admin: 10/28/18 10:12 Dose: 10 mg Lorazepam (Ativan) 2 mg IVP Q6H PRN; Protocol PRN Reason: Agitation Last Admin: 10/27/18 15:25 Dose: 2 mg Metoprolol Tartrate (Lopressor) 25 mg PO BRKDIN [facility] Last Admin: 10/28/18 08:45 Dose: 25 mg Pantoprazole Sodium (Protonix Ec Tab) 40 mg PO DAILY [facility] Last Admin: 10/28/18 10:14 Dose: 40 mg - Labs Labs: 10/28/18 06:30 10/28/18 06:30 PT 15.9 SECONDS (9.4-12.5) H 10/23/18 11:42 INR 1.41 10/23/18 11:42 APTT 31.4 Seconds (26.9-38.3) 10/23/18 11:42 Attending/Attestation - Attestation I have personally seen and examined this patient.: Yes I have fully participated in the care of the patient.: Yes I have reviewed all pertinent clinical information, including history, physical exam and plan: Yes Notes (Text): Attending note; Patient seen and examined with resident in telemetry. Patient is still Confused and agitated. Not following commands. verbal but not understandable. moving all the extremities. Has wrist restraints in place. Patient is a 58-year-old male with PMH of neuroendocrine tumor s/p unspecified L axillary surgery & residual L arm lymphedema, ETOH abuse presented to [facility] with agitation & slurred speech. 1. Acute left temporal lobe hemorrhage measuring 38 x 65 x 30 mm in size. There is a small amount of surrounding edema. There is no intraventricular extension. There is no herniation. Per neurosurgery, no acute intervention at this time. Patient is confused and restless. Moving all extremities. Repeat CT head is unchanged. Continue IV Ativan as needed. 2. Neurology evaluation appreciated. Initially treated with 3% normal saline and nicardipine drip. Head end elevation. Started on IV Keppra For seizure prophylaxis. 3. Hypertension; controlled. continue p.o. Cardizem, metoprolol and lisinopril. 4. Alcohol abuse; monitor for withdrawal symptoms. Continue IV Ativan as needed. 5. Elevated troponin; secondary to hemodynamic changes due to stroke . EKG showed no acute ST elevation. Troponins trending down. Cardiology evaluation appreciated. 6. New onset Afib with RVR; currently rate controlled. Continue p.o. Cardizem and metoprolol. 7. History of neuroendocrine tumor. we will follow up with oncology. Continue IV Decadron. needs Outpatient follow-up once stabilized. On tapering dose of Decadron. 8. GI prophylaxis Protonix. SCD for DVT prophylaxis. 9. Left upper extremity lymphedema post surgery. Wound showed right upper extremity clot. PICC line removed. Not a candidate for anticoagulation due to intracranial bleed. Speech and swallow evaluation appreciated. Started on dysphagia diet. PT OT evaluation appreciated. Acute rehab recommended. rag production worker evaluation appreciated. Pending placement. Unable to reach the family member at this time. Palliative care evaluation appreciated. 10/28/18 14:32
[2018-10-28 13:43] LABS: ALBUMIN 3.6 g/dL (3.0-4.8); ALT/SGPT 81 U/L (7-56); AST/SGOT 74 U/L (17-59); BLOOD UREA NITROGEN 15 mg/dL (7-21); CALCIUM 8.8 mg/dL (8.4-10.5); GFR NON-AFRICAN AMERICAN > 60
--- NOTE | 2018-10-29 03:49 | PN ---
DATE: 10/28/2018 ONCOLOGY PROGRESS NOTE LOCATION: The patient is in room 277, bed 1. SUBJECTIVE: The patient is seen and examined at the bedside. He is still very confused, verbal, not obey commands, able to move all extremities spontaneously. 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 The patient completed six cycles of treatment along with radiation with resultant lymphedema of the left arm, but had no overt evidence of recurrence of disease. The patient since then was asked to follow up until 07/2018. The patient showed up for evaluation, assessment and treatment recommendations as he was going for dental implant and needed to have his teeth extracted. At that time, CAT scan of the chest, abdomen and pelvis was done which showed no overt evidence of recurrence of disease. The patient since then has had two or three admissions to the emergency room for alcoholism related issues and then more recently was admitted to the ER after having a [employer] event with a temporoparietal bleed. PHYSICAL EXAMINATION: VITAL SIGNS: Today reveals T-max of 97.1, pulse is 84, respirations 20, blood pressure is 130/87, pulse ox is 98%. GENERAL: Physically, the patient appears to be cachectic, combative. HEENT: Conjunctivae are pale. Sclerae are anicteric. Pupils are equally reactive to light and accommodation. Examination of the oropharynx reveals no oropharyngeal lesions. NECK: Supple. LUNGS: Reveal to be clear to percussion and auscultation. CARDIOVASCULAR SYSTEM: Reveals S1 and S2 to be normal. No gallop or murmurs is heard. ABDOMEN: Soft and nontender. No rebound, rigidity, or guarding is noted. EXTREMITIES: Reveal no cyanosis, clubbing, or edema. NEUROLOGIC: Reveals the patient to be combative, but he is able to recognize me, not answering any questions as he is aphasic. GENITOURINARY: Deferred. RECTAL: Deferred. SKIN: Reveals no skin lesions per se. LABORATORY DATA: Reviewed and are unremarkable. The patient's x-rays and MRI are reviewed. I have spoken to the neurologist, Dr. Gary Man, as well. IMPRESSION: At this time, the patient has definitively well-circumscribed bleed in the left temporal lobe measuring 38 x 30 mm with small amount of surrounding edema, question of underlying metastatic lesion and my discussion with Dr. Man there is nothing we could do at this point in time. If he continues to progressively improve, we will plan on following another evaluation in four to six weeks. Repeat scans have shown no new changes. The patient is currently in the thoughts of being changed over to oral antihypertensives, and he is still on steroids and anti-seizure medicines at this point in time. Overall prognosis appears to be guarded. The patient has on top of this an acute myocardial infarction and new onset of atrial fibrillation as well which is being monitored by the cardiology group. The patient is also on ethanol withdrawal precautions at this point in time. Currently, on oncology point of view, nothing much can be offered or done. We have to have an expectant wait and watch followup and wait to see what the outcome of all the other medical events co-existing with this bleed turned out to be. Parviz Long MD
[2018-10-29 08:02] LABS: HEMOGLOBIN 14.7 g/dL (14.0-18.0); LYMPH # 0.8 (1.2-3.4); LYMPH % 7.5 % (22.0-35.0); MEAN CELL VOLUME 99.5 fl (80.0-105.0); MEAN CORPUSCULAR HEMOGLOBIN 34.5 pg (25.0-35.0); MEAN CORPUSCULAR HGB CONC 34.7 g/dl (31.0-37.0); MEAN PLATELET VOLUME 12.1 fl (7.0-11.0); MONO # 0.1 (0.1-0.6); MONO % 1.3 % (1.0-6.0); PLATELET COUNT 295 10^3/uL (120.0-450.0); RBC 4.26 10^6/uL (3.5-6.1); RED CELL DISTRIBUTION WIDTH 12.5 % (11.5-14.5); WHITE BLOOD COUNT 10.5 10^3/uL (4.5-11.0)
[2018-10-29 08:19] LABS: ALB/GLOB RATIO 1.1 (1.1-1.8); ALBUMIN 3.5 g/dL (3.0-4.8); ALT/SGPT 94 U/L (7-56); AST/SGOT 73 U/L (17-59); BLOOD UREA NITROGEN 19 mg/dL (7-21); CALCIUM 8.8 mg/dL (8.4-10.5); GFR NON-AFRICAN AMERICAN > 60
[2018-10-29 08:52] LABS: LYMPHOCYTE 10 % (22.0-35.0); MONOCYTE 5 % (1.0-6.0); NEUTROPHIL 85 % (50.0-70.0)
[2018-10-29] MEDS: levETIRAcetam 500mg IVPB 500 MG/100 ML BAG IVPB SCH ×2 (09:26→21:02)
[2018-10-29] MEDS: diltiaZEM 120 mg/24 Hours CD Cap PO SCH (09:27)
[2018-10-29] MEDS: Pantoprazole 40 mg EC Tab PO SCH (09:28)
--- NOTE | 2018-10-29 11:27 | CP.PCM.PN ---
<Guille Lennon - Last Filed: 10/29/18 11:20> Subjective - Date & Time of Evaluation Date of Evaluation: 10/29/18 Time of Evaluation: 08:00 - Subjective Subjective: INTERNAL MEDICINE PROGRESS NOTE FOR DR. MARIUSZ Lennon PGY1 Pt seen and examined at bedside this am. No acute events overnight. Pt responded to his name today. He is awake alert, however not making sense to other questions. ROS unable to be obtained. Objective - Vital Signs/Intake and Output Vital Signs (last 24 hours): Temp Pulse Resp BP Pulse Ox 98.0 F 73 20 137/102 H 99 10/29/18 05:50 10/29/18 09:28 10/29/18 05:50 10/29/18 09:28 10/29/18 05:50 Intake and Output: 10/29/18 10/29/18 06:59 18:59 Intake Total 180 Output Total 2 Balance 178 - Medications Medications: Current Medications Amlodipine Besylate (Norvasc) 5 mg PO DAILY [facility] Last Admin: 10/29/18 09:28 Dose: 5 mg Dexamethasone (Decadron Inj) 10 mg IVP DAILY [facility] Stop: 10/31/18 10:01 Dexamethasone (Decadron Inj) 5 mg IVP DAILY [facility] Stop: 11/02/18 10:01 Diltiazem HCl (Cardizem Cd) 120 mg PO DAILY [facility] Last Admin: 10/29/18 09:27 Dose: 120 mg Levetiracetam (Keppra 500mg Ivpb) 500 mg in 100 mls @ 400 mls/hr IVPB Q12 [facility] Last Admin: 10/29/18 09:26 Dose: 400 mls/hr Lisinopril (Zestril) 10 mg PO DAILY [facility] Last Admin: 10/29/18 09:28 Dose: 10 mg Lorazepam (Ativan) 2 mg IVP Q6H PRN; Protocol PRN Reason: Agitation Last Admin: 10/27/18 15:25 Dose: 2 mg Metoprolol Tartrate (Lopressor) 25 mg PO BRKDIN [facility] Last Admin: 10/29/18 09:28 Dose: 25 mg Pantoprazole Sodium (Protonix Ec Tab) 40 mg PO DAILY [facility] Last Admin: 10/29/18 09:28 Dose: 40 mg - Labs Labs: 10/29/18 07:00 10/29/18 07:00 PT 15.9 SECONDS (9.4-12.5) H 10/23/18 11:42 INR 1.41 10/23/18 11:42 APTT 31.4 Seconds (26.9-38.3) 10/23/18 11:42 - Constitutional Appears: Combative, Cachectic - Head Exam Additional comments: Well-approximated lesions noted over L eyebrow - Eye Exam Eye Exam: EOMI Pupil Exam: PERRL - ENT Exam ENT Exam: Mucous Membranes Moist, Normal Exam - Neck Exam Neck exam: Positive for: Normal Inspection - Respiratory Exam Respiratory Exam: Clear to Auscultation Bilateral, NORMAL BREATHING PATTERN - Cardiovascular Exam Cardiovascular Exam: REGULAR RHYTHM, +S1, +S2 - GI/Abdominal Exam GI & Abdominal Exam: Soft. absent: Tenderness - Extremities Exam Extremities exam: Negative for: calf tenderness - Back Exam Back exam: NORMAL INSPECTION - Neurological Exam Neurological exam: Alert Additional comments: awake. Not answering questions appropriate or obeying commands GCS 12 - Psychiatric Exam Psychiatric exam: Agitated - Skin Skin Exam: Abrasion (Over L eyebrow), Dry, Warm Assessment and Plan - Assessment and Plan (Free Text) Assessment: 58 y/o M with PMH of ETOH, hx neuroendocrine tumor s/p L axillary surgery bib EMS for agitation, slurred speech x 2 days. Pt found to have [id number] L sided temporal hemorrhage with small amount of surrounding edema. Pt also found to have anterior wall SC, however anticoagulation not indicated Plan: Intracranial Hemorrhage Pt still confused, verbal however not making sense. Still moving extremities bilaterally. PERRL bilaterally. Responded to name today. CT reveals: "There is an acute left temporal lobe hemorrhage measuring 38 x 65 x 30 mm in size. There is a small amount of surrounding edema. There is no intraventricular extension. There is no herniation." Per neurosurgery, no acute intervention at this time Repeat CT shows no change. Pending MRI to r/o metastatic dz. No family able to be contacted to fill out MRI questionnaire currently on oral anti-hypertensives, amlodipine/lopressor/lisinopril off of 3%NS Continue dexamethasone 10mg IVP q8h Continue keppra 500mg for seizure prophylaxis Neurosurgery/Neurology following. appreciate recs HOB >40 degrees New onset Afib w/ RVR Pulse has been controlled with oral cardizem 120mg continue off of cardizem drip ACS w/ recent [place] troponins downtrended Given ICH, pt not a candidate for anticoagulation & antiplatelets Cardiology following. echo reveals normal LVEF 58% , Ao valve severely thickened, mild-mod AR per cardio: start b-charles & Nitroglycerin ETOH withdrawal Pt has extensive hx of ETOH abuse. Serum ETOH on admission <10 Continue ativan prn CIWA protocol Aspiration precautions, neuro checks q1h Fall precautions On seizure prophylaxis with keppra Leukocytosis dowtrending Pt afebrile, normotensive Likely demargination 2/2 steroids LUE lymphedema Pt has hx of neuroendocrine tumor s/p L axillary surgery Pt found to have RUE clot, PICC line was d/c'd Pending LUE ultrasound official, however not a candidate for antiocoagulation at this time given ICH Pt's home oncologist consulted, Dr. Long, appreciate recs Hypokalemia Repleted with oral solution replete magnesium DVT/GI PPx: SCD/Protonix (pt on steroids) Diet: Speech/spallow eval appreciated, dysphagia diet Dispo: Continue to monitor on telemetry. Family members unable to reached with current phone number. Message left on phone number on file Case has been discuss with social media senior associate in detail. Will appreciate palliative care recs Case discussed with and reviewed with attending physician, Dr. Mariusz Lennon PGY1 <Debra Wright - Last Filed: 10/29/18 15:51> Objective - Vital Signs/Intake and Output Vital Signs (last 24 hours): Temp Pulse Resp BP Pulse Ox 97.9 F 66 18 177/97 H 99 10/29/18 12:00 10/29/18 14:00 10/29/18 12:00 10/29/18 12:00 10/29/18 05:50 Intake and Output: 10/29/18 10/29/18 06:59 18:59 Intake Total 180 Output Total 2 Balance 178 - Medications Medications: Current Medications Amlodipine Besylate (Norvasc) 5 mg PO DAILY [facility] Last Admin: 10/29/18 09:28 Dose: 5 mg Dexamethasone (Decadron Inj) 10 mg IVP DAILY [facility] Stop: 10/31/18 10:01 Dexamethasone (Decadron Inj) 5 mg IVP DAILY [facility] Stop: 11/02/18 10:01 Diltiazem HCl (Cardizem Cd) 120 mg PO DAILY [facility] Last Admin: 10/29/18 09:27 Dose: 120 mg Levetiracetam (Keppra 500mg Ivpb) 500 mg in 100 mls @ 400 mls/hr IVPB Q12 [facility] Last Admin: 10/29/18 09:26 Dose: 400 mls/hr Lisinopril (Zestril) 10 mg PO DAILY [facility] Last Admin: 10/29/18 09:28 Dose: 10 mg Lorazepam (Ativan) 2 mg IVP Q6H PRN; Protocol PRN Reason: Agitation Last Admin: 10/27/18 15:25 Dose: 2 mg Metoprolol Tartrate (Lopressor) 25 mg PO BRKDIN [facility] Last Admin: 10/29/18 09:28 Dose: 25 mg Pantoprazole Sodium (Protonix Ec Tab) 40 mg PO DAILY [facility] Last Admin: 10/29/18 09:28 Dose: 40 mg - Labs Labs: 10/29/18 07:00 10/29/18 07:00 PT 15.9 SECONDS (9.4-12.5) H 10/23/18 11:42 INR 1.41 10/23/18 11:42 APTT 31.4 Seconds (26.9-38.3) 10/23/18 11:42 Attending/Attestation - Attestation I have personally seen and examined this patient.: Yes I have fully participated in the care of the patient.: Yes I have reviewed all pertinent clinical information, including history, physical exam and plan: Yes Notes (Text): Attending note; Patient seen and examined with resident. able to say his name. Otherwise speech is not understandable. moving all the extremities. off restraints. Patient is a 58-year-old male with PMH of neuroendocrine tumor s/p unspecified L axillary surgery & residual L arm lymphedema, ETOH abuse presented to [facility] with agitation & slurred speech. 1. Acute left temporal lobe hemorrhage measuring 38 x 65 x 30 mm in size. There is a small amount of surrounding edema. There is no intraventricular extension. There is no herniation. Per neurosurgery, no acute intervention at this time. Patient is calm today. Moving all extremities. Agitation improved. Repeat CT head is unchanged. Continue IV Ativan as needed. 2. Confusion: Neurology evaluation appreciated. Initially treated with 3% normal saline and nicardipine drip. Head end elevation. Started on IV Keppra For seizure prophylaxis. Mental status is improving slowly. 3. Hypertension; controlled. continue p.o. Cardizem, metoprolol and lisinopril. 4. Alcohol abuse; monitor for withdrawal symptoms. Continue IV Ativan as needed. 5. Elevated troponin; secondary to hemodynamic changes due to stroke . EKG showed no acute ST elevation. Troponins trending down. Cardiology evaluation appreciated. 6. New onset Afib with RVR; currently rate controlled. Continue p.o. Cardizem and metoprolol. 7. History of neuroendocrine tumor. we will follow up with oncology. Continue IV Decadron. needs Outpatient follow-up once stabilized. On tapering dose of Decadron. 8. GI prophylaxis Protonix. SCD for DVT prophylaxis. 9. Left upper extremity lymphedema post surgery. Ultrasound showed right upper extremity clot. Official result pending. PICC line removed. Not a candidate for anticoagulation due to intracranial bleed. Speech and swallow evaluation appreciated. Started on dysphagia diet. PT OT evaluation appreciated. Acute rehab recommended. direct service worker evaluation appreciated. Pending placement. Unable to reach the family member at this time.
[2018-10-29] MEDS ORDERED: Potassium Chloride 20 mEq ER Tab PO STA (11:35)
[2018-10-29] MEDS ORDERED: Potassium Chloride 40 mEq/30 ml LIQ UD PO STA (11:36)
[2018-10-29] MEDS ORDERED: Magnesium Sulfate 2 gm/50 ml 2 GM/50 ML BAG IVPB ONE (11:36)
[2018-10-30 07:41] LABS: HEMOGLOBIN 14.2 g/dL (14.0-18.0); LYMPH # 1.4 (1.2-3.4); LYMPH % 9.8 % (22.0-35.0); MEAN CELL VOLUME 99.5 fl (80.0-105.0); MEAN CORPUSCULAR HEMOGLOBIN 34.3 pg (25.0-35.0); MEAN CORPUSCULAR HGB CONC 34.5 g/dl (31.0-37.0); MEAN PLATELET VOLUME 12.5 fl (7.0-11.0); MONO # 0.4 (0.1-0.6); RBC 4.14 10^6/uL (3.5-6.1); RED CELL DISTRIBUTION WIDTH 12.5 % (11.5-14.5); WHITE BLOOD COUNT 13.9 10^3/uL (4.5-11.0)
[2018-10-30 08:31] LABS: ALBUMIN 3.1 g/dL (3.0-4.8); ALT/SGPT 98 U/L (7-56); AST/SGOT 71 U/L (17-59); BLOOD UREA NITROGEN 20 mg/dL (7-21); CALCIUM 8.5 mg/dL (8.4-10.5); GFR NON-AFRICAN AMERICAN > 60
--- NOTE | 2018-10-30 09:03 | CP.PCM.PN ---
<Jose Russell - Last Filed: 10/30/18 19:43> Subjective - Date & Time of Evaluation Date of Evaluation: 10/30/18 Time of Evaluation: 06:00 - Subjective Subjective: Jose Russell Heme/Onc Progress for Dr. Long Patient seen and examined bedside in am. No acute events overnight. Pt seen eating breakfast. Patient is speaking. Responds to some commands properly. Unable to obtain full ROS. Objective - Vital Signs/Intake and Output Vital Signs (last 24 hours): Temp Pulse Resp BP Pulse Ox 98.0 F 63 19 164/98 H 95 10/30/18 06:00 10/30/18 06:00 10/30/18 06:00 10/30/18 06:00 10/30/18 06:00 Intake and Output: 10/30/18 10/30/18 06:59 18:59 Intake Total 0 Output Total 0 Balance 0 - Medications Medications: Current Medications Amlodipine Besylate (Norvasc) 5 mg PO DAILY [facility] Last Admin: 10/29/18 09:28 Dose: 5 mg Dexamethasone (Decadron Inj) 10 mg IVP DAILY [facility] Stop: 10/31/18 10:01 Dexamethasone (Decadron Inj) 5 mg IVP DAILY [facility] Stop: 11/02/18 10:01 Diltiazem HCl (Cardizem Cd) 120 mg PO DAILY [facility] Last Admin: 10/29/18 09:27 Dose: 120 mg Levetiracetam (Keppra 500mg Ivpb) 500 mg in 100 mls @ 400 mls/hr IVPB Q12 [facility] Last Admin: 10/29/18 21:02 Dose: 400 mls/hr Lisinopril (Zestril) 10 mg PO DAILY [facility] Last Admin: 10/29/18 09:28 Dose: 10 mg Lorazepam (Ativan) 2 mg IVP Q6H PRN; Protocol PRN Reason: Agitation Last Admin: 10/27/18 15:25 Dose: 2 mg Metoprolol Tartrate (Lopressor) 25 mg PO BRKDIN [facility] Last Admin: 10/30/18 07:38 Dose: Not Given Pantoprazole Sodium (Protonix Ec Tab) 40 mg PO DAILY [facility] Last Admin: 10/29/18 09:28 Dose: 40 mg - Labs Labs: 10/30/18 07:00 10/30/18 07:00 PT 15.9 SECONDS (9.4-12.5) H 10/23/18 11:42 INR 1.41 10/23/18 11:42 APTT 31.4 Seconds (26.9-38.3) 10/23/18 11:42 - Constitutional Appears: No Acute Distress - Head Exam Head Exam: ATRAUMATIC, NORMAL INSPECTION, NORMOCEPHALIC - Eye Exam Eye Exam: Normal appearance - Respiratory Exam Respiratory Exam: Clear to Ausculation Bilateral - Cardiovascular Exam Cardiovascular Exam: REGULAR RHYTHM - Neurological Exam Neurological Exam: Alert, Awake Assessment and Plan - Assessment and Plan (Free Text) Plan: 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 -no current plans due to mental status and acute brain bleed -will revisit once stable Left Temporal Hemorrhagic Stroke -management per ICU and Neurology -continue to monitor -MRI to rule out Brain Mets recommended <Parviz Long P - Last Filed: 11/04/18 13:06> Objective - Vital Signs/Intake and Output Vital Signs (last 24 hours): Temp Pulse Resp BP Pulse Ox 97.3 F L 61 18 108/69 99 11/04/18 06:00 11/04/18 10:28 11/04/18 06:00 11/04/18 10:29 11/04/18 06:00 Intake and Output: 11/04/18 11/04/18 06:59 18:59 Intake Total 480 Balance 480 - Medications Medications: Current Medications Amlodipine Besylate (Norvasc) 10 mg PO DAILY [facility] Last Admin: 11/04/18 10:29 Dose: 10 mg Folic Acid (Folic Acid) 1 mg PO DAILY [facility] Last Admin: 11/04/18 10:29 Dose: 1 mg Levetiracetam (Keppra) 500 mg PO BID [facility] Last Admin: 11/04/18 10:28 Dose: 500 mg Lisinopril (Zestril) 20 mg PO DAILY [facility] Last Admin: 11/04/18 10:28 Dose: 20 mg Metoprolol Tartrate (Lopressor) 50 mg PO BRKDIN [facility] Last Admin: 11/04/18 08:52 Dose: 50 mg Multivitamins (Thera Tab) 1 tab PO 0800 [facility] Last Admin: 11/04/18 08:52 Dose: 1 tab Pantoprazole Sodium (Protonix Ec Tab) 40 mg PO DAILY [facility] Last Admin: 11/04/18 10:28 Dose: 40 mg Thiamine HCl (Vitamin B1 Tab) 100 mg PO DAILY [facility] Last Admin: 11/04/18 11:05 Dose: 100 mg - Labs Labs: 11/04/18 07:00 11/04/18 07:00 PT 15.9 SECONDS (9.4-12.5) H 10/23/18 11:42 INR 1.41 10/23/18 11:42 APTT 31.4 Seconds (26.9-38.3) 10/23/18 11:42 Attending/Attestation - Attestation I have personally seen and examined this patient.: Yes I have fully participated in the care of the patient.: Yes I have reviewed all pertinent clinical information, including history, physical exam and plan: Yes
[2018-10-30] MEDS: diltiaZEM 120 mg/24 Hours CD Cap PO SCH (09:30)
[2018-10-30] MEDS: Pantoprazole 40 mg EC Tab PO SCH (09:30)
[2018-10-30] MEDS: levETIRAcetam 500mg IVPB 500 MG/100 ML BAG IVPB SCH ×2 (09:30→22:17)
--- NOTE | 2018-10-30 12:06 | CP.PCM.PN ---
Subjective - Date & Time of Evaluation Date of Evaluation: 10/30/18 Time of Evaluation: 12:00 - Subjective Subjective: Alert, expressive aphasia. Appears comfortable Objective - Vital Signs/Intake and Output Vital Signs (last 24 hours): Temp Pulse Resp BP Pulse Ox 98.0 F 64 19 148/99 H 95 10/30/18 06:00 10/30/18 09:30 10/30/18 06:00 10/30/18 09:30 10/30/18 06:00 Intake and Output: 10/30/18 10/30/18 06:59 18:59 Intake Total 0 Output Total 0 Balance 0 - Medications Medications: Current Medications Amlodipine Besylate (Norvasc) 5 mg PO DAILY [facility] Last Admin: 10/30/18 09:29 Dose: 5 mg Dexamethasone (Decadron Inj) 10 mg IVP DAILY [facility] Stop: 10/31/18 10:01 Last Admin: 10/30/18 09:26 Dose: 10 mg Dexamethasone (Decadron Inj) 5 mg IVP DAILY [facility] Stop: 11/02/18 10:01 Diltiazem HCl (Cardizem Cd) 120 mg PO DAILY [facility] Last Admin: 10/30/18 09:30 Dose: 120 mg Levetiracetam (Keppra 500mg Ivpb) 500 mg in 100 mls @ 400 mls/hr IVPB Q12 [facility] Last Admin: 10/30/18 09:30 Dose: 400 mls/hr Lisinopril (Zestril) 10 mg PO DAILY [facility] Last Admin: 10/30/18 09:27 Dose: 10 mg Lorazepam (Ativan) 2 mg IVP Q6H PRN; Protocol PRN Reason: Agitation Last Admin: 10/27/18 15:25 Dose: 2 mg Metoprolol Tartrate (Lopressor) 25 mg PO BRKDIN [facility] Last Admin: 10/30/18 07:38 Dose: Not Given Pantoprazole Sodium (Protonix Ec Tab) 40 mg PO DAILY [facility] Last Admin: 10/30/18 09:30 Dose: 40 mg - Labs Labs: 10/30/18 07:00 10/30/18 07:00 PT 15.9 SECONDS (9.4-12.5) H 10/23/18 11:42 INR 1.41 10/23/18 11:42 APTT 31.4 Seconds (26.9-38.3) 10/23/18 11:42 - Constitutional Appears: No Acute Distress, Chronically Ill - Eye Exam Eye Exam: Normal appearance, PERRL - ENT Exam ENT Exam: Mucous Membranes Moist, Normal Oropharynx - Respiratory Exam Respiratory Exam: Clear to Ausculation Bilateral, NORMAL BREATHING PATTERN - Cardiovascular Exam Cardiovascular Exam: REGULAR RHYTHM, +S1, +S2 - GI/Abdominal Exam GI & Abdominal Exam: Soft, Normal Bowel Sounds - Extremities Exam Extremities Exam: Full ROM, Normal Capillary Refill - Neurological Exam Neurological Exam: Alert - Skin Skin Exam: Dry, Warm Assessment and Plan - Assessment and Plan (Free Text) Assessment: The is a 58 year old male with history of alcoholism, 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 He is trying to engage in conversation but unable to make his wishes known because of aphasia. He was offered pen and paper. he is able to write alert and words but these are also non intelligible. Staff states the patient has not had any visitors. Plan: Goals of care Will likely be transferred to acute rehab once medically cleared Seizure precautions; continue Keppra and Decadron. Cardiology recs reviewed, continue Metoprolol, Zestril, Norvasc and Cardizem Ativan as needed for agitation
--- NOTE | 2018-10-30 12:37 | CP.PCM.PN ---
<Guille Lennon - Last Filed: 10/30/18 12:34> Subjective - Date & Time of Evaluation Date of Evaluation: 10/30/18 Time of Evaluation: 08:30 - Subjective Subjective: INTERNAL MEDICINE PROGRESS NOTE FOR DR. JOSE MANUEL Lennon PGY1 Pt seen & examined at bedside this am. No acute events overnight. Pt seen eating breakfast. He is still verbal, talking. He responded to verbal command to raise hands, however is not responding to other verbal commands. ROS unable to obtained Objective - Vital Signs/Intake and Output Vital Signs (last 24 hours): Temp Pulse Resp BP Pulse Ox 98.0 F 64 19 148/99 H 95 10/30/18 06:00 10/30/18 09:30 10/30/18 06:00 10/30/18 09:30 10/30/18 06:00 Intake and Output: 10/30/18 10/30/18 06:59 18:59 Intake Total 0 Output Total 0 Balance 0 - Medications Medications: Current Medications Amlodipine Besylate (Norvasc) 5 mg PO DAILY [facility] Last Admin: 10/30/18 09:29 Dose: 5 mg Dexamethasone (Decadron Inj) 10 mg IVP DAILY [facility] Stop: 10/31/18 10:01 Last Admin: 10/30/18 09:26 Dose: 10 mg Dexamethasone (Decadron Inj) 5 mg IVP DAILY [facility] Stop: 11/02/18 10:01 Diltiazem HCl (Cardizem Cd) 120 mg PO DAILY [facility] Last Admin: 10/30/18 09:30 Dose: 120 mg Levetiracetam (Keppra 500mg Ivpb) 500 mg in 100 mls @ 400 mls/hr IVPB Q12 [facility] Last Admin: 10/30/18 09:30 Dose: 400 mls/hr Lisinopril (Zestril) 10 mg PO DAILY [facility] Last Admin: 10/30/18 09:27 Dose: 10 mg Lorazepam (Ativan) 2 mg IVP Q6H PRN; Protocol PRN Reason: Agitation Last Admin: 10/27/18 15:25 Dose: 2 mg Metoprolol Tartrate (Lopressor) 25 mg PO BRKDIN [facility] Last Admin: 10/30/18 07:38 Dose: Not Given Pantoprazole Sodium (Protonix Ec Tab) 40 mg PO DAILY [facility] Last Admin: 10/30/18 09:30 Dose: 40 mg - Labs Labs: 10/30/18 07:00 10/30/18 07:00 PT 15.9 SECONDS (9.4-12.5) H 10/23/18 11:42 INR 1.41 10/23/18 11:42 APTT 31.4 Seconds (26.9-38.3) 10/23/18 11:42 - Constitutional Appears: Combative, Cachectic - Head Exam Additional comments: Well-approximated lesions noted over L eyebrow - Eye Exam Eye Exam: EOMI Pupil Exam: PERRL - ENT Exam ENT Exam: Mucous Membranes Moist, Normal Exam - Neck Exam Neck exam: Positive for: Normal Inspection - Respiratory Exam Respiratory Exam: Clear to Auscultation Bilateral, NORMAL BREATHING PATTERN - Cardiovascular Exam Cardiovascular Exam: REGULAR RHYTHM, +S1, +S2 - GI/Abdominal Exam GI & Abdominal Exam: Soft. absent: Tenderness - Extremities Exam Extremities exam: Negative for: calf tenderness - Back Exam Back exam: NORMAL INSPECTION - Neurological Exam Neurological exam: Alert Additional comments: awake. Not answering questions appropriatly Able to write, however words dont GCS 12 - Psychiatric Exam Psychiatric exam: Agitated - Skin Skin Exam: Abrasion (Over L eyebrow), Dry, Warm Assessment and Plan - Assessment and Plan (Free Text) Assessment: 58 y/o M with PMH of ETOH, hx neuroendocrine tumor s/p L axillary surgery bib EMS for agitation, slurred speech x 2 days. Pt found to have [id number] L sided temporal hemorrhage with small amount of surrounding edema. Pt also found to have anterior wall NJ, however anticoagulation not indicated Plan: Intracranial Hemorrhage Pt still confused, verbal however not making sense. Still moving extremities bilaterally. PERRL bilaterally. Responded to verbal command to raise hand CT Head 10/26: "There is a large acute hemorrhage in the L temporal lob which is unchanged in size. There is no intraventricular extension. There is a mild- moderate amount of surrounding vasogenic edema." Per neurosurgery, no acute intervention at this time MRI unable to be completed as questionnaire cannot be filled out. No family able to be contacted to fill out MRI questionnaire currently on oral anti-hypertensives, amlodipine/lopressor/lisinopril. BP has been elevated, will increase amlodipine to 10mg Continue dexamethasone taper. Continue keppra 500mg for seizure prophylaxis Neurosurgery/Neurology following. appreciate recs HOB >40 degrees New onset Afib w/ RVR Pulse has been controlled with oral cardizem 120mg continue off of cardizem drip ACS w/ recent NJ troponins downtrended Given ICH, pt not a candidate for anticoagulation & antiplatelets Cardiology following echo reveals normal LVEF 58% , Ao valve severely thickened, mild-mod AR per cardio: start b-charles & Nitroglycerin ETOH withdrawal Pt has extensive hx of ETOH abuse. Serum ETOH on admission <10 Continue ativan prn CIWA protocol Aspiration precautions, neuro checks q1h Fall precautions On seizure prophylaxis with keppra Leukocytosis Has been afebrile, not tachycardic. Likely 2/2 Pt afebrile, normotensive Likely demargination 2/2 steroids LUE lymphedema Pt has hx of neuroendocrine tumor s/p L axillary surgery Pt found to have RUE clot, PICC line was d/c'd Pending LUE ultrasound official, however not a candidate for antiocoagulation at this time given ICH Pt's home oncologist consulted, Dr. Long, appreciate recs DVT/GI PPx: SCD/Protonix (pt on steroids) Diet: Speech/spallow eval appreciated, dysphagia diet Dispo: Continue to monitor on telemetry. Family members unable to reached with current phone number. Message left on phone number on file Case has been discuss with social work job titles in detail. Will appreciate palliative care recs Case reviewed with attending physician, Dr Jose Manuel Lennon PGY1 <Brunilda Richard R - Last Filed: 10/31/18 06:56> Objective - Vital Signs/Intake and Output Vital Signs (last 24 hours): Temp Pulse Resp BP Pulse Ox 98.1 F 62 18 132/87 98 10/31/18 05:07 10/31/18 05:07 10/31/18 05:07 10/31/18 05:07 10/31/18 05:07 Intake and Output: 10/30/18 10/31/18 18:59 06:59 Intake Total 600 Balance 600 - Medications Medications: Current Medications Amlodipine Besylate (Norvasc) 10 mg PO DAILY [facility] Dexamethasone (Decadron Inj) 10 mg IVP DAILY [facility] Stop: 10/31/18 10:01 Last Admin: 10/30/18 09:26 Dose: 10 mg Dexamethasone (Decadron Inj) 5 mg IVP DAILY [facility] Stop: 11/02/18 10:01 Diltiazem HCl (Cardizem Cd) 120 mg PO DAILY [facility] Last Admin: 10/30/18 09:30 Dose: 120 mg Levetiracetam (Keppra 500mg Ivpb) 500 mg in 100 mls @ 400 mls/hr IVPB Q12 [facility] Last Admin: 10/30/18 22:17 Dose: 400 mls/hr Lisinopril (Zestril) 10 mg PO DAILY [facility] Last Admin: 10/30/18 09:27 Dose: 10 mg Lorazepam (Ativan) 2 mg IVP Q6H PRN; Protocol PRN Reason: Agitation Last Admin: 10/27/18 15:25 Dose: 2 mg Metoprolol Tartrate (Lopressor) 25 mg PO BRKDIN [facility] Last Admin: 10/30/18 18:15 Dose: 25 mg Pantoprazole Sodium (Protonix Ec Tab) 40 mg PO DAILY [facility] Last Admin: 10/30/18 09:30 Dose: 40 mg - Labs Labs: 10/30/18 07:00 10/30/18 07:00 PT 15.9 SECONDS (9.4-12.5) H 10/23/18 11:42 INR 1.41 10/23/18 11:42 APTT 31.4 Seconds (26.9-38.3) 10/23/18 11:42 Attending/Attestation - Attestation I have personally seen and examined this patient.: Yes I have fully participated in the care of the patient.: Yes I have reviewed all pertinent clinical information, including history, physical exam and plan: Yes Notes (Text): Patient seen and examined by me with resident at approximately 9:25AM on 10/30/18. Case including HPI, physical exam, and assessment and plan discussed with resident. Agree with above with following additions/corrections. Patient is 58-year-old male with past medical history significant for neural endocrine tumor, status post left axillary surgery and residual left arm lymphedema, and alcohol abuse that presented to the emergency room with agitation and slurred speech. Patient awake and alert. Patient speaking but not making any sense. Unable to obtain any review of systems from patient. Patient is afebrile. Physical exam: General: Awake and alert sitting up in bed in no acute distress HEENT: Normocephalic, atraumatic. Extraocular muscles intact. Pupils equal and reactive, no scleral icterus. Oropharynx is pink and moist. No pharyngeal erythema or exudate appreciated. Neck is supple. Cardiovascular: Normal rhythm. Normal S1 and S2. No murmurs, rubs, or gallops appreciated Pulmonary: Normal respiratory effort. No rhonchi, rales, or wheezing appreciated. Auscultated anteriorly. Patient not following commands and not taking in deep breaths. Gastrointestinal: Soft, nondistended. Nontender. Positive bowel sounds all 4 quadrants. No guarding. Musculoskeletal: Moves all extremities. Positive LUE chronic lymphedema. Central nervous system: Awake and alert. Does not follow commands. Positive wernicke's aphasia. Dermatologic: Skin warm and dry. Assessment and plan: Patient is 58-year-old male with past medical history significant for neural endocrine tumor, status post left axillary surgery and residual left arm lymphedema, and alcohol abuse that presented to the emergency room with agitation and slurred speech. 1. Acute left temporal lobe hemorrhagic CVA. With Wernickes aphasia. Neurology recommendations appreicated. Continue to taper decadron. Continue Keppra for seizure prophylaxis. Neurosurgery recommendations appreciated, no surgical intervention recommended. Unable to obtain MRI as MRI questionnaire can not be filled out. Pending possible acute rehab placement. Head CT 10/23/18 per radiologist showed an acute left temporal lobe hemorrhage measuring 38 x 65 x 13 mm in size, small amount of surrounding edema, no intraventricular extension, no herniation. Head CT 10/24/2018 radiologist showed large left temporal lobe acute hematoma measuring 4.1 7.8 x 3.1 cm, mild surrounding vasogenic edema and effacement of the left lateral ventricle without midline shift or herniation; intraventricular extension of hemorrhage with small layering hemorrhage and occipital horns of the lateral ventricles, no hydrocephalus. Head CT 10/25/18 and 10/26/18 did not show any acute significant changes. 2. New onset a-fib with RVR. Converted to normal sinus rhythm. Continue PO Cardizem. Not a candidate for anticoagulation secondary to hemorrhagic stroke. Cardiology recommendations appreciated. 2-D echo per supervisor/port director showed mild concentric left ventricular hypertrophy, left ventricular function is normal, left ventricular ejection fraction is within normal range, normal LV segmental wall motion, aortic valve severely thickened, mild to moderate aortic regurgitation, mild to moderate valvular aortic stenosis. 3. ACS. Elevated troponins. Recent anterior wall NJ. Anticoagulation and antiplatelets contraindicated. 2D echo as above. Cardiology recommendations appreciated. 4. Hypertension. Continue Cardizem, Lisinopril, Norvasc, and lopressor. 5. Alcohol abuse. Continue CIWA protocol. Continue ativan prn agitation. Continue to monitor for withdrawal symptoms. 6. History of neuroendocrine tumor with left axillary surgery and residual left arm lymphedema . Oncology recommendations appreciated. Patient will need outpatient follow up. 7. RUE DVT. PICC line removed. Anticoagulation contraindicated. 8. Hypokalemia. Resolved. Continue to monitor.
--- NOTE | 2018-10-30 17:19 | PN ---
DATE: 10/30/2018 CARDIOLOGY FOLLOWUP SUBJECTIVE: The patient is awake, in no acute distress. PHYSICAL EXAMINATION VITAL SIGNS: Blood pressure 148/99 and heart rate in the 50s. NECK: Negative JVD. LUNGS: Without rales. HEART: Reveals S1 and S2. EXTREMITIES: Without edema. LABORATORY DATA: Hemoglobin is 14.2. Chemistries, BUN and creatinine are unremarkable. IMPRESSION: 1. Status post intracerebral bleed. 2. Cerebrovascular accident. 3. Accelerated hypertension. 4. Atrial fibrillation. 5. History of recent anterior wall myocardial infarction. Given these findings, the patient is hemodynamically stable. He has no evidence for acute cardiac ischemia at this time. We will discontinue telemetry. Justin Shelley MD
[2018-10-31 07:14] LABS: BASO # 0.01 K/mm3 (0.0-2.0); BASO % 0.1 % (0.0-3.0); LYMPH # 1.4 (1.2-3.4); LYMPH % 10.3 % (22.0-35.0); MEAN CELL VOLUME 99.3 fl (80.0-105.0); MEAN CORPUSCULAR HEMOGLOBIN 34.5 pg (25.0-35.0); MEAN CORPUSCULAR HGB CONC 34.7 g/dl (31.0-37.0); MEAN PLATELET VOLUME 12.3 fl (7.0-11.0); MONO # 0.5 (0.1-0.6); RBC 4.35 10^6/uL (3.5-6.1); RED CELL DISTRIBUTION WIDTH 12.4 % (11.5-14.5); WHITE BLOOD COUNT 13.4 10^3/uL (4.5-11.0)
[2018-10-31 07:40] LABS: ALB/GLOB RATIO 1.1 (1.1-1.8); ALBUMIN 3.4 g/dL (3.0-4.8); ALT/SGPT 129 U/L (7-56); AST/SGOT 86 U/L (17-59); BLOOD UREA NITROGEN 15 mg/dL (7-21); CALCIUM 8.7 mg/dL (8.4-10.5); GFR NON-AFRICAN AMERICAN > 60
--- NOTE | 2018-10-31 08:30 | CP.PCM.PN ---
<Jose Russell - Last Filed: 10/31/18 19:00> Subjective - Date & Time of Evaluation Date of Evaluation: 10/31/18 Time of Evaluation: 06:00 - Subjective Subjective: Jose Russell PGY2 Heme/Onc Progress Note for Dr. Long Patient seen and evaluated bedside in AM. No acute issues overnight. Patient verbal but makes very little sense. Objective - Vital Signs/Intake and Output Vital Signs (last 24 hours): Temp Pulse Resp BP Pulse Ox 98.1 F 62 18 132/87 98 10/31/18 05:07 10/31/18 05:07 10/31/18 05:07 10/31/18 05:07 10/31/18 05:07 Intake and Output: 10/31/18 10/31/18 06:59 18:59 Intake Total 600 Balance 600 - Medications Medications: Current Medications Amlodipine Besylate (Norvasc) 10 mg PO DAILY [facility] Dexamethasone (Decadron Inj) 10 mg IVP DAILY [facility] Stop: 10/31/18 10:01 Last Admin: 10/30/18 09:26 Dose: 10 mg Dexamethasone (Decadron Inj) 5 mg IVP DAILY [facility] Stop: 11/02/18 10:01 Diltiazem HCl (Cardizem Cd) 120 mg PO DAILY [facility] Last Admin: 10/30/18 09:30 Dose: 120 mg Folic Acid (Folic Acid) 1 mg PO DAILY [facility] Levetiracetam (Keppra 500mg Ivpb) 500 mg in 100 mls @ 400 mls/hr IVPB Q12 [facility] Last Admin: 10/30/18 22:17 Dose: 400 mls/hr Lisinopril (Zestril) 10 mg PO DAILY [facility] Last Admin: 10/30/18 09:27 Dose: 10 mg Lorazepam (Ativan) 2 mg IVP Q6H PRN; Protocol PRN Reason: Agitation Last Admin: 10/27/18 15:25 Dose: 2 mg Metoprolol Tartrate (Lopressor) 25 mg PO BRKDIN [facility] Last Admin: 10/30/18 18:15 Dose: 25 mg Pantoprazole Sodium (Protonix Ec Tab) 40 mg PO DAILY [facility] Last Admin: 10/30/18 09:30 Dose: 40 mg Thiamine HCl (Vitamin B1 Tab) 100 mg PO DAILY [facility] Vitamin B Complex/Vit C/Folic Acid (Nephro-Edwin) 1 tab PO 0800 [facility] - Labs Labs: 10/31/18 06:45 10/31/18 06:45 PT 15.9 SECONDS (9.4-12.5) H 10/23/18 11:42 INR 1.41 10/23/18 11:42 APTT 31.4 Seconds (26.9-38.3) 10/23/18 11:42 - Constitutional Appears: No Acute Distress - Head Exam Head Exam: ATRAUMATIC, NORMAL INSPECTION, NORMOCEPHALIC - Eye Exam Eye Exam: EOMI, Normal appearance - ENT Exam ENT Exam: Mucous Membranes Moist - Respiratory Exam Respiratory Exam: Clear to Ausculation Bilateral, NORMAL BREATHING PATTERN - Cardiovascular Exam Cardiovascular Exam: REGULAR RHYTHM Assessment and Plan - Assessment and Plan (Free Text) Plan: 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 -no current plans due to mental status and acute brain bleed -will revisit once stable Left Temporal Hemorrhagic Stroke -management per ICU and Neurology -continue to monitor -MRI to rule out Brain Mets recommended Will follow <Parviz Long P - Last Filed: 11/04/18 12:37> Objective - Vital Signs/Intake and Output Vital Signs (last 24 hours): Temp Pulse Resp BP Pulse Ox 97.3 F L 61 18 108/69 99 11/04/18 06:00 11/04/18 10:28 11/04/18 06:00 11/04/18 10:29 11/04/18 06:00 Intake and Output: 11/04/18 11/04/18 06:59 18:59 Intake Total 480 Balance 480 - Medications Medications: Current Medications Amlodipine Besylate (Norvasc) 10 mg PO DAILY [facility] Last Admin: 11/04/18 10:29 Dose: 10 mg Folic Acid (Folic Acid) 1 mg PO DAILY [facility] Last Admin: 11/04/18 10:29 Dose: 1 mg Levetiracetam (Keppra) 500 mg PO BID [facility] Last Admin: 11/04/18 10:28 Dose: 500 mg Lisinopril (Zestril) 20 mg PO DAILY [facility] Last Admin: 11/04/18 10:28 Dose: 20 mg Metoprolol Tartrate (Lopressor) 50 mg PO BRKDIN [facility] Last Admin: 11/04/18 08:52 Dose: 50 mg Multivitamins (Thera Tab) 1 tab PO 0800 [facility] Last Admin: 11/04/18 08:52 Dose: 1 tab Pantoprazole Sodium (Protonix Ec Tab) 40 mg PO DAILY [facility] Last Admin: 11/04/18 10:28 Dose: 40 mg Thiamine HCl (Vitamin B1 Tab) 100 mg PO DAILY [facility] Last Admin: 11/04/18 11:05 Dose: 100 mg - Labs Labs: 11/04/18 07:00 11/04/18 07:00 PT 15.9 SECONDS (9.4-12.5) H 10/23/18 11:42 INR 1.41 10/23/18 11:42 APTT 31.4 Seconds (26.9-38.3) 10/23/18 11:42 Attending/Attestation - Attestation I have personally seen and examined this patient.: Yes I have fully participated in the care of the patient.: Yes I have reviewed all pertinent clinical information, including history, physical exam and plan: Yes
[2018-10-31] MEDS: Pantoprazole 40 mg EC Tab PO SCH (09:36)
[2018-10-31] MEDS: diltiaZEM 120 mg/24 Hours CD Cap PO SCH (09:36)
--- NOTE | 2018-10-31 12:00 | CP.PCM.PN ---
<Guille Lennon - Last Filed: 10/31/18 11:50> Subjective - Date & Time of Evaluation Date of Evaluation: 10/31/18 Time of Evaluation: 08:30 - Subjective Subjective: INTERNAL MEDICINE PROGRESS NOTE FOR DR. JOSE MANUEL Lennon PGY1 Pt seen and examined at bedside this am. No acute events overnight. Pt still verbal, talking however not making sense. He is still not obeying commands. ROS unable to be obtained Objective - Vital Signs/Intake and Output Vital Signs (last 24 hours): Temp Pulse Resp BP Pulse Ox 98.1 F 72 18 170/100 H 98 10/31/18 05:07 10/31/18 09:36 10/31/18 05:07 10/31/18 09:37 10/31/18 05:07 Intake and Output: 10/31/18 10/31/18 06:59 18:59 Intake Total 600 Balance 600 - Medications Medications: Current Medications Amlodipine Besylate (Norvasc) 10 mg PO DAILY [facility] Last Admin: 10/31/18 09:37 Dose: 10 mg Dexamethasone (Decadron Inj) 5 mg IVP DAILY [facility] Stop: 11/02/18 10:01 Folic Acid (Folic Acid) 1 mg PO DAILY [facility] Last Admin: 10/31/18 09:36 Dose: 1 mg Levetiracetam (Keppra) 500 mg PO BID [facility] Last Admin: 10/31/18 10:19 Dose: 500 mg Lisinopril (Zestril) 20 mg PO DAILY [facility] Lorazepam (Ativan) 2 mg IVP Q6H PRN; Protocol PRN Reason: Agitation Last Admin: 10/27/18 15:25 Dose: 2 mg Metoprolol Tartrate (Lopressor) 50 mg PO BRKDIN [facility] Multivitamins (Thera Tab) 1 tab PO 0800 [facility] Pantoprazole Sodium (Protonix Ec Tab) 40 mg PO DAILY [facility] Last Admin: 10/31/18 09:36 Dose: 40 mg Thiamine HCl (Vitamin B1 Tab) 100 mg PO DAILY [facility] Last Admin: 10/31/18 09:35 Dose: 100 mg - Labs Labs: 10/31/18 06:45 10/31/18 06:45 PT 15.9 SECONDS (9.4-12.5) H 10/23/18 11:42 INR 1.41 10/23/18 11:42 APTT 31.4 Seconds (26.9-38.3) 10/23/18 11:42 - Constitutional Appears: Cachectic - Head Exam Additional comments: Well-approximated lesions noted over L eyebrow - Eye Exam Eye Exam: EOMI Pupil Exam: PERRL - ENT Exam ENT Exam: Mucous Membranes Moist, Normal Exam - Neck Exam Neck exam: Positive for: Normal Inspection - Respiratory Exam Respiratory Exam: Clear to Auscultation Bilateral, NORMAL BREATHING PATTERN - Cardiovascular Exam Cardiovascular Exam: REGULAR RHYTHM, +S1, +S2 - GI/Abdominal Exam GI & Abdominal Exam: Soft. absent: Tenderness - Extremities Exam Extremities exam: Negative for: calf tenderness - Back Exam Back exam: NORMAL INSPECTION - Neurological Exam Neurological exam: Alert Additional comments: awake. Not answering questions appropriately. Not obeying commands GCS 12 - Psychiatric Exam Psychiatric exam: Agitated - Skin Skin Exam: Abrasion (Over L eyebrow), Dry, Warm Assessment and Plan - Assessment and Plan (Free Text) Assessment: 58 y/o M with PMH of ETOH, hx neuroendocrine tumor s/p L axillary surgery bib EMS for agitation, slurred speech x 2 days. Pt found to have [id number] L sided temporal hemorrhage with small amount of surrounding edema. Pt also found to have anterior wall ID, however anticoagulation not indicated Plan: L temporal hemorrhagic CVA Pt still confused, verbal however not making sense. Still moving extremities bilaterally. PERRL bilaterally. Responded to verbal command to raise hand CT Head 10/26: "There is a large acute hemorrhage in the L temporal lob which is unchanged in size. There is no intraventricular extension. There is a mild- moderate amount of surrounding vasogenic edema." Per neurosurgery, no acute intervention at this time MRI unable to be completed as questionnaire cannot be filled out. No family able to be contacted to fill out MRI questionnaire currently on oral anti-hypertensives, amlodipine/lopressor/lisinopril. BP has been elevated, will increase amlodipine to 10mg Continue dexamethasone taper. Continue keppra 500mg for seizure prophylaxis Neurosurgery/Neurology following. appreciate recs HOB >40 degrees New onset Afib w/ RVR Pulse has been controlled with oral cardizem 120mg continue off of cardizem drip ACS w/ recent ID troponins downtrended Given ICH, pt not a candidate for anticoagulation & antiplatelets Cardiology following echo reveals normal LVEF 58% , Ao valve severely thickened, mild-mod AR per cardio: continue b-charles, ACEi ETOH withdrawal Pt has extensive hx of ETOH abuse. Serum ETOH on admission <10 Continue ativan prn CIWA protocol Aspiration precautions, neuro checks q1h Fall precautions On seizure prophylaxis with keppra Leukocytosis Has been afebrile, not tachycardic, pt afebrile, normotensive Likely demargination 2/2 steroids Hx of neuroendocrine tumor s/p L axillary surgery with residual L arm lymphedema Pending LUE ultrasound official, however not a candidate for antiocoagulation at this time given ICH Pt's home oncologist consulted, Dr. Long, appreciate recs RUE dvt present. PICC removed DVT/GI PPx: SCD/Protonix (pt on steroids) Diet: Speech/spallow eval appreciated, dysphagia diet Dispo: Continue to monitor on telemetry. Family members unable to reached with current phone number. Message left on phone number on file Case has been discuss with social media marketing specialist in detail. Will appreciate palliative care recs Case reviewed with attending physician, Dr Jose Manuel Lennon PGY1 <Brunilda Richard R - Last Filed: 11/01/18 07:36> Objective - Vital Signs/Intake and Output Vital Signs (last 24 hours): Temp Pulse Resp BP Pulse Ox 98.1 F 56 L 19 144/87 98 10/31/18 23:58 10/31/18 23:58 10/31/18 23:58 10/31/18 23:58 10/31/18 23:58 Intake and Output: 11/01/18 11/01/18 06:59 18:59 Intake Total 1200 Output Total 2 Balance 1198 - Medications Medications: Current Medications Amlodipine Besylate (Norvasc) 10 mg PO DAILY [facility] Last Admin: 10/31/18 09:37 Dose: 10 mg Dexamethasone (Decadron Inj) 5 mg IVP DAILY [facility] Stop: 11/02/18 10:01 Folic Acid (Folic Acid) 1 mg PO DAILY [facility] Last Admin: 10/31/18 09:36 Dose: 1 mg Levetiracetam (Keppra) 500 mg PO BID [facility] Last Admin: 10/31/18 17:50 Dose: 500 mg Lisinopril (Zestril) 20 mg PO DAILY [facility] Lorazepam (Ativan) 2 mg IVP Q6H PRN; Protocol PRN Reason: Agitation Last Admin: 10/27/18 15:25 Dose: 2 mg Metoprolol Tartrate (Lopressor) 50 mg PO BRKDIN [facility] Last Admin: 10/31/18 17:49 Dose: 50 mg Multivitamins (Thera Tab) 1 tab PO 0800 [facility] Pantoprazole Sodium (Protonix Ec Tab) 40 mg PO DAILY [facility] Last Admin: 10/31/18 09:36 Dose: 40 mg Thiamine HCl (Vitamin B1 Tab) 100 mg PO DAILY [facility] Last Admin: 10/31/18 09:35 Dose: 100 mg - Labs Labs: 11/01/18 07:10 10/31/18 06:45 PT 15.9 SECONDS (9.4-12.5) H 10/23/18 11:42 INR 1.41 10/23/18 11:42 APTT 31.4 Seconds (26.9-38.3) 10/23/18 11:42 Attending/Attestation - Attestation I have personally seen and examined this patient.: Yes I have fully participated in the care of the patient.: Yes I have reviewed all pertinent clinical information, including history, physical exam and plan: Yes Notes (Text): Patient seen and examined by me with resident at approximately 9:40AM on 10/31/18. Case including HPI, physical exam, and assessment and plan discussed with resident. Agree with above with following additions/corrections. Patient is 58-year-old male with past medical history significant for neural endocrine tumor, status post left axillary surgery and residual left arm lymphedema, and alcohol abuse that presented to the emergency room with agitation and slurred speech. Patient awake and alert. Patient talks but does not make any sense. Unable to obtain any review of systems from patient. Patient is afebrile. Physical exam: General: Awake and alert sitting up in bed in no acute distress HEENT: Normocephalic, atraumatic. Extraocular muscles intact. Pupils equal and reactive, no scleral icterus. Patient not opening mouth, unable to examine oropharynx. Neck is supple. Cardiovascular: Normal rhythm. Normal S1 and S2. No murmurs, rubs, or gallops appreciated Pulmonary: Normal respiratory effort. No rhonchi, rales, or wheezing ap preciated. Auscultated anteriorly. Patient not following commands and does not take in deep breaths. Gastrointestinal: Soft, nondistended. Nontender. Positive bowel sounds all 4 quadrants. No guarding. Musculoskeletal: Moves all extremities. Positive LUE chronic lymphedema. Central nervous system: Awake and alert. Does not follow commands. Positive aphasia. Dermatologic: Skin warm and dry. Assessment and plan: Patient is 58-year-old male with past medical history significant for neural endocrine tumor, status post left axillary surgery and residual left arm lymphedema, and alcohol abuse that presented to the emergency room with agitation and slurred speech. 1. Acute left temporal lobe hemorrhagic CVA. With aphasia. Neurology recommendations appreciated. Continue to taper decadron. Continue Keppra for seizure prophylaxis. Unable to obtain MRI as MRI questionnaire can not be filled out. Pending possible rehab placement. Neurosurgery recommendations appreciated, no surgical intervention recommended. Head CT 10/23/18 per radiologist showed an acute left temporal lobe hemorrhage measuring 38 x 65 x 13 mm in size, small amount of surrounding edema, no intraventricular extension, no herniation. Head CT 10/24/2018 radiologist showed large left temporal lobe acute hematoma measuri ng 4.1 7.8 x 3.1 cm, mild surrounding vasogenic edema and effacement of the left lateral ventricle without midline shift or herniation; intraventricular extension of hemorrhage with small layering hemorrhage and occipital horns of the lateral ventricles, no hydrocephalus. Head CT 10/25/18 and 10/26/18 did not show any acute significant changes. 2. New onset a-fib with RVR. Converted back to normal sinus rhythm. Cardizem stopped by truck engine assembler. Continue Lopressor. Not a candidate for anticoagulation secondary to hemorrhagic stroke. Cardiology recommendations appreciated. 2-D echo per truck engine assembler showed mild concentric left ventricular hypertrophy, left ventricular function is normal, left ventricular ejection fraction is within normal range, normal LV segmental wall motion, aortic valve severely thickened, mild to moderate aortic regurgitation, mild to moderate valvular aortic stenosis. 3. ACS. Elevated troponins. Recent anterior wall ID. Cardiology recommendations appreciated. Anticoagulation and antiplatelets contraindicated. 2D echo as above. 4. Accelerated Hypertension. Continue Lisinopril, Norvasc, and Lopressor. 5. Alcohol abuse. Continue CIWA protocol. Continue ativan prn agitation. Continue to monitor for withdrawal symptoms. 6. History of neuroendocrine tumor with left axillary surgery and residual left arm lymphedema . Oncology recommendations appreciated. Patient will need outpatient follow up. 7. RUE DVT. PICC line removed. Anticoagulation contraindicated. 8. Hypokalemia. Resolved. Continue to monitor.
[2018-10-31 12:09] LABS: HEPATITIS B SURFACE AG Negative (NEGATIVE)
[2018-10-31 12:15] LABS: HEPATITIS A IGM NEGATIVE (NEGATIVE); HEPATITIS B CORE AB NEGATIVE (NEGATIVE)
[2018-10-31 12:26] LABS: HEPATITIS C ANTIBODY NEGATIVE (NEGATIVE)
--- NOTE | 2018-10-31 13:26 | PN ---
DATE: 10/31/2018 CARDIOLOGY FOLLOWUP SUBJECTIVE: The patient is comfortable in bed without symptoms. PHYSICAL EXAMINATION VITAL SIGNS: Blood pressure is 170/100 and heart rates in the 70s. NECK: Negative JVD. LUNGS: Without rales. HEART: Reveals S1 and S2. EXTREMITIES: Without edema. LABORATORY DATA: BUN and creatinine are unremarkable. Hemoglobin is 15. IMPRESSION: 1. Accelerated hypertension. 2. Status post intracerebral bleed. 3. Cerebrovascular accident. 4. Atrial fibrillation. 5. Recent anterior wall myocardial infarction. Given these findings, the patient is currently on beta-blockers as well as lisinopril as well as Norvasc for blood pressure control. We will discontinue the Cardizem and increase his lisinopril for better blood pressure control. Justin Shelley MD
[2018-11-01 07:26] LABS: BASO # 0.01 K/mm3 (0.0-2.0); BASO % 0.1 % (0.0-3.0); EOS % 0.1 % (1.5-5.0); LYMPH # 1.8 (1.2-3.4); LYMPH % 11.1 % (22.0-35.0); MEAN CELL VOLUME 98.1 fl (80.0-105.0); MEAN CORPUSCULAR HEMOGLOBIN 34.6 pg (25.0-35.0); MEAN CORPUSCULAR HGB CONC 35.3 g/dl (31.0-37.0); MEAN PLATELET VOLUME 12.8 fl (7.0-11.0); MONO # 0.5 (0.1-0.6); MONO % 3.2 % (1.0-6.0); RBC 4.62 10^6/uL (3.5-6.1); RED CELL DISTRIBUTION WIDTH 12.4 % (11.5-14.5); WHITE BLOOD COUNT 15.8 10^3/uL (4.5-11.0)
[2018-11-01] MEDS ORDERED: Multivitamin Vitamin B Complex (Nephro-Vite) Tab PO SCH (08:00)
[2018-11-01 08:01] LABS: ALBUMIN 3.1 g/dL (3.0-4.8); ALT/SGPT 148 U/L (7-56); AST/SGOT 94 U/L (17-59); BLOOD UREA NITROGEN 14 mg/dL (7-21); CALCIUM 8.6 mg/dL (8.4-10.5); GFR NON-AFRICAN AMERICAN > 60
--- NOTE | 2018-11-01 09:09 | CP.PCM.PN ---
<Jose Russell - Last Filed: 11/01/18 14:32> Subjective - Date & Time of Evaluation Date of Evaluation: 11/01/18 Time of Evaluation: 06:00 - Subjective Subjective: Jose Russell PGY2 Heme/Onc Progress Note for Dr. Long Patient seen and evaluated bedside. No acute issues overnight. Clinically unchanged from yesterday. Objective - Vital Signs/Intake and Output Vital Signs (last 24 hours): Temp Pulse Resp BP Pulse Ox 98.0 F 71 19 142/88 99 11/01/18 06:00 11/01/18 08:13 11/01/18 06:00 11/01/18 08:13 11/01/18 06:00 Intake and Output: 11/01/18 11/01/18 06:59 18:59 Intake Total 1200 Output Total 2 Balance 1198 - Medications Medications: Current Medications Amlodipine Besylate (Norvasc) 10 mg PO DAILY [facility] Last Admin: 10/31/18 09:37 Dose: 10 mg Dexamethasone (Decadron Inj) 5 mg IVP DAILY [facility] Stop: 11/02/18 10:01 Folic Acid (Folic Acid) 1 mg PO DAILY [facility] Last Admin: 10/31/18 09:36 Dose: 1 mg Levetiracetam (Keppra) 500 mg PO BID [facility] Last Admin: 10/31/18 17:50 Dose: 500 mg Lisinopril (Zestril) 20 mg PO DAILY [facility] Lorazepam (Ativan) 2 mg IVP Q6H PRN; Protocol PRN Reason: Agitation Last Admin: 10/27/18 15:25 Dose: 2 mg Metoprolol Tartrate (Lopressor) 50 mg PO BRKDIN [facility] Last Admin: 11/01/18 08:13 Dose: 50 mg Multivitamins (Thera Tab) 1 tab PO 0800 [facility] Pantoprazole Sodium (Protonix Ec Tab) 40 mg PO DAILY [facility] Last Admin: 10/31/18 09:36 Dose: 40 mg Thiamine HCl (Vitamin B1 Tab) 100 mg PO DAILY [facility] Last Admin: 10/31/18 09:35 Dose: 100 mg - Labs Labs: 11/01/18 07:10 11/01/18 07:10 PT 15.9 SECONDS (9.4-12.5) H 10/23/18 11:42 INR 1.41 10/23/18 11:42 APTT 31.4 Seconds (26.9-38.3) 10/23/18 11:42 - Constitutional Appears: No Acute Distress - Eye Exam Eye Exam: Normal appearance - ENT Exam ENT Exam: Mucous Membranes Moist Assessment and Plan - Assessment and Plan (Free Text) Plan: 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 -no current plans due to mental status and acute brain bleed -will revisit once stable Left Temporal Hemorrhagic Stroke -management per ICU and Neurology -continue to monitor -MRI to rule out Brain Mets recommended <Parviz Long P - Last Filed: 11/04/18 12:30> Objective - Vital Signs/Intake and Output Vital Signs (last 24 hours): Temp Pulse Resp BP Pulse Ox 97.3 F L 61 18 108/69 99 11/04/18 06:00 11/04/18 10:28 11/04/18 06:00 11/04/18 10:29 11/04/18 06:00 Intake and Output: 11/04/18 11/04/18 06:59 18:59 Intake Total 480 Balance 480 - Medications Medications: Current Medications Amlodipine Besylate (Norvasc) 10 mg PO DAILY [facility] Last Admin: 11/04/18 10:29 Dose: 10 mg Folic Acid (Folic Acid) 1 mg PO DAILY [facility] Last Admin: 11/04/18 10:29 Dose: 1 mg Levetiracetam (Keppra) 500 mg PO BID [facility] Last Admin: 11/04/18 10:28 Dose: 500 mg Lisinopril (Zestril) 20 mg PO DAILY [facility] Last Admin: 11/04/18 10:28 Dose: 20 mg Metoprolol Tartrate (Lopressor) 50 mg PO BRKDIN [facility] Last Admin: 11/04/18 08:52 Dose: 50 mg Multivitamins (Thera Tab) 1 tab PO 0800 [facility] Last Admin: 11/04/18 08:52 Dose: 1 tab Pantoprazole Sodium (Protonix Ec Tab) 40 mg PO DAILY [facility] Last Admin: 11/04/18 10:28 Dose: 40 mg Thiamine HCl (Vitamin B1 Tab) 100 mg PO DAILY [facility] Last Admin: 11/04/18 11:05 Dose: 100 mg - Labs Labs: 11/04/18 07:00 11/04/18 07:00 PT 15.9 SECONDS (9.4-12.5) H 10/23/18 11:42 INR 1.41 10/23/18 11:42 APTT 31.4 Seconds (26.9-38.3) 10/23/18 11:42 Attending/Attestation - Attestation I have personally seen and examined this patient.: Yes I have fully participated in the care of the patient.: Yes I have reviewed all pertinent clinical information, including history, physical exam and plan: Yes
--- NOTE | 2018-11-01 09:48 | US ---
PROCEDURE: Left upper extremity venous ultrasound HISTORY: Arm pain and swelling. Evaluate for deep venous thrombosis. PHYSICIAN(S): Justin Chester MD. FINDINGS: The visualized leftinternal jugular vein is sonographically normal and compressible. No evidence of obstruction or thrombus is seen. The visualized segments of the left subclavian vein are patent with normal waveforms. No sonographic evidence of obstruction or thrombosis is seen. The visualized deep venous system of the proximal leftupper extremity is sonographically normal and compressible. There is a [id number] amount of catheter related thrombus in the limited images of the right subclavian vein IMPRESSION: 1. No sonographic evidence for deep venous thrombosis in the visualized segments of the left upper extremity. 2. Mild catheter-related thrombus in the right subclavian vein
[2018-11-01] MEDS: Pantoprazole 40 mg EC Tab PO SCH (09:59)
[2018-11-01] MEDS: Multivitamin Therapeutic Tab PO SCH (10:02)
[2018-11-01] MEDS: Sodium Chloride 0.45% 1,000 ML IV SCH (10:12)
--- NOTE | 2018-11-01 11:30 | CP.PCM.PN ---
<Guille Lennon - Last Filed: 11/01/18 11:37> Subjective - Date & Time of Evaluation Date of Evaluation: 11/01/18 Time of Evaluation: 11:27 - Subjective Subjective: INTERNAL MEDICINE PROGRESS NOTE FOR DR. JOSE MANUEL Lennon PGY1 Pt seen and examined at bedside. No acute events overnight. Pt is still verbal, eating, however not making sense. He is still moving his extremities spontaneously. ROS unable to be obtained. Objective - Vital Signs/Intake and Output Vital Signs (last 24 hours): Temp Pulse Resp BP Pulse Ox 98.0 F 56 L 19 142/88 99 11/01/18 06:00 11/01/18 09:57 11/01/18 06:00 11/01/18 09:58 11/01/18 06:00 Intake and Output: 11/01/18 11/01/18 06:59 18:59 Intake Total 1200 Output Total 2 Balance 1198 - Medications Medications: Current Medications Amlodipine Besylate (Norvasc) 10 mg PO DAILY REPLACED BY [facility] Last Admin: 11/01/18 09:58 Dose: 10 mg Dexamethasone (Decadron Inj) 5 mg IVP DAILY REPLACED BY [facility] Stop: 11/02/18 10:01 Last Admin: 11/01/18 09:57 Dose: 5 mg Folic Acid (Folic Acid) 1 mg PO DAILY REPLACED BY [facility] Last Admin: 11/01/18 09:57 Dose: 1 mg Sodium Chloride (Sodium Chloride 0.45%) 1,000 mls @ 75 mls/hr IV .[id number] REPLACED BY [facility] Last Admin: 11/01/18 10:12 Dose: 75 mls/hr Levetiracetam (Keppra) 500 mg PO BID REPLACED BY [facility] Last Admin: 11/01/18 09:57 Dose: 500 mg Lisinopril (Zestril) 20 mg PO DAILY REPLACED BY [facility] Last Admin: 11/01/18 09:57 Dose: 20 mg Lorazepam (Ativan) 2 mg IVP Q6H PRN; Protocol PRN Reason: Agitation Last Admin: 10/27/18 15:25 Dose: 2 mg Metoprolol Tartrate (Lopressor) 50 mg PO BRKDIN REPLACED BY [facility] Last Admin: 11/01/18 08:13 Dose: 50 mg Multivitamins (Thera Tab) 1 tab PO 0800 REPLACED BY [facility] Last Admin: 11/01/18 10:02 Dose: 1 tab Pantoprazole Sodium (Protonix Ec Tab) 40 mg PO DAILY REPLACED BY [facility] Last Admin: 11/01/18 09:59 Dose: 40 mg Thiamine HCl (Vitamin B1 Tab) 100 mg PO DAILY REPLACED BY [facility] Last Admin: 11/01/18 09:59 Dose: 100 mg - Labs Labs: 11/01/18 07:10 11/01/18 07:10 PT 15.9 SECONDS (9.4-12.5) H 10/23/18 11:42 INR 1.41 10/23/18 11:42 APTT 31.4 Seconds (26.9-38.3) 10/23/18 11:42 - Constitutional Appears: Cachectic - Head Exam Additional comments: Well-approximated lesions noted over L eyebrow - Eye Exam Eye Exam: EOMI Pupil Exam: PERRL - ENT Exam ENT Exam: Mucous Membranes Moist, Normal Exam - Neck Exam Neck exam: Positive for: Normal Inspection - Respiratory Exam Respiratory Exam: Clear to Auscultation Bilateral, NORMAL BREATHING PATTERN - Cardiovascular Exam Cardiovascular Exam: REGULAR RHYTHM, +S1, +S2 - GI/Abdominal Exam GI & Abdominal Exam: Soft. absent: Tenderness - Extremities Exam Extremities exam: Negative for: calf tenderness - Back Exam Back exam: NORMAL INSPECTION - Neurological Exam Neurological exam: Alert Additional comments: awake. Not answering questions appropriately. Not obeying commands GCS 12 - Psychiatric Exam Psychiatric exam: Agitated - Skin Skin Exam: Abrasion (Over L eyebrow), Dry, Warm Assessment and Plan - Assessment and Plan (Free Text) Assessment: 58 y/o M with PMH of ETOH, hx neuroendocrine tumor s/p L axillary surgery bib EMS for agitation, slurred speech x 2 days. Pt found to have [id number] L sided temporal hemorrhage with small amount of surrounding edema. Pt also found to have anterior wall NC, however anticoagulation not indicated Plan: L temporal hemorrhagic CVA Pt still confused, verbal however not making sense. Still moving extremities bilaterally. PERRL bilaterally. Responded to verbal command to raise hand CT Head 10/26: "There is a large acute hemorrhage in the L temporal lob which is unchanged in size. There is no intraventricular extension. There is a mild- moderate amount of surrounding vasogenic edema." Per neurosurgery, no acute intervention at this time MRI unable to be completed as questionnaire cannot be filled out. No family able to be contacted to fill out MRI questionnaire currently on oral anti-hypertensives, amlodipine/lopressor/lisinopril. BP has been elevated, will increase amlodipine to 10mg Continue dexamethasone taper. Continue keppra 500mg for seizure prophylaxis Neurosurgery/Neurology following. appreciate recs HOB >40 degrees New onset Afib w/ RVR Pulse has been controlled with oral cardizem 120mg continue off of cardizem drip ACS w/ recent NC troponins downtrended Given ICH, pt not a candidate for anticoagulation & antiplatelets Cardiology following echo reveals normal LVEF 58% , Ao valve severely thickened, mild-mod AR per cardio: continue b-charles, ACEi ETOH withdrawal Pt has extensive hx of ETOH abuse. Serum ETOH on admission <10 Continue ativan prn CIWA protocol Aspiration precautions, neuro checks q1h Fall precautions On seizure prophylaxis with keppra Leukocytosis Has been afebrile, not tachycardic, pt afebrile, normotensive Likely demargination 2/2 steroids Hx of neuroendocrine tumor s/p L axillary surgery with residual L arm lymphedema Pending LUE ultrasound official, however not a candidate for antiocoagulation at this time given ICH Pt's home oncologist consulted, Dr. Long, appreciate recs RUE dvt present. PICC removed DVT/GI PPx: SCD/Protonix (pt on steroids) Diet: Speech/spallow eval appreciated, dysphagia diet Dispo: Continue to monitor on telemetry. Family members unable to reached with current phone number. Message left on phone number on file Case has been discuss with social scientist in detail. Will appreciate palliative care recs PT: Will order PT eval today Case reviewed with attending physician, Dr Jose Manuel Lennon PGY1 <Brunilda Richard R - Last Filed: 11/01/18 17:07> Objective - Vital Signs/Intake and Output Vital Signs (last 24 hours): Temp Pulse Resp BP Pulse Ox 98.1 F 66 22 115/74 99 11/01/18 12:00 11/01/18 12:00 11/01/18 12:00 11/01/18 12:00 11/01/18 06:00 Intake and Output: 11/01/18 11/01/18 06:59 18:59 Intake Total 1200 Output Total 2 Balance 1198 - Medications Medications: Current Medications Amlodipine Besylate (Norvasc) 10 mg PO DAILY REPLACED BY [facility] Last Admin: 11/01/18 09:58 Dose: 10 mg Dexamethasone (Decadron Inj) 5 mg IVP DAILY REPLACED BY [facility] Stop: 11/02/18 10:01 Last Admin: 11/01/18 09:57 Dose: 5 mg Folic Acid (Folic Acid) 1 mg PO DAILY REPLACED BY [facility] Last Admin: 11/01/18 09:57 Dose: 1 mg Sodium Chloride (Sodium Chloride 0.45%) 1,000 mls @ 75 mls/hr IV .[id number] REPLACED BY [facility] Last Admin: 11/01/18 10:12 Dose: 75 mls/hr Levetiracetam (Keppra) 500 mg PO BID REPLACED BY [facility] Last Admin: 11/01/18 09:57 Dose: 500 mg Lisinopril (Zestril) 20 mg PO DAILY REPLACED BY [facility] Last Admin: 11/01/18 09:57 Dose: 20 mg Lorazepam (Ativan) 2 mg IVP Q6H PRN; Protocol PRN Reason: Agitation Last Admin: 10/27/18 15:25 Dose: 2 mg Metoprolol Tartrate (Lopressor) 50 mg PO BRKDIN REPLACED BY [facility] Last Admin: 11/01/18 08:13 Dose: 50 mg Multivitamins (Thera Tab) 1 tab PO 0800 REPLACED BY [facility] Last Admin: 11/01/18 10:02 Dose: 1 tab Pantoprazole Sodium (Protonix Ec Tab) 40 mg PO DAILY REPLACED BY [facility] Last Admin: 11/01/18 09:59 Dose: 40 mg Thiamine HCl (Vitamin B1 Tab) 100 mg PO DAILY REPLACED BY [facility] Last Admin: 11/01/18 09:59 Dose: 100 mg - Labs Labs: 11/01/18 07:10 11/01/18 07:10 PT 15.9 SECONDS (9.4-12.5) H 10/23/18 11:42 INR 1.41 10/23/18 11:42 APTT 31.4 Seconds (26.9-38.3) 10/23/18 11:42 Attending/Attestation - Attestation I have personally seen and examined this patient.: Yes I have fully participated in the care of the patient.: Yes I have reviewed all pertinent clinical information, including history, physical exam and plan: Yes Notes (Text): Patient seen and examined by me with resident at approximately 9:50AM on 11/01/18. Case including HPI, physical exam, and assessment and plan discussed with resident. Agree with above with following additions/corrections. Patient is 58-year-old male with past medical history significant for neural endocrine tumor, status post left axillary surgery and residual left arm lymphedema, and alcohol abuse that presented to the emergency room with ag itation and slurred speech. Patient awake and alert, talking but not making any sense. Patient does repeats "thank you, thank you." Unable to obtain any review of systems from patient. Patient is afebrile. Physical exam: General: Awake and alert sitting up in bed in no acute distress HEENT: Normocephalic, atraumatic. Extraocular muscles intact. Pupils equal and reactive, no scleral icterus. Patient not opening mouth, unable to examine oropharynx. Neck is supple. Cardiovascular: Normal rhythm. Normal S1 and S2. No murmurs, rubs, or gallops appreciated Pulmonary: Normal respiratory effort. No rhonchi, rales, or wheezing appreciated. Auscultated anteriorly. Patient not following commands and does not take in deep breaths. Gastrointestinal: Soft, nondistended. Nontender. Positive bowel sounds all 4 quadrants. No guarding. Musculoskeletal: Moves all extremities. Positive LUE chronic lymphedema. Central nervous system: Awake and alert. Does not follow commands. Positive aphasia. Dermatologic: Skin warm and dry. Assessment and plan: Patient is 58-year-old male with past medical history significant for neural endocrine tumor, status post left axillary surgery and residual left arm lymphedema, and alcohol abuse that presented to the emergency room with agitation and slurred speech. 1. Acute left temporal lobe hemorrhagic CVA. With aphasia. Neurology recommendations appreicated. Pending possible rehab placement. Continue to taper decadron. Continue Keppra for seizure prophylaxis. Unable to obtain MRI as MRI questionnaire can not be filled out. Neurosurgery recommendations appreciated, no surgical intervention recommended. Head CT 10/23/18 per radiologist showed an acute left temporal lobe hemorrhage measuring 38 x 65 x 13 mm in size, small amount of surrounding edema, no intraventricular extension, no herniation. Head CT 10/24/2018 radiologist showed large left temporal lobe acute hematoma measuring 4.1 7.8 x 3.1 cm, mild surrounding vasogenic edema and effacement of the left lateral ventricle without midline shift or herniation; intraventricular extension of hemorrhage with small layering hemorrhage and occipital horns of the lateral ventricles, no hydrocephalus. Head CT 10/25/18 and 10/26/18 did not show any acute significant changes. 2. New onset a-fib with RVR. Converted back to normal sinus rhythm. Cardiology recommendations appreciated. Cardizem stopped by track coach. Continue Lopressor. Not a candidate for anticoagulation secondary to hemorrhagic stroke. 2-D echo per track coach showed mild concentric left ventricular hypertrophy, left ventricular function is normal, left ventricular ejection fraction is within normal range, normal LV segmental wall motion, aortic valve severely thickened, mild to moderate aortic regurgitation, mild to moderate valvular aortic stenosis. 3. ACS. Elevated troponins. Recent anterior wall NC. Cardiology recommendations appreciated. Continue Lopressor. Anticoagulation and antiplatelets contraindicated. 2D echo as above. 4. Accelerated Hypertension. Continue Lisinopril, Norvasc, and Lopressor. 5. Alcohol abuse. Continue ativan prn agitation. 6. History of neuroendocrine tumor with left axillary surgery and residual left arm lymphedema . Oncology recommendations appreciated. Patient will need outpat ient follow up. 7. RUE DVT. PICC line removed. Anticoagulation contraindicated. Venous doppler per radiologist showed mild catheter-related thrombus in the right subclavian vein. 8. Hypokalemia. Resolved. Continue to monitor. 9. Hyponatremia/hypochloremia. Place on IV fluids. Follow up repeat labs in AM 10. Transaminitis. Uptrending. Hepatitis panel negative. History of heavy alcohol abuse. Continue to monitor.
[2018-11-02 06:23] LABS: BASO # 0.01 K/mm3 (0.0-2.0); BASO % 0.1 % (0.0-3.0); HEMOGLOBIN 14.8 g/dL (14.0-18.0); LYMPH # 1.3 (1.2-3.4); LYMPH % 7.4 % (22.0-35.0); MEAN CELL VOLUME 98.2 fl (80.0-105.0); MEAN CORPUSCULAR HGB CONC 34.7 g/dl (31.0-37.0); MONO # 0.7 (0.1-0.6); MONO % 3.9 % (1.0-6.0); RBC 4.35 10^6/uL (3.5-6.1); RED CELL DISTRIBUTION WIDTH 12.4 % (11.5-14.5); WHITE BLOOD COUNT 17.1 10^3/uL (4.5-11.0)
[2018-11-02 06:40] LABS: ALT/SGPT 140 U/L (7-56); AST/SGOT 59 U/L (17-59); BLOOD UREA NITROGEN 17 mg/dL (7-21); CALCIUM 8.6 mg/dL (8.4-10.5); GFR NON-AFRICAN AMERICAN > 60
[2018-11-02] MEDS: Multivitamin Therapeutic Tab PO SCH (08:12)
--- NOTE | 2018-11-02 09:15 | CP.PCM.PN ---
Objective - Vital Signs/Intake and Output Vital Signs (last 24 hours): Temp Pulse Resp BP Pulse Ox 97.6 F 58 L 20 147/91 H 100 11/02/18 06:00 11/02/18 06:00 11/02/18 06:00 11/02/18 06:00 11/02/18 06:00 - Medications Medications: Current Medications Amlodipine Besylate (Norvasc) 10 mg PO DAILY [facility] Last Admin: 11/01/18 09:58 Dose: 10 mg Dexamethasone (Decadron Inj) 5 mg IVP DAILY [facility] Stop: 11/02/18 10:01 Last Admin: 11/01/18 09:57 Dose: 5 mg Folic Acid (Folic Acid) 1 mg PO DAILY [facility] Last Admin: 11/01/18 09:57 Dose: 1 mg Sodium Chloride (Sodium Chloride 0.9%) 1,000 mls @ 75 mls/hr IV .[id number] [facility] Levetiracetam (Keppra) 500 mg PO BID [facility] Last Admin: 11/01/18 17:11 Dose: 500 mg Lisinopril (Zestril) 20 mg PO DAILY [facility] Last Admin: 11/01/18 09:57 Dose: 20 mg Metoprolol Tartrate (Lopressor) 50 mg PO BRKDIN [facility] Last Admin: 11/02/18 08:12 Dose: Not Given Multivitamins (Thera Tab) 1 tab PO 0800 [facility] Last Admin: 11/02/18 08:12 Dose: Not Given Pantoprazole Sodium (Protonix Ec Tab) 40 mg PO DAILY [facility] Last Admin: 11/01/18 09:59 Dose: 40 mg Thiamine HCl (Vitamin B1 Tab) 100 mg PO DAILY [facility] Last Admin: 11/01/18 09:59 Dose: 100 mg - Labs Labs: 11/02/18 06:00 11/02/18 06:00 PT 15.9 SECONDS (9.4-12.5) H 10/23/18 11:42 INR 1.41 10/23/18 11:42 APTT 31.4 Seconds (26.9-38.3) 10/23/18 11:42 Assessment and Plan - Assessment and Plan (Free Text) Plan: 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 -no current plans due to mental status and acute brain bleed -will revisit once stable Left Temporal Hemorrhagic Stroke -management per ICU and Neurology -continue to monitor -MRI to rule out Brain Mets recommended
[2018-11-02] MEDS: Sodium Chloride 0.45% 1,000 ML IV SCH (12:37)
[2018-11-02] MEDS: Pantoprazole 40 mg EC Tab PO SCH (12:45)
[2018-11-02] MEDS: Sodium Chloride 0.9% 1,000 ML IV SCH ×2 (12:46→21:44)
--- NOTE | 2018-11-02 13:30 | PN ---
DATE: 11/02/2018 SUBJECTIVE: The patient's blood pressure is much improved. OBJECTIVE: VITAL SIGNS: Blood pressure varies from 110-147, heart rate in the 50s. NECK: Negative JVD. LUNGS: Without rales. HEART: S1, S2. EXTREMITIES: Without edema. LABORATORY DATA: Hemoglobin is 14.8. Chemistries, BUN and creatinine are unremarkable. IMPRESSION: 1. Status post intracerebral bleed. 2. Recent anterior wall myocardial infarction. 3. Atrial fibrillation. 4. Cerebrovascular accident. 5. Hypertension with better control. Given these findings, we will continue the higher dose of Norvasc. Justin Shelley MD
--- NOTE | 2018-11-02 14:38 | CP.PCM.PN ---
<Guille Lennon - Last Filed: 11/02/18 14:45> Subjective - Date & Time of Evaluation Date of Evaluation: 11/02/18 Time of Evaluation: 08:30 - Subjective Subjective: INTERNAL MEDICINE PROGRESS NOTE FOR DR. JOSE MANUEL Lennon PGY1 Pt seen and examined at bedside this am. Pt is lethargic this am as he received ativan earlier for agitation for climbing and pulling. Pt is moving all of his extremities and his pupils are reactive. ROS unable to be obtained Objective - Vital Signs/Intake and Output Vital Signs (last 24 hours): Temp Pulse Resp BP Pulse Ox 97.6 F 58 L 20 140/80 100 11/02/18 06:00 11/02/18 06:00 11/02/18 06:00 11/02/18 12:45 11/02/18 06:00 - Medications Medications: Current Medications Amlodipine Besylate (Norvasc) 10 mg PO DAILY [facility] Last Admin: 11/02/18 12:45 Dose: 10 mg Folic Acid (Folic Acid) 1 mg PO DAILY [facility] Last Admin: 11/02/18 12:45 Dose: 1 mg Sodium Chloride (Sodium Chloride 0.9%) 1,000 mls @ 75 mls/hr IV .[id number] [facility] Last Admin: 11/02/18 12:46 Dose: 75 mls/hr Levetiracetam (Keppra) 500 mg PO BID [facility] Last Admin: 11/02/18 12:45 Dose: 500 mg Lisinopril (Zestril) 20 mg PO DAILY [facility] Last Admin: 11/02/18 12:48 Dose: 20 mg Metoprolol Tartrate (Lopressor) 50 mg PO BRKDIN [facility] Last Admin: 11/02/18 08:12 Dose: Not Given Multivitamins (Thera Tab) 1 tab PO 0800 [facility] Last Admin: 11/02/18 08:12 Dose: Not Given Pantoprazole Sodium (Protonix Ec Tab) 40 mg PO DAILY [facility] Last Admin: 11/02/18 12:45 Dose: 40 mg Thiamine HCl (Vitamin B1 Tab) 100 mg PO DAILY [facility] Last Admin: 11/02/18 12:47 Dose: 100 mg - Labs Labs: 11/02/18 06:00 11/02/18 06:00 PT 15.9 SECONDS (9.4-12.5) H 10/23/18 11:42 INR 1.41 10/23/18 11:42 APTT 31.4 Seconds (26.9-38.3) 10/23/18 11:42 - Constitutional Appears: Cachectic - Head Exam Additional comments: Well-approximated lesions noted over L eyebrow - Eye Exam Eye Exam: EOMI Pupil Exam: PERRL - ENT Exam ENT Exam: Mucous Membranes Moist, Normal Exam - Neck Exam Neck exam: Positive for: Normal Inspection - Respiratory Exam Respiratory Exam: Clear to Auscultation Bilateral, NORMAL BREATHING PATTERN - Cardiovascular Exam Cardiovascular Exam: REGULAR RHYTHM, +S1, +S2 - GI/Abdominal Exam GI & Abdominal Exam: Soft. absent: Tenderness - Extremities Exam Extremities exam: Negative for: calf tenderness - Back Exam Back exam: NORMAL INSPECTION - Neurological Exam Neurological exam: Alert Additional comments: awake, arousable. Not answering questions appropriately. Not obeying commands GCS 12 - Psychiatric Exam Psychiatric exam: Agitated - Skin Skin Exam: Abrasion (Over L eyebrow), Dry, Warm Assessment and Plan - Assessment and Plan (Free Text) Assessment: 58 y/o M with PMH of ETOH, hx neuroendocrine tumor s/p L axillary surgery bib EMS for agitation, slurred speech x 2 days. Pt found to have [id number] L sided temporal hemorrhage with small amount of surrounding edema. Pt also found to have anterior wall RI, however anticoagulation not indicated Plan: L temporal hemorrhagic CVA Pt still confused, verbal however not making sense. Still moving extremities bilaterally. PERRL bilaterally. CT Head 10/26: "There is a large acute hemorrhage in the L temporal lob which is unchanged in size. There is no intraventricular extension. There is a mild-moderate amount of surrounding vasogenic edema." Per neurosurgery, no acute intervention at this time MRI unable to be completed as questionnaire cannot be filled out. No family able to be contacted to fill out MRI questionnaire currently on oral anti-hypertensives, amlodipine/lopressor/lisinopril. BP has been elevated Continue keppra 500mg for seizure prophylaxis Neurosurgery/Neurology following. appreciate recs HOB >40 degrees New onset Afib w/ RVR rate controlled, continue with beta-charles therapy not a candidate for anticoagulation 2/2 ICH ACS w/ recent RI troponins downtrended Given ICH, pt not a candidate for anticoagulation & antiplatelets Cardiology following echo reveals normal LVEF 58% , Ao valve severely thickened, mild-mod AR per cardio: continue b-charles, ACEi, amlodipine ETOH withdrawal Pt has extensive hx of ETOH abuse. Serum ETOH on admission <10 Continue ativan prn continue thiamine/multivitamin/folic acid CIWA protocol Aspiration precautions, neuro checks q1h Fall precautions On seizure prophylaxis with keppra Leukocytosis Has been afebrile, not tachycardic, pt afebrile, normotensive Likely demargination 2/2 steroids Hx of neuroendocrine tumor s/p L axillary surgery with residual L arm lymphedema Pt's home oncologist consulted, Dr. Long, appreciate recs RUE dvt present. PICC removed RUE DVT Mild catheter related thrombus in R subclavian vein not a candidate for anticoagulation 2/2 ICH DVT/GI PPx: SCD/Protonix Diet: Speech/spallow eval appreciated, dysphagia diet Dispo: Continue to monitor on telemetry. Family members unable to reached with current phone number. Message left on phone number on file Case has been discussed with social media strategist in detail. Will appreciate palliative care recs PT: recommending acute rehab Case reviewed with attending physician, Dr Jose Manuel Lennon PGY1 <Brunilda Richard R - Last Filed: 11/03/18 13:21> Objective - Vital Signs/Intake and Output Vital Signs (last 24 hours): Temp Pulse Resp BP Pulse Ox 97.0 F L 67 20 156/90 H 98 11/03/18 06:00 11/03/18 09:20 11/03/18 06:00 11/03/18 09:20 11/03/18 06:00 Intake and Output: 11/03/18 11/03/18 06:59 18:59 Intake Total 180 Balance 180 - Medications Medications: Current Medications Amlodipine Besylate (Norvasc) 10 mg PO DAILY [facility] Last Admin: 11/03/18 09:20 Dose: 10 mg Folic Acid (Folic Acid) 1 mg PO DAILY [facility] Last Admin: 11/03/18 09:08 Dose: 1 mg Levetiracetam (Keppra) 500 mg PO BID [facility] Last Admin: 11/03/18 09:10 Dose: 500 mg Lisinopril (Zestril) 20 mg PO DAILY [facility] Last Admin: 04/26/19 09:20 Dose: 20 mg Metoprolol Tartrate (Lopressor) 50 mg PO BRKDIN [facility] Last Admin: 11/03/18 07:00 Dose: Not Given Multivitamins (Thera Tab) 1 tab PO 0800 [facility] Last Admin: 11/03/18 09:11 Dose: 1 tab Pantoprazole Sodium (Protonix Ec Tab) 40 mg PO DAILY [facility] Last Admin: 11/03/18 09:11 Dose: 40 mg Thiamine HCl (Vitamin B1 Tab) 100 mg PO DAILY [facility] Last Admin: 11/03/18 09:12 Dose: 100 mg - Labs Labs: 11/03/18 06:00 11/03/18 06:00 PT 15.9 SECONDS (9.4-12.5) H 10/23/18 11:42 INR 1.41 10/23/18 11:42 APTT 31.4 Seconds (26.9-38.3) 10/23/18 11:42 Attending/Attestation - Attestation I have personally seen and examined this patient.: Yes I have fully participated in the care of the patient.: Yes I have reviewed all pertinent clinical information, including history, physical exam and plan: Yes Notes (Text): Patient seen and examined by me with resident at approximately 10:20AM on 11/02/18. Case including HPI, physical exam, and assessment and plan discussed with resident. Agree with above with following additions/corrections. Patient is 58-year-old male with past medical history significant for neural endocrine tumor, status post left axillary surgery and residual left arm lymphedema, and alcohol abuse that presented to the emergency room with agitation and slurred speech. Patient sleepy but arousable. [facility] Unable to obtain any review of systems from patient. Patient is afebrile. Physical exam: General: Sleepy, lying in bed in no acute distress HEENT: Normocephalic, atraumatic. Extraocular muscles intact. Pupils equal and reactive, no scleral icterus. Patient not opening mouth, unable to examine oropharynx. Neck is supple. Cardiovascular: Normal rhythm. Normal S1 and S2. No murmurs, rubs, or gallops appreciated Pulmonary: Normal respiratory effort. No rhonchi, rales, or wheezing apprecia lance. Auscultated anteriorly. Patient does not follow commands and does not take in deep breaths. Gastrointestinal: Soft, nondistended. Nontender. Positive bowel sounds all 4 quadrants. No guarding. Musculoskeletal: Moves all extremities. Positive LUE chronic lymphedema. Central nervous system: Awake and alert. Does not follow commands. Positive aphasia. Dermatologic: Skin warm and dry. Assessment and plan: Patient is 58-year-old male with past medical history significant for neural endocrine tumor, status post left axillary surgery and residual left arm lymphedema, and alcohol abuse that presented to the emergency room with agitation and slurred speech. 1. Acute left temporal lobe hemorrhagic CVA. With aphasia. Neurology recommendations appreicated. Continue Keppra for seizure prophylaxis. Continue to taper decadron. Pending possible rehab placement. Unable to obtain MRI as MRI questionnaire can not be filled out. Neurosurgery recommendations appreciated, no surgical intervention recommended. Head CT 10/23/18 per radiologist showed an acute left temporal lobe hemorrhage measuring 38 x 65 x 13 mm in size, small amount of surrounding edema, no intraventricular extension, no herniation. Head CT 10/24/2018 radiologist showed large left temporal lobe acute hematoma measuring 4.1 7.8 x 3.1 cm, mild surrounding vasogenic edema and effacement of the left lateral ventricle without midline shift or herniation; intraventricular extension of hemorrhage with small layering hemorrhage and occipital horns of the lateral ventricles, no hydrocephalus. Head CT 10/25/18 and 10/26/18 did not show any acute significant changes. 2. New onset a-fib with RVR. Converted back to normal sinus rhythm. Cardiology recommendations appreciated. Continue Lopressor. Cardizem stopped by cardiolog ist. Not a candidate for anticoagulation secondary to hemorrhagic stroke. 2-D echo per mechatronics engineer showed mild concentric left ventricular hypertrophy, left ventricular function is normal, left ventricular ejection fraction is within normal range, normal LV segmental wall motion, aortic valve severely thickened, mild to moderate aortic regurgitation, mild to moderate valvular aortic stenosis. 3. ACS. Elevated troponins. Recent anterior wall RI. Cardiology recommendations appreciated. Continue Lopressor. Anticoagulation and antiplatelets contraindicated. 2D echo as above. 4. Accelerated Hypertension. Continue Lisinopril, Norvasc, and Lopressor. 5. Alcohol abuse. S/P CIWA. Continue thiamine, folic acid, and multivitamin. 6. History of neuroendocrine tumor with left axillary surgery and residual left arm lymphedema . Oncology recommendations appreciated. Patient will need outpatient follow up. 7. RUE DVT. PICC line removed. Anticoagulation contraindicated. Venous doppler per radiologist showed mild catheter-related thrombus in the right subclavian vein. 8. Hypokalemia. Resolved. Continue to monitor. 9. Hyponatremia/hypochloremia. Improved with IV fluids. Follow up repeat labs in AM 10. Transaminitis. Downtrending. Hepatitis panel negative. History of heavy alcohol abuse. Continue to monitor.
[2018-11-03 06:29] LABS: HEMOGLOBIN 13.4 g/dL (14.0-18.0); LYMPH # 1.1 (1.2-3.4); LYMPH % 7.5 % (22.0-35.0); MEAN CELL VOLUME 98.7 fl (80.0-105.0); MEAN CORPUSCULAR HEMOGLOBIN 33.6 pg (25.0-35.0); MEAN PLATELET VOLUME 12.9 fl (7.0-11.0); MONO # 0.5 (0.1-0.6); MONO % 3.4 % (1.0-6.0); RBC 3.99 10^6/uL (3.5-6.1); RED CELL DISTRIBUTION WIDTH 12.7 % (11.5-14.5); WHITE BLOOD COUNT 14.9 10^3/uL (4.5-11.0)
[2018-11-03 06:38] LABS: ALBUMIN 2.7 g/dL (3.0-4.8); ALT/SGPT 142 U/L (7-56); AST/SGOT 66 U/L (17-59); BLOOD UREA NITROGEN 18 mg/dL (7-21); CALCIUM 8.3 mg/dL (8.4-10.5); GFR NON-AFRICAN AMERICAN > 60
[2018-11-03] MEDS: Multivitamin Therapeutic Tab PO SCH (09:11)
[2018-11-03] MEDS: Pantoprazole 40 mg EC Tab PO SCH (09:11)
--- NOTE | 2018-11-03 10:00 | CP.PCM.PN ---
<Jose Russell - Last Filed: 11/03/18 13:23> Subjective - Date & Time of Evaluation Date of Evaluation: 11/03/18 Time of Evaluation: 06:00 - Subjective Subjective: Jose Russell PGY2 Heme/Onc Progress Note for Dr. Long Patient seen and evaluated bedside. No acute issues overnight. Patient was sitting in chair, repeating the word "love". Does not respond appropriately to commands. Objective - Vital Signs/Intake and Output Vital Signs (last 24 hours): Temp Pulse Resp BP Pulse Ox 97.0 F L 67 20 156/90 H 98 11/03/18 06:00 11/03/18 09:20 11/03/18 06:00 11/03/18 09:20 11/03/18 06:00 Intake and Output: 11/03/18 11/03/18 06:59 18:59 Intake Total 180 Balance 180 - Medications Medications: Current Medications Amlodipine Besylate (Norvasc) 10 mg PO DAILY [facility] Last Admin: 11/03/18 09:20 Dose: 10 mg Folic Acid (Folic Acid) 1 mg PO DAILY [facility] Last Admin: 11/03/18 09:08 Dose: 1 mg Sodium Chloride (Sodium Chloride 0.9%) 1,000 mls @ 75 mls/hr IV .[id number] [facility] Last Admin: 11/02/18 21:44 Dose: 75 mls/hr Levetiracetam (Keppra) 500 mg PO BID [facility] Last Admin: 11/03/18 09:10 Dose: 500 mg Lisinopril (Zestril) 20 mg PO DAILY [facility] Last Admin: 11/03/18 09:20 Dose: 20 mg Metoprolol Tartrate (Lopressor) 50 mg PO BRKDIN [facility] Last Admin: 11/03/18 07:00 Dose: Not Given Multivitamins (Thera Tab) 1 tab PO 0800 [facility] Last Admin: 11/03/18 09:11 Dose: 1 tab Pantoprazole Sodium (Protonix Ec Tab) 40 mg PO DAILY [facility] Last Admin: 11/03/18 09:11 Dose: 40 mg Thiamine HCl (Vitamin B1 Tab) 100 mg PO DAILY [facility] Last Admin: 11/03/18 09:12 Dose: 100 mg - Labs Labs: 11/03/18 06:00 11/03/18 06:00 PT 15.9 SECONDS (9.4-12.5) H 10/23/18 11:42 INR 1.41 10/23/18 11:42 APTT 31.4 Seconds (26.9-38.3) 10/23/18 11:42 - Constitutional Appears: No Acute Distress - Head Exam Head Exam: NORMAL INSPECTION - Eye Exam Eye Exam: EOMI, Normal appearance - Respiratory Exam Respiratory Exam: Clear to Ausculation Bilateral, NORMAL BREATHING PATTERN - Cardiovascular Exam Cardiovascular Exam: REGULAR RHYTHM Assessment and Plan - Assessment and Plan (Free Text) Plan: 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 -no current plans due to mental status and acute brain bleed -will revisit once stable Left Temporal Hemorrhagic Stroke -management per ICU and Neurology -continue to monitor -MRI to rule out Brain Mets recommended <Parviz Long P - Last Filed: 11/04/18 12:19> Objective - Vital Signs/Intake and Output Vital Signs (last 24 hours): Temp Pulse Resp BP Pulse Ox 97.3 F L 61 18 108/69 99 11/04/18 06:00 11/04/18 10:28 11/04/18 06:00 11/04/18 10:29 11/04/18 06:00 Intake and Output: 11/04/18 11/04/18 06:59 18:59 Intake Total 480 Balance 480 - Medications Medications: Current Medications Amlodipine Besylate (Norvasc) 10 mg PO DAILY [facility] Last Admin: 11/04/18 10:29 Dose: 10 mg Folic Acid (Folic Acid) 1 mg PO DAILY [facility] Last Admin: 11/04/18 10:29 Dose: 1 mg Levetiracetam (Keppra) 500 mg PO BID [facility] Last Admin: 11/04/18 10:28 Dose: 500 mg Lisinopril (Zestril) 20 mg PO DAILY [facility] Last Admin: 11/04/18 10:28 Dose: 20 mg Metoprolol Tartrate (Lopressor) 50 mg PO BRKDIN [facility] Last Admin: 11/04/18 08:52 Dose: 50 mg Multivitamins (Thera Tab) 1 tab PO 0800 [facility] Last Admin: 11/04/18 08:52 Dose: 1 tab Pantoprazole Sodium (Protonix Ec Tab) 40 mg PO DAILY [facility] Last Admin: 11/04/18 10:28 Dose: 40 mg Thiamine HCl (Vitamin B1 Tab) 100 mg PO DAILY [facility] Last Admin: 11/04/18 11:05 Dose: 100 mg - Labs Labs: 11/04/18 07:00 11/04/18 07:00 PT 15.9 SECONDS (9.4-12.5) H 10/23/18 11:42 INR 1.41 10/23/18 11:42 APTT 31.4 Seconds (26.9-38.3) 10/23/18 11:42 Attending/Attestation - Attestation I have personally seen and examined this patient.: Yes I have fully participated in the care of the patient.: Yes I have reviewed all pertinent clinical information, including history, physical exam and plan: Yes
--- NOTE | 2018-11-03 14:27 | CP.PCM.PN ---
<Guille Lennon - Last Filed: 11/03/18 14:22> Subjective - Date & Time of Evaluation Date of Evaluation: 11/03/18 Time of Evaluation: 09:00 - Subjective Subjective: INTERNAL MEDICINE PROGRESS NOTE FOR DR. JOSE MANUEL Lennon PGY1 Pt seen and examined at bedside this am. No acute events overnight. Pt still verbal, moving extremities. He is not obeying commands or making sense with his words. ROS unable to be obtained. Objective - Vital Signs/Intake and Output Vital Signs (last 24 hours): Temp Pulse Resp BP Pulse Ox 97.0 F L 67 20 156/90 H 98 11/03/18 06:00 11/03/18 09:20 11/03/18 06:00 11/03/18 09:20 11/03/18 06:00 Intake and Output: 11/03/18 11/03/18 06:59 18:59 Intake Total 180 Balance 180 - Medications Medications: Current Medications Amlodipine Besylate (Norvasc) 10 mg PO DAILY [facility] Last Admin: 11/03/18 09:20 Dose: 10 mg Folic Acid (Folic Acid) 1 mg PO DAILY [facility] Last Admin: 11/03/18 09:08 Dose: 1 mg Levetiracetam (Keppra) 500 mg PO BID [facility] Last Admin: 11/03/18 09:10 Dose: 500 mg Lisinopril (Zestril) 20 mg PO DAILY [facility] Last Admin: 11/03/18 09:20 Dose: 20 mg Metoprolol Tartrate (Lopressor) 50 mg PO BRKDIN [facility] Last Admin: 11/03/18 07:00 Dose: Not Given Multivitamins (Thera Tab) 1 tab PO 0800 [facility] Last Admin: 11/03/18 09:11 Dose: 1 tab Pantoprazole Sodium (Protonix Ec Tab) 40 mg PO DAILY [facility] Last Admin: 11/03/18 09:11 Dose: 40 mg Thiamine HCl (Vitamin B1 Tab) 100 mg PO DAILY [facility] Last Admin: 11/03/18 09:12 Dose: 100 mg - Labs Labs: 11/03/18 06:00 11/03/18 06:00 PT 15.9 SECONDS (9.4-12.5) H 10/23/18 11:42 INR 1.41 10/23/18 11:42 APTT 31.4 Seconds (26.9-38.3) 10/23/18 11:42 - Constitutional Appears: Cachectic - Head Exam Additional comments: Well-approximated lesions noted over L eyebrow - Eye Exam Eye Exam: EOMI Pupil Exam: PERRL - ENT Exam ENT Exam: Mucous Membranes Moist, Normal Exam - Neck Exam Neck exam: Positive for: Normal Inspection - Respiratory Exam Respiratory Exam: Clear to Auscultation Bilateral, NORMAL BREATHING PATTERN - Cardiovascular Exam Cardiovascular Exam: REGULAR RHYTHM, +S1, +S2 - GI/Abdominal Exam GI & Abdominal Exam: Soft. absent: Tenderness - Extremities Exam Extremities exam: Negative for: calf tenderness - Back Exam Back exam: NORMAL INSPECTION - Neurological Exam Neurological exam: Alert Additional comments: awake, arousable. Not answering questions appropriately. Not obeying commands GCS 12 - Psychiatric Exam Psychiatric exam: Agitated - Skin Skin Exam: Abrasion (Over L eyebrow), Dry, Warm Assessment and Plan - Assessment and Plan (Free Text) Assessment: 58 y/o M with PMH of ETOH, hx neuroendocrine tumor s/p L axillary surgery bib EMS for agitation, slurred speech x 2 days. Pt found to have [id number] L sided temporal hemorrhage with small amount of surrounding edema. Pt also found to have anterior wall LA, however anticoagulation not indicated Plan: L temporal hemorrhagic CVA Pt still confused, verbal however not making sense. Still moving extremities bilaterally. PERRL bilaterally. CT Head 10/26: "There is a large acute hemorrhage in the L temporal lob which is unchanged in size. There is no intraventricular extension. There is a mild- moderate amount of surrounding vasogenic edema." Per neurosurgery, no acute intervention at this time MRI unable to be completed as questionnaire cannot be filled out. No family able to be contacted to fill out MRI questionnaire currently on oral anti-hypertensives, amlodipine/lopressor/lisinopril. BP has been elevated Continue keppra 500mg for seizure prophylaxis Neurosurgery/Neurology following. appreciate recs HOB >40 degrees New onset Afib w/ RVR rate controlled, continue with beta-charles therapy not a candidate for anticoagulation 2/2 ICH ACS w/ recent LA troponins downtrended Given ICH, pt not a candidate for anticoagulation & antiplatelets Cardiology following echo reveals normal LVEF 58% , Ao valve severely thickened, mild-mod AR per cardio: continue b-charles, ACEi, amlodipine ETOH withdrawal Pt has extensive hx of ETOH abuse. Serum ETOH on admission <10 Avoid ativan has pt becomes very lethargic & neurologic status not able to be de termined accurately continue thiamine/multivitamin/folic acid CIWA protocol Aspiration precautions, neuro checks q1h Fall precautions On seizure prophylaxis with keppra Leukocytosis 2/2 decadron. Downtrending Has been afebrile, not tachycardic, pt afebrile, normotensive Hx of neuroendocrine tumor s/p L axillary surgery with residual L arm lymphedema Pt's home oncologist consulted, Dr. Long, appreciate recs RUE dvt present. PICC removed RUE DVT Mild catheter related thrombus in R subclavian vein not a candidate for anticoagulation 2/2 ICH Hyponatremia/Hypokalemia Improved with IVF continue to monitor DVT/GI PPx: SCD/Protonix Diet: Speech/spallow eval appreciated, dysphagia diet Dispo: Family members have been able to be reached. Pending acute care facility placement Case reviewed with attending physician, Dr. Jose Manuel Lennon PGY1 <Brunilda Richard R - Last Filed: 11/04/18 07:26> Objective - Vital Signs/Intake and Output Vital Signs (last 24 hours): Temp Pulse Resp BP Pulse Ox 98.0 F 53 L 20 104/73 98 11/04/18 00:01 11/04/18 00:01 11/04/18 00:01 11/04/18 00:01 11/04/18 00:01 Intake and Output: 11/04/18 11/04/18 06:59 18:59 Intake Total 480 Balance 480 - Medications Medications: Current Medications Amlodipine Besylate (Norvasc) 10 mg PO DAILY [facility] Last Admin: 11/03/18 09:20 Dose: 10 mg Folic Acid (Folic Acid) 1 mg PO DAILY [facility] Last Admin: 11/03/18 09:08 Dose: 1 mg Levetiracetam (Keppra) 500 mg PO BID [facility] Last Admin: 11/03/18 17:41 Dose: 500 mg Lisinopril (Zestril) 20 mg PO DAILY [facility] Last Admin: 11/03/18 09:20 Dose: 20 mg Metoprolol Tartrate (Lopressor) 50 mg PO BRKDIN [facility] Last Admin: 11/03/18 17:22 Dose: Not Given Multivitamins (Thera Tab) 1 tab PO 0800 [facility] Last Admin: 11/03/18 09:11 Dose: 1 tab Pantoprazole Sodium (Protonix Ec Tab) 40 mg PO DAILY [facility] Last Admin: 11/03/18 09:11 Dose: 40 mg Thiamine HCl (Vitamin B1 Tab) 100 mg PO DAILY [facility] Last Admin: 11/03/18 09:12 Dose: 100 mg - Labs Labs: 11/03/18 06:00 11/03/18 06:00 PT 15.9 SECONDS (9.4-12.5) H 10/23/18 11:42 INR 1.41 10/23/18 11:42 APTT 31.4 Seconds (26.9-38.3) 10/23/18 11:42 Attending/Attestation - Attestation I have personally seen and examined this patient.: Yes I have fully participated in the care of the patient.: Yes I have reviewed all pertinent clinical information, including history, physical exam and plan: Yes Notes (Text): Patient seen and examined by me with resident at approximately 10:30AM on 11/03/18. Case including HPI, physical exam, and assessment and plan discussed with resident. Agree with above with following additions/corrections. Patient is 58-year-old male with past medical history significant for neural endocrine tumor, status post left axillary surgery and residual left arm lymphedema, and alcohol abuse that presented to the emergency room with agitation and slurred speech. Patient awake and alert. Speaks but does not make sense. Repeats the same word. Unable to answer questions. Unable to obtain any review of systems from patient. Patient is afebrile. Physical exam: General: Awake and alert sitting up in bed in no acute distress HEENT: Normocephalic, atraumatic. Extraocular muscles intact. Pupils equal and reactive, no scleral icterus. Patient not opening mouth, unable to examine oropharynx. Neck is supple. Cardiovascular: Normal rhythm. Normal S1 and S2. No murmurs, rubs, or gallops appreciated Pulmonary: Normal respiratory effort. No rhonchi, rales, or wheezing rozina reciated. Auscultated anteriorly. Patient does not follow commands and does not take in deep breaths. Gastrointestinal: Soft, nondistended. Nontender. Positive bowel sounds all 4 quadrants. No guarding. Musculoskeletal: Moves all extremities. Positive LUE chronic lymphedema. Central nervous system: Awake and alert. Does not follow commands. Positive aphasia. Dermatologic: Skin warm and dry. Assessment and plan: Patient is 58-year-old male with past medical history significant for neural endocrine tumor, status post left axillary surgery and residual left arm lymphedema, and alcohol abuse that presented to the emergency room with agitation and slurred speech. 1. Acute left temporal lobe hemorrhagic CVA. With aphasia. Neurology recommendations appreciated. Continue Keppra for seizure prophylaxis. Continue to taper decadron. Pending possible rehab placement. Unable to obtain MRI as MRI questionnaire can not be filled out. Neurosurgery recommendations appreciated, no surgical intervention recommended. Head CT 10/23/18 per radiologist showed an acute left temporal lobe hemorrhage measuring 38 x 65 x 13 mm in size, small amount of surrounding edema, no intraventricular extension, no herniation. Head CT 10/24/2018 radiologist showed large left temporal lobe acute hematoma measu ring 4.1 7.8 x 3.1 cm, mild surrounding vasogenic edema and effacement of the left lateral ventricle without midline shift or herniation; intraventricular extension of hemorrhage with small layering hemorrhage and occipital horns of the lateral ventricles, no hydrocephalus. Head CT 10/25/18 and 10/26/18 did not show any acute significant changes. 2. New onset a-fib with RVR. Converted back to normal sinus rhythm. Cardiology recommendations appreciated. Continue Lopressor. Cardizem stopped by car diologist. Not a candidate for anticoagulation secondary to hemorrhagic stroke. 2-D echo per switchboard operator supervisor showed mild concentric left ventricular hypertrophy, left ventricular function is normal, left ventricular ejection fraction is within normal range, normal LV segmental wall motion, aortic valve severely thickened, mild to moderate aortic regurgitation, mild to moderate valvular aortic stenosis. 3. ACS. Elevated troponins. Recent anterior wall LA. Continue Lopressor. Anticoagulation and antiplatelets contraindicated. 2D echo as above. Cardiology recommendations appreciated. 4. Accelerated Hypertension. Continue Lisinopril, Norvasc, and Lopressor. 5. Alcohol abuse. S/P CIWA. Continue thiamine, folic acid, and multivitamin. 6. History of neuroendocrine tumor with left axillary surgery and residual left arm lymphedema . Oncology recommendations appreciated. Patient will need outpatient follow up. 7. RUE DVT. PICC line removed. Anticoagulation contraindicated. Venous doppler per radiologist showed mild catheter-related thrombus in the right subclavian vein. 8. Hypokalemia. Resolved. Continue to monitor. 9. Hyponatremia/hypochloremia. Improved with IV fluids. Continue to monitor. 10. Transaminitis. Uptrending. Hepatitis panel negative. History of heavy alcohol abuse. Continue to monitor.
[2018-11-04 08:04] LABS: EOS # 0.1 (0.0-0.7); EOS % 0.8 % (1.5-5.0); HEMOGLOBIN 14.6 g/dL (14.0-18.0); LYMPH # 1.5 (1.2-3.4); MEAN CELL VOLUME 98.8 fl (80.0-105.0); MEAN CORPUSCULAR HEMOGLOBIN 33.7 pg (25.0-35.0); MEAN CORPUSCULAR HGB CONC 34.1 g/dl (31.0-37.0); MEAN PLATELET VOLUME 12.5 fl (7.0-11.0); MONO # 0.4 (0.1-0.6); MONO % 3.5 % (1.0-6.0); RBC 4.33 10^6/uL (3.5-6.1); RED CELL DISTRIBUTION WIDTH 12.8 % (11.5-14.5); WHITE BLOOD COUNT 11.7 10^3/uL (4.5-11.0)
[2018-11-04 08:28] LABS: ALBUMIN 2.9 g/dL (3.0-4.8); ALT/SGPT 174 U/L (7-56); AST/SGOT 85 U/L (17-59); BLOOD UREA NITROGEN 16 mg/dL (7-21); CALCIUM 8.7 mg/dL (8.4-10.5); GFR NON-AFRICAN AMERICAN > 60
[2018-11-04] MEDS: Multivitamin Therapeutic Tab PO SCH (08:52)
[2018-11-04] MEDS: Pantoprazole 40 mg EC Tab PO SCH (10:28)
--- NOTE | 2018-11-04 12:31 | CP.PCM.PN ---
<Cosme Ramos - Last Filed: 11/04/18 12:15> Subjective - Date & Time of Evaluation Date of Evaluation: 11/04/18 Time of Evaluation: 12:15 - Subjective Subjective: Cosme Ramos, PGY-1, Internal Medicine Progress Note for Dr. Richard Patient seen and evaluated at bedside. Patient had no acute overnight events. Patient is verbal and moving extremities, however, he does not obey commands and does not speak coherently. 12-point ROS was unable to be obtained due to patient's mental status. Objective - Vital Signs/Intake and Output Vital Signs (last 24 hours): Temp Pulse Resp BP Pulse Ox 97.3 F L 61 18 108/69 99 11/04/18 06:00 11/04/18 10:28 11/04/18 06:00 11/04/18 10:29 11/04/18 06:00 Intake and Output: 11/04/18 11/04/18 06:59 18:59 Intake Total 480 Balance 480 - Medications Medications: Current Medications Amlodipine Besylate (Norvasc) 10 mg PO DAILY [facility] Last Admin: 11/04/18 10:29 Dose: 10 mg Folic Acid (Folic Acid) 1 mg PO DAILY [facility] Last Admin: 11/04/18 10:29 Dose: 1 mg Levetiracetam (Keppra) 500 mg PO BID [facility] Last Admin: 11/04/18 10:28 Dose: 500 mg Lisinopril (Zestril) 20 mg PO DAILY [facility] Last Admin: 11/04/18 10:28 Dose: 20 mg Metoprolol Tartrate (Lopressor) 50 mg PO BRKDIN [facility] Last Admin: 11/04/18 08:52 Dose: 50 mg Multivitamins (Thera Tab) 1 tab PO 0800 [facility] Last Admin: 11/04/18 08:52 Dose: 1 tab Pantoprazole Sodium (Protonix Ec Tab) 40 mg PO DAILY [facility] Last Admin: 11/04/18 10:28 Dose: 40 mg Thiamine HCl (Vitamin B1 Tab) 100 mg PO DAILY [facility] Last Admin: 11/04/18 11:05 Dose: 100 mg - Labs Labs: 11/04/18 07:00 11/04/18 07:00 PT 15.9 SECONDS (9.4-12.5) H 04/15/19 11:42 INR 1.41 10/23/18 11:42 APTT 31.4 Seconds (26.9-38.3) 10/23/18 11:42 - Constitutional Appears: Cachectic - Head Exam Additional comments: Well-approximated lesions noted over L eyebrow - Eye Exam Eye Exam: EOMI Pupil Exam: PERRL - ENT Exam ENT Exam: Mucous Membranes Moist, Normal Exam - Neck Exam Neck exam: Positive for: Normal Inspection - Respiratory Exam Respiratory Exam: Clear to Auscultation Bilateral, NORMAL BREATHING PATTERN - Cardiovascular Exam Cardiovascular Exam: REGULAR RHYTHM, +S1, +S2 - GI/Abdominal Exam GI & Abdominal Exam: Soft. absent: Tenderness - Extremities Exam Extremities exam: Negative for: calf tenderness - Back Exam Back exam: NORMAL INSPECTION - Neurological Exam Neurological exam: Alert Additional comments: awake, arousable. Not answering questions appropriately. Not obeying commands GCS 12 - Psychiatric Exam Psychiatric exam: Agitated - Skin Skin Exam: Abrasion (Over L eyebrow), Dry, Warm Assessment and Plan - Assessment and Plan (Free Text) Assessment: 58 y/o M with PMH of ETOH, hx neuroendocrine tumor s/p L axillary surgery bib EMS for agitation, slurred speech x 2 days. Pt found to have [id number] L sided temporal hemorrhage with small amount of surrounding edema. Pt also found to have anterior wall PA, however anticoagulation not indicated Plan: L temporal hemorrhagic CVA -Pt still confused, verbal however not making sense. Still moving extremities bilaterally. PERRL bilaterally. -CT Head 10/26: "There is a large acute hemorrhage in the L temporal lob which is unchanged in size. There is no intraventricular extension. There is a mild- moderate amount of surrounding vasogenic edema." -Per neurosurgery, no acute intervention at this time -MRI unable to be completed as questionnaire cannot be filled out. -Currently on oral anti-hypertensives, amlodipine/lopressor/lisinopril to prevent recurrent hemorrhagic event. BP has been controlled -Decadron stopped -Continue keppra 500mg for seizure prophylaxis -Neurosurgery/Neurology following. appreciate recs -HOB >40 degrees New onset Afib w/ RVR -Converted back to normal sinus rhythm -Continue with lopressor -not a candidate for anticoagulation 2/2 ICH ACS -troponins downtrended -Status post recent anterior PA -Given ICH, pt not a candidate for anticoagulation & antiplatelets -Cardiology following -Echo reveals normal LVEF 58% , Aortic valve severely thickened, mild-mod AR -Per cardio: continue lopressor, zestril ETOH withdrawal -Pt has extensive hx of ETOH abuse. Serum ETOH on admission <10 -[facility] protocol -Avoid ativan as pt becomes very lethargic & neurologic status not able to be determined accurately -Continue thiamine/multivitamin/folic acid -Aspiration precautions, neuro checks q2h -Fall precautions -On seizure prophylaxis with keppra Hypertension -Continue lisinopril, norvasc, and lopressor Leukocytosis -2/2 decadron. Downtrending -Has been afebrile, not tachycardic, pt afebrile, normotensive Hx of neuroendocrine tumor s/p L axillary surgery with residual L arm lymphedema -Pt's home oncologist consulted, Dr. Long, appreciate recs -RUE dvt present. PICC removed -Will need outpatient follow up RUE DVT -Mild catheter related thrombus in R subclavian vein seen on venous duplex -not a candidate for anticoagulation 2/2 ICH Hyponatremia/Hypochloridemia -Stable with IVF -continue to monitor Transaminitis likely 2/2 to alcohol use -Uptrending -Hepatitis panel negative -Continue to monitor DVT/GI PPx: SCD/Protonix Dispo: Family members have been able to be reached. Pending acute care facility placement. [facility]al [facility] transfer [facility]. Two disciplines of therapy will be needed to complete authorization Patient plan discussed with Dr. Richard <Brunilda Richard R - Last Filed: 11/05/18 07:53> Objective - Vital Signs/Intake and Output Vital Signs (last 24 hours): Temp Pulse Resp BP Pulse Ox 98.6 F 64 20 110/79 96 11/04/18 17:15 11/05/18 06:38 11/04/18 17:15 11/05/18 06:38 11/04/18 17:15 Intake and Output: 11/05/18 11/05/18 06:59 18:59 Intake Total 120 Output Total 0 Balance 120 - Medications Medications: Current Medications Amlodipine Besylate (Norvasc) 10 mg PO DAILY [facility] Last Admin: 11/04/18 10:29 Dose: 10 mg Folic Acid (Folic Acid) 1 mg PO DAILY [facility] Last Admin: 11/04/18 10:29 Dose: 1 mg Levetiracetam (Keppra) 500 mg PO BID [facility] Last Admin: 11/04/18 17:40 Dose: 500 mg Lisinopril (Zestril) 20 mg PO DAILY [facility] Last Admin: 11/04/18 10:28 Dose: 20 mg Metoprolol Tartrate (Lopressor) 50 mg PO BRKDIN [facility] Last Admin: 11/05/18 06:38 Dose: 50 mg Multivitamins (Thera Tab) 1 tab PO 0800 [facility] Last Admin: 11/04/18 08:52 Dose: 1 tab Pantoprazole Sodium (Protonix Ec Tab) 40 mg PO DAILY [facility] Last Admin: 11/04/18 10:28 Dose: 40 mg Thiamine HCl (Vitamin B1 Tab) 100 mg PO DAILY [facility] Last Admin: 11/04/18 11:05 Dose: 100 mg - Labs Labs: 11/04/18 07:00 11/04/18 07:00 PT 15.9 SECONDS (9.4-12.5) H 10/23/18 11:42 INR 1.41 10/23/18 11:42 APTT 31.4 Seconds (26.9-38.3) 10/23/18 11:42 Attending/Attestation - Attestation I have personally seen and examined this patient.: Yes I have fully participated in the care of the patient.: Yes I have reviewed all pertinent clinical information, including history, physical exam and plan: Yes Notes (Text): Patient seen and examined by me with resident at approximately 9:10AM on 11/04/18. Case including HPI, physical exam, and assessment and plan discussed with resident. Agree with above with following additions/corrections. Patient is 58-year-old male with past medical history significant for neural endocrine tumor, status post left axillary surgery and residual left arm lymphedema, and alcohol abuse that presented to the emergency room with agita tion and slurred speech. Patient awake and alert. Speaks but does not make sense. Repeatedly says "thank you." Patient unable to answer questions. Unable to obtain any review of systems from patient. Patient is afebrile. Physical exam: General: Awake and alert sitting up in bed in no acute distress HEENT: Normocephalic, atraumatic. Extraocular muscles intact. Pupils equal and reactive, no scleral icterus. Patient not opening mouth, unable to examine oropharynx. Neck is supple. Cardiovascular: Normal rhythm. Normal S1 and S2. No murmurs, rubs, or gallops appreciated Pulmonary: Normal respiratory effort. No rhonchi, rales, or wheezing appreciated. Auscultated anteriorly. Patient does not follow commands and does not take in deep breaths. Gastrointestinal: Soft, nondistended. Nontender. Positive bowel sounds all 4 quadrants. No guarding. Musculoskeletal: Moves all extremities. Positive LUE chronic lymphedema. Central nervous system: Awake and alert. Does not follow commands. Positive aphasia. Dermatologic: Skin warm and dry. Assessment and plan: Patient is 58-year-old male with past medical history significant for neural endocrine tumor, status post left axillary surgery and residual left arm lymphedema, and alcohol abuse that presented to the emergency room with agitation and slurred speech. 1. Acute left temporal lobe hemorrhagic CVA. With aphasia. Pending rehab plac ement. Neurology recommendations appreciated. Continue Keppra for seizure prophylaxis. S/P decadron. Unable to obtain MRI as MRI questionnaire can not be filled out. Neurosurgery recommendations appreciated, no surgical intervention recommended. Head CT 10/23/18 per radiologist showed an acute left temporal lobe hemorrhage measuring 38 x 65 x 13 mm in size, small amount of surrounding edema, no intraventricular extension, no herniation. Head CT 10/24/2018 radiologist showed large left temporal lobe acute hematoma measuring 4.1 7.8 x 3.1 cm, mild surrounding vasogenic edema and effacement of the left lateral ventricle without midline shift or herniation; intraventricular extension of hemorrhage with small layering hemorrhage and occipital horns of the lateral ventricles, no hydrocephalus. Head CT 10/25/18 and 10/26/18 did not show any acute significant changes. 2. New onset a-fib with RVR. Converted back to normal sinus rhythm. Continue Lopressor. Cardiology recommendations appreciated. Cardizem stopped by winery cellar hand. Not a candidate for anticoagulation secondary to hemorrhagic str lonnie. 2-D echo per winery cellar hand showed mild concentric left ventricular hypertrophy, left ventricular function is normal, left ventricular ejection fraction is within normal range, normal LV segmental wall motion, aortic valve severely thickened, mild to moderate aortic regurgitation, mild to moderate valvular aortic stenosis. 3. ACS. Elevated troponins. Recent anterior wall PA. Continue Lopressor. Anticoagulation and antiplatelets contraindicated. 2D echo as above. Cardiology recommendations appreciated. 4. Accelerated Hypertension. Continue Lisinopril, Norvasc, and Lopressor. 5. Alcohol abuse. S/P CIWA. Continue thiamine, folic acid, and multivitamin. 6. History of neuroendocrine tumor with left axillary surgery and residual left arm lymphedema . Oncology recommendations appreciated. Patient will need outpatient follow up. 7. RUE DVT. PICC line removed. Anticoagulation contraindicated. Venous doppler per radiologist showed mild catheter-related thrombus in the right subclavian vein. 8. Hypokalemia. Resolved. Continue to monitor. 9. Hyponatremia/hypochloremia. Improved with IV fluids. Continue to monitor. 10. Transaminitis. Uptrending. Hepatitis panel negative. History of heavy alcohol abuse. Continue to monitor.
--- NOTE | 2018-11-04 18:30 | PN ---
DATE: 11/04/2018 This is [facility]'s hospital visit on the medical floor. For Dr. oLng. SUBJECTIVE: The patient is 58-year-old male admitted by the emergency room for slurred speech, mental status change, eventually diagnosed with a left temporal hemorrhagic stroke with productive receptive aphasia. The patient is now in no acute distress, resting comfortably. The patient had been seen Dr. Long for carcinoid with left axilla with left upper extremity lymphedema and is known to had drunk alcohol excess at times with a past history of EtOH abuse. OBJECTIVE/PHYSICAL EXAMINATION: VITAL SIGNS: Temperature 97.2, pulse 61, respirations 18, blood pressure 108/69 and pulse ox 99%. HEENT: Unremarkable. NECK: Supple. HEART: Regular rate. LUNGS: Clear. ABDOMEN: Soft and nontender. EXTREMITIES: A +2 edema of left upper extremity of the chronic nature, status post lymphedema for treatment of carcinoid tumor in the past. SKIN: Warm and dry. NEUROLOGIC: The patient with echolalia repeating 12, 12 multiple times, not answering questions appropriately. As per nurses, no change in previous visit. LABORATORY DATA: The patient's labs were done. White blood cell count of 11.7, hemoglobin 14.6, hematocrit 42.8 and platelet count 250,000 with a metabolic panel showing a sodium of 130, otherwise normal metabolic panel. AST of 85, ALT of 174. His most recent INR was 1.4 from 10/23/2018 with hepatitis A, B and C testing all negative as of 3 days prior. ASSESSMENT: Left temporal hemorrhagic stroke with productive receptive aphasia, history of neuroendocrine tumor of left axilla carcinoid, left upper extremity lymphedema and ethanol abuse. PLAN: To continue present medical regimen as per consultants recommendations with prognosis guarded. Junaid Champion MD
[2018-11-05 08:07] LABS: BASO # 0.01 K/mm3 (0.0-2.0); BASO % 0.1 % (0.0-3.0); EOS # 0.2 (0.0-0.7); EOS % 1.1 % (1.5-5.0); HEMOGLOBIN 14.5 g/dL (14.0-18.0); LYMPH # 1.4 (1.2-3.4); LYMPH % 10.2 % (22.0-35.0); MEAN CELL VOLUME 99.1 fl (80.0-105.0); MEAN CORPUSCULAR HEMOGLOBIN 34.2 pg (25.0-35.0); MEAN CORPUSCULAR HGB CONC 34.5 g/dl (31.0-37.0); MONO # 0.4 (0.1-0.6); MONO % 2.5 % (1.0-6.0); RBC 4.24 10^6/uL (3.5-6.1); WHITE BLOOD COUNT 13.8 10^3/uL (4.5-11.0)
[2018-11-05 08:10] LABS: INR 1.17; PROTHROMBIN TIME 13.2 SECONDS (9.4-12.5)
[2018-11-05 08:14] LABS: ALBUMIN 3.3 g/dL (3.0-4.8); ALT/SGPT 167 U/L (7-56); AST/SGOT 77 U/L (17-59); BLOOD UREA NITROGEN 15 mg/dL (7-21); CALCIUM 8.9 mg/dL (8.4-10.5); GFR NON-AFRICAN AMERICAN > 60
[2018-11-05] MEDS: Multivitamin Therapeutic Tab PO SCH (09:13)
[2018-11-05] MEDS: Pantoprazole 40 mg EC Tab PO SCH (09:15)
[2018-11-05] MEDS: Sodium Chloride 0.9% 1,000 ML IV SCH ×2 (09:17→22:32)
--- NOTE | 2018-11-05 10:22 | CP.PCM.PN ---
<Cosme Ramos - Last Filed: 11/05/18 10:15> Subjective - Date & Time of Evaluation Date of Evaluation: 11/05/18 Time of Evaluation: 10:16 - Subjective Subjective: Cosme Ramos, PGY-1, Internal Medicine Progress Note for Dr. Richard Patient seen and evaluated at bedside. Patient had no acute overnight events. Patient is verbal and moving extremities, and is coherent today and able to answer questions. Patient continues to be confused however. 12-point ROS was unable to be obtained due to patient's mental status. Objective - Vital Signs/Intake and Output Vital Signs (last 24 hours): Temp Pulse Resp BP Pulse Ox 98.0 F 64 20 104/69 97 11/05/18 06:00 11/05/18 06:38 11/05/18 06:00 11/05/18 09:16 11/05/18 06:00 Intake and Output: 11/05/18 11/05/18 06:59 18:59 Intake Total 120 Output Total 0 Balance 120 - Medications Medications: Current Medications Amlodipine Besylate (Norvasc) 5 mg PO DAILY [facility] Last Admin: 11/05/18 09:14 Dose: Not Given Folic Acid (Folic Acid) 1 mg PO DAILY [facility] Last Admin: 11/05/18 09:14 Dose: 1 mg Sodium Chloride (Sodium Chloride 0.9%) 1,000 mls @ 75 mls/hr IV .[id number] [facility] Last Admin: 11/05/18 09:17 Dose: 75 mls/hr Levetiracetam (Keppra) 500 mg PO BID [facility] Last Admin: 11/05/18 09:04 Dose: 500 mg Lisinopril (Zestril) 20 mg PO DAILY [facility] Last Admin: 11/05/18 09:16 Dose: 20 mg Metoprolol Tartrate (Lopressor) 50 mg PO BRKDIN [facility] Last Admin: 11/05/18 06:38 Dose: 50 mg Multivitamins (Thera Tab) 1 tab PO 0800 [facility] Last Admin: 11/05/18 09:13 Dose: 1 tab Pantoprazole Sodium (Protonix Ec Tab) 40 mg PO DAILY [facility] Last Admin: 11/05/18 09:15 Dose: 40 mg Thiamine HCl (Vitamin B1 Tab) 100 mg PO DAILY [facility] Last Admin: 11/05/18 09:13 Dose: 100 mg - Labs Labs: 11/05/18 07:00 11/05/18 07:00 PT 13.2 SECONDS (9.4-12.5) H 11/05/18 07:00 INR 1.17 11/05/18 07:00 APTT 31.4 Seconds (26.9-38.3) 10/23/18 11:42 Constitutional Appears: Cachectic - Head Exam Additional comments: Well-approximated lesions noted over L eyebrow - Eye Exam Eye Exam: EOMI Pupil Exam: PERRL - ENT Exam ENT Exam: Mucous Membranes Moist, Normal Exam - Neck Exam Neck exam: Positive for: Normal Inspection - Respiratory Exam Respiratory Exam: Clear to Auscultation Bilateral, NORMAL BREATHING PATTERN - Cardiovascular Exam Cardiovascular Exam: REGULAR RHYTHM, +S1, +S2 - GI/Abdominal Exam GI & Abdominal Exam: Soft. absent: Tenderness - Extremities Exam Extremities exam: Negative for: calf tenderness - Back Exam Back exam: NORMAL INSPECTION - Neurological Exam Neurological exam: Alert Additional comments: awake, arousable. Answering questions appropriately. Continues to be confused GCS 14 - Psychiatric Exam Psychiatric exam: Agitated - Skin Skin Exam: Abrasion (Over L eyebrow), Dry, Warm Assessment and Plan - Assessment and Plan (Free Text) Assessment: 58 y/o M with PMH of ETOH, hx neuroendocrine tumor s/p L axillary surgery bib EMS for agitation, slurred speech x 2 days. Pt found to have [id number] L sided temporal hemorrhage with small amount of surrounding edema. Pt also found to have anterior wall [place], however anticoagulation not indicated Plan: L temporal hemorrhagic CVA -Pt still confused, but improving. Moving extremities bilaterally. PERRL bilaterally. -CT Head 10/26: "There is a large acute hemorrhage in the L temporal lob which is unchanged in size. There is no intraventricular extension. There is a mild- moderate amount of surrounding vasogenic edema." -Per neurosurgery, no acute intervention at this time -MRI unable to be completed as questionnaire cannot be filled out. -Currently on oral anti-hypertensives, lopressor/lisinopril to prevent recurrent hemorrhagic event. -Due to SBP in 90s overnight, will reduce amlodipine to 5 mg from 10 mg -Decadron stopped -Continue keppra 500mg for seizure prophylaxis -Neurosurgery/Neurology following. appreciate recs -HOB >40 degrees New onset Afib w/ RVR -Converted back to normal sinus rhythm -Continue with lopressor -not a candidate for anticoagulation 2/2 ICH ACS -troponins downtrended -Status post recent anterior [place] -Given ICH, pt not a candidate for anticoagulation & antiplatelets -Cardiology following -Echo reveals normal LVEF 58% , Aortic valve severely thickened, mild-mod AR -Per cardio: continue lopressor, zestril ETOH withdrawal -Pt has extensive hx of ETOH abuse. Serum ETOH on admission <10 -WA protocol -Avoid ativan as pt becomes very lethargic & neurologic status not able to be determined accurately -Continue thiamine/multivitamin/folic acid -Aspiration precautions, neuro checks q2h -Fall precautions -On seizure prophylaxis with keppra Hypertension -Continue lisinopril, and lopressor -Reduced norvasc to 5 mg Leukocytosis -2/2 decadron. Downtrending -Has been afebrile, not tachycardic, pt afebrile Hx of neuroendocrine tumor s/p L axillary surgery with residual L arm lymphedema -Pt's home oncologist consulted, Dr. Long, appreciate recs -Will need outpatient follow up RUE DVT -Mild catheter related thrombus in R subclavian vein seen on venous duplex -not a candidate for anticoagulation 2/2 ICH Hyponatremia/Hypochloridemia -Started NS at 75cc/hr -continue to monitor Transaminitis likely 2/2 to alcohol use -Downtrending -Hepatitis panel negative -Continue to monitor DVT/GI PPx: SCD/Protonix Dispo: Family members have been able to be reached. Pending acute care facility placement. Goal is for transfer to [facility]. Two disciplines of therapy will be needed to complete authorization Patient plan discussed with Dr. Richard <Brunilda Richard R - Last Filed: 11/05/18 13:16> Objective - Vital Signs/Intake and Output Vital Signs (last 24 hours): Temp Pulse Resp BP Pulse Ox 98.0 F 64 20 104/69 97 11/05/18 06:00 11/05/18 06:38 11/05/18 06:00 11/05/18 09:16 11/05/18 06:00 Intake and Output: 11/05/18 11/05/18 06:59 18:59 Intake Total 120 Output Total 0 Balance 120 - Medications Medications: Current Medications Amlodipine Besylate (Norvasc) 5 mg PO DAILY [facility] Last Admin: 11/05/18 09:14 Dose: Not Given Folic Acid (Folic Acid) 1 mg PO DAILY [facility] Last Admin: 11/05/18 09:14 Dose: 1 mg Sodium Chloride (Sodium Chloride 0.9%) 1,000 mls @ 75 mls/hr IV .[id number] [facility] Last Admin: 11/05/18 09:17 Dose: 75 mls/hr Levetiracetam (Keppra) 500 mg PO BID [facility] Last Admin: 11/05/18 09:04 Dose: 500 mg Lisinopril (Zestril) 20 mg PO DAILY [facility] Last Admin: 11/05/18 09:16 Dose: 20 mg Metoprolol Tartrate (Lopressor) 50 mg PO BRKDIN [facility] Last Admin: 11/05/18 06:38 Dose: 50 mg Multivitamins (Thera Tab) 1 tab PO 0800 [facility] Last Admin: 11/05/18 09:13 Dose: 1 tab Pantoprazole Sodium (Protonix Ec Tab) 40 mg PO DAILY [facility] Last Admin: 11/05/18 09:15 Dose: 40 mg Thiamine HCl (Vitamin B1 Tab) 100 mg PO DAILY [facility] Last Admin: 11/05/18 09:13 Dose: 100 mg - Labs Labs: 11/05/18 07:00 11/05/18 07:00 PT 13.2 SECONDS (9.4-12.5) H 11/05/18 07:00 INR 1.17 11/05/18 07:00 APTT 31.4 Seconds (26.9-38.3) 10/23/18 11:42 Attending/Attestation - Attestation I have personally seen and examined this patient.: Yes I have fully participated in the care of the patient.: Yes I have reviewed all pertinent clinical information, including history, physical exam and plan: Yes Notes (Text): Patient seen and examined by me with resident at approximately 9AM on 11/05/18. Case including HPI, physical exam, and assessment and plan discussed with nirmala elkins. Agree with above with following additions/corrections. Patient is 58-year-old male with past medical history significant for neural endocrine tumor, status post left axillary surgery and residual left arm lymphedema, and alcohol abuse that presented to the emergency room with agitation and slurred speech. Patient awake and alert. Attempts to verbally communicate but does not make sense. Patient unable to answer questions. Unable to obtain any review of systems from patient. Patient is afebrile. Per nurse, patient is eating well with assistance. Physical exam: General: Awake and alert sitting up in bed in no acute distress HEENT: Normocephalic, atraumatic. Extraocular muscles intact. Pupils equal and reactive, no scleral icterus. Patient not opening mouth, unable to examine oroph arynx. Neck is supple. Cardiovascular: Normal rhythm. Normal S1 and S2. No murmurs, rubs, or gallops appreciated Pulmonary: Normal respiratory effort. No rhonchi, rales, or wheezing appreciated. Auscultated anteriorly. Patient does not follow commands and does not take in deep breaths. Gastrointestinal: Soft, nondistended. Nontender. Positive bowel sounds all 4 quadrants. No guarding. Musculoskeletal: Moves all extremities. Positive LUE chronic lymphedema. Central nervous system: Awake and alert. Does not follow commands. Positive aphasia. Dermatologic: Skin warm and dry. Assessment and plan: Patient is 58-year-old male with past medical history significant for neural endocrine tumor, status post left axillary surgery and residual left arm lymphedema, and alcohol abuse that presented to the emergency room with agitation and slurred speech. 1. Acute left temporal lobe hemorrhagic CVA. With aphasia. Pending rehab placement. Continue Keppra for seizure prophylaxis. Neurology recommendations appreicated. S/P decadron. Unable to obtain MRI as MRI questionnaire can not be filled out. Neurosurgery recommendations appreciated, no surgical intervention recommended. Head CT 10/23/18 per radiologist showed an acute left temporal lobe hemorrhage measuring 38 x 65 x 13 mm in size, small amount of surrounding edema, no intraventricular extension, no herniation. Head CT 10/24/2018 radiologist showed large left temporal lobe acute hematoma measuring 4.1 7.8 x 3.1 cm, mild surrounding vasogenic edema and effacement of the left lateral ventricle without midline shift or herniation; intraventricular extension of hemorrhage with small layering hemorrhage and occipital horns of the lateral ventricles, no hydrocephalus. Head CT 10/25/18 and 10/26/18 did not show any acute significant changes. 2. New onset a-fib with RVR. Converted back to normal sinus rhythm. Continue Lopressor. Cardiology recommendations appreciated. Cardizem stopped by alcohol rubber. Not a candidate for anticoagulation secondary to hemorrhagic stroke. 2-D echo per alcohol rubber showed mild concentric left ventricular hypertrophy, left ventricular function is normal, left ventricular ejection fraction is within normal range, normal LV segmental wall motion, aortic valve severely thickened, mild to moderate aortic regurgitation, mild to moderate valvular aortic stenosis. 3. ACS. Elevated troponins. Recent anterior wall [place]. Continue Lopressor. Anticoagulation and antiplatelets contraindicated. 2D echo as above. Cardiology recommendations appreciated. 4. Accelerated Hypertension. Continue Lisinopril and Lopressor. Norvasc dose decreased secondary to blood pressure being on lower side. 5. Alcohol abuse. S/P CIWA. Continue thiamine, folic acid, and multivitamin. 6. History of neuroendocrine tumor with left axillary surgery and residual left arm lymphedema . Oncology recommendations appreciated. Patient will need outpatient follow up. 7. RUE DVT. PICC line removed. Anticoagulation contraindicated. Venous doppler per radiologist showed mild catheter-related thrombus in the right subclavian vein. 8. Hypokalemia. Resolved. Continue to monitor. 9. Hyponatremia/hypochloremia. Placed on IV fluids. Continue to monitor. 10. Transaminitis. Downtrending. Hepatitis panel negative. History of heavy alcohol abuse. Continue to monitor.
--- NOTE | 2018-11-05 16:55 | PN ---
DATE: 11/05/2018 This is [facility]'s hospital visit on the medical floor. For Dr. Long. SUBJECTIVE: The patient is 58-year-old male now known to suffered a left temporal hemorrhagic stroke with aphasia, sitting up in bed with one-to-one nursing at the side with the patient unable to answer questions appropriately repeating 12 and thank you continuously. The patient is known to have suffered from a neuroendocrine tumor of the left axilla with resultant lymphedema of the left upper extremity and has a history of alcohol abuse prior to this hospitalization. At present, he appears to be in no acute distress with nursing staff consulted regarding his appetite, which is reported as good and with bowel movements will also noted look incontinence. OBJECTIVE/PHYSICAL EXAMINATION: VITAL SIGNS: Temperature 98, pulse 64, respirations 20, blood pressure 104/69 and pulse ox 97%. HEENT: Unremarkable. Tongue is moist. NECK: Supple. HEART: Regular rate. LUNGS: Clear. ABDOMEN: Soft and nontender. EXTREMITIES: A 2+ edema of left upper extremity with lymphedema noted chronic. SKIN: Warm and dry. NEUROLOGIC: The patient unable to answer questions appropriately, moves all extremities with aphasia persisting. LABORATORY DATA: The patient's labs were done. White blood cell count of 13.8, hemoglobin 14.4, hematocrit 42.0 and platelet count 242,000 with a metabolic panel showing a sodium of 130, chloride of 94, AST of 77, ALT of 167, otherwise normal metabolic panel. The patient's INR was repeated 1.1 down from 1.4 on admission. ASSESSMENT: For this patient is that of acute left temporal hemorrhagic stroke with productive receptive aphasia, history of neuroendocrine tumor at left axilla with resultant lymphedema left upper extremity, history of EtOH abuse. PLAN: For this patient is to continue his present medical regimen with consideration for eventual placement as indicated. the patient with a comprehensive medically necessary and appropriate visit carried out in excess of 15 minutes with the nursing staff consulted regarding his level of care. Prognosis is guarded. Junaid Champion MD
[2018-11-06 06:45] LABS: BASO # 0.01 K/mm3 (0.0-2.0); BASO % 0.1 % (0.0-3.0); EOS # 0.3 (0.0-0.7); EOS % 1.7 % (1.5-5.0); HEMOGLOBIN 14.2 g/dL (14.0-18.0); LYMPH # 1.4 (1.2-3.4); LYMPH % 8.6 % (22.0-35.0); MEAN CELL VOLUME 98.1 fl (80.0-105.0); MEAN CORPUSCULAR HEMOGLOBIN 34.1 pg (25.0-35.0); MEAN CORPUSCULAR HGB CONC 34.7 g/dl (31.0-37.0); MEAN PLATELET VOLUME 12.5 fl (7.0-11.0); MONO # 0.5 (0.1-0.6); RBC 4.17 10^6/uL (3.5-6.1); RED CELL DISTRIBUTION WIDTH 13.1 % (11.5-14.5); WHITE BLOOD COUNT 16.1 10^3/uL (4.5-11.0)
[2018-11-06 06:48] LABS: ALB/GLOB RATIO 1.1 (1.1-1.8); ALBUMIN 3.3 g/dL (3.0-4.8); ALT/SGPT 143 U/L (7-56); AST/SGOT 80 U/L (17-59); BLOOD UREA NITROGEN 12 mg/dL (7-21); GFR NON-AFRICAN AMERICAN > 60
[2018-11-06] MEDS: Multivitamin Therapeutic Tab PO SCH (09:30)
[2018-11-06] MEDS: Pantoprazole 40 mg EC Tab PO SCH (09:31)
[2018-11-06 12:00] LABS: OSMOLALITY,URINE 752 mosm/kg (300-1000)
--- NOTE | 2018-11-06 13:01 | CP.PCM.PN ---
<Guille Lennon - Last Filed: 11/06/18 12:53> Subjective - Date & Time of Evaluation Date of Evaluation: 11/06/18 Time of Evaluation: 10:00 - Subjective Subjective: INTERNAL MEDICINE PROGRESS NOTE FOR DR. MARIUSZ Lennon PGY1 Pt seen and examined at bedside this am. Pt still verbal, tolerating diet. ROS unable to be obtained Objective - Vital Signs/Intake and Output Vital Signs (last 24 hours): Temp Pulse Resp BP Pulse Ox 97.9 F 72 20 120/78 99 11/05/18 19:00 11/06/18 09:31 11/05/18 19:00 11/06/18 09:31 11/05/18 19:00 Intake and Output: 11/06/18 11/06/18 06:59 18:59 Intake Total 0 Output Total 0 Balance 0 - Medications Medications: Current Medications Amlodipine Besylate (Norvasc) 5 mg PO DAILY [facility] Last Admin: 11/06/18 09:31 Dose: 5 mg Folic Acid (Folic Acid) 1 mg PO DAILY [facility] Last Admin: 11/06/18 09:31 Dose: 1 mg Levetiracetam (Keppra) 500 mg PO BID [facility] Last Admin: 11/06/18 09:31 Dose: 500 mg Lisinopril (Zestril) 20 mg PO DAILY [facility] Last Admin: 11/06/18 09:30 Dose: 20 mg Metoprolol Tartrate (Lopressor) 50 mg PO BRKDIN [facility] Last Admin: 11/06/18 09:31 Dose: 50 mg Multivitamins (Thera Tab) 1 tab PO 0800 [facility] Last Admin: 11/06/18 09:30 Dose: 1 tab Pantoprazole Sodium (Protonix Ec Tab) 40 mg PO DAILY [facility] Last Admin: 11/06/18 09:31 Dose: 40 mg Thiamine HCl (Vitamin B1 Tab) 100 mg PO DAILY [facility] Last Admin: 11/06/18 09:30 Dose: 100 mg - Labs Labs: 11/06/18 06:25 11/06/18 06:25 PT 13.2 SECONDS (9.4-12.5) H 11/05/18 07:00 INR 1.17 11/05/18 07:00 APTT 31.4 Seconds (26.9-38.3) 10/23/18 11:42 - Constitutional Appears: Cachectic - Head Exam Additional comments: Well-approximated lesions noted over L eyebrow - Eye Exam Eye Exam: EOMI Pupil Exam: PERRL - ENT Exam ENT Exam: Mucous Membranes Moist, Normal Exam - Neck Exam Neck exam: Positive for: Normal Inspection - Respiratory Exam Respiratory Exam: Clear to Auscultation Bilateral, NORMAL BREATHING PATTERN - Cardiovascular Exam Cardiovascular Exam: REGULAR RHYTHM, +S1, +S2 - GI/Abdominal Exam GI & Abdominal Exam: Soft. absent: Tenderness - Extremities Exam Extremities exam: Negative for: calf tenderness - Back Exam Back exam: NORMAL INSPECTION - Neurological Exam Neurological exam: Alert Additional comments: awake, arousable. Not answering questions appropriately. Not obeying commands GCS 12 - Psychiatric Exam Psychiatric exam: Agitated - Skin Skin Exam: Abrasion (Over L eyebrow), Dry, Warm Assessment and Plan - Assessment and Plan (Free Text) Assessment: 58 y/o M with PMH of ETOH, hx neuroendocrine tumor s/p L axillary surgery bib EMS for agitation, slurred speech x 2 days. Pt found to have [id number] L sided temporal hemorrhage with small amount of surrounding edema. Pt also found to have anterior wall IA, however anticoagulation not indicated Plan: L temporal hemorrhagic CVA Pt still confused, verbal however not making sense. Still moving extremities bilaterally. PERRL bilaterally. CT Head 10/26: "There is a large acute hemorrhage in the L temporal lob which is unchanged in size. There is no intraventricular extension. There is a mild- moderate amount of surrounding vasogenic edema." Per neurosurgery, no acute intervention at this time MRI unable to be completed as questionnaire cannot be filled out. No family able to be contacted to fill out MRI questionnaire currently on oral anti-hypertensives, amlodipine/lopressor/lisinopril. BP has been elevated Continue keppra 500mg for seizure prophylaxis Neurosurgery/Neurology following. appreciate recs HOB >40 degrees New onset Afib w/ RVR rate controlled, continue with beta-charles therapy not a candidate for anticoagulation 2/2 ICH ACS w/ recent IA troponins downtrended Given ICH, pt not a candidate for anticoagulation & antiplatelets Cardiology following echo reveals normal LVEF 58% , Ao valve severely thickened, mild-mod AR per cardio: continue b-charles, ACEi, amlodipine ETOH withdrawal Pt has extensive hx of ETOH abuse. Serum ETOH on admission <10 Avoid ativan has pt becomes very lethargic & neurologic status not able to be determined accurately continue thiamine/multivitamin/folic acid CIWA protocol Aspiration precautions, neuro checks q1h Fall precautions On seizure prophylaxis with keppra Leukocytosis 2/2 decadron Has been afebrile, not tachycardic, pt afebrile, normotensive Hx of neuroendocrine tumor s/p L axillary surgery with residual L arm lymphedema Pt's home oncologist consulted, Dr. Long, appreciate recs RUE dvt present. PICC removed RUE DVT Mild catheter related thrombus in R subclavian vein not a candidate for anticoagulation 2/2 ICH Hyponatremia/chloremia Likely 2/2 osmostat reset will start fluid restriction stop IVF continue to monitor DVT/GI PPx: SCD/Protonix Diet: Speech/spallow eval appreciated, dysphagia diet Dispo: . Pending acute care facility placement. Discontinue 1:1 Case reviewed with attending physician, Dr. Mariusz Lennon PGY1 <Debra Wright - Last Filed: 11/08/18 17:22> Objective - Vital Signs/Intake and Output Vital Signs (last 24 hours): Temp Pulse Resp BP Pulse Ox 98.2 F 82 18 120/80 97 11/08/18 16:24 11/08/18 16:24 11/08/18 16:24 11/08/18 16:24 11/08/18 16:24 Intake and Output: 11/08/18 11/08/18 06:59 18:59 Intake Total 1140 Balance 1140 - Medications Medications: Current Medications Amlodipine Besylate (Norvasc) 5 mg PO DAILY [facility] Last Admin: 11/08/18 10:29 Dose: 5 mg Folic Acid (Folic Acid) 1 mg PO DAILY [facility] Last Admin: 11/08/18 10:29 Dose: 1 mg Levetiracetam (Keppra) 500 mg PO BID [facility] Last Admin: 11/08/18 10:29 Dose: 500 mg Lisinopril (Zestril) 20 mg PO DAILY [facility] Last Admin: 11/08/18 10:29 Dose: 20 mg Metoprolol Tartrate (Lopressor) 50 mg PO BRKDIN [facility] Last Admin: 11/08/18 07:38 Dose: Not Given Multivitamins (Thera Tab) 1 tab PO 0800 [facility] Last Admin: 11/08/18 10:29 Dose: 1 tab Pantoprazole Sodium (Protonix Ec Tab) 40 mg PO DAILY [facility] Last Admin: 11/08/18 10:29 Dose: 40 mg Thiamine HCl (Vitamin B1 Tab) 100 mg PO DAILY [facility] Last Admin: 11/08/18 10:29 Dose: 100 mg - Labs Labs: 11/08/18 06:10 11/08/18 06:10 PT 13.2 SECONDS (9.4-12.5) H 11/05/18 07:00 INR 1.17 11/05/18 07:00 APTT 31.4 Seconds (26.9-38.3) 10/23/18 11:42 Attending/Attestation - Attestation I have personally seen and examined this patient.: Yes I have fully participated in the care of the patient.: Yes I have reviewed all pertinent clinical information, including history, physical exam and plan: Yes Notes (Text): Attending note; Patient seen and examined with resident. Patient is alert and awake. Able to speak. Still has expressive aphasia. Patient is 58-year-old male with past medical history significant for neural endocrine tumor, status post left axillary surgery and residual left arm lymphedema, and alcohol abuse that presented to the emergency room with agitation and slurred speech. 1. Acute left temporal lobe hemorrhagic CVA. With aphasia. Pending rehab placement. Continue Keppra for seizure prophylaxis. Neurology recommendations appreicated. S/P decadron. Repeat Head CT 10/25/18 and 10/26/18 did not show any acute significant changes. 2. New onset a-fib with RVR. Converted back to normal sinus rhythm. Continue Lopressor. Not a candidate for anticoagulation secondary to hemorrhagic stroke. 2-D echo showed mild concentric left ventricular hypertrophy, left ventricular function is normal, left ventricular ejection fraction is within normal range, normal LV segmental wall motion, aortic valve severely thickened, mild to moderate aortic regurgitation, mild to moderate valvular aortic stenosis. 3. ACS. Elevated troponins. Recent anterior wall IA. Continue Lopressor. Anticoagulation and antiplatelets contraindicated.Cardiology recommendations appreciated. 4. Alcohol abuse. Continue thiamine, folic acid, and multivitamin. 5. History of neuroendocrine tumor with left axillary surgery and residual left arm lymphedema . Oncology recommendations appreciated. Patient will need outpatient follow up. 7. RUE DVT. PICC line removed. Anticoagulation contraindicated. Venous doppler showed mild catheter-related thrombus in the right subclavian vein. 8. HypoNatremia; resolved with fluid restriction. Probable osmotic reset. Physical therapy evaluation appreciated. Case discussed with home health care case manager in detail for Rehab placement.
--- NOTE | 2018-11-06 14:11 | PN ---
DATE: 11/06/2018 SUBJECTIVE: The patient participated in physical therapy without issues. No chest pain noted. PHYSICAL EXAMINATION: VITAL SIGNS: Blood pressure 128/78, the heart rate is in the 70s. NECK: Negative JVD. HEART: S1, S2. LUNGS: Without rales. EXTREMITIES: Without edema. LABORATORY DATA: Hemoglobin is 14.2. Chemistries, BUN and creatinine are unremarkable. IMPRESSION: 1. Status post intracerebral bleed. 2. Recent anteroseptal myocardial infarction. 3. Atrial fibrillation. 4. Cerebrovascular accident. 5. Hypertension. PLAN: Given these findings, the patient's blood pressure is well controlled. Anticoagulation is contraindicated at this time given the recent intracerebral bleed. Justin Shelley MD
[2018-11-06 17:16] VITALS: RESP 18
[2018-11-07 06:42] LABS: BASO # 0.01 K/mm3 (0.0-2.0); BASO % 0.1 % (0.0-3.0); EOS # 0.3 (0.0-0.7); HEMOGLOBIN 13.5 g/dL (14.0-18.0); LYMPH # 0.9 (1.2-3.4); LYMPH % 8.5 % (22.0-35.0); MEAN CELL VOLUME 98.2 fl (80.0-105.0); MEAN CORPUSCULAR HEMOGLOBIN 34.4 pg (25.0-35.0); MEAN PLATELET VOLUME 12.4 fl (7.0-11.0); MONO # 0.9 (0.1-0.6); RBC 3.93 10^6/uL (3.5-6.1); WHITE BLOOD COUNT 11.1 10^3/uL (4.5-11.0)
[2018-11-07 07:41] LABS: ALBUMIN 3.1 g/dL (3.0-4.8); ALT/SGPT 108 U/L (7-56); AST/SGOT 52 U/L (17-59); BLOOD UREA NITROGEN 12 mg/dL (7-21); CALCIUM 8.7 mg/dL (8.4-10.5); GFR NON-AFRICAN AMERICAN > 60
--- NOTE | 2018-11-07 10:09 | CP.PCM.PN ---
<Guille Lennon - Last Filed: 11/07/18 10:35> Subjective - Date & Time of Evaluation Date of Evaluation: 11/07/18 Time of Evaluation: 10:05 - Subjective Subjective: INTERNAL MEDICINE PROGRESS NOTE FOR DR. MARIUSZ Lennon PGY1 Pt seen and examined at bedside this am. No acute events overnight. Pt seen resting comfortably. He is still verbal, moving extremities spontaneously however still not making sense. ROS unable to be obtained. Objective - Vital Signs/Intake and Output Vital Signs (last 24 hours): Temp Pulse Resp BP Pulse Ox 97 F L 63 18 111/78 97 11/06/18 17:15 11/06/18 18:50 11/06/18 17:15 11/06/18 18:50 11/06/18 17:15 Intake and Output: 11/07/18 11/07/18 06:59 18:59 Intake Total 1080 Output Total 550 Balance 530 - Medications Medications: Current Medications Amlodipine Besylate (Norvasc) 5 mg PO DAILY [facility] Last Admin: 11/06/18 09:31 Dose: 5 mg Folic Acid (Folic Acid) 1 mg PO DAILY [facility] Last Admin: 11/06/18 09:31 Dose: 1 mg Levetiracetam (Keppra) 500 mg PO BID [facility] Last Admin: 11/06/18 18:49 Dose: 500 mg Lisinopril (Zestril) 20 mg PO DAILY [facility] Last Admin: 11/06/18 09:30 Dose: 20 mg Metoprolol Tartrate (Lopressor) 50 mg PO BRKDIN [facility] Last Admin: 11/06/18 18:50 Dose: 50 mg Multivitamins (Thera Tab) 1 tab PO 0800 [facility] Last Admin: 11/06/18 09:30 Dose: 1 tab Pantoprazole Sodium (Protonix Ec Tab) 40 mg PO DAILY [facility] Last Admin: 11/06/18 09:31 Dose: 40 mg Thiamine HCl (Vitamin B1 Tab) 100 mg PO DAILY [facility] Last Admin: 11/06/18 09:30 Dose: 100 mg - Labs Labs: 11/07/18 06:00 11/07/18 06:00 PT 13.2 SECONDS (9.4-12.5) H 11/05/18 07:00 INR 1.17 11/05/18 07:00 APTT 31.4 Seconds (26.9-38.3) 10/23/18 11:42 - Constitutional Appears: Cachectic - Head Exam Additional comments: Well-approximated lesions noted over L eyebrow - Eye Exam Eye Exam: EOMI Pupil Exam: PERRL - ENT Exam ENT Exam: Mucous Membranes Moist, Normal Exam - Neck Exam Neck exam: Positive for: Normal Inspection - Respiratory Exam Respiratory Exam: Clear to Auscultation Bilateral, NORMAL BREATHING PATTERN - Cardiovascular Exam Cardiovascular Exam: REGULAR RHYTHM, +S1, +S2 - GI/Abdominal Exam GI & Abdominal Exam: Soft. absent: Tenderness - Extremities Exam Extremities exam: Negative for: calf tenderness - Back Exam Back exam: NORMAL INSPECTION - Neurological Exam Neurological exam: Alert Additional comments: awake, arousable. Not answering questions appropriately. Not obeying commands GCS 12 - Psychiatric Exam Psychiatric exam: Agitated - Skin Skin Exam: Abrasion (Over L eyebrow), Dry, Warm Assessment and Plan - Assessment and Plan (Free Text) Assessment: 58 y/o M with PMH of ETOH, hx neuroendocrine tumor s/p L axillary surgery bib EMS for agitation, slurred speech x 2 days. Pt found to have [id number] L sided temporal hemorrhage with small amount of surrounding edema. Pt also found to have anterior wall DC, however anticoagulation not indicated Plan: L temporal hemorrhagic CVA Pt still confused, verbal however not making sense. Still moving extremities bilaterally. PERRL bilaterally. CT Head 10/26: "There is a large acute hemorrhage in the L temporal lob which is unchanged in size. There is no intraventricular extension. There is a mild- moderate amount of surrounding vasogenic edema." Per neurosurgery, no acute intervention at this time MRI unable to be completed as questionnaire cannot be filled out. No family able to be contacted to fill out MRI questionnaire currently on oral anti-hypertensives, amlodipine/lopressor/lisinopril. BP has been elevated Continue keppra 500mg for seizure prophylaxis Neurosurgery/Neurology following. appreciate recs HOB >40 degrees New onset Afib w/ RVR rate controlled, continue with beta-charles therapy not a candidate for anticoagulation 2/2 ICH ACS w/ recent DC troponins downtrended Given ICH, pt not a candidate for anticoagulation & antiplatelets Cardiology following echo reveals normal LVEF 58% , Ao valve severely thickened, mild-mod AR per cardio: continue b-charles, ACEi, amlodipine ETOH withdrawal Pt has extensive hx of ETOH abuse. Serum ETOH on admission <10 Avoid ativan has pt becomes very lethargic & neurologic status not able to be determined accurately continue thiamine/multivitamin/folic acid CIWA protocol Aspiration precautions, neuro checks q1h Fall precautions On seizure prophylaxis with keppra Leukocytosis 2/2 decadron. downtrending Has been afebrile, not tachycardic, pt afebrile, normotensive Hx of neuroendocrine tumor s/p L axillary surgery with residual L arm lymphedema Pt's home oncologist consulted, Dr. Long, appreciate recs RUE dvt present. PICC removed RUE DVT Mild catheter related thrombus in R subclavian vein not a candidate for anticoagulation 2/2 ICH Hyponatremia/chloremia Likely 2/2 osmostat reset improved with fluid restriction continue to monitor DVT/GI PPx: SCD/Protonix Diet: Speech/spallow eval appreciated, dysphagia diet Dispo: . Pending acute care facility placement Case reviewed with attending physician, Dr. Mariusz Lennon PGY1 <Debra Wright - Last Filed: 11/08/18 17:23> Objective - Vital Signs/Intake and Output Vital Signs (last 24 hours): Temp Pulse Resp BP Pulse Ox 98.2 F 82 18 120/80 97 11/08/18 16:24 11/08/18 16:24 11/08/18 16:24 11/08/18 16:24 11/08/18 16:24 Intake and Output: 11/08/18 11/08/18 06:59 18:59 Intake Total 1140 Balance 1140 - Medications Medications: Current Medications Amlodipine Besylate (Norvasc) 5 mg PO DAILY [facility] Last Admin: 11/08/18 10:29 Dose: 5 mg Folic Acid (Folic Acid) 1 mg PO DAILY [facility] Last Admin: 11/08/18 10:29 Dose: 1 mg Levetiracetam (Keppra) 500 mg PO BID [facility] Last Admin: 11/08/18 10:29 Dose: 500 mg Lisinopril (Zestril) 20 mg PO DAILY [facility] Last Admin: 11/08/18 10:29 Dose: 20 mg Metoprolol Tartrate (Lopressor) 50 mg PO BRKDIN [facility] Last Admin: 11/08/18 07:38 Dose: Not Given Multivitamins (Thera Tab) 1 tab PO 0800 [facility] Last Admin: 11/08/18 10:29 Dose: 1 tab Pantoprazole Sodium (Protonix Ec Tab) 40 mg PO DAILY [facility] Last Admin: 11/08/18 10:29 Dose: 40 mg Thiamine HCl (Vitamin B1 Tab) 100 mg PO DAILY [facility] Last Admin: 11/08/18 10:29 Dose: 100 mg - Labs Labs: 11/08/18 06:10 11/08/18 06:10 PT 13.2 SECONDS (9.4-12.5) H 11/05/18 07:00 INR 1.17 11/05/18 07:00 APTT 31.4 Seconds (26.9-38.3) 10/23/18 11:42 Attending/Attestation - Attestation I have personally seen and examined this patient.: Yes I have fully participated in the care of the patient.: Yes I have reviewed all pertinent clinical information, including history, physical exam and plan: Yes Notes (Text): 11/08/18 17:22 Attending note; Patient seen and examined with resident. Patient is alert and awake. Able to speak. Still has expressive aphasia. Patient is 58-year-old male with past medical history significant for neural endocrine tumor, status post left axillary surgery and residual left arm lymphedema, and alcohol abuse that presented to the emergency room with agitation and slurred speech. 1. Acute left temporal lobe hemorrhagic CVA. With aphasia. Pending rehab placement. Continue Keppra for seizure prophylaxis. Neurology recommendations appreicated. S/P decadron. Repeat Head CT 10/25/18 and 10/26/18 did not show any acute significant changes. 2. New onset a-fib with RVR. Converted back to normal sinus rhythm. Continue Lopressor. Not a candidate for anticoagulation secondary to hemorrhagic stroke. 2-D echo showed mild concentric left ventricular hypertrophy, left ventricular function is normal, left ventricular ejection fraction is within normal range, normal LV segmental wall motion, aortic valve severely thickened, mild to moderate aortic regurgitation, mild to moderate valvular aortic stenosis. 3. ACS. Elevated troponins. Recent anterior wall DC. Continue Lopressor. Anticoagulation and antiplatelets contraindicated.Cardiology recommendations appreciated. 4. Alcohol abuse. Continue thiamine, folic acid, and multivitamin. 5. History of neuroendocrine tumor with left axillary surgery and residual left arm lymphedema . Oncology recommendations appreciated. Patient will need outpatient follow up. 7. RUE DVT. PICC line removed. Anticoagulation contraindicated. Venous doppler showed mild catheter-related thrombus in the right subclavian vein. 8. HypoNatremia; resolved with fluid restriction. Probable osmotic reset. 9. Elevated LFTs; secondary to alcohol abuse. Trending down. Physical therapy evaluation appreciated. Case discussed with correctional casework specialist in detail for Rehab placement.
[2018-11-07] MEDS: Multivitamin Therapeutic Tab PO SCH (10:55)
[2018-11-07] MEDS: Pantoprazole 40 mg EC Tab PO SCH (10:56)
[2018-11-08 06:43] LABS: BASO # 0.01 K/mm3 (0.0-2.0); BASO % 0.1 % (0.0-3.0); EOS # 0.3 (0.0-0.7); EOS % 2.2 % (1.5-5.0); HEMOGLOBIN 13.2 g/dL (14.0-18.0); LYMPH # 1.1 (1.2-3.4); LYMPH % 9.2 % (22.0-35.0); MEAN CELL VOLUME 98.5 fl (80.0-105.0); MEAN CORPUSCULAR HEMOGLOBIN 33.7 pg (25.0-35.0); MEAN CORPUSCULAR HGB CONC 34.2 g/dl (31.0-37.0); MEAN PLATELET VOLUME 12.2 fl (7.0-11.0); MONO # 0.4 (0.1-0.6); MONO % 3.2 % (1.0-6.0); RBC 3.92 10^6/uL (3.5-6.1); RED CELL DISTRIBUTION WIDTH 13.1 % (11.5-14.5); WHITE BLOOD COUNT 12.1 10^3/uL (4.5-11.0)
[2018-11-08 07:11] LABS: ALBUMIN 3.1 g/dL (3.0-4.8); ALT/SGPT 99 U/L (7-56); AST/SGOT 54 U/L (17-59); BLOOD UREA NITROGEN 12 mg/dL (7-21); CALCIUM 8.6 mg/dL (8.4-10.5); GFR NON-AFRICAN AMERICAN > 60
[2018-11-08] MEDS: Pantoprazole 40 mg EC Tab PO SCH (10:29)
[2018-11-08] MEDS: Multivitamin Therapeutic Tab PO SCH (10:29)
--- NOTE | 2018-11-08 11:15 | CP.PCM.PN ---
Subjective - Date & Time of Evaluation Date of Evaluation: 11/08/18 Time of Evaluation: 11:11 - Subjective Subjective: Antonette Muniz DO, PGY-2: Neurology Progress Note for Dr. Man Patient was seen and examined at bedside. He was unable to cooperate with exam. He does have Wernicke's aphasia. He is easily aggravated and irritable. He is lying in bed with the covers on. Objective - Vital Signs/Intake and Output Vital Signs (last 24 hours): Temp Pulse Resp BP Pulse Ox 97.8 F 80 18 113/75 96 11/08/18 07:51 11/08/18 07:51 11/08/18 07:51 11/08/18 07:51 11/08/18 07:51 Intake and Output: 11/08/18 11/08/18 06:59 18:59 Intake Total 1140 Balance 1140 - Medications Medications: Current Medications Amlodipine Besylate (Norvasc) 5 mg PO DAILY [facility] Last Admin: 11/08/18 10:29 Dose: 5 mg Folic Acid (Folic Acid) 1 mg PO DAILY [facility] Last Admin: 11/08/18 10:29 Dose: 1 mg Levetiracetam (Keppra) 500 mg PO BID [facility] Last Admin: 11/08/18 10:29 Dose: 500 mg Lisinopril (Zestril) 20 mg PO DAILY [facility] Last Admin: 11/08/18 10:29 Dose: 20 mg Metoprolol Tartrate (Lopressor) 50 mg PO BRKDIN [facility] Last Admin: 11/08/18 07:38 Dose: Not Given Multivitamins (Thera Tab) 1 tab PO 0800 [facility] Last Admin: 11/08/18 10:29 Dose: 1 tab Pantoprazole Sodium (Protonix Ec Tab) 40 mg PO DAILY [facility] Last Admin: 11/08/18 10:29 Dose: 40 mg Thiamine HCl (Vitamin B1 Tab) 100 mg PO DAILY [facility] Last Admin: 11/08/18 10:29 Dose: 100 mg - Labs Labs: 11/08/18 06:10 11/08/18 06:10 PT 13.2 SECONDS (9.4-12.5) H 11/05/18 07:00 INR 1.17 11/05/18 07:00 APTT 31.4 Seconds (26.9-38.3) 10/23/18 11:42 - Constitutional Appears: Non-toxic, No Acute Distress - Head Exam Head Exam: ATRAUMATIC, NORMOCEPHALIC - Eye Exam Eye Exam: EOMI, Normal appearance - ENT Exam ENT Exam: Mucous Membranes Moist - Neck Exam Neck Exam: Normal Inspection - Respiratory Exam Respiratory Exam: NORMAL BREATHING PATTERN. absent: Accessory Muscle Use - Cardiovascular Exam Cardiovascular Exam: RRR, +S1, +S2 - GI/Abdominal Exam GI & Abdominal Exam: Soft. absent: Tenderness, Rebound - Extremities Exam Extremities Exam: Normal Inspection. absent: Calf Tenderness - Neurological Exam Neurological Exam: Alert, Awake Additional comments: patient is able to move all extremities sponataneously, offers resistance when tried to move any extremity, unable to assess strength or power otherwise. 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 Imaging reveals a L sided temporal lobe hemorrhage with surrounding edema but no herniation. Plan L Temporal Hemorrhagic Stroke with Productive and Receptive Aphasia - Keppra 500 mg BID - pacemaker did not allow for MRI of brain with/without contrast - Repeat CT head to evaluate brain and previous area of hemorrhage Case was reviewed and discussed with attending physician, Dr. Man
--- NOTE | 2018-11-08 14:05 | PN ---
DATE: 11/08/2018 CARDIOLOGY FOLLOWUP SUBJECTIVE: The patient is in bed, irritated, does not want to see anymore doctors, no more tests, he states. He denies chest pain. PHYSICAL EXAMINATION: VITAL SIGNS: Blood pressure 113/75, heart rate is in the 80s. NECK: Negative JVD. LUNGS: Without rales. HEART: Reveals S1 and S2. EXTREMITIES: Without edema. LABORATORY DATA: Hemoglobin 13.2. Chemistries, BUN and creatinine unremarkable. IMPRESSION: 1. Intracerebral bleed. 2. Recent anteroseptal myocardial infarction. 3. Coronary artery disease. 4. Atrial fibrillation. 5. Hypertension. Given these findings, the patient's blood pressure is well-controlled. We will continue him on his present medications. As per patient's request, no further cardiac intervention at this time. Justin Shelley MD
[2018-11-08 16:08] VITALS: BP 120/80; PULSE 82; TEMP 98.2; O2SAT 97
--- NOTE | 2018-11-08 16:25 | CT ---
Date of service: 11/08/2018 PROCEDURE: CT HEAD WITHOUT CONTRAST. HISTORY: re-evaluate hemorrhagic stroke COMPARISON: 10/25/18 and 10/27/18. Serial CT scans of the head TECHNIQUE: Axial computed tomography images were obtained through the head/brain without intravenous contrast. Supplemental Coronal and Sagittal projections created and reviewed. Radiation dose: Total exam DLP = 73.75 mGy-cm. This CT exam was performed using one or more of the following dose reduction techniques: Automated exposure control, adjustment of the mA and/or kV according to patient size, and/or use of iterative reconstruction technique. FINDINGS: HEMORRHAGE: Continue decrease in acute hemorrhage left temporal parietal lobe. BRAIN: No mass effect or edema. No atrophy or chronic microvascular ischemic changes. VENTRICLES: Persistent effacement of the left lateral ventricle. No intraventricular hemorrhage noted. CALVARIUM: Unremarkable. PARANASAL SINUSES: Unremarkable as visualized. No significant inflammatory changes. MASTOID AIR CELLS: Unremarkable as visualized. No inflammatory changes. OTHER FINDINGS: None. IMPRESSION: Continued improvement in hemorrhagic process left temporal parietal region.
--- NOTE | 2018-11-08 16:41 | CP.PCM.DIS ---
<Guille Lennon - Last Filed: 11/08/18 16:38> Provider - Provider Date of Admission: 10/23/18 13:30 Attending physician: Debra Wright MD Consults: 10/23/18 12:39 Consult [Physician Consult] Stat Comment: Consulting Provider: James Hansen Consulting Physician: James Hansen Reason for Consult: temporal hemorrhage 10/23/18 13:20 Hematology Oncology Consult Stat Comment: Consulting Provider: Parviz Long Consulting Physician: Parviz Long Reason for Consult: neuroendocrine cancer 10/23/18 13:25 Neurology Consult Stat Comment: Consulting Provider: Gary Man Consulting Physician: Gary Man Reason for Consult: temporal hemorrhage 10/23/18 13:27 Critical Care Consult Stat Comment: Consulting Provider: Igor Fuller Consulting Physician: Igor Fuller Reason for Consult: intracranial hemorrhage 10/23/18 16:27 Cardiology Consult Routine Comment: Consulting Provider: Justin Shelley Consulting Physician: Justin Shelley Reason for Consult: Elevated troponins, EKG ?CYNTHIA, s/p ICH 10/23/18 20:53 Nursing Referral for Palliative Care Routine Comment: Physician Instructions: Reason For Exam: EVALUATION Social Work Referral Routine Comment: DISCHARGE PLANNING WITH ASSISTANCE AT HOME. Physician Instructions: Reason For Exam: EVALUATION-PLACEMENT 10/26/18 11:46 Palliative Care Consult Routine Comment: Consulting Provider: Adelina Hussein Physician Instructions: Reason For Exam: ICH, goals of care. Time Spent in preparation of Discharge (in minutes): 45 Diagnosis - Discharge Diagnosis (1) Intracranial hemorrhage Status: Ruled-out (2) Expressive aphasia Status: Ruled-out (3) New onset atrial fibrillation Status: Resolved (4) Anterior wall myocardial infarction Status: Ruled-out (5) Alcohol withdrawal Status: Resolved (6) History of neuroendocrine cancer Status: Chronic (7) Hyponatremia Status: Ruled-out (8) Hypochloremia Status: Ruled-out (9) Right subclavian vein thrombosis Status: Ruled-out (10) Head injury Status: Ruled-out Hospital Course - Lab Results Lab Results: Micro Results 10/23/18 12:20 Blood Blood Culture - Final NO GROWTH AFTER 5 DAYS 10/23/18 12:20 Blood Gram Stain - Final TEST NOT PERFORMED 10/23/18 11:42 Blood Blood Culture - Final NO GROWTH AFTER 5 DAYS 10/23/18 11:42 Blood Gram Stain - Final TEST NOT PERFORMED 10/25/18 21:00 Urine Random Urine Culture - Final No Growth (<1,000 CFU/ML) 10/24/18 12:00 Naris MRSA Culture (Admit) - Final MRSA NOT DETECTED Most Recent Lab Values WBC 12.1 10^3/uL (4.5-11.0) H 11/08/18 06:10 RBC 3.92 10^6/uL (3.5-6.1) 11/08/18 06:10 Hgb 13.2 g/dL (14.0-18.0) L 11/08/18 06:10 Hct 38.6 % (42.0-52.0) L 11/08/18 06:10 MCV 98.5 fl (80.0-105.0) 11/08/18 06:10 MCH 33.7 pg (25.0-35.0) 11/08/18 06:10 MCHC 34.2 g/dl (31.0-37.0) 11/08/18 06:10 RDW 13.1 % (11.5-14.5) 11/08/18 06:10 Plt Count 225 10^3/uL (120.0-450.0) 11/08/18 06:10 MPV 12.2 fl (7.0-11.0) H 11/08/18 06:10 Neut % (Auto) 85.3 % (50.0-68.0) H 11/08/18 06:10 Lymph % (Auto) 9.2 % (22.0-35.0) L 11/08/18 06:10 [place] % (Auto) 3.2 % (1.0-6.0) 11/08/18 06:10 Eos % (Auto) 2.2 % (1.5-5.0) 11/08/18 06:10 Baso % (Auto) 0.1 % (0.0-3.0) 11/08/18 06:10 Lymph # (Auto) 1.1 (1.2-3.4) L 11/08/18 06:10 [place] # (Auto) 0.4 (0.1-0.6) 11/08/18 06:10 Eos # (Auto) 0.3 (0.0-0.7) 11/08/18 06:10 Baso # (Auto) 0.01 K/mm3 (0.0-2.0) 11/08/18 06:10 Absolute Neuts (auto) 10.28 (1.4-6.5) H 11/08/18 06:10 Neutrophils % (Manual) 85 % (50.0-70.0) H 10/29/18 07:00 Band Neutrophils % 2 % (0-2) 10/26/18 05:30 Lymphocytes % (Manual) 10 % (22.0-35.0) L 10/29/18 07:00 Monocytes % (Manual) 5 % (1.0-6.0) 10/29/18 07:00 Platelet Evaluation Normal (NORMAL) 10/26/18 05:30 Large Platelets Present 10/26/18 05:30 PT 13.2 SECONDS (9.4-12.5) H 11/05/18 07:00 INR 1.17 11/05/18 07:00 APTT 31.4 Seconds (26.9-38.3) 10/23/18 11:42 Sodium 128 mmol/L (132-148) L 11/08/18 06:10 Potassium 4.1 mmol/L (3.6-5.0) 11/08/18 06:10 Chloride 95 mmol/L (98-107) L 11/08/18 06:10 Carbon Dioxide 25 mmol/L (21-33) 11/08/18 06:10 Anion Gap 13 (10-20) 11/08/18 06:10 BUN 12 mg/dL (7-21) 11/08/18 06:10 Creatinine 0.4 mg/dl (0.8-1.5) L 11/08/18 06:10 Est GFR ( Amer) > 60 11/08/18 06:10 Est GFR (Non-Af Amer) > 60 11/08/18 06:10 POC Glucose (mg/dL) 126 mg/dL (65-110) H 11/08/18 16:05 Random Glucose 102 mg/dL (70-110) 11/08/18 06:10 Hemoglobin A1c 4.7 % (4.2-6.5) 10/23/18 11:42 Serum Osmolality 265 mosm/kg (272-300) L 11/06/18 07:15 Calcium 8.6 mg/dL (8.4-10.5) 11/08/18 06:10 Phosphorus 3.9 mg/dL (2.5-4.5) 11/01/18 07:10 Magnesium 1.7 mg/dL (1.7-2.2) 11/01/18 07:10 Total Bilirubin 1.0 mg/dL (0.2-1.3) 11/08/18 06:10 AST 54 U/L (17-59) 11/08/18 06:10 ALT 99 U/L (7-56) H 11/08/18 06:10 Alkaline Phosphatase 100 U/L (38-126) 11/08/18 06:10 Ammonia 20 umol/L (9-33) 10/23/18 11:42 Total Creatine Kinase 20 U/L (35-230) L 11/02/18 06:00 Troponin I 0.21 ng/mL H* D 10/24/18 00:15 Total Protein 6.3 g/dL (5.8-8.3) 11/08/18 06:10 Albumin 3.1 g/dL (3.0-4.8) 11/08/18 06:10 Globulin 3.1 gm/dL 11/08/18 06:10 Albumin/Globulin Ratio 1.0 (1.1-1.8) L 11/08/18 06:10 Triglycerides 74 mg/dL (35-160) 10/23/18 11:42 Cholesterol 160 mg/dL (130-200) 10/23/18 11:42 LDL Cholesterol Direct 92 mg/dL (0-129) 10/23/18 11:42 HDL Cholesterol 48 mg/dL (29-60) 10/23/18 11:42 Free T4 1.97 ng/dL (0.78-2.19) 10/25/18 07:40 TSH 3rd Generation 0.56 mIU/mL (0.46-4.68) 10/25/18 07:40 Urine Color Yellow (YELLOW) 10/25/18 06:50 Urine Appearance Clear (CLEAR) 10/25/18 06:50 Urine pH 5.5 (4.7-8.0) 10/25/18 06:50 Ur Specific [place] 1.025 (1.005-1.035) 10/25/18 06:50 Urine Protein Negative mg/dL (<30 mg/dL) 10/25/18 06:50 Urine Glucose (UA) 250 mg/dL (NEGATIVE) H 10/25/18 06:50 Urine Ketones >=80 mg/dL (NEGATIVE) 10/25/18 06:50 Urine Blood Negative (NEGATIVE) 10/25/18 06:50 Urine Nitrate Negative (NEGATIVE) 10/25/18 06:50 Urine Bilirubin Small (NEGATIVE) H 10/25/18 06:50 Urine Urobilinogen 1.0 E.U./dL (<1 E.U./dL) H 10/25/18 06:50 Ur Leukocyte Esterase Negative Eric/uL (NEGATIVE) 10/25/18 06:50 Urine Osmolality 752 mosm/kg (300-1000) 11/06/18 10:44 Ur Random Sodium 205 meq/L 11/06/18 10:44 Urine Opiates Screen Negative (NEGATIVE) 10/25/18 06:50 Urine Methadone Screen Negative (NEGATIVE) 10/25/18 06:50 Ur Barbiturates Screen Negative (NEGATIVE) 10/25/18 06:50 Ur Phencyclidine Scrn Negative (NEGATIVE) 10/25/18 06:50 Ur Amphetamines Screen Negative (NEGATIVE) 10/25/18 06:50 U Benzodiazepines Scrn Negative (NEGATIVE) 10/25/18 06:50 U Oth Cocaine Metabols Negative (NEGATIVE) 10/25/18 06:50 U Cannabinoids Screen Negative (NEGATIVE) 10/25/18 06:50 Alcohol, Quantitative < 10 mg/dL (0-10) 10/23/18 11:42 Hepatitis A IgM Ab Negative (NEGATIVE) 10/31/18 08:16 Hep Bs Antigen Negative (NEGATIVE) 10/31/18 08:16 Hep B Core IgM Ab Negative (NEGATIVE) 10/31/18 08:16 Hepatitis C Antibody Negative (NEGATIVE) 10/31/18 08:16 Blood Type O POSITIVE 10/23/18 11:42 Blood Type Confirm O POSITIVE 10/23/18 12:14 Antibody Screen Negative 10/23/18 11:42 BBK History Checked No verified bt 10/23/18 11:42 - Hospital Course Hospital Course: Upon Admission: 58 y/o M with PMH of neuroendocrine tumor s/p unspecified L axillary surgery & residual L arm lymphedema, ETOH abuse presented to [facility] – [place], [place] after being bib EMS with agitation & slurred speech. Per family, pt has recently been agitated and they last saw pt 2 days ago in his normal state. Family had called EMS as agitation had not resolved. Upon interview, pt is alert and verbal, however does not make sense. He does not obey commands. Hospital Course: Pt was found to have significant intracranial hemorrhage on CT scan. Neurosurgery had evaluated the patient and did not recommend any acute surgical intervention. Pt was transferred to ICU for close monitoring and was placed on 3% hypertonic saline drip, decadron therapy and keppra per neurology recommendations. Pt was also found to have a new onset atrial fibrillation and placed on cardizem gtt. Pt was also on nicardipine for strict blood pressure control Pt was also evaluated by cardiology who diagnosed new anterior wall DC, however deemed patient was not a candidate for anticoagulation d/t intracerebral hemorrhage. Pt was eventually taken off of 3% NS and cardizem and switched to oral b-blockers for rate control. Pt had been moving his extremities and was verbal throughout entire hospital course, although he didn't make sense with his words. Some nights, patient was agitated and medicated with sedatives. Pt had eventually passed speech/swallow eval and switched to oral medications. Pt had some clinical improvements in mental status however still had expressive aphasia. Pt was evaluated by physical therapy who recommended Acute rehab. After several days, a close friend was able to reached who agreed with acute rehabilitation placement. CT Head w/o contrast 10/23: There is an acute left temporal lobe hemorrhage measuring 38 x 65 x 30 mm in size. There is a small amount of surrounding edema. There is no intraventricular extension. There is no herniation. CXR 10/23: No active disease CT Head w/o contrast 10/24: 1. Large left temporal lobe acute hematoma measuring 4.1 x 7.8 x 3.1 cm, not significantly change in size and morphology since the prior examination given differences in slice selection. Mild surrounding vasogenic edema and effacement of the left lateral ventricle without midline shift or herniation. 2. Intraventricular extension of hemorrhage with small layering hemorrhage in the occipital horns of the lateral ventricles. No hydrocephalus. 3. No other significant interval change. Echo 10/25: There is mild concentric left ventricular hypertrophy.The left ventricular function is normal.The left ventricular ejection fraction is within the normal range.There is normal LV segmental wall motion.The aortic valve is severely thickened.There is mild to moderate aortic regurgitation.There is mild to moderate valvular aortic stenosis. CT Head 10/25: No significant change in large left temporal acute hematoma CT Head 10/27: There is a large acute hemorrhage in the left temporal lobe which is unchanged in size. There is no intraventricular extension. There is a mild to moderate amount of surrounding vasogenic edema CT Head 11/08: Continued improvement in hemorrhagic process left temporal parietal region Upon Discharge: Pt is still verbal, tolerating his diet, moving his extremities spontaneously. PERRLA. He demonstrates no new focal neurological deficits. Vital signs/labs stable. He is to be transferred to acute care facility for further rehab. Discharge Exam - Head Exam Head Exam: ATRAUMATIC, NORMOCEPHALIC - Eye Exam Eye Exam: EOMI, Normal appearance - ENT Exam ENT Exam: Mucous Membranes Moist, Normal Exam - Neck Exam Neck exam: Normal Inspection - Respiratory Exam Respiratory Exam: NORMAL BREATHING PATTERN, UNREMARKABLE - Cardiovascular Exam Cardiovascular Exam: REGULAR RHYTHM, +S1, +S2 - GI/Abdominal Exam GI & Abdominal Exam: Normal Bowel Sounds, Unremarkable - Extremities Exam Extremities exam: normal inspection - Back Exam Back exam: NORMAL INSPECTION - Neurological Exam Neurological exam: Alert, Oriented x3 - Psychiatric Exam Psychiatric exam: Normal Affect, Normal Mood - Skin Skin Exam: Dry, Intact, Warm Discharge Plan - Follow Up Plan Condition: GUARDED Disposition: REHAB FACILITY/REHAB UNIT Instructions: Stroke (DC), Intracerebral Hemorrhage (DC), Aphasia (DC), Head Injury Observation (DC) Additional Instructions: You will be transferred to a rehabilitation facility While at the facility, please comply with physical therapy, occupational therapy, speech therapy. You will be continued on the same medications that you were taking in the hospital. Please inform staff if you have any issues with your medications Upon discharge from the rehab facility Please follow up with your primary care doctor within 1 week of discharge Please follow up with your riprap placer, Dr. Shelley within 1 week of discharge. Please discuss you EKG with him Please follow up with your neurologist within 1 week of discharge Please follow up with your boom supervisor-oncologist within 1 week of discharge Please continue the medications that you were taking previously If your symptoms return or you experience new symptoms, please return to the nearest emergency room Referrals: Gary Man MD [Staff Provider] - Justin Shelley MD [Staff Provider] - James Hansen MD [Staff Provider] - <Debra Wright - Last Filed: 11/08/18 17:25> Provider - Provider Date of Admission: 10/23/18 13:30 Attending physician: Debra Wright MD Consults: 10/23/18 12:39 Consult [Physician Consult] Stat Comment: Consulting Provider: James Hansen Consulting Physician: aJmes Hansen Reason for Consult: temporal hemorrhage 10/23/18 13:20 Hematology Oncology Consult Stat Comment: Consulting Provider: Parviz Long Consulting Physician: Parviz Long Reason for Consult: neuroendocrine cancer 10/23/18 13:25 Neurology Consult Stat Comment: Consulting Provider: Gary Man Consulting Physician: Gary Man Reason for Consult: temporal hemorrhage 10/23/18 13:27 Critical Care Consult Stat Comment: Consulting Provider: Igor Fuller Consulting Physician: Igor Fuller Reason for Consult: intracranial hemorrhage 10/23/18 16:27 Cardiology Consult Routine Comment: Consulting Provider: Justin Shelley Consulting Physician: Justin Shelley Reason for Consult: Elevated troponins, EKG ?CYNTHIA, s/p ICH 10/23/18 20:53 Nursing Referral for Palliative Care Routine Comment: Physician Instructions: Reason For Exam: EVALUATION Social Work Referral Routine Comment: DISCHARGE PLANNING WITH ASSISTANCE AT HOME. Physician Instructions: Reason For Exam: EVALUATION-PLACEMENT 10/26/18 11:46 Palliative Care Consult Routine Comment: Consulting Provider: Adelina Hussein Physician Instructions: Reason For Exam: ICH, goals of care. Hospital Course - Lab Results Lab Results: Micro Results 10/23/18 12:20 Blood Blood Culture - Final NO GROWTH AFTER 5 DAYS 10/23/18 12:20 Blood Gram Stain - Final TEST NOT PERFORMED 10/23/18 11:42 Blood Blood Culture - Final NO GROWTH AFTER 5 DAYS 10/23/18 11:42 Blood Gram Stain - Final TEST NOT PERFORMED 10/25/18 21:00 Urine Random Urine Culture - Final No Growth (<1,000 CFU/ML) 10/24/18 12:00 Naris MRSA Culture (Admit) - Final MRSA NOT DETECTED Most Recent Lab Values WBC 12.1 10^3/uL (4.5-11.0) H 11/08/18 06:10 RBC 3.92 10^6/uL (3.5-6.1) 11/08/18 06:10 Hgb 13.2 g/dL (14.0-18.0) L 11/08/18 06:10 Hct 38.6 % (42.0-52.0) L 11/08/18 06:10 MCV 98.5 fl (80.0-105.0) 11/08/18 06:10 MCH 33.7 pg (25.0-35.0) 11/08/18 06:10 MCHC 34.2 g/dl (31.0-37.0) 11/08/18 06:10 RDW 13.1 % (11.5-14.5) 11/08/18 06:10 Plt Count 225 10^3/uL (120.0-450.0) 11/08/18 06:10 MPV 12.2 fl (7.0-11.0) H 11/08/18 06:10 Neut % (Auto) 85.3 % (50.0-68.0) H 11/08/18 06:10 Lymph % (Auto) 9.2 % (22.0-35.0) L 11/08/18 06:10 [place] % (Auto) 3.2 % (1.0-6.0) 11/08/18 06:10 Eos % (Auto) 2.2 % (1.5-5.0) 11/08/18 06:10 Baso % (Auto) 0.1 % (0.0-3.0) 11/08/18 06:10 Lymph # (Auto) 1.1 (1.2-3.4) L 11/08/18 06:10 [place] # (Auto) 0.4 (0.1-0.6) 11/08/18 06:10 Eos # (Auto) 0.3 (0.0-0.7) 11/08/18 06:10 Baso # (Auto) 0.01 K/mm3 (0.0-2.0) 11/08/18 06:10 Absolute Neuts (auto) 10.28 (1.4-6.5) H 11/08/18 06:10 Neutrophils % (Manual) 85 % (50.0-70.0) H 10/29/18 07:00 Band Neutrophils % 2 % (0-2) 10/26/18 05:30 Lymphocytes % (Manual) 10 % (22.0-35.0) L 10/29/18 07:00 Monocytes % (Manual) 5 % (1.0-6.0) 10/29/18 07:00 Platelet Evaluation Normal (NORMAL) 10/26/18 05:30 Large Platelets Present 10/26/18 05:30 PT 13.2 SECONDS (9.4-12.5) H 11/05/18 07:00 INR 1.17 11/05/18 07:00 APTT 31.4 Seconds (26.9-38.3) 10/23/18 11:42 Sodium 128 mmol/L (132-148) L 11/08/18 06:10 Potassium 4.1 mmol/L (3.6-5.0) 11/08/18 06:10 Chloride 95 mmol/L (98-107) L 11/08/18 06:10 Carbon Dioxide 25 mmol/L (21-33) 11/08/18 06:10 Anion Gap 13 (10-20) 11/08/18 06:10 BUN 12 mg/dL (7-21) 11/08/18 06:10 Creatinine 0.4 mg/dl (0.8-1.5) L 11/08/18 06:10 Est GFR ( Amer) > 60 11/08/18 06:10 Est GFR (Non-Af Amer) > 60 11/08/18 06:10 POC Glucose (mg/dL) 126 mg/dL (65-110) H 11/08/18 16:05 Random Glucose 102 mg/dL (70-110) 11/08/18 06:10 Hemoglobin A1c 4.7 % (4.2-6.5) 10/23/18 11:42 Serum Osmolality 265 mosm/kg (272-300) L 11/06/18 07:15 Calcium 8.6 mg/dL (8.4-10.5) 11/08/18 06:10 Phosphorus 3.9 mg/dL (2.5-4.5) 11/01/18 07:10 Magnesium 1.7 mg/dL (1.7-2.2) 11/01/18 07:10 Total Bilirubin 1.0 mg/dL (0.2-1.3) 11/08/18 06:10 AST 54 U/L (17-59) 11/08/18 06:10 ALT 99 U/L (7-56) H 11/08/18 06:10 Alkaline Phosphatase 100 U/L (38-126) 11/08/18 06:10 Ammonia 20 umol/L (9-33) 10/23/18 11:42 Total Creatine Kinase 20 U/L (35-230) L 11/02/18 06:00 Troponin I 0.21 ng/mL H* D 10/24/18 00:15 Total Protein 6.3 g/dL (5.8-8.3) 11/08/18 06:10 Albumin 3.1 g/dL (3.0-4.8) 11/08/18 06:10 Globulin 3.1 gm/dL 11/08/18 06:10 Albumin/Globulin Ratio 1.0 (1.1-1.8) L 11/08/18 06:10 Triglycerides 74 mg/dL (35-160) 10/23/18 11:42 Cholesterol 160 mg/dL (130-200) 10/23/18 11:42 LDL Cholesterol Direct 92 mg/dL (0-129) 10/23/18 11:42 HDL Cholesterol 48 mg/dL (29-60) 10/23/18 11:42 Free T4 1.97 ng/dL (0.78-2.19) 10/25/18 07:40 TSH 3rd Generation 0.56 mIU/mL (0.46-4.68) 10/25/18 07:40 Urine Color Yellow (YELLOW) 10/25/18 06:50 Urine Appearance Clear (CLEAR) 10/25/18 06:50 Urine pH 5.5 (4.7-8.0) 10/25/18 06:50 Ur Specific [place] 1.025 (1.005-1.035) 10/25/18 06:50 Urine Protein Negative mg/dL (<30 mg/dL) 10/25/18 06:50 Urine Glucose (UA) 250 mg/dL (NEGATIVE) H 10/25/18 06:50 Urine Ketones >=80 mg/dL (NEGATIVE) 10/25/18 06:50 Urine Blood Negative (NEGATIVE) 10/25/18 06:50 Urine Nitrate Negative (NEGATIVE) 10/25/18 06:50 Urine Bilirubin Small (NEGATIVE) H 10/25/18 06:50 Urine Urobilinogen 1.0 E.U./dL (<1 E.U./dL) H 10/25/18 06:50 Ur Leukocyte Esterase Negative Eric/uL (NEGATIVE) 10/25/18 06:50 Urine Osmolality 752 mosm/kg (300-1000) 11/06/18 10:44 Ur Random Sodium 205 meq/L 11/06/18 10:44 Urine Opiates Screen Negative (NEGATIVE) 10/25/18 06:50 Urine Methadone Screen Negative (NEGATIVE) 10/25/18 06:50 Ur Barbiturates Screen Negative (NEGATIVE) 10/25/18 06:50 Ur Phencyclidine Scrn Negative (NEGATIVE) 10/25/18 06:50 Ur Amphetamines Screen Negative (NEGATIVE) 10/25/18 06:50 U Benzodiazepines Scrn Negative (NEGATIVE) 10/25/18 06:50 U Oth Cocaine Metabols Negative (NEGATIVE) 10/25/18 06:50 U Cannabinoids Screen Negative (NEGATIVE) 10/25/18 06:50 Alcohol, Quantitative < 10 mg/dL (0-10) 10/23/18 11:42 Hepatitis A IgM Ab Negative (NEGATIVE) 10/31/18 08:16 Hep Bs Antigen Negative (NEGATIVE) 10/31/18 08:16 Hep B Core IgM Ab Negative (NEGATIVE) 10/31/18 08:16 Hepatitis C Antibody Negative (NEGATIVE) 10/31/18 08:16 Blood Type O POSITIVE 10/23/18 11:42 Blood Type Confirm O POSITIVE 10/23/18 12:14 Antibody Screen Negative 10/23/18 11:42 BBK History Checked No verified bt 10/23/18 11:42 Attending/Attestation - Attestation I have personally seen and examined this patient.: Yes I have fully participated in the care of the patient.: Yes I have reviewed all pertinent clinical information, including history, physical exam and plan: Yes Notes (Text): 11/08/18 17:23 Attending note; Patient seen and examined with resident. Patient is alert and awake. Able to speak. Still has expressive aphasia. Patient was able to ambulate with physical therapy yesterday. Following commands. Denies any dizziness. Patient is 58-year-old male with past medical history significant for neural endocrine tumor, status post left axillary surgery and residual left arm lymphedema, and alcohol abuse that presented to the emergency room with agitation and slurred speech. 1. Acute left temporal lobe hemorrhagic CVA. With aphasia. Pending rehab placement. Continue Keppra for seizure prophylaxis. Neurology recommendations appreicated. S/P decadron. Repeat Head CT 10/25/18 and 10/26/18 did not show any acute significant changes. Repeat CT head showed improvement in hemorrhagic process from the left temporal and parietal region. 2. New onset a-fib with RVR. Converted back to normal sinus rhythm. Continue Lopressor. Not a candidate for anticoagulation secondary to hemorrhagic stroke. 2-D echo showed mild concentric left ventricular hypertrophy, left ventricular function is normal, left ventricular ejection fraction is within normal range, normal LV segmental wall motion, aortic valve severely thickened, mild to moderate aortic regurgitation, mild to moderate valvular aortic stenosis. 3. ACS. Elevated troponins. Recent anterior wall DC. Continue Lopressor. Anticoagulation and antiplatelets contraindicated.Cardiology recommendations appreciated. 4. Alcohol abuse. Continue thiamine, folic acid, and multivitamin. Complete alcohol cessation strongly advised. 5. History of neuroendocrine tumor with left axillary surgery and residual left arm lymphedema . Oncology recommendations appreciated. Patient will need outpatient follow up. 7. RUE DVT. PICC line removed. Anticoagulation contraindicated. Venous doppler showed mild catheter-related thrombus in the right subclavian vein. 8. HypoNatremia; resolved with fluid restriction. Probable osmotic reset. 9. Elevated LFTs; secondary to alcohol abuse. Trending down. Physical therapy evaluation appreciated. Patient will be transferred to rehab today.
== END 2018-11-08 18:35 | DRG 64 ==
LOC: ED 11:09 → ERH 13:30 → CCU 14:34 → 2RSO 10-27 18:31 → 3RNO 11-01 21:04
PROVIDERS: ADMIT Internal Medicine; ATTEND Internal Medicine
PROC: 02HV33Z Insertion of Infusion Device into Superior Vena Cava, Percutaneous Approach (ICD-10-PCS; principal; 2018-10-24)
PROC: 3E043RZ Introduction of Antiarrhythmic into Central Vein, Percutaneous Approach (ICD-10-PCS; 2018-10-24)
DX: I61.1 Nontraumatic intracerebral hemorrhage in hemisphere, cortical (principal); G93.6 Cerebral edema; I21.09 ST elevation (STEMI) myocardial infarction involving other coronary artery of anterior wall; R47.01 Aphasia; F10.230 Alcohol dependence with withdrawal, uncomplicated; I24.9 Acute ischemic heart disease, unspecified; I82.621 Acute embolism and thrombosis of deep veins of right upper extremity; I82.B11 Acute embolism and thrombosis of right subclavian vein; R64 Cachexia; Z68.1 Body mass index [BMI] 19.9 or less, adult; E87.1 Hypo-osmolality and hyponatremia; I89.0 Lymphedema, not elsewhere classified; D3A.8 Other benign neuroendocrine tumors; R45.1 Restlessness and agitation; R29.708 NIHSS score 8; Y90.0 Blood alcohol level of less than 20 mg/100 ml; I25.2 Old myocardial infarction; I10 Essential (primary) hypertension; I48.91 Unspecified atrial fibrillation; I73.9 Peripheral vascular disease, unspecified; Z92.21 Personal history of antineoplastic chemotherapy; E87.6 Hypokalemia; E87.8 Other disorders of electrolyte and fluid balance, not elsewhere classified; I25.10 Atherosclerotic heart disease of native coronary artery without angina pectoris; I35.2 Nonrheumatic aortic (valve) stenosis with insufficiency; R56.9 Unspecified convulsions; S09.90XA Unspecified injury of head, initial encounter; Z78.1 Physical restraint status; Z85.72 Personal history of non-Hodgkin lymphomas